=== PATIENT | female | born 1945 | race Caucasian/White ===

== ENCOUNTER → 2019-06-19 12:44 | Outpatient (CLI) | payer MEDICARE, SELFPAY ==
[2015-02-18 17:46] VITALS: BMI 36.4
[2019-06-19 15:24] LABS: Absolute Lymphocyte Count 2.51 X10^3/uL (0.83-4.51); Absolute Neutrophil Count 4.2 X10^3/uL (2.0-7.7); Basophil# 0.06 X10^3/uL; Basophil% 0.8 % (0-1); Eosinophil# 0.11 X10^3/uL; Eosinophils% 1.5 % (0-5); Lymphocyte # 2.51 X10^3/ul (4.0); Lymphocyte % 33.7 % (19-41); Mean Corp Hgb Conc 33.3 g/dL (32-36); Mean Corpuscular Hgb 31.7 pg (27.0-32.0); Mean Corpuscular Volume 95.2 fL (81-99); Monocyte# 0.56 X10^3/uL; Monocyte% 7.5 % (0-10); NRBC Flagged by Analyzer 0 % (0-5); Neutrophil # 4.19 X10^3/uL (2.7-7.7); Neutrophil % 56.4 % (47-70); Platelet Count 222 K/mm3 (150-450); RBC Distribution Width CV 13.6 % (11.6-14.6); RBC Distribution Width SD 47.8 fl (35.1-43.9); Red Blood Count 4.41 M/mm3 (4.2-5.4); White Blood Count 7.4 K/mm3 (4.4-11.0)
[2019-06-19 15:49] LABS: Hemoglobin A1c 6.2 % (4.2-6.3)
[2019-06-19 15:57] LABS: ALB/GLOB Ratio 0.9 RATIO (0.9-2.4); AST(SGOT) 52 U/L (15-37); Alanine Aminotransfer ALT/SGPT 55 U/L (13-56); Albumin, Serum 3.6 g/dL (3.2-5.0); Alkaline Phosphatase 73 U/L (45-117); Anion Gap 6 (5-15); BUN 19 mg/dL (7-18); BUN/Creat Ratio 29.2 RATIO (10-20); Calcium,Total 9.2 mg/dL (8.5-10.1); Chloride 105 mmol/L (98-107); Cholesterol 241 mg/dL (200); Creatinine, Serum 0.65 mg/dL (0.55-1.02); EST Glomerular Filtration Rate 94 mL/min (>60); Est Glom Filt Rate - Afr Amer 114 mL/min (>60); Ferritin 124 ng/mL (8-252); Globulin 3.8 g/dL (2.2-4.2); Glucose 101 mg/dL (74-106); High Density Lipoprotein 47 mg/dL; Magnesium 2.1 mg/dL (1.6-2.6); Potassium 3.7 mmol/L (3.5-5.1); Protein, Total 7.4 g/dL (6.4-8.2); Sodium Level 137 mmol/L (136-145); Thyroid Stim Hormone (TSH) 0.63 uIU/mL (0.358-3.74); Triglycerides 144 mg/dL; Very Low Density Lipoprotein 29 mg/dL (5-40)
[2019-06-19 16:03] LABS: Vitamin B12 1001 pg/mL (211-911)
[2019-06-21 20:07] LABS: Endomysial Antibody IgA Negative (Negative)
[2019-06-22 09:40] LABS: Immunoglobulin A 252 mg/dL (64-422); t-Transglutaminase IgA <2 U/mL (0-3)
== END ==
PROVIDERS: Family Provider Family Medicine; PCP Family Medicine; Referring Provider Family Medicine; Visit Provider Family Medicine
DX: I10 Essential (primary) hypertension (principal); M16.12 Unilateral primary osteoarthritis, left hip; R20.2 Paresthesia of skin; R19.7 Diarrhea, unspecified
CPT/HCPCS: 36415; 80053; 80061; 82306; 82607; 82728; 82746; 82784; 83036; 83516; 83735; 84443; 85025; 86255

== ENCOUNTER → 2019-07-06 12:08 | Outpatient (CLI) | payer MEDICARE, SELFPAY ==
[2015-02-18 17:46] VITALS: BMI 36.4
== END ==
PROVIDERS: PCP Family Medicine; Referring Provider Family Medicine; Visit Provider Family Medicine
DX: R10.13 Epigastric pain (principal)

== ENCOUNTER → 2019-07-23 12:09 | Outpatient (CLI) | payer MEDICARE, SELFPAY ==
[2015-02-18 17:46] VITALS: BMI 36.4
== END ==
PROVIDERS: PCP Family Medicine; Referring Provider Family Medicine; Visit Provider Family Medicine
DX: R19.7 Diarrhea, unspecified (principal)
CPT/HCPCS: 83630

== ENCOUNTER → 2019-08-08 16:34 | Outpatient (CLI) | payer MEDICARE, SELFPAY ==
[2015-02-18 17:46] VITALS: BMI 36.4
[2019-08-08 18:40] LABS: CRP 5.11 mg/L (0.0-3.0)
[2019-08-10 16:07] LABS: Endomysial Antibody IgA Negative (Negative)
[2019-08-10 23:48] LABS: Immunoglobulin A 272 mg/dL (64-422); t-Transglutaminase IgA <2 U/mL (0-3)
== END ==
PROVIDERS: PCP Family Medicine; Referring Provider Internal Medicine Gastroenterology; Visit Provider Internal Medicine Gastroenterology
DX: R19.7 Diarrhea, unspecified (principal)
CPT/HCPCS: 36415; 82784; 83516; 86140; 86255

== ENCOUNTER → 2019-09-20 11:59 | Outpatient (CLI) | payer MEDICARE, SELFPAY ==
--- NOTE | 2019-09-20 12:07 | CT_ITS ---
STUDY: CT ABDOMEN AND PELVIS WITHOUT CONTRAST REASON FOR EXAM: Female, 74 years old. DIARRHEA, LLQ MASS, CHOLECYSTECTOMY RADIATION DOSAGE (If Supplied By Facility): CTDIvol = ( 20.68 ) mGy, DLP = ( 1097.97 ) mGycm TECHNIQUE: Transaxial images were obtained from the dome of the diaphragm to the symphysis pubis without oral contrast, and without intravenous contrast. Sagittal and coronal images were reconstructed. Individualized dose optimization techniques were used for this CT. COMPARISON: None. FINDINGS: The visualized lung bases are unremarkable. The visualized portions of the heart are within normal limits. Normal liver. There are surgical clips in the gallbladder fossa consistent with a prior cholecystectomy. Normal spleen. Normal pancreas. Normal bilateral adrenal glands. Small bilateral kidney stones are noted the largest measures 2 mm. There is no evidence for hydronephrosis. There is a large hiatal hernia composed mostly of the fundus of the stomach. Normal small intestine. There are multiple colonic diverticula consistent with diverticulosis. The appendix is visualized and appears normal. There is diffuse atherosclerotic calcification of the abdominal aorta, without a demonstrated aneurysm. Normal inferior vena cava. Normal retroperitoneum. Normal urinary bladder. Normal abdominal wall. There are diffuse degenerative changes of the visualized lumbar spine. CT/Abdomen/Pelvis without Cont IMPRESSION: Sigmoid diverticulosis without evidence of diverticulitis. Small bilateral kidney stones are noted the largest measures 2 mm. There is no evidence for hydronephrosis. There is a large hiatal hernia composed mostly of the fundus of the stomach. Electronically Signed: Isabelle Orellana, at 14:50 EDT Tel , Service support ,
== END ==
PROVIDERS: PCP Family Medicine; Referring Provider Family Medicine; Visit Provider Family Medicine
DX: R19.7 Diarrhea, unspecified (principal)
CPT/HCPCS: 74176

== ENCOUNTER 2019-12-24 11:36 | Observation (INO) | payer MEDICARE, SELFPAY ==
[2019-12-24] VITALS (10 sets, daily range): BP systolic 124–161; BP diastolic 66–92; PULSE 60–92; RESP 15–18; TEMP 36.4–37.1; O2SAT 94–100; BMI 33.5; BMI 34.5
--- NOTE | 2019-12-24 12:03 | EKG12_ITS ---
Test Reason : SOB Blood Pressure : / mmHG Vent. Rate : 066 BPM Atrial Rate : 066 BPM P-R Int : 186 ms QRS Dur : 126 ms QT Int : 442 ms P-R-T Axes : 053 111 -03 degrees QTc Int : 463 ms Sinus rhythm with Premature supraventricular complexes Right bundle branch block Abnormal ECG Confirmed by LUCY POE, VLAD ([id number]), technical writer and editor AYAN MCCARTHY ([id number]) on 12/26/2019 9:08:10 AM Referred By: URIEL Confirmed By:VLAD AYALA MD
--- NOTE | 2019-12-24 12:27 | ED.VISSUMM ---
- ER Visit Summary Date of Service: 12/24/19 Chief Complaint: Weakness and lightheaded History of Present Illness: The patient is a [address] Avery De Jesus. She reports that yesterday morning when she got out of bed she was very lightheaded. This gait was much worse when she stood. She not pass out, but she felt as though she was going to. States that she felt very weak and tired throughout the day and just stayed in bed. Patient reports that again this morning when she got out of bed she was very lightheaded. Again she did not pass out. However she continually is to feel very fatigued. She reports that she has had similar symptoms previously, but never this severe. She denies any chest pain. She does report that she does have mild shortness of breath. Patient reports that she has upper abdominal pain Zeta 10 in severity. She is been nausea and vomited once. No blood in her emesis. She reports that she has a chronic diarrhea all the time. She reports that she had a black stool yesterday that was loose. Patient complains of generalized weakness. She denies any headache or paresthesias. She denies any vertigo or a aphasia. Physical Examination: Vitals: Stable. Afebrile. General: Well-nourished and well-developed. Head: Normocephalic atraumatic. Neck: Supple, no lymphadenopathy. No JVD. Nontender. Cardiovascular: Regular rate and rhythm. 2 out of 6 systolic murmur. Respiratory: No respiratory distress. Clear to auscultation bilaterally. Abdominal: Soft, nontender, nondistended, normal bowel sounds. No guarding, rebound, or peritoneal signs. Back: Nontender. Extremities: Nontender, no edema. Skin: Normal color, no rash. Neurologic: Alert and oriented ?3. Cranial nerves II through XII are intact. Normal strength and sensation. Psych: Normal affect. Test Results: EKG is sinus at 66 with PACs and right bundle efrem block. Is unchanged from February 2015. CBC shows a white count of 3.8 with platelets of 136 and segmented neutrophils of 73. Chem-7 shows a potassium of 3.3 and chloride of 109. Glucose is 155. LFTs show an ALT of 95, AST of 112. Lipase is 45. Troponin is negative. UA UA shows nitrite positive urine with 4+ bacteria. No whites or reds on micro. Clinical Impression(s) from Imaging Studies Chest X-Ray 12/24/19 12:31 IMPRESSION: Degenerative changes, as described above. No demonstrated acute cardiopulmonary process. Electronically Signed: Ricki Dumont MD at 12:49 EDT , Service support , Emergency Department Course and Treatment: Patient had an IV placed. She was given a liter normal saline. She is given Zofran IV. She is resting comfortably. Patient had negative orthostatic vital signs. Urine was sent for culture. She was given a dose of Rocephin IV. I do not think this patient's nitrite positive urine is the explanation for her profound weakness. She was discussed with Dr. Penaloza who does not feel that the hiatal hernia is the source of this either. Treatment Plan: Given the patient's age and symptoms I feel that she requires admission for further evaluation and treatment. Her weakness may be an anginal equivalent. Disposition: Admitted in stable condition. Impression: 1. Weakness, uncertain cause. 2. Nitrite positive urine. 3. Hiatal hernia. This note was generated with [employer] dictation software. It may contain incorrect words, spelling, and punctuation that were not noted in review of the chart prior to signing ED Disposition - Plan for ED Patient: Referrals: Avery De Jesus MD [Primary Care Provider] -
[2019-12-24 12:28] LABS: Absolute Lymphocyte Count 0.79 X10^3/uL (0.83-4.51); Absolute Neutrophil Count 2.8 X10^3/uL (2.0-7.7); Basophil# 0.01 X10^3/uL; Basophil% 0.3 % (0-1); Hematocrit 41.9 % (37-47); Hemoglobin 13.9 g/dL (12.0-15.0); Lymphocyte # 0.79 X10^3/ul (4.0); Lymphocyte % 20.8 % (19-41); Mean Corp Hgb Conc 33.2 g/dL (32-36); Mean Corpuscular Hgb 31.3 pg (27.0-32.0); Mean Corpuscular Volume 94.4 fL (81-99); Mean Platelet Vol. 8.3 fl (6.2-12.0); Monocyte% 5.3 % (0-10); NRBC Flagged by Analyzer 0 % (0-5); Neutrophil # 2.77 X10^3/uL (2.7-7.7); Neutrophil % 72.8 % (47-70); Platelet Count 136 K/mm3 (150-450); RBC Distribution Width CV 14.3 % (11.6-14.6); RBC Distribution Width SD 49.3 fl (35.1-43.9); Red Blood Count 4.44 M/mm3 (4.2-5.4); White Blood Count 3.8 K/mm3 (4.4-11.0)
--- NOTE | 2019-12-24 12:31 | RAD_ITS ---
STUDY: X-RAY CHEST REASON FOR EXAM: Female, 74 years old. DIZZINESS, FATIGUE TECHNIQUE: Single AP portable view of the chest. COMPARISON: None. FINDINGS: EKG leads overlie the chest There are interstitial changes of the lungs. There is no demonstrated pleural abnormality. Normal size heart. Normal mediastinum and huan. Normal visualized pulmonary arteries. Normal visualized aortic arch and descending thoracic aorta. There are diffuse degenerative changes of the visualized thoracic spine. There is degenerative osteoarthritis of the bilateral shoulders. There is a retrocardiac hiatal hernia RAD/Chest 1 View (Portable) IMPRESSION: Degenerative changes, as described above. No demonstrated acute cardiopulmonary process. Electronically Signed: Ricki Dumont MD at 12:49 EDT , Service support ,
[2019-12-24 12:49] LABS: ALB/GLOB Ratio 0.9 RATIO (0.9-2.4); AST(SGOT) 112 U/L (15-37); Alanine Aminotransfer ALT/SGPT 95 U/L (13-56); Albumin, Serum 3.5 g/dL (3.2-5.0); Alkaline Phosphatase 80 U/L (45-117); Anion Gap 5 (5-15); BUN 15 mg/dL (7-18); BUN/Creat Ratio 26.1 RATIO (10-20); Calcium,Total 8.5 mg/dL (8.5-10.1); Chloride 109 mmol/L (98-107); Creatinine, Serum 0.58 mg/dL (0.55-1.02); EST Glomerular Filtration Rate 108 mL/min (>60); Est Glom Filt Rate - Afr Amer 131 mL/min (>60); Estimated Creatinine Clearance 39.59 ml/min; Glucose 155 mg/dL (74-106); Lipase 45 U/L (73-393); Potassium 3.3 mmol/L (3.5-5.1); Protein, Total 7.5 g/dL (6.4-8.2); Sodium Level 140 mmol/L (136-145)
[2019-12-24 13:24] LABS: Mucous, Urine 0 SEEN /hpf (<or=2+)
[2019-12-24 13:32] LABS: Color, Urine Yellow (Yellow); Glucose, Dipstick Normal (Normal); Ketone-Dipstick 15 mg/dl (Negative); Leukocyte Esterase-Dipstick Negative /ul (Negative); Nitrite-Dipstick Positive (Negative); Occult Blood-Urine 150 /ul (Negative); Protein-Dipstick 30 mg/dl (Negative); Specific Gravity, Urine 1.015 (1.002-1.030); Urine Bilirubin Dipstick Negative (Negative); Urine Clarity Cloudy (Clear); Urine Urobilinogen Normal (Normal); Urine pH 6.5 (5.0 - 8.0)
[2019-12-24 13:40] LABS: Bacteria 4+ /hpf (None Seen); Red Blood Cells-Urine 0-5 SEEN /hpf (0-5); Squamous Epithelial Cells - UA 0-5 SEEN /hpf (5-10); White Blood Cells 0-5 SEEN /hpf (0-5)
[2019-12-24] MEDS: Ceftriaxone 1 GM/50 ML BAG IV (14:31)
--- NOTE | 2019-12-24 15:55 | PCM.HP.STD ---
<Catalina Lemus - Last Filed: 12/24/19 16:07> Problem List (1) Hypertension Status: Chronic (2) Depression Status: Chronic History of Present Illness Date of Admission: 12/24/19 Chief Complaint: Weakness, nausea with emesis. The patient is a 74 year old F who presents emergency room due to weakness and nausea with emesis. Patient reports she had a head cold last week which she felt resolved for the most part. However this week has significant weakness and nausea/vomiting. She denies fever, chills. Denies loss of taste and smell. Denies diarrhea. Patient states she chronically takes Imodium due to chronic diarrhea. She also reports increased belching. Patient states she has a large hiatal hernia which was supposed to be repaired by Dr. Penaloza however due to COVID this was delayed. She denies shortness of breath, chest pain. She denies urinary symptoms. Past Medical History Past Medical History (Chronic Problems): Chronic Problems Hypertension (Chronic) Depression (Chronic) Allergies Penicillins [PCN] Allergy (Verified 12/24/19 11:38) Hives Home Medications: Ambulatory Orders Medication Instructions Recorded Amlodipine [Norvasc] 5 mg PO DAILY 12/24/19 Ferrous Sulfate 325 mg PO BIDCM 12/24/19 Folic Acid 1 mg PO DAILY@0800 12/24/19 Lisinopril [Zestril] 10 mg PO DAILY 12/24/19 Sertraline HCl [Zoloft] 100 mg PO DAILY 12/24/19 Surgical History: - - Right total hip arthroplasty, cholecystectomy, tubal ligation, left shoulder arthroscopic. 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 Reports her mother lived into her 90s. Paternal History Items: Diabetes Review of Systems Constitutional: Reports: Weakness, Fatigue. Denies: Chills, Fever HEENT: Denies: Head Aches, Sinus Congestion, Sinus Drainage Cardiovascular: Denies: Chest Pain, Edema, Palpitations, Syncope Respiratory: Denies: Cough, Shortness of breath at rest, Sputum production Gastrointestinal: Reports: Nausea, Vomiting. Denies: Abdominal Pain, Diarrhea Genitourinary: Denies: Dysuria Musculoskeletal: Denies: Joint Pain, Joint Tenderness Skin: Denies: Rash, Wounds Neurological: Denies: Numbness, Tingling, Focal weakness Psychiatric: Reports: Depression Hematologic/ Lymphatic: Denies: Easy Bruising, Easy Bleeding VTE Information - Inpt Only VTE Present on Admission: No VTE Mechan Device Prophylaxis: None VTE Pharm Prophylaxis ordered?: Yes - Physical Exam Vitals/I&O's: Vital Signs Temp Pulse Resp BP Pulse Ox 98.1 F 68 15 145/76 H 97 12/24/19 15:29 12/24/19 15:29 12/24/19 15:29 12/24/19 15:29 12/24/19 15:29 Oxygen Delivery Method Room Air Weight: 189 lb Body Mass Index (BMI) 33.5 Finger Stick Blood Glucose 93 Intake and Output for Last 24 Hours 12/22/19 12/23/19 12/24/19 23:59 23:59 23:59 Intake Total 550 / 550 Balance 550 / 550 General: Alert, Oriented x3, Cooperative HEENT: Atraumatic, PERRLA, EOMI, Normocephalic Oral: Dry Mucosa Neck: Supple, No JVD, Negative Carotid Bruits Lungs: Clear to auscultation, Diminished Cardiovascular: Regular rate, No murmurs Abdomen: Bowel Sounds Present, Soft, Non Tender, Non-Distended, Hernia Extremities: No clubbing, No cyanosis, No edema, Capillary Refill Less than 3 Seconds Skin: No rashes, No breakdown Musculoskeletal: No Tenderness to Palpation of Joints or Extremities Neurological: Cranial nerves II-XII grossly intact, Neuro grossly intact Psych/Mental Status: Normal Affect, Appropriate Laboratory Results 12/24/19 12:10: WBC 3.8 L, RBC 4.44, Hgb 13.9, Hct 41.9, MCV 94.4, MCH 31.3, MCHC 33.2, RDW Std Deviation 49.3 H, RDW Coeff of Ruben 14.3, Plt Count 136 L, MPV 8.3, Immature Gran % (Auto) 0.800, Neut % (Auto) 72.8 H, Lymph % (Auto) 20.8, [place] % (Auto) 5.3, Eos % (Auto) 0.0, Baso % (Auto) 0.3, Absolute Neuts (auto) 2.8, Absolute Lymphs (auto) 0.79 L, Nucleated RBC % 0 12/24/19 12:10: Sodium 140, Potassium 3.3 L, Chloride 109 H, Carbon Dioxide 26.0, Anion Gap 5, BUN 15, Creatinine 0.58, Estim Creat Clear Calc 39.59, Est GFR (MDRD) Af Amer 131, Est GFR (MDRD) Non-Af 108, BUN/Creatinine Ratio 26.1 H, Glucose 155 H, Calcium 8.5, Total Bilirubin 0.40, AST 112 H, ALT 95 H, Alkaline Phosphatase 80, Troponin I < 0.015, Total Protein 7.5, Albumin 3.5, Globulin 4.0, Albumin/Globulin Ratio 0.9, Lipase 45 L 12/24/19 13:15: Urine Color Yellow, Urine Clarity Cloudy, Urine pH 6.5, Ur Specific [place] 1.015, Urine Protein 30 H, Urine Glucose (UA) Normal, Urine Ketones 15 H, Urine Occult Blood 150 H, Urine Nitrite Positive H, Urine Bilirubin Negative, Urine Urobilinogen Normal, Ur Leukocyte Esterase Negative, Urine RBC 0-5 SEEN, Urine WBC 0-5 SEEN, Ur Squamous Epith Cells 0-5 SEEN, Urine Bacteria 4+, Urine Mucus 0 SEEN Current Medications Acetaminophen (Tylenol) 650 mg PO Q6H PRN PRN PRN Reason: Pain Score 1-10/Temp > 100.7 F Amlodipine Besylate (Norvasc) 5 mg PO DAILY [facility] Enoxaparin Sodium (Lovenox) 40 mg SC DAILY [facility] Ferrous Sulfate (Ferrous Sulfate) 325 mg PO BIDCM [facility] Folic Acid (Folic Acid) 1 mg PO DAILY@0800 [facility] Sodium Chloride () 1,000 mls @ 100 mls/hr IV .Q10H [facility] Ceftriaxone Sodium (Rocephin) 1 gm in 50 mls @ 100 mls/hr IV Q24 [facility] Lisinopril (Zestril) 10 mg PO DAILY [facility] Melatonin (Melatonin) 3 mg PO QHS PRN PRN PRN Reason: INSOMNIA Ondansetron HCl (Zofran) 4 mg IV Q8H PRN PRN PRN Reason: NAUSEA/VOMITING Sertraline HCl (Zoloft) 100 mg PO DAILY [facility] Assessment/Plan 1. Weakness, nausea/vomiting-unclear etiology. Patient reports head cold last week. Will test for COVID. Liver profile elevated. Mild lymphopenia. Gentle IV fluids. Possibly related to UTI. PT/OT. 2. Acute UTI versus asymptomatic bacteriuria-initiate IV Rocephin pending urine culture. 3. Hypertension-stable, continue amlodipine, lisinopril. 4. Large hiatal hernia-to undergo surgery by Dr. Penaloza. 5. Depression-continue sertraline regimen. DVT prophylaxis-Lovenox subcu This patient was seen by ALMA Thacker under the supervision of Dr. Rangel. <Ryan Rangel F - Last Filed: 12/24/19 17:50> History of Present Illness The patient is a 74 year old F [] Past Medical History Allergies Penicillins [PCN] Allergy (Verified 12/24/19 11:38) Hives - Physical Exam Vitals/I&O's: Vital Signs Temp Pulse Resp BP Pulse Ox 98.5 F 71 17 149/78 H 94 12/24/19 16:35 12/24/19 16:38 12/24/19 16:35 12/24/19 16:35 12/24/19 16:35 Oxygen Delivery Method Room Air Weight: 188 lb 14.4 oz Body Mass Index (BMI) 34.5 Finger Stick Blood Glucose 93 Intake and Output for Last 24 Hours 12/22/19 12/23/19 12/24/19 23:59 23:59 23:59 Intake Total 950 / 950 Balance 950 / 950 Laboratory Results 12/24/19 12:10: WBC 3.8 L, RBC 4.44, Hgb 13.9, Hct 41.9, MCV 94.4, MCH 31.3, MCHC 33.2, RDW Std Deviation 49.3 H, RDW Coeff of Ruben 14.3, Plt Count 136 L, MPV 8.3, Immature Gran % (Auto) 0.800, Neut % (Auto) 72.8 H, Lymph % (Auto) 20.8, [place] % (Auto) 5.3, Eos % (Auto) 0.0, Baso % (Auto) 0.3, Absolute Neuts (auto) 2.8, Absolute Lymphs (auto) 0.79 L, Nucleated RBC % 0 12/24/19 12:10: Sodium 140, Potassium 3.3 L, Chloride 109 H, Carbon Dioxide 26.0, Anion Gap 5, BUN 15, Creatinine 0.58, Estim Creat Clear Calc 39.59, Est GFR (MDRD) Af Amer 131, Est GFR (MDRD) Non-Af 108, BUN/Creatinine Ratio 26.1 H, Glucose 155 H, Calcium 8.5, Total Bilirubin 0.40, AST 112 H, ALT 95 H, Alkaline Phosphatase 80, Troponin I < 0.015, Total Protein 7.5, Albumin 3.5, Globulin 4.0, Albumin/Globulin Ratio 0.9, Lipase 45 L 12/24/19 13:15: Urine Color Yellow, Urine Clarity Cloudy, Urine pH 6.5, Ur Specific [place] 1.015, Urine Protein 30 H, Urine Glucose (UA) Normal, Urine Ketones 15 H, Urine Occult Blood 150 H, Urine Nitrite Positive H, Urine Bilirubin Negative, Urine Urobilinogen Normal, Ur Leukocyte Esterase Negative, Urine RBC 0-5 SEEN, Urine WBC 0-5 SEEN, Ur Squamous Epith Cells 0-5 SEEN, Urine Bacteria 4+, Urine Mucus 0 SEEN 12/24/19 16:05: COVID-19 (CHRISTIANA) Pending 12/24/19 17:00: Troponin I < 0.015 Current Medications Acetaminophen (Tylenol) 650 mg PO Q6H PRN PRN PRN Reason: Pain Score 1-10/Temp > 100.7 F Amlodipine Besylate (Norvasc) 5 mg PO DAILY [facility] Enoxaparin Sodium (Lovenox) 40 mg SC DAILY [facility] Ferrous Sulfate (Ferrous Sulfate) 325 mg PO BIDCM [facility] Last Admin: 12/24/19 16:46 Dose: 325 mg Documented by: Folic Acid (Folic Acid) 1 mg PO DAILY@0800 [facility] Sodium Chloride () 1,000 mls @ 100 mls/hr IV .Q10H [facility] Last Admin: 12/24/19 16:41 Dose: 100 mls/hr Documented by: Ceftriaxone Sodium (Rocephin) 1 gm in 50 mls @ 100 mls/hr IV Q24 [facility] Sodium Chloride () 250 mls @ 15 mls/hr IV .[id number] PRN PRN Reason: Saline Flush Sodium Chloride () 250 mls @ 15 mls/hr IV .[id number] PRN PRN Reason: Additional IVPB Infusion Lisinopril (Zestril) 10 mg PO DAILY [facility] Melatonin (Melatonin) 3 mg PO QHS PRN PRN PRN Reason: INSOMNIA Ondansetron HCl (Zofran) 4 mg IV Q8H PRN PRN PRN Reason: NAUSEA/VOMITING Sertraline HCl (Zoloft) 100 mg PO DAILY [facility] Sodium Chloride () 10 - 40 ml IV UD PRN PRN Reason: SALINE FLUSH Addendum: Dr. Rangel I personally examined the patient and reviewed the chart. I agree with the above. 74-year-old female who presented to the emergency room secondary to weakness as well as nausea and vomiting. She had a head cold last week which she thought was resolved however she has had significant weakness this week present to the hospital initially with a concern that she could possibly have a hiatal hernia causing all this. In the ER she did have a UA with 4+ bacteria and positive nitrates. There is possibility that this could be secondary to a UTI. She is supposed to have her hiatal hernia repaired by Dr. Penaloza however this was delayed secondary COVID. Will obtain a COVID test given her recent viral-like illness, as well as her lymphopenia and her a elevated AST and ALT. We will also obtain serial troponins, in case this is an anginal equivalent. Her EKG on admission is unchanged from prior. OBSV E&M: [id number] Initial observation care L3
[2019-12-24] MEDS: 0.9% Normal Saline 1,000 ML 100 ML IV (16:41)
[2019-12-24] MEDS: Ferrous Sulfate 325 MG Tablet PO (16:46)
[2019-12-24] MEDS: Acetaminophen 325 MG Tablet 650 MG PO (20:17)
[2019-12-24] MEDS: MELATONIN 3 MG TABLET PO (22:54)
[2019-12-25] MEDS: 0.9% Normal Saline 1,000 ML 100 ML IV (01:47)
[2019-12-25 01:52] VITALS: BP 103/52; PULSE 63; RESP 16; TEMP 37.4; O2SAT 95
[2019-12-25 03:59] VITALS: PULSE 63
[2019-12-25 05:40] LABS: Absolute Lymphocyte Count 1.13 X10^3/uL (0.83-4.51); Absolute Neutrophil Count 2.1 X10^3/uL (2.0-7.7); Basophil# 0.01 X10^3/uL; Basophil% 0.3 % (0-1); Eosinophil# 0.01 X10^3/uL; Eosinophils% 0.3 % (0-5); Hematocrit 36.1 % (37-47); Hemoglobin 11.8 g/dL (12.0-15.0); Lymphocyte # 1.13 X10^3/ul (4.0); Lymphocyte % 31.4 % (19-41); Mean Corp Hgb Conc 32.7 g/dL (32-36); Mean Corpuscular Hgb 31.4 pg (27.0-32.0); Mean Platelet Vol. 8.6 fl (6.2-12.0); Monocyte# 0.31 X10^3/uL; Monocyte% 8.6 % (0-10); NRBC Flagged by Analyzer 0 % (0-5); Neutrophil # 2.13 X10^3/uL (2.7-7.7); Neutrophil % 59.1 % (47-70); Platelet Count 121 K/mm3 (150-450); RBC Distribution Width CV 14.7 % (11.6-14.6); RBC Distribution Width SD 51.1 fl (35.1-43.9); Red Blood Count 3.76 M/mm3 (4.2-5.4); White Blood Count 3.6 K/mm3 (4.4-11.0)
[2019-12-25 05:53] LABS: ALB/GLOB Ratio 0.8 RATIO (0.9-2.4); AST(SGOT) 87 U/L (15-37); Alanine Aminotransfer ALT/SGPT 79 U/L (13-56); Albumin, Serum 2.8 g/dL (3.2-5.0); Alkaline Phosphatase 67 U/L (45-117); Anion Gap 5 (5-15); BUN 14 mg/dL (7-18); BUN/Creat Ratio 28.3 RATIO (10-20); Calcium,Total 7.7 mg/dL (8.5-10.1); Chloride 111 mmol/L (98-107); EST Glomerular Filtration Rate 129 mL/min (>60); Est Glom Filt Rate - Afr Amer 156 mL/min (>60); Estimated Creatinine Clearance 37.85 ml/min; Globulin 3.3 g/dL (2.2-4.2); Glucose 107 mg/dL (74-106); Potassium 3.4 mmol/L (3.5-5.1); Protein, Total 6.1 g/dL (6.4-8.2); Sodium Level 141 mmol/L (136-145)
[2019-12-25 09:30] VITALS: BP 133/98; PULSE 72; RESP 17; TEMP 37.4; O2SAT 94
[2019-12-25] MEDS: Folic Acid 1 MG Tablet PO (09:31)
[2019-12-25] MEDS: Ferrous Sulfate 325 MG Tablet PO (09:31)
[2019-12-25] MEDS: Enoxaparin 40 MG/0.4 ML Syringe SC (09:31)
[2019-12-25] MEDS: Lisinopril 10 MG Tablet PO (09:32)
[2019-12-25] MEDS: Sertraline 100 MG Tablet PO (09:32)
[2019-12-25] MEDS: amLODIPine 5 MG Tablet PO (09:32)
[2019-12-25] MEDS: Loperamide 2 MG Capsule PO (09:32)
[2019-12-25] MEDS: Acetaminophen 325 MG Tablet 650 MG PO (09:32)
--- NOTE | 2019-12-25 09:59 | CASEMGMT ---
RN CM Assessment Note Presentation: nausea, weakness, emesis, head cold last week Diagnosis: COVID-19 positive Introduced role of CM to patient via phone to room. Patient is able to participate in assessment. Pt states she was in May and is living alone. Her family is building a in law suite in their home, however this is not completed and pt will return home. Her daughter will be coming to stay with her on discharge. Patient states her family was at her house on Tuesday and therefore, would have had exposure. RN CM recommended they call their PCP and notify that patient is postive and get recommendations. -Discussed isolation @ home including being in own room and bathroom if possible. Recommended only daughter be in home to limit exposure to other family members. -Pt has masks and is aware she and daughter will need to wear on discharge. -Family is available to bring groceries and medications PCP: Avery De Jesus Specialists: none Insurance: [employer] Medicare Preferred Pharmacy: [place], [place] Prescription Benefit: yes LNOK: Daughter Cynthia Larsen Living Arrangements: Lives in one story home independently. Denies care needs and does not use DME Tranportation: family can drive DME: walker, does not use Patient DC Goals: Home DC Plan: Home. Patient is not requiring oxygen currently. CM available for discharge planning coordination. Contact CM for any concerns/needs that may arise. Kd COLON RN ACM
--- NOTE | 2019-12-25 10:15 | CASEMGMT ---
Intro role of CM to patient and [facility] form explained re: Observation status for treatment of COVID-19 via phone. Explained hospitalization will be paid per? insurance policy for Outpatient billing?and condition will continue to be evaluated for Inpt necessity. Also let pt know that [facility] sends paper in the billing packet with their phone number if questions arise. Discussed Pharmacy section of [facility] form and self administered medication guideline.? Pt verbalizes understanding and does not have further questions. Form signed and placed in chart, nurse to give copy to pt. ANA COLLINS BSN CM
--- NOTE | 2019-12-25 10:31 | DCINST_ITS ---
- Discharge Diagnoses Current Active Problems: Current Active and Chronic Problems Hypertension (Chronic) Depression (Chronic) You will use the following diet at home:: No restrictions Your food should be the consistency of: Regular Discharge Activity: Return to Normal Activity Call your doctor if you observe: Fever of 101 or Higher, Shortness of breath Additional Instructions: Isolate from family and friends from the next week. Wear masks while around family at home for the next 7 days. They should wear a mask around you as well. Allergies/Adverse Reactions: Allergies Penicillins [PCN] Allergy (Verified 12/24/19 11:38) Hives Medications to take at Discharge Amlodipine [Norvasc] 5 mg PO DAILY 12/24/19 Ferrous Sulfate 325 mg PO BIDCM 12/24/19 Folic Acid 1 mg PO DAILY@0800 12/24/19 Lisinopril [Zestril] 10 mg PO DAILY 12/24/19 Sertraline HCl [Zoloft] 100 mg PO DAILY 12/24/19 Loperamide [Imodium] 2 mg PO Q6H PRN PRN capsule 12/25/19 Primary Care Physician: Avery De Jesus MD [Primary Care Provider] - Within 2 Weeks Test Results: Test results from this visit will be discussed in further detail at your follow- up appointment, if applicable. Proposed Discharge Date: 12/25/19
--- NOTE | 2019-12-25 10:34 | PCM.DC.SUM ---
Discharge Date and Diagnosis - Problem List Patient Problems: Active and Suspected Problems COVID-19 (Acute) Date of Admission: 12/24/19 Date of Discharge: 12/25/19 - Primary Discharge Diagnosis Acute Problems: Active Problems COVID-19 (Acute) - Secondary Discharge Diagnosis Chronic Problems: Chronic Problems Hypertension (Chronic) Depression (Chronic) Hospital Course and Treatment Imaging Results: Clinical Impression(s) from Imaging Studies Chest X-Ray 12/24/19 12:31 IMPRESSION: Degenerative changes, as described above. No demonstrated acute cardiopulmonary process. Electronically Signed: Ricki Dumont MD at 12:49 EDT , Service support , Operations: None Procedures: None Summary of Care Provided: The patient is a 74 year old F presents with weakness, nausea and vomiting. Patient had felt sick for a week before. Was checked for COVID-19 and was positive. There was some concern for a urinary tract infection, however the urinalysis was unremarkable except for 4+ bacteria. Therefore, urinary tract infection was ruled out. Today, the patient is feeling much better. Is not short of breath. No further nausea and vomiting. [] Patient Problems: Active and Suspected Problems COVID-19 (Acute) - Physical Exam Vitals/I&O's: Vital Signs Temp Pulse Resp BP Pulse Ox 37.4 C H 72 17 133/98 H 94 12/25/19 09:30 12/25/19 09:30 12/25/19 09:30 12/25/19 09:30 12/25/19 09:30 Oxygen Delivery Method Room Air Weight: 85.684 kg Body Mass Index (BMI) 34.5 Finger Stick Blood Glucose 93 Intake and Output for Last 24 Hours 12/23/19 12/24/19 12/25/19 23:59 23:59 23:59 Intake Total 1723.33 / 1723.33 678.34 / 678.34 Balance 1723.33 / 1723.33 678.34 / 678.34 General: Alert, No apparent distress HEENT: Atraumatic, Normocephalic Oral: Moist Mucosa, No Gingival or Mucosal Lesions/ Ulcerations Neck: No Nodes, Thyroid Normal Size and Texture Lungs: Clear to auscultation, Normal air movement, No rhonchi, No wheeze Cardiovascular: Regular rate, Regular Rhythm, Normal S1, Normal S2 Abdomen: Bowel Sounds Present, Soft, Non Tender, Non-Distended, No Hepato-splenomegaly Extremities: No edema, No Calf Tenderness Laboratory Results 12/24/19 12:10: WBC 3.8 L, RBC 4.44, Hgb 13.9, Hct 41.9, MCV 94.4, MCH 31.3, MCHC 33.2, RDW Std Deviation 49.3 H, RDW Coeff of Ruben 14.3, Plt Count 136 L, MPV 8.3, Immature Gran % (Auto) 0.800, Neut % (Auto) 72.8 H, Lymph % (Auto) 20.8, Humphreys % (Auto) 5.3, Eos % (Auto) 0.0, Baso % (Auto) 0.3, Absolute Neuts (auto) 2.8, Absolute Lymphs (auto) 0.79 L, Nucleated RBC % 0 12/24/19 12:10: Sodium 140, Potassium 3.3 L, Chloride 109 H, Carbon Dioxide 26.0, Anion Gap 5, BUN 15, Creatinine 0.58, Estim Creat Clear Calc 39.59, Est GFR (MDRD) Af Amer 131, Est GFR (MDRD) Non-Af 108, BUN/Creatinine Ratio 26.1 H, Glucose 155 H, Calcium 8.5, Total Bilirubin 0.40, AST 112 H, ALT 95 H, Alkaline Phosphatase 80, Troponin I < 0.015, Total Protein 7.5, Albumin 3.5, Globulin 4.0, Albumin/Globulin Ratio 0.9, Lipase 45 L 12/24/19 13:15: Urine Color Yellow, Urine Clarity Cloudy, Urine pH 6.5, Ur Specific [place] 1.015, Urine Protein 30 H, Urine Glucose (UA) Normal, Urine Ketones 15 H, Urine Occult Blood 150 H, Urine Nitrite Positive H, Urine Bilirubin Negative, Urine Urobilinogen Normal, Ur Leukocyte Esterase Negative, Urine RBC 0-5 SEEN, Urine WBC 0-5 SEEN, Ur Squamous Epith Cells 0-5 SEEN, Urine Bacteria 4+, Urine Mucus 0 SEEN 12/24/19 16:05: COVID-19 (CHRISTIANA) Detected 12/24/19 17:00: Troponin I < 0.015 12/24/19 22:50: Troponin I < 0.015 12/25/19 05:15: WBC 3.6 L, RBC 3.76 L, Hgb 11.8 L, Hct 36.1 L, MCV 96.0, MCH 31.4, MCHC 32.7, RDW Std Deviation 51.1 H, RDW Coeff of Ruben 14.7 H, Plt Count 121 L, MPV 8.6, Immature Gran % (Auto) 0.300, Neut % (Auto) 59.1, Lymph % (Auto) 31.4, Humphreys % (Auto) 8.6, Eos % (Auto) 0.3, Baso % (Auto) 0.3, Absolute Neuts (auto) 2.1, Absolute Lymphs (auto) 1.13, Nucleated RBC % 0 12/25/19 05:15: Sodium 141, Potassium 3.4 L, Chloride 111 H, Carbon Dioxide 25.0, Anion Gap 5, BUN 14, Creatinine 0.50 L, Estim Creat Clear Calc 37.85, Est GFR (MDRD) Af Amer 156, Est GFR (MDRD) Non-Af 129, BUN/Creatinine Ratio 28.3 H, Glucose 107 H, Calcium 7.7 L, Total Bilirubin 0.40, AST 87 H, ALT 79 H, Alkaline Phosphatase 67, Total Protein 6.1 L, Albumin 2.8 L, Globulin 3.3, Albumin/Globulin Ratio 0.8 L Current Medications Acetaminophen (Tylenol) 650 mg PO Q6H PRN PRN PRN Reason: Pain Score 1-10/Temp > 100.7 F Last Admin: 12/25/19 09:32 Dose: 650 mg Documented by: Amlodipine Besylate (Norvasc) 5 mg PO DAILY COUNT INCLUDES THE [facility] Last Admin: 12/25/19 09:32 Dose: 5 mg Documented by: Enoxaparin Sodium (Lovenox) 40 mg SC DAILY COUNT INCLUDES THE [facility] Last Admin: 12/25/19 09:31 Dose: 40 mg Documented by: [facility] S[facility]ate) [facility] Last Admin: 12/25/19 09:31 Dose: 325 mg Documented by: Folic Acid (Folic Acid) 1 mg PO DAILY@0800 COUNT INCLUDES THE [facility] Last Admin: 12/25/19 09:31 Dose: 1 mg Documented by: Sodium Chloride () 1,000 mls @ 100 mls/hr IV .Q10H COUNT INCLUDES THE [facility] Last Infusion: 12/25/19 06:00 Dose: 100 mls/hr Documented by: Sodium Chloride () 250 mls @ 15 mls/hr IV .[id number] PRN PRN Reason: Saline Flush Sodium Chloride () 250 mls @ 15 mls/hr IV .[id number] PRN PRN Reason: Additional IVPB Infusion Lisinopril (Zestril) 10 mg PO DAILY COUNT INCLUDES THE [facility] Last Admin: 12/25/19 09:32 Dose: 10 mg Documented by: Loperamide HCl (Imodium) 2 mg PO Q6H PRN PRN PRN Reason: Diarrhea Last Admin: 12/25/19 09:32 Dose: 2 mg Documented by: Melatonin (Melatonin) 3 mg PO QHS PRN PRN PRN Reason: INSOMNIA Last Admin: 12/24/19 22:54 Dose: 3 mg Documented by: Ondansetron HCl (Zofran) 4 mg IV Q8H PRN PRN PRN Reason: NAUSEA/VOMITING Sertraline HCl (Zoloft) 100 mg PO DAILY COUNT INCLUDES THE [facility] Last Admin: 12/25/19 09:32 Dose: 100 mg Documented by: Sodium Chloride () 10 - 40 ml IV UD PRN PRN Reason: SALINE FLUSH Discharge Diet: No Restrictions Discharge Activity: Return to Normal Activity Call your doctor if you observe: Fever of 101 or Higher, Shortness of breath Home Medications: Medications to take at Discharge Amlodipine [Norvasc] 5 mg PO DAILY 12/24/19 Ferrous Sulfate 325 mg PO BIDCM 12/24/19 Folic Acid 1 mg PO DAILY@0800 12/24/19 Lisinopril [Zestril] 10 mg PO DAILY 12/24/19 Sertraline HCl [Zoloft] 100 mg PO DAILY 12/24/19 Loperamide [Imodium] 2 mg PO Q6H PRN PRN capsule 12/25/19 Primary Care Physician: Avery De Jesus MD [Primary Care Provider] - Within 2 Weeks Disposition: Home Minutes spent on discharge:: 32 Patient Condition:: Fair Medical Necessity - Tobacco Use Smoking Status: Never smoker Meaningful Use Info Meaningful Use Diagnoses (Choose all that apply): None applicable OBSV E&M: 42906 Observation care discharge
== END 2019-12-25 11:43 | disposition home or self-care (01) ==
LOC: ED 12:26 → PCU 15:11 → ICU 12-25 07:05
PROVIDERS: Nurse Practitioner Family; Admitting Provider Family Medicine; Emergency Provider Emergency Medicine; PCP Family Medicine
DX: U07.1 COVID-19 (principal); K44.9 Diaphragmatic hernia without obstruction or gangrene; F32.9 Major depressive disorder, single episode, unspecified; I10 Essential (primary) hypertension; Z79.899 Other long term (current) drug therapy; K52.9 Noninfective gastroenteritis and colitis, unspecified
CPT/HCPCS: 36415; 71045; 80053; 81001; 83690; 84484; 85025; 87077; 87086; 87088; 87186; 87635; 93005; 96361; 96365; 96372; 99218; 99285; G2023; J7030; J7040; J7050; A4216; G0378; U0003

== ENCOUNTER → 2020-06-09 16:41 | Outpatient (CLI) | payer MEDICARE, SELFPAY ==
[2020-02-14 13:40] VITALS: BMI 34.5
--- NOTE | 2020-06-09 16:46 | CT_ITS ---
STUDY: CT SCAN LOWER EXTREMITY RIGHT REASON FOR EXAM: Female, 75 years old. RT KNEE CISCO PROTOCOL RADIATION DOSAGE (If Supplied By Facility): CTDIvol = ( 18.52 ) mGy, DLP = ( 1248.52 ) mGycm. Individualized dose optimization techniques were used for this CT.? TECHNIQUE: Multiple axial tomographic images of the hip joint, knee joint and ankle joint were obtained. Coronal and sagittal reconstruction was obtained as well. COMPARISON: None. FINDINGS: There is evidence of a right total hip replacement. There is good alignment. No acute abnormality is seen. Degenerative spur is seen along the lateral femoral condyle. Moderate degree of bone or joint space narrowing involving the patellofemoral joint with degenerative spur formation along the inferior patella. No significant joint effusion is seen. There is evidence of a small cystic changes in the posterior right femoral condyle. Vascular calcification. Imaging of the ankle joint was obtained. No significant abnormality is seen. CT/Extremity Lower without Contra IMPRESSION: Moderate degree of joint space narrowing involving the patellofemoral joint with degenerative spur formation along the inferior patella and the lateral aspect of the distal lateral femoral condyle. Multiple small cystic changes are seen in the right femoral condyle. Electronically Signed: Tomi Lynn, at 9:08 EST , Service support ,
== END ==
PROVIDERS: PCP Family Medicine; Referring Provider Specialist; Visit Provider Specialist
DX: M21.061 Valgus deformity, not elsewhere classified, right knee (principal)
CPT/HCPCS: 73700

== ENCOUNTER 2020-06-25 12:22 | Observation (INO) | payer MEDICARE, SELFPAY ==
[2020-02-14 13:40] VITALS: BMI 34.5
--- NOTE | 2020-06-13 15:36 | PCM.HP.BLA ---
History and Physical History and Physical Patient Name: Verna Gómez : 1945 From: [facility] NP DATE OF SURGERY: 06/25/2020 SCHEDULED PROCEDURE: Right total knee arthroplasty HISTORY OF PRESENT ILLNESS: Preoperative history and physical exam was performed on June 11, 2020. This is a 75-year-old female whose been having ongoing right knee pain after a fall in early January 2020. The patient stepped down, lost her balance and fell onto her right side. The pain in the right knee is located anterior, medial and lateral. She describes her pain as constant and sharp. The pain is made worse with stairs, sitting and walking. The pain is alleviated with rest. The patient reports inability to perform activities of daily living such as housework and shopping. The patient has fallen secondary to the right knee pain. Previous conservative measures attempted consist of rest and elevation with mild relief. She has attempted ice, heat and a cortisone injection with no relief. The patient participated in formal physical therapy which made the right knee pain worse. The patient ambulates with the use of a walker. The patient has a medical history pertinent for hypertension, depression, anxiety, hiatal hernia and is pre-diabetic. The patient is planning to have her hiatal hernia repaired in the surgery would like her to be able to ambulate and walk better prior to undergoing surgery. She denies chest pain, fevers, chills, shortness of breath, difficulty breathing or recent infections. Surgical clearance has been obtained from the [facility]. We will be obtaining surgical clearance from her primary care provider Avery De Jeuss. After failing conservative measures and discussing treatment options with Dr. Britton Jiménez the patient does wish to proceed with a right total knee arthroplasty. REVIEW OF SYSTEMS: ROS: Const: Denies anorexia, anxiety, change in appetite, fever and weight change,hard of hearing, and vision problems. CV: Denies chest pain, heart murmur, irregular heartbeat and peripheral vascular disease. Resp: Denies asthma, cough, pneumonia, sleep apnea, SOB, tuberculosis and wheezing. GI: Denies constipation, diarrhea, heartburn, nausea, bloody stools and vomiting, and difficulty swallowing. : Denies female genital problems. Urinary: reports incontinence. Musculo: Reports leg swelling, but denies trouble walking and weakness and limp. Skin: Denies Raynaud's, history of shingles and tattoo. Neuro: Reports numbness/tingling but denies ambulatory dysfunction, dizziness and tremor. Psych: Denies anxiety, depression, insomnia, mental illness and stress. Leo/Lymph: Denies anemia, bleeding/bruising tendency and past transfusion. Reviewed, no changes. PAST MEDICAL HISTORY: Advance Care Plan: No Advance Directives Effective Date: 03/12/2020 PMH: Medical Problems: High Blood Pressure, [place] Diabetic, Depression, Anxiety Accidents: Fracture - LT SHOULDER Surgical Hx: Gallbladder - 1974 Edward Tubal Ligation LT Shoulder Arthroscopy - (2005) LA RT THR - (02/18/2015) J[facility]ablito @ [facility] Laminectomy L3-L4 Partial L5 - (04/13/2016) W/ FORAMINOTOMIES L3, L4, L5 [email or web address] Anesthesia Complications: None Assistive Devices: Glasses, Dentures Reviewed and updated. 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 Personal Habits: Cigarette Use: Never.Alcohol: Denies use.Drug Use: Denies Use.Enjoy Exercising: Exercises 1-3 x/month. Reviewed, no changes. VITALS: Ht: 61.5 Wt: 189lb Wt k.730 BMI: 35.1 BP: 119/70 Pulse: 80 Resp: 16 T: 96.3 T: 35.7C Pain Level: 7 ALLERGIES: PCN MEDICATIONS: Lisinopril 2.5 mg 1po qday, Sertraline HCL 100 mg 1po qday, Amlodipine Besylate 5 mg take 1 tablet by mouth every day, Tylenol Extra Strength 500 mg 2 by mouth every 8 hours PRE-OP EXAM: General appearance:NORMAL Other: Eyes: Conjunctivae and lids: NORMAL Pupils: ERR Ears, Nose, Mouth, and Throat: NORMAL Other: Inspection of lips, teeth and gums: NORMAL Other: Respiratory: Assessment of respiratory effort: NORMAL Other: Auscultation of lungs: clear to auscultation no wheezes, rhonchi or rales. Cardiovascular: Auscultation of heart: regular rate and rhythm, no murmurs, gallops or rubs. Gastrointestinal: Exam of abdomen: soft, nontender, nondistended bowel sounds present. Neurological: see below Psychiatric: Orientation to time, place and person: NORMAL Other: Mood and affect: NORMAL Other: PHYSICAL EXAMINATION: IMAGING STUDIES: 4 views of right knee obtained on March 12, 2020 reveals moderate narrowing of the lateral compartment with subchondral sclerosis and osteophyte formation. There is narrowing and osteophyte formation in the patellofemoral compartment. Right knee with valgus deformity. MRI of right knee obtained on April 18, 2020 reveals a subchondral insufficiency fracture of the lateral femoral condyle and lateral tibial plateau without depression. There is bony edema. Lateral meniscus tear with extrusion. Degenerative arthrosis in the patellofemoral and lateral compartments. IMPRESSION: 1. Osteoarthritis, right knee 2. Nondisplaced fracture of the lateral condyle of the right tibia 3. Nondisplaced fracture of the lateral condyle of the right femur 4. Lateral meniscus tear, right knee 5. Valgus deformity, right knee 6. Hypertension 7. Anxiety/depression 8. Hiatal hernia 9. Prediabetic PLAN: Dr. Britton Jiménez did discuss and review with the patient all treatment options including surgical versus nonsurgical. The patient does wish to proceed with the above-stated procedure. Potential risk, benefits and complications of the procedure were discussed in detail including but not limited to , infection, nerve and blood vessel damage, persistent pain, numbness, tingling, paresthesia, blood clot, pulmonary embolism and requirement for possible further surgery. The patient expressed full understanding and has no further questions for the doctor. The patient does agree to proceed with the above-stated procedure and has signed the surgery consent form. The patient was instructed to bring a walker with her to the hospital today for surgery. Discussed with the patient the risks associated with the COVID-19 virus including the risk of exposure while at the hospital. The patient was reassured local hospitals have low infection rates and taken all necessary precautions to limit patient exposure to COVID-19. Limiting the patient's time in the hospital may decrease their exposure to COVID-19. The patient was notified that we will need to comply with any screening or testing the hospital wishes to perform and that surgery may be delayed for any positive test results. This dictation was created using voice recognition software. Phonetic and/or grammatical errors may exist. ___ I have re-examined the patient. There are no clinical changes since date of exam. ___ See progress notes for changes. ___ Dictated on admission Date: Time: Signature:
--- NOTE | 2020-06-18 11:00 | EKG12_ITS ---
Test Reason : PREOP Blood Pressure : / mmHG Vent. Rate : 055 BPM Atrial Rate : 055 BPM P-R Int : 196 ms QRS Dur : 128 ms QT Int : 444 ms P-R-T Axes : 071 124 030 degrees QTc Int : 424 ms Sinus bradycardia with Premature atrial complexes Right bundle branch block Abnormal ECG Confirmed by LUCY POE, VLAD ([id number]), editorial writer PRATEEK AWAD ([id number]) on 06/19/2020 11:23:17 AM Referred By: Britton Jiménez Confirmed By:VLAD AYALA MD
[2020-06-18 12:45] LABS: Absolute Lymphocyte Count 1.73 X10^3/uL (0.83-4.51); Absolute Neutrophil Count 5.5 X10^3/uL (2.0-7.7); Basophil# 0.06 X10^3/uL; Basophil% 0.8 % (0-1); Eosinophils% 1.3 % (0-5); Hematocrit 42.6 % (37-47); Hemoglobin 14.1 g/dL (12.0-15.0); Lymphocyte # 1.73 X10^3/ul (4.0); Lymphocyte % 21.8 % (19-41); Mean Corp Hgb Conc 33.1 g/dL (32-36); Mean Corpuscular Hgb 31.3 pg (27.0-32.0); Mean Corpuscular Volume 94.5 fL (81-99); Mean Platelet Vol. 8.6 fl (6.2-12.0); Monocyte# 0.54 X10^3/uL; Monocyte% 6.8 % (0-10); NRBC Flagged by Analyzer 0 % (0-5); Neutrophil # 5.49 X10^3/uL (2.7-7.7); Neutrophil % 68.9 % (47-70); Platelet Count 263 K/mm3 (150-450); RBC Distribution Width CV 14.3 % (11.6-14.6); RBC Distribution Width SD 49.5 fl (35.1-43.9); Red Blood Count 4.51 M/mm3 (4.2-5.4)
[2020-06-18 13:07] LABS: Anion Gap 6 (5-15); BUN 23 mg/dL (7-18); BUN/Creat Ratio 36.6 RATIO (10-20); Calcium,Total 9.4 mg/dL (8.5-10.1); Chloride 106 mmol/L (98-107); Creatinine, Serum 0.63 mg/dL (0.55-1.02); EST Glomerular Filtration Rate 98 mL/min (>60); Est Glom Filt Rate - Afr Amer 118 mL/min (>60); Glucose 130 mg/dL (74-106); Magnesium 2.1 mg/dL (1.6-2.6); Potassium 3.5 mmol/L (3.5-5.1); Sodium Level 138 mmol/L (136-145)
[2020-06-18 13:15] LABS: Hemoglobin A1c 5.9 % (3.8-5.6)
[2020-06-25] VITALS (22 sets, daily range): BP systolic 89–157; BP diastolic 45–81; PULSE 63–101; RESP 16–20; TEMP 36.6–37.3; O2SAT 94–99; BMI 33.2; BMI 33.3
[2020-06-25] MEDS: Lactated Ringers 1,000 ML 100 ML IV ×2 (10:44→10:59)
[2020-06-25] MEDS: Scopolamine 1mg/72hr Patch 1 PATCH TD (10:46)
[2020-06-25] MEDS: Gabapentin 600 MG Tablet PO (10:46)
[2020-06-25] MEDS: Acetaminophen 500 MG Tablet 1000 MG PO ×3 (10:50→22:33)
[2020-06-25 10:51] LABS: Bedside Glucose 125 mg/dL (70-110)
[2020-06-25] MEDS: Cefazolin 2 GM in 0.9% Normal Saline 100 ML IV (12:01)
[2020-06-25] MEDS: dexAMETHasone 10 MG/ML Vial IV (12:35)
--- NOTE | 2020-06-25 13:17 | OP.PCM_ITS ---
Report of Operation Date of Procedure: 06/25/20 Pre-Operative Diagnosis: Right knee primary osteoarthritis Post-Operative Diagnosis: Right knee primary osteoarthritis Surgery/Procedure Performed:: Right robotic assisted minimally invasive total knee replacement Description of Surgical Findings:: Stable knee with good patella tracking, correction of valgus alignment. operational risk consultant: Roosevelt Durán Type of Anesthesia:: Spinal Anesthesiologist: Hu Almonte Special Medications: 2 g Ancef, 1 g TXA at incision, 1 g TXA closure, 10 mg Decadron, joint cocktail (5 mg Duramorph, 30 mL of 0.5% Ropivicaine, 1000 units of epinephrine, 30 mg of Toradol) Specimen's removed: Bony cuts Estimated Blood Loss (mL): 100 mL Fluids Replaced: 1000 mL crystalloid Description of Procedure: Implants used: 1. [place] size 4 triathlon cruciate retaining distal femoral press-fit component 2. [place] size 4 press-fit tritanium tibial baseplate 3. [place] X3 10 mm CS polyethylene 4. [place] X3 29 mm asymmetric patella Brief history operative indications: 75-year-old F with history of right knee osteoarthritis with radiographic findings with loss of joint space, osteophyte formation and subchondral sclerosis. Failed conservative measures as mentioned in the H&P. Discussion of total knee arthroplasty as well as risk and benefits were discussed the patient including but not limited to blood loss, DVTs, PEs, neurovascular damage, general risk of anesthesia including loss of life, and stiffness or instability were discussed with patient. Patient demonstrated understanding and was able to sign informed consent. Procedure: On the date of procedure patient's right lower extremity was marked in the preoperative area. The patient was then taken back to the operating room where the patient was placed on the table in the supine position. All bony prominences were identified a well-padded. Anesthesia assumed control of the C-spine and airway and remained controlled throughout the remainder of the procedure. A tourniquet was placed on the right upper thigh and the leg was prepped in a sterile fashion. The surgeon then scrubbed at this time .Upon reentering the room right lower extremity was draped in a standard orthopedic fashion. A time out was then called and everyone agreed upon the side, the site, the procedure to be performed, patient's identity and antibiotics given. Esmarch bandage was used to exsanguinate the extremity and the tourniquet was placed up to 250 mmHg with the knee in flexion. A midline skin incision was made and sharp dissection was taken down through skin subcutaneous tissue and fat. The standard medial parapatellar incision was made and the patella was subluxed laterally. An Appropriate deep MCL release was done and the fat pad was resected. Our attention was then directed to the patella. The patella was everted and a flat resection was made. The knee was then flexed up in 2 femoral pins were placed inside the incision and 2 tibial pins were placed outside the incision in the medial tibia bicortica lly. Once this was completed the 2 checkpoints in the femur and tibia were placed. Knee was then flexed up and the bony landmarks were registered. Once this was completed knee was taken through range of motion and manually stressed allowing us to a plan for an appropriate tibial cut. The robotic arm was brought into the field sterilely and checkpoint and saw were registered. Based on the patient's deformity the tibial cut was made in neutral. At this time the tensioner was then placed in the joint and ligament tension was checked at 90 degrees and full extension. Based on the patient's ligamentous tension appropriate adjustments were made to the operative plan and ligament releases were done. Once we were happy with our operative plan with balanced flexion and extension gaps our attention was directed to the femur. The robot was brought into the field sterilely and registered. Posterior condylar cuts, anterior chamfer cuts and anterior cuts were appropriately made for a size 4 femur. When these were completed the saws were switched out in the distal femoral and posterior chamfer cuts were made. Protecting the soft tissue throughout this time. A size 4 tibial base plate was selected. the knee was flexed to 90 degrees and the soft tissues and posterior osteophytes were removed from the joint. 40 cc of the periarticular injection was injected into the posterior medial corner of the joint. The appropriate trials were then placed on the femur and tibia. A trial polyethylene was trialed to ensure proper balancing and stability of the knee. The appropriate tibial internal rotation was then marked with a bovie. Our attention was then directed to the patella. The lug holes were drilled and the patella trial was placed. Patellar tracking was checked and deemed dayne ropriate. Once we were happy lug holes were drilled for the femur and trial components were removed. the tibia was subluxed and pinned into place and the keel was punched and drilled appropriately. Final components were verified and opened, and cement was mixed in a vacuum. Expert[employer] Simplex cement was used. The wound was copiously irrigated with normal saline. When the cement was ready the components were impacted into place starting with the tibia, femur and finally cementing the patella. The trial poly component was placed and the knee was placed in full extension. All excess cement was removed in the process. Once the cement had cured the tracking, alignment and balance were verified and a size 10 mm CS polyethylene component was placed. Once the final components were placed a 3-minute dilute Betadine lavage was performed followed by an Irrisept lavage was performed and the wound was copiously irrigated with normal saline solution and the periarticular injection was given. The wound was closed in a layer saenz fashion using #1 vicryl interrupted sutures for the arthrotomy, 2-0 interrupted Vicryl suture for the subcuticular layer and kacie for final skin closure. A sterile compressive dressing was then placed. The patient was then awakened from anesthesia, transferred to the [facility] and transferred to the PACU for recovery. Post op plan DVT ppx: ASA 81mg BID, thigh high compression stockings Follow up: in office in 2 weeks for wound check PT: to start POD #0 at hospital, outpatient PT should be arranged. My physician casting assistant was a vital part of this case. He was important in appropriate retraction during the case, and protection of soft tissues during bony cuts. His intimate knowledge of the case and my steps aided in safe and expedient completion of the procedure as well as appropriate position of the leg during the case. He was also vital in assisting with closure under my direct supervision. Due to the complexity of this case robotic arm was used to assist in the surgery to improve accuracy and clinical outcomes. - Complications No intraoperative complications - Admit VTE Documentation VTE Present on Admission: No VTE Mechan Device Prophylaxis: SCD's, Thigh High JAMES Hose VTE Pharm Prophylaxis ordered?: Yes
--- NOTE | 2020-06-25 14:25 | RAD_ITS ---
STUDY: X-RAY - RIGHT KNEE REASON FOR EXAM: Female, 75 years old. POST OP PORTABLE RIGHT KNEE. TECHNIQUE: 2 view(s) of the knee. COMPARISON: None. FINDINGS: Normal visualized distal femur. Normal visualized proximal tibia and fibula. Normal proximal tibiofibular articulation. The patient is status post right knee replacement. There is good alignment. Postoperative soft tissue changes. RAD/Knee 1 or 2 Views IMPRESSION: Status post total knee replacement. There is good alignment. Postoperative soft tissue changes. Electronically Signed: Tomi Lynn MD at 14:48 EST , Service support ,
[2020-06-25 14:46] LABS: Bedside Glucose 185 mg/dL (70-110)
[2020-06-25] MEDS: Lactated Ringers 1,000 ML 999 ML IV (14:46)
--- NOTE | 2020-06-25 15:40 | EKG12_ITS ---
Test Reason : Blood Pressure : / mmHG Vent. Rate : 100 BPM Atrial Rate : 100 BPM P-R Int : 228 ms QRS Dur : 124 ms QT Int : 416 ms P-R-T Axes : 080 115 -01 degrees QTc Int : 536 ms Sinus rhythm with 1st degree A-V block with occasional Premature ventricular complexes Right bundle branch block Septal infarct , age undetermined T wave abnormality, consider inferolateral ischemia Abnormal ECG When compared with ECG of 18-JUN-2020 11:31, Significant changes have occurred Confirmed by LARS POE, MAHOGANY ([id number]), senior technical editor AYAN MCCARTHY ([id number]) on 07/07/2020 1:02:34 PM Referred By: Britton Jiménez Confirmed By:JORGE SOUSA MD
--- NOTE | 2020-06-25 16:23 | PCM.PN.BLA ---
Progress Note I was called to the PACU to examine the patient postoperatively. Patient is complaining of groin pain in the labia area on the left the nonoperative side. She notes that she had some similar pain when getting her spinal. She also notes that the pain will go down the posterior medial thigh. This area was examined by myself as well as the nursing staff as they have had to change her bedding. There is no area of ecchymosis or evidence of soft tissue being affected by the tourniquet. At this point I have explained the patient that the likely explanation is the placement of the spinal. Anesthesia has assessed her and agrees as well. More concerning patient has a elevated heart rate. EKG was obtained and did show changes from her preoperative EKG. Based on this I have contacted the medicine doctor who consulted and discussed the case. I have asked him to see her urgently in the PACU and help in determining appropriate placement as she would likely need cardiac monitoring throughout the evening. We are also checking troponins. After she is assessed will discuss necessity of any further consultation such as cardiology. At this point she remained stable in the PACU under nursing supervision and anesthesia supervision. [facility] Office: [facility] Vital Signs/Narrative: Vital Signs Temp Pulse Resp BP Pulse Ox 06/25/20 16:15 100 18 94/65 97 06/25/20 16:00 96 18 99/77 96 06/25/20 15:45 100 18 117/68 97 06/25/20 15:30 96 18 112/62 99 06/25/20 15:15 97 18 93/61 99 06/25/20 15:00 95 16 91/49 L 98 06/25/20 14:45 97 16 89/45 L 98 06/25/20 14:30 96 16 107/50 L 98 06/25/20 14:15 97 16 101/54 L 97 06/25/20 14:00 97.9 F 101 H 20 H 109/59 L 97
[2020-06-25] MEDS: Lactated Ringers 1,000 ML 125 ML IV ×2 (16:26→19:06)
[2020-06-25] MEDS: Aspirin 81 MG TAB.CHEW 324 MG PO (16:36)
[2020-06-25 16:40] LABS: Absolute Lymphocyte Count 0.59 X10^3/uL (0.83-4.51); Absolute Neutrophil Count 6.2 X10^3/uL (2.0-7.7); Basophil# 0.02 X10^3/uL; Basophil% 0.3 % (0-1); Eosinophil# 0.01 X10^3/uL; Eosinophils% 0.1 % (0-5); Hematocrit 37.3 % (37-47); Lymphocyte # 0.59 X10^3/ul (4.0); Lymphocyte % 8.5 % (19-41); Mean Corp Hgb Conc 32.2 g/dL (32-36); Mean Corpuscular Hgb 31.3 pg (27.0-32.0); Mean Corpuscular Volume 97.4 fL (81-99); Mean Platelet Vol. 8.5 fl (6.2-12.0); Monocyte# 0.07 X10^3/uL; NRBC Flagged by Analyzer 0 % (0-5); Neutrophil # 6.17 X10^3/uL (2.7-7.7); Neutrophil % 89.4 % (47-70); POSITIVE DIFFERENTIAL YES; Platelet Count 212 K/mm3 (150-450); RBC Distribution Width CV 14.3 % (11.6-14.6); RBC Distribution Width SD 51.1 fl (35.1-43.9); Red Blood Count 3.83 M/mm3 (4.2-5.4); White Blood Count 6.9 K/mm3 (4.4-11.0)
[2020-06-25 16:47] LABS: Differential Indicated SCAN CRITERIA MET
[2020-06-25 16:52] LABS: Anion Gap 7 (5-15); BUN 12 mg/dL (7-18); BUN/Creat Ratio 19.7 RATIO (10-20); Calcium,Total 8.3 mg/dL (8.5-10.1); Chloride 108 mmol/L (98-107); Creatinine, Serum 0.61 mg/dL (0.55-1.02); EST Glomerular Filtration Rate 101 mL/min (>60); Est Glom Filt Rate - Afr Amer 123 mL/min (>60); Estimated Creatinine Clearance 38.97 ml/min; Glucose 188 mg/dL (74-106); Magnesium 2.3 mg/dL (1.6-2.6); Potassium 3.4 mmol/L (3.5-5.1); Sodium Level 140 mmol/L (136-145)
[2020-06-25 17:07] LABS: Differential Comment SCANNED
--- NOTE | 2020-06-25 17:18 | CON.PCM_ITS ---
Reason for Consult Date of Consultation: 06/25/20 Reason for Consultation: abnormal EKG History of Present Illness: The patient is a 75 year old F who today underwent a right robotic assisted minimally invasive total knee replacement. In the PACU, patient was complaining of left groin pain going down her medial leg. Patient was noted to have faster heart rates to the upper 90s. EKG was performed that showed some T wave inversions in inferior leads. The hospitalist service was contacted for evaluation. Currently, the patient is alert and awake and denies any chest pain or shortness of breath. She does complain of pain in her left groin extending down her medial leg but cannot further qualify the extent. [] Past Medical History Past Medical History (Chronic Problems): Chronic Problems (Last Reviewed 02/14/20 @ 14:[address] Mehul Penaloza MD) Hypertension (Chronic) Depression (Chronic) Medical History: Medical History (Last Reviewed 06/25/20 @ 17:[address] Avery Vasquez DO) Acid reflux (Acute) K21.9 Diarrhea (Acute) R19.7 Nausea (Acute) R11.0 Back problem (Acute) M53.9 Borderline diabetes (Acute) R73.03 COVID-19 (Acute) U07.1 Hypertension (Chronic) I10 Depression (Chronic) F32.9 Allergies Penicillins [PCN] Allergy (Verified 06/11/20 10:07) Hives Home Medications: Ambulatory Orders Medication Instructions Recorded Amlodipine [Norvasc] 5 mg PO DAILY 12/24/19 Ferrous Sulfate 325 mg PO BIDCM 12/24/19 Lisinopril [Zestril] 10 mg PO DAILY 12/24/19 Sertraline HCl [Zoloft] 100 mg PO DAILY 12/24/19 Loperamide [Imodium] 2 mg PO Q6H PRN PRN cap 12/25/19 calcium carbonate 600 mg calcium 600 mg PO BID tab 02/14/20 (1,500 mg) tablet multivitamin 1 tab PO DAILY 02/14/20 Surgical History: Surgical History (Last Updated 06/25/20 @ 17:[address] Avery Vasquez DO) Hx of tubal ligation (Acute) Z98.51 Hx of shoulder surgery (Acute) Z98.890 Left shoulder History of back surgery (Acute) Z98.890 Hx of cholecystectomy (Acute) Z90.49 Status post right knee replacement Z96.651 Surgical History: - - Right total hip arthroplasty, cholecystectomy, tubal ligation, left shoulder arthroscopic. 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 Avery Vasquez DO) Father Lung cancer Diabetes Sister Lung cancer History Items: - Paternal Family History: Family History (Last Reviewed 06/25/20 @ 17:[address] Avery Vasquez DO) Father Lung cancer Diabetes Sister Lung cancer History Items: Diabetes Review of Systems Constitutional: Denies: Anorexia, Fever, Night Sweats Eyes: Denies: Blurred vision, Double vision HEENT: Denies: Head Aches, Sinus Congestion, Sinus Drainage Cardiovascular: Denies: Chest Pain, Palpitations Respiratory: Denies: Cough, Shortness of breath at rest, Sputum production Gastrointestinal: Denies: Abdominal Pain, Nausea, Vomiting Genitourinary: Denies: Dysuria Musculoskeletal: Denies: Joint Pain, Joint Tenderness Skin: Denies: Rash, Wounds Neurological: Denies: Numbness, Tingling, Focal weakness Psychiatric: Denies: Anxiety, Depression Hematologic/ Lymphatic: Denies: Easy Bruising, Easy Bleeding, Hx of blood clot Comment: All review of systems were negative except as mentioned above in the history of present illness and the other review of systems. - Physical Exam Vitals/I&O's: Vital Signs Temp Pulse Resp BP Pulse Ox 36.6 C 92 16 108/79 96 06/25/20 14:00 06/25/20 17:00 06/25/20 17:00 06/25/20 17:00 06/25/20 17:00 Oxygen Flow Rate (L/min) 2 Oxygen Delivery Method Nasal Cannula Weight: 86.4 kg Body Mass Index (BMI) 33.2 Finger Stick Blood Glucose 93 Intake and Output for Last 24 Hours 06/23/20 06/24/20 06/25/20 23:59 23:59 23:59 Intake Total 3435 / 3435 Balance 3435 / 3435 General: Alert, Cooperative, No apparent distress HEENT: Atraumatic, Normocephalic Oral: Moist Mucosa, No Gingival or Mucosal Lesions/ Ulcerations Neck: No Nodes, Thyroid Normal Size and Texture Lungs: Clear to auscultation, Normal air movement, No rhonchi, No wheeze, No rales Cardiovascular: Regular rate, Regular Rhythm, Normal S1, Normal S2, No murmurs Abdomen: Bowel Sounds Present, Soft, Non Tender, Non-Distended, No Hepato- splenomegaly Extremities: No edema, No Calf Tenderness Skin: No rashes, No breakdown Musculoskeletal: No Tenderness to Palpation of Joints or Extremities, No Muscle Wasting Psych/Mental Status: Normal Affect, Appropriate Microbiology Past 72 Hours 06/24/20 10:10 Interface Orders SARS-CoV-2 Antigen (Rapid) - Final Laboratory Results 06/25/20 10:29: POC Glucose 125 H 06/25/20 14:43: POC Glucose 185 H 06/25/20 16:05: Sodium 140, Potassium 3.4 L, Chloride 108 H, Carbon Dioxide 25.0, Anion Gap 7, BUN 12, Creatinine 0.61, Estim Creat Clear Calc 38.97, Est GFR (MDRD) Af Amer 123, Est GFR (MDRD) Non-Af 101, BUN/Creatinine Ratio 19.7, Glucose 188 H, Calcium 8.3 L, Magnesium 2.3, Troponin I < 0.015 06/25/20 16:05: WBC 6.9, RBC 3.83 L, Hgb 12.0, Hct 37.3, MCV 97.4, MCH 31.3, MCHC 32.2, RDW Std Deviation 51.1 H, RDW Coeff of Ruben 14.3, Plt Count 212, MPV 8.5, Immature Gran % (Auto) 0.700, Neut % (Auto) 89.4 H, Lymph % (Auto) 8.5 L, Dorado % (Auto) 1.0, Eos % (Auto) 0.1, Baso % (Auto) 0.3, Absolute Neuts (auto) 6.2, Absolute Lymphs (auto) 0.59 L, Nucleated RBC % 0, Differential Comment SCANNED EKG reviewed and showed normal sinus rhythm, right bundle branch block and T wave inversions in the inferior leads. These T wave inversions were new from EKG from June 18. Patient had a rapid Covid from the that was negative. Current Medications Acetaminophen (Acetaminophen 500 Mg Tablet) 1,000 mg PO Q8 [facility]ERNA[facility]DA Amlodipine Besylate (Amlodipine 5 Mg Tablet) 5 mg PO DAILY COUNT INCLUDES THE [facility] Aspirin (A[facility] 81 [facility]w) [facility] Calcium Carbonate (Calcium Carbonate 500 Mg Tablet) [facility] Enteral Nutritional Formula (Ensure Surgery 237 Ml Liquid) 237 ml PO TIDCM COUNT INCLUDES THE [facility] Famotidine (Famotidine 20 Mg Tablet) 20 mg PO DAILY COUNT INCLUDES THE [facility] Ferrous Sulfate (Ferrous Sulfate 325 Mg Tablet) [facility] Lactated Ringer's () 1,000 mls @ 125 mls/hr IV .Q8H COUNT INCLUDES THE [facility] Cefazolin Sodium () 1 gm in 50 mls @ 150 mls/hr IV Q8H COUNT INCLUDES THE [facility] Stop: 06/26/20 04:19 Lactated Ringer's () 1,000 mls @ 100 mls/hr IV .Q10H COUNT INCLUDES THE [facility] Last Infusion: 06/25/20 13:30 Dose: Infused Documented by: Lactated Ringer's () 1,000 mls @ 100 mls/hr IV .Q10H COUNT INCLUDES THE [facility] Last Infusion: 06/25/20 14:45 Dose: Infused Documented by: Insulin Human Lispro (Insulin Lispro 100 Unit/Ml Insuln.Pen) 1 - 6 unit SC Q4H PRN PRN; Protocol PRN Reason: BG>/= 180, SEE PROTOCOL Stop: 06/25/20 18:00 Ketorolac Tromethamine (Ketorolac 15 Mg/Ml Vial) 15 mg IV Q6H PRN PRN PRN Reason: Pain Score 1-5 Stop: 06/27/20 07:17 Lisinopril (Lisinopril 10 Mg Tablet) 10 mg PO DAILY COUNT INCLUDES THE [facility] Loperamide HCl (Loperamide 2 Mg Capsule) 2 mg PO Q6H PRN PRN PRN Reason: Diarrhea Meloxicam (Meloxicam 7.5 Mg Tablet) 7.5 mg PO BID COUNT INCLUDES THE [facility] Morphine Sulfate (Morphine 2 Mg/Ml Syringe) 2 - 4 mg IV Q2H PRN PRN PRN Reason: Pain Score 6-10 Multivitamins (Multivitamins,Therapeutic Tablet) [facility] Ondansetron HCl (Ondansetron 4 Mg/2 Ml Vial) 4 mg IV Q8H PRN PRN PRN Reason: NAUSEA Oxycodone HCl (Oxycodone 5 Mg Tablet) 5 - 10 mg PO Q4H PRN PRN PRN Reason: Pain Score 4-10 Promethazine HCl (Promethazine 25 Mg/Ml Syringe) 12.5 mg IM Q6H PRN PRN; Protocol PRN Reason: NAUSEA/VOMITING Senna/Docusate Sodium (Senna/Docusate Sodium 1 Tablet) 2 tablet PO BID [facility] Sertraline HCl (Sertraline 100 Mg Tablet) 100 mg PO DAILY [facility] Sodium Chloride (0.9% Nacl Peripheral Flush Adult/Peds) 5 - 15 ml IV UD PRN PRN Reason: SALINE FLUSH Assessment/Plan All Active Problems (Last Reviewed 02/14/20 @ 14:[address] Mehul Penaloza MD) Hx of tubal ligation (Acute) Hx of shoulder surgery (Acute) History of back surgery (Acute) Hx of cholecystectomy (Acute) Acid reflux (Acute) Diarrhea (Acute) Nausea (Acute) Back problem (Acute) Borderline diabetes (Acute) COVID-19 (Acute) 1. Abnormal EKG: No clinical evidence of ischemia despite the computer report. May be rate dependent. Patient does have a right bundle branch block but that is not new. Initial troponin is negative. Plan is to continue to monitor troponins. If troponins do become elevated such significantly, I discussed with Dr. Jiménez, and he would be okay with anticoagulation. If anticoagulation would be necessary then heparin drip would be the first choice. Dr. Jiménez requested he be notified when and if heparin is initiated. Patient did receive empiric aspirin in the emergency room. Will continue to cycle troponins. Repeat EKG in the morning. If all is unremarkable on the then could consider discontinuing cardiac monitoring. 2. Left groin pain extending down her medial leg. Discussed with anesthesiology who feels that this could be related with the spinal injection that she did receive. Plan would be just to let that wear off. If symptoms do become much worse and if patient does have issues in regards to bowel or bladder incontinence, consider imaging of the spine. Unlikely that we will progressed that point but should resolve spontaneously. 3. Hypokalemia: Potassium is 3.4. Repeat in the morning as well as magnesium level. Patient currently receiving lactated Ringer's will hold off on any replacements at this time. 4. Status post right knee replacement: Management per orthopedics. 5. Hypertension: Continue with amlodipine and lisinopril 6. VTE prophylaxis: Aspirin as per orthopedics instructions. Thank you for the consult. The hospital service will follow along during the course of this hospitalization. Do not hesitate to contact with any questions. Inpatient E&M: [id number] Init Hosp L2
[2020-06-25] MEDS: Ketorolac 15 MG/ML Vial IV (17:20)
[2020-06-25] MEDS: Morphine 2 MG/ML Syringe IV ×3 (18:37→23:46)
[2020-06-25] MEDS: Ondansetron 4 MG/2 ML Vial IV (18:37)
[2020-06-25] MEDS: Cefazolin 1 GM/50 ML BAG IV (21:45)
[2020-06-25] MEDS: 0.9% NaCl Peripheral Flush Adult/Peds IV (21:47)
[2020-06-26] VITALS (9 sets, daily range): BP systolic 112–119; BP diastolic 59–77; PULSE 57–87; RESP 17–18; TEMP 36.2–37; O2SAT 94–98; BMI 33.3
--- NOTE | 2020-06-26 01:22 | PCS.PANDOC ---
PANDEMIC DOCUMENTATION INITIATED: Date: 06/25/20 Time: 18:26
--- NOTE | 2020-06-26 01:34 | NURSING ---
Narrative report from PACU following R total knee replacement is as follows: Pt. arrives to PACU and reports from TRACK REPAIR PERSON that at end of case pt. had run of SVT tx. with esmolol, HR on arrivals in 90's was in 70's preop. BP low. Pt. had spinal anesthesia and when awaking in PACU c/o sever 9/10 writhing pain in L groin buttocks and radiating down leg. Morphine not effective for pain. Routine bolus of IVF per Dr. Jiménez infusing 1 liter LR. some improvement of bp with bolus. Dr. Almonte declined EKG on arrival to PACU but as pt. remained tach and monitor shoes irreg rate. 12 lead EKG obtained, rev. by Dr. Almonte, and Dr. Jiménez to bedside poss ischemia-more labs orders ASA 325 mg at 1636. scop patch removed as possible cause of tachcardia. Trop Neg, no CP or SoB only discomfort or is in L hip and groin. Inc of Lg amt of urine, entire bed changed,- JAMES's and GABRIEL to rt leg changed. No discoloration or edema to Lt though area or groin-buttocks. Neurovac checks to BLE WNL. Toradol at 1720. Feeling now is that wtith pt. spinal stenosis and spinal anesthesia = cause of pain in lt groin. Time will tell per anesthesia. For knee replacement usual orders Thigh TEDS, SCD, Gabriel to lt knee that should be removed in am see orders, polar care. Series Trop times. Lungs CTA but has been on O2 6Lm per mask first 2 hour in pacu as per eras protocol, have weaned to NC 2 liters and SPO2 has been in low 90s.
[2020-06-26] MEDS: Morphine 2 MG/ML Syringe IV ×5 (02:22→20:52)
[2020-06-26] MEDS: Lactated Ringers 1,000 ML 125 ML IV ×2 (03:34→12:31)
[2020-06-26] MEDS: oxyCODONE 5 MG Tablet PO ×2 (03:35→15:33)
[2020-06-26] MEDS: Cefazolin 1 GM/50 ML BAG IV (04:46)
[2020-06-26 05:53] LABS: Hematocrit 34.1 % (37-47); Hemoglobin 11.1 g/dL (12.0-15.0); Mean Corp Hgb Conc 32.6 g/dL (32-36); Mean Corpuscular Hgb 31.2 pg (27.0-32.0); Mean Corpuscular Volume 95.8 fL (81-99); Mean Platelet Vol. 8.4 fl (6.2-12.0); Platelet Count 202 K/mm3 (150-450); RBC Distribution Width CV 13.9 % (11.6-14.6); RBC Distribution Width SD 49.2 fl (35.1-43.9); Red Blood Count 3.56 M/mm3 (4.2-5.4); White Blood Count 11.7 K/mm3 (4.4-11.0)
--- NOTE | 2020-06-26 05:55 | EKGRS_ITS ---
Test Reason : AM Blood Pressure : / mmHG Vent. Rate : 065 BPM Atrial Rate : 065 BPM P-R Int : 200 ms QRS Dur : 124 ms QT Int : 422 ms P-R-T Axes : 056 099 015 degrees QTc Int : 438 ms Normal sinus rhythm with sinus arrhythmia Right bundle branch block Abnormal ECG When compared with ECG of 25-JUN-2020 15:44, MANUAL COMPARISON REQUIRED, DATA IS UNCONFIRMED Confirmed by LUCY POE, VLAD ([id number]), digital editor PRATEEK AWAD ([id number]) on 07/02/2020 11:20:23 AM Referred By: Britton Jiménez Confirmed By:VLAD AYALA MD
[2020-06-26 06:29] LABS: Anion Gap 5 (5-15); BUN 10 mg/dL (7-18); Calcium,Total 8.4 mg/dL (8.5-10.1); Chloride 105 mmol/L (98-107); Creatinine, Serum 0.53 mg/dL (0.55-1.02); EST Glomerular Filtration Rate 120 mL/min (>60); Est Glom Filt Rate - Afr Amer 145 mL/min (>60); Estimated Creatinine Clearance 38.97 ml/min; Glucose 115 mg/dL (74-106); Magnesium 2.2 mg/dL (1.6-2.6); Sodium Level 137 mmol/L (136-145)
[2020-06-26] MEDS: Acetaminophen 500 MG Tablet 1000 MG PO ×3 (06:41→22:36)
[2020-06-26] MEDS: Calcium Carbonate 500 MG Tablet PO ×2 (09:26→18:50)
[2020-06-26] MEDS: Famotidine 20 MG Tablet PO (09:26)
[2020-06-26] MEDS: Senna/Docusate Sodium 1 Tablet 2 TABLET PO (09:26)
[2020-06-26] MEDS: Lisinopril 10 MG Tablet PO (09:27)
[2020-06-26] MEDS: Multivitamins,Therapeutic Tablet 1 TABLET PO (09:27)
[2020-06-26] MEDS: Aspirin 81 MG TAB.CHEW PO (09:27)
[2020-06-26] MEDS: Sertraline 100 MG Tablet PO (09:27)
[2020-06-26] MEDS: amLODIPine 5 MG Tablet PO (09:27)
--- NOTE | 2020-06-26 10:10 | PN.ORTHO_ITS ---
Subjective: The patient was sitting in bed upon examination. Patient denies any chest pain, shortness of breath, dizziness, lightheadedness, nausea or vomiting, or calf pain. Patient reports she is having some right knee pain from the surgery but her chief complaint is low back and left buttock pain. She is getting some numbness down her leg. Patient has been voiding and currently has a pure wick. She also reports she has passed some gas. Patient does have history of low back pain with several year duration. She underwent a laminectomy of L3-L4 and partial of L5 [place] [address] Corwin Guzmán with foraminotomies at L3-L4 and L5. She states she had some low back pain prior to surgery. However she states she had significant pain after the spinal from this most recent surgery. Since then she has had significant pain into the left buttock region. She has difficulty laying down due to the pain in the left buttock and back. Her primary complaint right now is the low back and buttock. Objective: Vital signs stable and afebrile. Patient is able to plantarflex and dorsiflex actively. Sensation is intact to light touch to saphenous, sural, superficial and deep peroneal, and tibial distribution. Resisted range of motion was performed in the bed: Plantarflexion/dorsiflexion 5-/5, great toe extension 4+/5 on the left. Patient does have tenderness to palpation in the left buttock region. Pulses are 2+ in the ankle and foot Dressing is with drainage over the middle one third contacting 2 borders with remaining dressings clean dry and intact. Negative Homans bilaterally, negative signs and symptoms of DVT. - Physical Exam Vitals/I&O's: Vital Signs Temp Pulse Resp BP Pulse Ox 97.6 F L 61 18 112/59 L 95 06/26/20 08:54 06/26/20 08:54 06/26/20 08:54 06/26/20 08:54 06/26/20 08:54 Oxygen Flow Rate (L/min) 4 Oxygen Delivery Method Room Air Weight: 86.4 kg Body Mass Index (BMI) 33.3 Finger Stick Blood Glucose 185 Intake and Output for Last 24 Hours 06/24/20 06/25/20 06/26/20 23:59 23:59 23:59 Intake Total 4633.75 / 4633.75 1108.75 / 1108.75 Balance 4633.75 / 4633.75 1108.75 / 1108.75 General: Alert, Oriented x3, Cooperative, No apparent distress Microbiology Past 72 Hours 06/24/20 10:10 Interface Orders SARS-CoV-2 Antigen (Rapid) - Final Laboratory Results 06/25/20 10:29: POC Glucose 125 H 06/25/20 14:43: POC Glucose 185 H 06/25/20 16:05: Sodium 140, Potassium 3.4 L, Chloride 108 H, Carbon Dioxide 25.0, Anion Gap 7, BUN 12, Creatinine 0.61, Estim Creat Clear Calc 38.97, Est GFR (MDRD) Af Amer 123, Est GFR (MDRD) Non-Af 101, BUN/Creatinine Ratio 19.7, Glucose 188 H, Calcium 8.3 L, Magnesium 2.3, Troponin I < 0.015 06/25/20 16:05: WBC 6.9, RBC 3.83 L, Hgb 12.0, Hct 37.3, MCV 97.4, MCH 31.3, MCHC 32.2, RDW Std Deviation 51.1 H, RDW Coeff of Ruben 14.3, Plt Count 212, MPV 8.5, Immature Gran % (Auto) 0.700, Neut % (Auto) 89.4 H, Lymph % (Auto) 8.5 L, Phillips % (Auto) 1.0, Eos % (Auto) 0.1, Baso % (Auto) 0.3, Absolute Neuts (auto) 6.2, Absolute Lymphs (auto) 0.59 L, Nucleated RBC % 0, Differential Comment SCANNED 06/25/20 18:45: Troponin I < 0.015 06/25/20 22:22: Troponin I < 0.015 06/26/20 05:34: WBC 11.7 H, RBC 3.56 L, Hgb 11.1 L, Hct 34.1 L, MCV 95.8, MCH 31.2, MCHC 32.6, RDW Std Deviation 49.2 H, RDW Coeff of Ruben 13.9, Plt Count 202, MPV 8.4 06/26/20 05:34: Sodium 137, Potassium 4.0, Chloride 105, Carbon Dioxide 27.0, Anion Gap 5, BUN 10, Creatinine 0.53 L, Estim Creat Clear Calc 38.97, Est GFR (MDRD) Af Amer 145, Est GFR (MDRD) Non-Af 120, BUN/Creatinine Ratio 19.0, Glucose 115 H, Calcium 8.4 L, Magnesium 2.2 Current Medications Acetaminophen (Acetaminophen 500 Mg Tablet) 1,000 mg PO Q8 [facility] Last Admin: 06/26/20 06:41 Dose: 1,000 mg Documented by: Amlodipine Besylate (Amlodipine 5 Mg Tablet) 5 mg PO DAILY [facility] Last Admin: 06/26/20 09:27 Dose: 5 mg Documented by: Aspirin ([facility] 81 Mg [facility].Chew) [facility] Last Admin: 06/26/20 09:27 Dose: 81 mg Documented by: Calcium Carbonate (Calcium Carbonate 500 Mg Tablet) [facility] Last Admin: 06/26/20 09:26 Dose: 500 mg Documented by: Enteral Nutritional Formula (Ensure Surgery 237 Ml Liquid) 237 ml PO TIDCM [facility] Last Admin: 06/25/20 18:42 Dose: Not Given Documented by: Famotidine (Famotidine 20 Mg Tablet) 20 mg PO DAILY [facility] Last Admin: 06/26/20 09:26 Dose: 20 mg Documented by: Ferrous Sulfate (Ferrous Sulfate 325 Mg Tablet) [facility] Last Admin: 06/25/20 18:42 Dose: Not Given Documented by: Lactated Ringer's () 1,000 mls @ 125 mls/hr IV .Q8H [facility] Last Infusion: 06/26/20 05:06 Dose: 125 mls/hr Documented by: Ketorolac Tromethamine (Ketorolac 15 Mg/Ml Vial) 15 mg IV Q6H PRN PRN PRN Reason: Pain Score 1-5 Stop: 06/27/20 07:17 Last Admin: 06/25/20 17:20 Dose: 15 mg Documented by: Lisinopril (Lisinopril 10 Mg Tablet) 10 mg PO DAILY [facility] Last Admin: 06/26/20 09:27 Dose: 10 mg Documented by: Loperamide HCl (Loperamide 2 Mg Capsule) 2 mg PO Q6H PRN PRN PRN Reason: Diarrhea Meloxicam (Meloxicam 7.5 Mg Tablet) 7.5 mg PO BID [facility] Morphine Sulfate (Morphine 2 Mg/Ml Syringe) 2 - 4 mg IV Q2H PRN PRN PRN Reason: Pain Score 6-10 Last Admin: 06/26/20 06:44 Dose: 4 mg Documented by: Multivitamins (Multivitamins,Therapeutic Tablet) 1 tablet PO DAILYCM [facility] Last Admin: 06/26/20 09:27 Dose: 1 tablet Documented by: Ondansetron HCl (Ondansetron 4 Mg/2 Ml Vial) 4 mg IV Q8H PRN PRN PRN Reason: NAUSEA Last Admin: 06/25/20 18:37 Dose: 4 mg Documented by: Oxycodone HCl (Oxycodone 5 Mg Tablet) 5 - 10 mg PO Q4H PRN PRN PRN Reason: Pain Score 4-10 Last Admin: 06/26/20 03:35 Dose: 10 mg Documented by: Promethazine HCl (Promethazine 25 Mg/Ml Syringe) 12.5 mg IM Q6H PRN PRN; Protocol PRN Reason: NAUSEA/VOMITING Senna/Docusate Sodium (Senna/Docusate Sodium 1 Tablet) 2 tablet PO BID [facility] Last Admin: 06/26/20 09:26 Dose: 2 tablet Documented by: Sertraline HCl (Sertraline 100 Mg Tablet) 100 mg PO DAILY [facility] Last Admin: 06/26/20 09:27 Dose: 100 mg Documented by: Sodium Chloride (0.9% Nacl Peripheral Flush Adult/Peds) 5 - 15 ml IV UD PRN PRN Reason: SALINE FLUSH Last Admin: 06/25/20 21:47 Dose: 15 ml Documented by: Sodium Chloride (0.9% Saline Lock 10 Ml Syringe) 10 - 40 ml IV UD PRN PRN Reason: SALINE FLUSH Medical Necessity - Tobacco Use Smoking Status: Never smoker Assessment/Plan All Active Problems (Last Reviewed 06/25/20 @ 17:[address] Avery Vasquez, DO) Hx of tubal ligation (Acute) Hx of shoulder surgery (Acute) History of back surgery (Acute) Hx of cholecystectomy (Acute) Acid reflux (Acute) Diarrhea (Acute) Nausea (Acute) Back problem (Acute) Borderline diabetes (Acute) COVID-19 (Acute) 1. S/P right total knee arthroplasty POD #1 2. Continue Pain Medications: Tylenol, meloxicam, oxycodone 3. DVT Prophylaxis: Take 81 mg aspirin twice daily for 4 weeks postoperatively for DVT prophylaxis 4. PT/OT: Weightbearing as tolerated 5. H & H: 11.1/34.1, asymptomatic. Postoperative anemia secondary to acute blood loss from surgery without any intra operative complications. 6. Reactive leukocytosis: Currently 11.7, afebrile. Patient did receive Decadron intraoperatively 7. Continue postoperative medical management per medicine: Case was discussed with Dr. Vasquez. With regards to patient's heart the EKG was normal today and her troponins were within normal limits. He states patient is fine from a medical standpoint with regards to her heart. However we are still dealing with patient's increased low back pain with numbness and pain in the leg since the spinal. She does have history of chronic low back pain with previous surgery in 2016. It is been exacerbated since the spinal with the surgery. Medicine did discuss this with the anesthesiology team who feels this could be related with the spinal injection. 8. Encouraged Incentive Spirometry 9. Disposition: Due to patient's increased pain in the back and left hip/buttock, patient is not ready for discharge home at this time. Case was discussed with anesthesiology. There was discussion that if a blood vessel was hit there could be hematoma. They tried going above the previous surgical area. Patient at this time should be seen the medications have worn off. There is concern for possible hematoma and at this time I would like to get a stat MRI of the lumbar spine. Case was also discussed with Dr. Britton Jiménez. Patient's chief complaint at this time is the back and left buttock region. She is having difficulty laying down. We will review the MRI once obtained and discuss with our back surgeon Dr. Reid in our office. At this time she will require additional stay.
[2020-06-26] MEDS: Ensure Surgery 237 ML LIQUID PO ×3 (11:06→18:50)
[2020-06-26] MEDS: Ferrous Sulfate 325 MG Tablet PO ×2 (11:06→18:51)
--- NOTE | 2020-06-26 11:33 | MRI_ITS ---
Left buttock and leg numbness. Severe pain following spinal for prior surgery MR Spine Lumbar W/O Contrast Technique:Sagittal T1-T2 and STIR and axial T1 and T2-weighted images # of images including paperwork:186 Comparison:none Findings: Study mildly limited by motion. Levoscoliosis. Postsurgical changes are noted from L2-3 to L4-5 5432 The conus is not imaged on axial images. It appears to end at the level of T12-L1 T12-L1:Only imaged in sagittal images. There is a diffuse annular bulge asymmetric to the left. There is moderate left neural foraminal narrowing and mild right neuroforaminal narrowing. L1-2:Osteophyte disc complex effacing the ventral thecal sac. Trefoil appearance the canal. There is facet arthrosis. Left-sided facet effusion. Moderate bilateral neural foraminal narrowing greater on the left. There is effacement of the left L1 nerve root within the neural foramen.. L2-3:Decreased disc height and hydration with osteophyte disc complex effacing the ventral thecal sac. This is asymmetric to the right. Mild bilateral neural foraminal narrowing. L3-4:Evaluation is limited without intravenous contrast. There is decreased disc height and hydration with Modic type II changes at the endplates. Focal area of decreased signal that is seen to the left side of the thecal sac that may be related to granulation tissue or the ligamentum flavum residual. Cannot exclude small amount of disc material. It may be of benefit to repeat the study with intravenous contrast for further evaluation. There is moderate to marked left-sided neural foraminal narrowing with effacement of the left L3 nerve root. Mild to moderate right neural foraminal narrowing L4-5:Decreased disc height and hydration. Osteophyte disc complex. Trefoil appearance the canal with ligamentum flavum hypertrophy. The canal measures 9 mm AP diameter. There is moderate left and mild to moderate right neural foraminal narrowing. Effacement of the left greater than right L4 nerve roots within the neural foramen L5-S1:Osteophyte disc complex with decreased disc height and hydration. No canal stenosis. There is mild to moderate left and mild right neural foraminal narrowing. No significant nerve root impingement. MRI/Spine Lumbar (Routine) IMPRESSION: Postsurgical changes as discussed with multilevel degenerative change. Evaluation is limited without intravenous contrast. 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 At L1-2 there now is an osteophyte disc complex with moderate bilateral neural foraminal narrowing greater on the left and mild effacement of left L1 nerve root L3-4 there is decreased signal to the left side of the thecal sac of uncertain etiology. Moderate to marked left-sided neural foraminal narrowing and effacement of the left L3 nerve root. Again repeating study with intravenous contrast may be of benefit L4-5 trefoil appearance to the canal the canal measuring 9 mm. Effacement of left greater than right L4 nerve roots within the neural foramen at 2229 Reported and signed by: Moni Boles DO Electronically Signed: Moni Boles DO at 22:28 EST Tel , Service support ,
[2020-06-26] MEDS: Ketorolac 15 MG/ML Vial IV (12:30)
--- NOTE | 2020-06-26 13:30 | PN_ITS ---
Subjective: Still with left groin pain but now in her buttocks on the left not down her left leg. No shortness of breath no chest pain. Vitals/I&O's: Vital Signs Temp Pulse Resp BP Pulse Ox 36.4 C L 61 18 112/59 L 95 06/26/20 08:54 06/26/20 08:54 06/26/20 08:54 06/26/20 08:54 06/26/20 08:54 Oxygen Flow Rate (L/min) 4 Oxygen Delivery Method Room Air Weight: 86.4 kg Body Mass Index (BMI) 33.3 Finger Stick Blood Glucose 185 Intake and Output for Last 24 Hours 06/24/20 06/25/20 06/26/20 23:59 23:59 23:59 Intake Total 4633.75 / 4633.75 2318.75 / 2318.75 Balance 4633.75 / 4633.75 2318.75 / 2318.75 General: Alert, No apparent distress HEENT: Atraumatic, Normocephalic Oral: Moist Mucosa, No Gingival or Mucosal Lesions/ Ulcerations Neck: No Nodes, Thyroid Normal Size and Texture Lungs: Clear to auscultation, Normal air movement, No rhonchi, No wheeze Cardiovascular: Regular rate, Regular Rhythm, Normal S1, Normal S2, No murmurs Abdomen: Bowel Sounds Present, Soft, Non Tender, Non-Distended Extremities: No edema, No Calf Tenderness Skin: No rashes, No breakdown Musculoskeletal: No Tenderness to Palpation of Joints or Extremities, No Muscle Wasting Psych/Mental Status: Normal Affect, Appropriate Microbiology Past 72 Hours 06/24/20 10:10 Interface Orders SARS-CoV-2 Antigen (Rapid) - Final Laboratory Results 06/25/20 14:43: POC Glucose 185 H 06/25/20 16:05: Sodium 140, Potassium 3.4 L, Chloride 108 H, Carbon Dioxide 25.0, Anion Gap 7, BUN 12, Creatinine 0.61, Estim Creat Clear Calc 38.97, Est GFR (MDRD) Af Amer 123, Est GFR (MDRD) Non-Af 101, BUN/Creatinine Ratio 19.7, Glucose 188 H, Calcium 8.3 L, Magnesium 2.3, Troponin I < 0.015 06/25/20 16:05: WBC 6.9, RBC 3.83 L, Hgb 12.0, Hct 37.3, MCV 97.4, MCH 31.3, MCHC 32.2, RDW Std Deviation 51.1 H, RDW Coeff of Ruben 14.3, Plt Count 212, MPV 8.5, Immature Gran % (Auto) 0.700, Neut % (Auto) 89.4 H, Lymph % (Auto) 8.5 L, [place] % (Auto) 1.0, Eos % (Auto) 0.1, Baso % (Auto) 0.3, Absolute Neuts (auto) 6.2, Absolute Lymphs (auto) 0.59 L, Nucleated RBC % 0, Differential Comment SCANNED 06/25/20 18:45: Troponin I < 0.015 06/25/20 22:22: Troponin I < 0.015 06/26/20 05:34: WBC 11.7 H, RBC 3.56 L, Hgb 11.1 L, Hct 34.1 L, MCV 95.8, MCH 31.2, MCHC 32.6, RDW Std Deviation 49.2 H, RDW Coeff of Ruben 13.9, Plt Count 202, MPV 8.4 06/26/20 05:34: Sodium 137, Potassium 4.0, Chloride 105, Carbon Dioxide 27.0, Anion Gap 5, BUN 10, Creatinine 0.53 L, Estim Creat Clear Calc 38.97, Est GFR (MDRD) Af Amer 145, Est GFR (MDRD) Non-Af 120, BUN/Creatinine Ratio 19.0, Glucose 115 H, Calcium 8.4 L, Magnesium 2.2 Current Medications Acetaminophen (Acetaminophen 500 Mg Tablet) 1,000 mg PO Q8 [facility] Last Admin: 06/26/20 06:41 Dose: 1,000 mg Documented by: Amlodipine Besylate (Amlodipine 5 Mg Tablet) 5 mg PO DAILY [facility] Last Admin: 06/26/20 09:27 Dose: 5 mg Documented by: Aspirin ([facility] 81 Mg [facility].Chew) [facility] Last Admin: 06/26/20 09:27 Dose: 81 mg Documented by: Calcium Carbonate (Calcium Carbonate 500 Mg Tablet) [facility] Last Admin: 06/26/20 09:26 Dose: 500 mg Documented by: Enteral Nutritional Formula (Ensure Surgery 237 Ml Liquid) 237 ml PO TIDCM [facility] Last Admin: 06/26/20 12:39 Dose: 237 ml Documented by: Famotidine (Famotidine 20 Mg Tablet) 20 mg PO DAILY [facility] Last Admin: 06/26/20 09:26 Dose: 20 mg Documented by: Ferrous Sulfate (Ferrous Sulfate 325 Mg Tablet) [facility] Last Admin: 06/26/20 11:06 Dose: 325 mg Documented by: Lactated Ringer's () 1,000 mls @ 125 mls/hr IV .Q8H [facility] Last Admin: 06/26/20 12:31 Dose: 125 mls/hr Documented by: Ketorolac Tromethamine (Ketorolac 15 Mg/Ml Vial) 15 mg IV Q6H PRN PRN PRN Reason: Pain Score 1-5 Stop: 06/27/20 07:17 Last Admin: 06/26/20 12:30 Dose: 15 mg Documented by: Lisinopril (Lisinopril 10 Mg Tablet) 10 mg PO DAILY [facility] Last Admin: 06/26/20 09:27 Dose: 10 mg Documented by: Loperamide HCl (Loperamide 2 Mg Capsule) 2 mg PO Q6H PRN PRN PRN Reason: Diarrhea Meloxicam (Meloxicam 7.5 Mg Tablet) 7.5 mg PO BID [facility] Morphine Sulfate (Morphine 2 Mg/Ml Syringe) 2 - 4 mg IV Q2H PRN PRN PRN Reason: Pain Score 6-10 Last Admin: 06/26/20 11:59 Dose: 2 mg Documented by: Morphine Sulfate (Morphine Sr 15 Mg Tablet) 15 mg PO BID [facility] Multivitamins (Multivitamins,Therapeutic Tablet) [facility] Last Admin: 06/26/20 09:27 Dose: 1 tablet Documented by: Ondansetron HCl (Ondansetron 4 Mg/2 Ml Vial) 4 mg IV Q8H PRN PRN PRN Reason: NAUSEA Last Admin: 06/25/20 18:37 Dose: 4 mg Documented by: Oxycodone HCl (Oxycodone 5 Mg Tablet) 5 - 10 mg PO Q4H PRN PRN PRN Reason: Pain Score 4-10 Last Admin: 06/26/20 03:35 Dose: 10 mg Documented by: Promethazine HCl (Promethazine 25 Mg/Ml Syringe) 12.5 mg IM Q6H PRN PRN; Protocol PRN Reason: NAUSEA/VOMITING Senna/Docusate Sodium (Senna/Docusate Sodium 1 Tablet) 2 tablet PO BID [facility] Last Admin: 06/26/20 09:26 Dose: 2 tablet Documented by: Sertraline HCl (Sertraline 100 Mg Tablet) 100 mg PO DAILY [facility] Last Admin: 06/26/20 09:27 Dose: 100 mg Documented by: Sodium Chloride (0.9% Nacl Peripheral Flush Adult/Peds) 5 - 15 ml IV UD PRN PRN Reason: SALINE FLUSH Last Admin: 06/25/20 21:47 Dose: 15 ml Documented by: Sodium Chloride (0.9% Saline Lock 10 Ml Syringe) 10 - 40 ml IV UD PRN PRN Reason: SALINE FLUSH Medical Necessity - Tobacco Use Smoking Status: Never smoker Assessment/Plan All Active Problems (Last Reviewed 06/25/20 @ 17:[address] Avery Vasquez, DO) Hx of tubal ligation (Acute) Hx of shoulder surgery (Acute) History of back surgery (Acute) Hx of cholecystectomy (Acute) Acid reflux (Acute) Diarrhea (Acute) Nausea (Acute) Back problem (Acute) Borderline diabetes (Acute) COVID-19 (Acute) 1. Abnormal EKG: * Resolved. Reviewed repeat EKG on 06/26 and T inversion in inferior leads resolved. Troponins negative. * No clinical evidence of ischemia despite the computer report. May be rate dependent. Patient does have a right bundle branch block but that is not new. Initial troponin is negative. Plan is to continue to monitor troponins. * OK to DC telemetry * No additional cardiac work up at this time. 2. Left groin pain * Discussed with anesthesiology 06/25 who feels that this could be related with the spinal injection that she did receive. Plan would be just to let that wear off. * Agree with MRI to eval for hematoma. 3. Hypokalemia: * resolved 4. Status post right knee replacement: Management per orthopedics. 5. Hypertension: Continue with amlodipine and lisinopril 6. VTE prophylaxis: Aspirin as per orthopedics instructions. Thank you for the consult. The hospital service will follow along during the course of this hospitalization. Do not hesitate to contact with any questions. Inpatient E&M: 89486 Subs Hosp L2
[2020-06-26] MEDS: morphine SR 15 MG Tablet PO ×2 (13:34→22:43)
--- NOTE | 2020-06-26 14:18 | CASEMGMT ---
This RN CM to room and pt c/o left hip/back pain/spasms at this time. Lizz COLLINS aware and states pt has had toradol, morphine, and ms contin without much relief. Pt's daughter is at bedside and states that pt has already been set up with OP therapy and has a WW for discharge. Pt/daughter state no further concerns regarding discharge at this time but do state concerns regarding this pain and the cause of it. MRI is for same concerns. Kana COLLINS CM
--- NOTE | 2020-06-26 15:56 | CASEMGMT ---
This RN YAZMIN to room with COON form at this time, explanation done-pt/daughter voice understanding, and pt signs COON form at this time. Original to chart and copy to pt at this time. Pt has copy of MCR IP vs OBS booklet at bedside at this time. Pt/daughter voice no further questions/concerns/needs at this time. SStaten KARINA ARCE
[2020-06-26] MEDS: LORazepam 1 MG Tablet PO (18:50)
[2020-06-26] MEDS: 0.9% NaCl Peripheral Flush Adult/Peds IV (20:52)
[2020-06-27] VITALS (8 sets, daily range): BP systolic 113–129; BP diastolic 49–76; PULSE 72–104; RESP 16–18; TEMP 36.1–37.4; O2SAT 92–97
[2020-06-27] MEDS: oxyCODONE 5 MG Tablet PO ×2 (03:49→21:58)
[2020-06-27] MEDS: Acetaminophen 500 MG Tablet 1000 MG PO ×3 (05:12→21:02)
[2020-06-27 05:42] LABS: Hematocrit 34.4 % (37-47); Mean Corpuscular Hgb 30.6 pg (27.0-32.0); Mean Corpuscular Volume 95.8 fL (81-99); Platelet Count 186 K/mm3 (150-450); Red Blood Count 3.59 M/mm3 (4.2-5.4); White Blood Count 9.6 K/mm3 (4.4-11.0)
--- NOTE | 2020-06-27 05:52 | NURSING ---
pt was sitting in the chair. pt pulled off tele and tossed it across the room. pt started pulling on anything she could reach. pt unsure of where she was and kept saying she needed to call her daughter so she could go home. reoriented pt to place. Reminded pt that she had surgery on tue and the dr would need to see her this morning. pt verbalized understanding. assisted pt back to bed with the assist of 3. noticed new drainage on the dressing. reapplied alli wrap and applied weight.
--- NOTE | 2020-06-27 06:49 | PN.ORTHO_ITS ---
Subjective: The patient was sitting in bed upon examination. Patient denies any chest pain, shortness of breath, dizziness, lightheadedness, nausea or vomiting, or calf pain. Patient is currently on MS Contin and oxycodone. Also Tylenol. She continues to have pain primarily with the back into the left buttock and left leg. She complains of global pain. She is also complaining of right knee pain postoperatively. Nursing states patient was a 3 person assist getting her to the bedside chair. There was increased drainage with the right knee. Nursing also states that patient has been removing the proximal pin site dressing. She still seems in pain laying in bed with regards to her back. MRI was obtained yesterday which ruled out hematoma. MRI was discussed between Dr. Britton Jiménez and Dr. Reid our back specialist. Objective: Vital signs stable and afebrile. Patient is able to plantarflex and dorsiflex actively. Sensation is intact to light touch to saphenous, sural, superficial and deep peroneal, and tibial distribution. Resisted range of motion was performed in the bed: Plantarflexion/dorsiflexion 5-/5, great toe extension 4+/5 on the left. Patient does have tenderness to palpation in the left buttock region. Pulses are 2+ in the ankle and foot Draining has increased over the middle one third extending laterally off of the dressing. It is now saturated the JAMES hose and compressive Gabriel wrap. The incision was without erythema and no active drainage. Remaining dressings are clean dry and intact. Negative Homans bilaterally, negative signs and symptoms of DVT. - Physical Exam Vitals/I&O's: Vital Signs Temp Pulse Resp BP Pulse Ox 98.6 F 76 18 129/49 H 92 06/27/20 03:09 06/27/20 03:56 06/27/20 03:09 06/27/20 03:09 06/27/20 03:09 Oxygen Flow Rate (L/min) 4 Oxygen Delivery Method Room Air Weight: 86.4 kg Body Mass Index (BMI) 33.3 Finger Stick Blood Glucose 185 Intake and Output for Last 24 Hours 06/25/20 06/26/20 06/27/20 23:59 23:59 23:59 Intake Total 4633.75 / 4633.75 3723.33 / 3723.33 250 / 250 Output Total 450 / 450 Balance 4633.75 / 4633.75 3723.33 / 3723.33 -200 / -200 General: Alert, Oriented x3, Cooperative Microbiology Past 72 Hours 06/24/20 10:10 Interface Orders SARS-CoV-2 Antigen (Rapid) - Final Laboratory Results 06/27/20 05:25: WBC 9.6, RBC 3.59 L, Hgb 11.0 L, Hct 34.4 L, MCV 95.8, MCH 30.6, MCHC 32.0, RDW Std Deviation 50.0 H, RDW Coeff of Ruben 14.0, Plt Count 186, MPV 8.0 Current Medications Acetaminophen (Acetaminophen 500 Mg Tablet) 1,000 mg PO Q8 [facility] Last Admin: 06/27/20 05:12 Dose: 1,000 mg Documented by: Amlodipine Besylate (Amlodipine 5 Mg Tablet) 5 mg PO DAILY [facility] Last Admin: 06/26/20 09:27 Dose: 5 mg Documented by: Aspirin ([facility]w) [facility] Last Admin: 06/26/20 18:51 Dose: Not Given Documented by: Calcium Carbonate (Calcium Carbonate 500 Mg Tablet) [facility] Last Admin: 06/26/20 18:50 Dose: 500 mg Documented by: Enteral Nutritional Formula (Ensure Surgery 237 Ml Liquid) 237 ml PO TIDCM [facility] Last Admin: 06/26/20 18:50 Dose: 237 ml Documented by: Famotidine (Famotidine 20 Mg Tablet) 20 mg PO DAILY [facility] Last Admin: 06/26/20 09:26 Dose: 20 mg Documented by: Ferrous Sulfate (Ferrous Sulfate 325 Mg Tablet) [facility] Last Admin: 06/26/20 18:51 Dose: 325 mg Documented by: Ketorolac Tromethamine (Ketorolac 15 Mg/Ml Vial) 15 mg IV Q6H PRN PRN PRN Reason: Pain Score 1-5 Stop: 06/27/20 07:17 Last Admin: 06/26/20 12:30 Dose: 15 mg Documented by: Lisinopril (Lisinopril 10 Mg Tablet) 10 mg PO DAILY [facility] Last Admin: 06/26/20 09:27 Dose: 10 mg Documented by: Loperamide HCl (Loperamide 2 Mg Capsule) 2 mg PO Q6H PRN PRN PRN Reason: Diarrhea Meloxicam (Meloxicam 7.5 Mg Tablet) 7.5 mg PO BID [facility] Morphine Sulfate (Morphine 2 Mg/Ml Syringe) 2 - 4 mg IV Q2H PRN PRN PRN Reason: Pain Score 6-10 Last Admin: 06/26/20 20:52 Dose: 2 mg Documented by: Morphine Sulfate (Morphine Sr 15 Mg Tablet) 15 mg PO BID [facility] Last Admin: 06/26/20 22:43 Dose: 15 mg Documented by: Multivitamins (Multivitamins,Therapeutic Tablet) [facility] Last Admin: 06/26/20 09:27 Dose: 1 tablet Documented by: Ondansetron HCl (Ondansetron 4 Mg/2 Ml Vial) 4 mg IV Q8H PRN PRN PRN Reason: NAUSEA Last Admin: 06/25/20 18:37 Dose: 4 mg Documented by: Oxycodone HCl (Oxycodone 5 Mg Tablet) 5 - 10 mg PO Q4H PRN PRN PRN Reason: Pain Score 4-10 Last Admin: 06/27/20 03:49 Dose: 10 mg Documented by: Promethazine HCl (Promethazine 25 Mg/Ml Syringe) 12.5 mg IM Q6H PRN PRN; Protocol PRN Reason: NAUSEA/VOMITING Senna/Docusate Sodium (Senna/Docusate Sodium 1 Tablet) 2 tablet PO BID [facility] Last Admin: 06/26/20 23:25 Dose: Not Given Documented by: Sertraline HCl (Sertraline 100 Mg Tablet) 100 mg PO DAILY [facility] Last Admin: 06/26/20 09:27 Dose: 100 mg Documented by: Sodium Chloride (0.9% Nacl Peripheral Flush Adult/Peds) 5 - 15 ml IV UD PRN PRN Reason: SALINE FLUSH Last Admin: 06/26/20 20:52 Dose: 10 ml Documented by: Sodium Chloride (0.9% Saline Lock 10 Ml Syringe) 10 - 40 ml IV UD PRN PRN Reason: SALINE FLUSH Medical Necessity - Tobacco Use Smoking Status: Never smoker Assessment/Plan All Active Problems (Last Reviewed 06/25/20 @ 17:[address] Avery Vasquez, DO) Hx of tubal ligation (Acute) Hx of shoulder surgery (Acute) History of back surgery (Acute) Hx of cholecystectomy (Acute) Acid reflux (Acute) Diarrhea (Acute) Nausea (Acute) Back problem (Acute) Borderline diabetes (Acute) COVID-19 (Acute) 1. S/P right total knee arthroplasty POD #2 2. Continue Pain Medications: Tylenol, meloxicam, oxycodone, MS Contin 3. DVT Prophylaxis: Take 81 mg aspirin twice daily for 4 weeks postoperatively for DVT prophylaxis 4. PT/OT: Weightbearing as tolerated 5. H & H: 11.0/34.4, asymptomatic. Postoperative anemia secondary to acute blood loss from surgery without any intra operative complications. 6. Reactive leukocytosis: Resolved and currently 9.6, afebrile. Patient did receive Decadron intraoperatively 7. Continue postoperative medical management per medicine: Case was discussed with Dr. Vasquez. With regards to patient's heart the EKG was normal yesterday and her troponins were within normal limits. He states patient is fine from a medical standpoint with regards to her heart. Patient currently denies any chest pain or shortness of breath. 8. Acute on chronic low back pain with radiculopathy with previous surgery: we are still dealing with patient's increased low back pain with numbness and pain in the leg since the spinal. Patient does have previous history of surgery [place] [address] Corwin Guzmán. MRI was ordered which does reveal degenerative diaz es of the lumbar spine with foraminal narrowing and stenosis. MRI was discussed between Dr. Britton Jiménez and Dr. Reid our back specialist. Dr. Reid will be coming in today to discuss with the patient an injection into the back to see if this can help calm down her symptoms. He is going to try to do this later today. 9. Encouraged Incentive Spirometry 10. Postoperative right knee drainage: Compressive dressing was applied with the Mepilex dressing being removed. We will continue with naomy and I discussed with the patient she has not to be picking at the pin sites dressing. Plan would be to put a Mepilex dressing over the incision prior to discharge when ready. 11. Disposition: Due to patient's increased pain in the back and left hip/buttock, I am concerned that patient is not currently ready for discharge as she is still a 3 person assist with significant back pain with physical therapy and nursing. We will also like to see how patient does with the injection with Dr. Reid. There is possibility of discharge home today if she is medically stable and improves with physical therapy. Most likely patient will require an additional night to continue with therapy at this time. There was drainage from the right knee which the dressing was removed today. There was no active drainage upon examination of the incision. A compressive ABD dressing was placed and will use sandbag. Avoid significant flexion of the knee today. I have reviewed the [place] Automated Rx Reporting System ([place]ARRS) report for this patient for refill pattern and other prescriber involvement as part of the appropriate surveillance for the provision of acute and chronic controlled medications. The report was requested and reviewed on the date of this entry and was considered in the prescribing process.
--- NOTE | 2020-06-27 07:41 | CON.PCM_ITS ---
Problem List (1) Back problem Status: Acute - Consult Date of Consult: 06/27/20 - Reason for Consult The patient is a 75-year-old female who underwent right total knee arthroplasty yesterday with . Since then she has been complaining of low back pain radiating to the left lower extremity. She describes constant aching pain in the left lumbar region radiating to the left gluteal region and left posterior thigh. She does have a history of back surgery in 2016 by for lumbar decompression. She states she has had episode of symptoms similar in nature to this episode in the past, but this is more severe and constant. She denies any acute numbness, tingling, weakness, or changes in bowel or bladder function. Alert and oriented x3, in obvious discomfort secondary to low back pain radiating to the left lower extremity as described above Abdomen soft and nontender Extremities: Sensation and motor intact grossly without focal deficit. Reflexes +2 and equal bilaterally. Pulses normal. Dressing applied to the right lower e xtremity, status post total knee replacement clean dry and intact. No upper motor neuron signs. There is a well-healed 4 inch scar in the midline of the lumbar region. No tenderness erythema drainage or fluctuance Lumbar MRI dated 06/26/2020 reviewed showing surgical changes from prior lumbar laminectomy. Significant degenerative changes are noted at all lumbar levels with loss of disc height and signal with associated stenosis. Assessment: 1. Lumbar stenosis 2. Acute on chronic low back pain radiating to the left lower extremity Plan: I had a lengthy discussion with the patient. I reviewed her results of her lumbar MRI with her. She does have significant areas of subarticular stenosis at multiple regions of the lumbar spine. After discussing the risks, benefits, and alternatives, I recommend a caudal epidural steroid injection. She agrees to proceed. We will plan for this injection today. She will follow up with me in clinic after she is discharged. She understands and agrees with the treatment plan.
--- NOTE | 2020-06-27 08:59 | CASEMGMT ---
According to the [facility] website, the following are in-network tertiary facilities: [facility], [facility], [facility], [facility], and . Kaan COLLINS CM
[2020-06-27] MEDS: Aspirin 81 MG TAB.CHEW PO ×2 (09:09→18:41)
[2020-06-27] MEDS: Lisinopril 10 MG Tablet PO (09:09)
[2020-06-27] MEDS: Senna/Docusate Sodium 1 Tablet 2 TABLET PO ×2 (09:09→21:02)
[2020-06-27] MEDS: Sertraline 100 MG Tablet PO (09:09)
[2020-06-27] MEDS: Ferrous Sulfate 325 MG Tablet PO ×2 (09:09→18:41)
[2020-06-27] MEDS: Calcium Carbonate 500 MG Tablet PO ×2 (09:09→18:41)
[2020-06-27] MEDS: amLODIPine 5 MG Tablet PO (09:09)
[2020-06-27] MEDS: Multivitamins,Therapeutic Tablet 1 TABLET PO (09:09)
[2020-06-27] MEDS: Famotidine 20 MG Tablet PO (09:10)
[2020-06-27] MEDS: Ensure Surgery 237 ML LIQUID PO ×3 (09:10→18:41)
[2020-06-27] MEDS: Meloxicam 7.5 MG Tablet PO ×2 (09:10→21:02)
--- NOTE | 2020-06-27 09:17 | PN_ITS ---
Patient Problems: Active and Suspected Problems (Last Reviewed 06/25/20 @ 17:[address] Avery Vasquez, DO) Back problem (Acute) Subjective: Still with left groin pain, again radiating down leg medial leg to foot. Vitals/I&O's: Vital Signs Temp Pulse Resp BP Pulse Ox 37.0 C 76 18 129/49 H 93 06/27/20 03:09 06/27/20 03:56 06/27/20 03:09 06/27/20 03:09 06/27/20 07:10 Oxygen Flow Rate (L/min) 4 Oxygen Delivery Method Room Air Weight: 86.4 kg Body Mass Index (BMI) 33.3 Finger Stick Blood Glucose 185 Intake and Output for Last 24 Hours 06/25/20 06/26/20 06/27/20 23:59 23:59 23:59 Intake Total 4633.75 / 4633.75 3723.33 / 3723.33 250 / 250 Output Total 450 / 450 Balance 4633.75 / 4633.75 3723.33 / 3723.33 -200 / -200 General: Alert, No apparent distress HEENT: Atraumatic, Normocephalic Oral: Moist Mucosa, No Gingival or Mucosal Lesions/ Ulcerations Neck: No Nodes, Thyroid Normal Size and Texture Lungs: Clear to auscultation, Normal air movement, No rhonchi, No wheeze Cardiovascular: Regular rate, Regular Rhythm, Normal S1, Normal S2, No murmurs Abdomen: Bowel Sounds Present, Soft, Non Tender, Non-Distended, No Hepato- splenomegaly Extremities: No edema, No Calf Tenderness Psych/Mental Status: Normal Affect, Appropriate Microbiology Past 72 Hours 06/24/20 10:10 Interface Orders SARS-CoV-2 Antigen (Rapid) - Final Laboratory Results 06/27/20 05:25: WBC 9.6, RBC 3.59 L, Hgb 11.0 L, Hct 34.4 L, MCV 95.8, MCH 30.6, MCHC 32.0, RDW Std Deviation 50.0 H, RDW Coeff of Ruben 14.0, Plt Count 186, MPV 8.0 Current Medications Acetaminophen (Acetaminophen 500 Mg Tablet) 1,000 mg PO Q8 [facility] Last Admin: 06/27/20 05:12 Dose: 1,000 mg Documented by: Amlodipine Besylate (Amlodipine 5 Mg Tablet) 5 mg PO DAILY [facility] Last Admin: 06/27/20 09:09 Dose: 5 mg Documented by: Aspirin (Aspirin 81 Mg Tab.Chew) 81 mg PO BIDCO[facility]AN[facility] Last Admin: 06/27/20 09:09 Dose: 81 mg Documented by: Calcium Carbonate (Calcium Carbonate 500 Mg Tablet) 500 mg PO BIDCO[facility] Last Admin: 06/27/20 09:09 Dose: 500 mg Documented by: Enteral Nutritional Formula (Ensure Surgery 237 Ml Liquid) [facility] [place] [facility] [place] Last Admin: 06/27/20 09:10 Dose: 237 ml Documented by: Famotidine (Famotidine 20 Mg Tablet) 20 mg PO DAILY [facility] Last Admin: 06/27/20 09:10 Dose: 20 mg Documented by: Ferrous Sulfate (Ferrous Sulfate 325 Mg Tablet) 325 mg PO BIDCO[facility] Last Admin: 06/27/20 09:09 Dose: 325 mg Documented by: Lisinopril (Lisinopril 10 Mg Tablet) 10 mg PO DAILY [facility] Last Admin: 06/27/20 09:09 Dose: 10 mg Documented by: Loperamide HCl (Loperamide 2 Mg Capsule) 2 mg PO Q6H PRN PRN PRN Reason: Diarrhea Meloxicam (Meloxicam 7.5 Mg Tablet) 7.5 mg PO BID [facility] Last Admin: 06/27/20 09:10 Dose: 7.5 mg Documented by: Morphine Sulfate (Morphine 2 Mg/Ml Syringe) 2 - 4 mg IV Q2H PRN PRN PRN Reason: Pain Score 6-10 Last Admin: 06/26/20 20:52 Dose: 2 mg Documented by: Morphine Sulfate (Morphine Sr 15 Mg Tablet) 15 mg PO BID [facility] Last Admin: 06/26/20 22:43 Dose: 15 mg Documented by: Multivitamins (Multivitamins,Therapeutic Tablet) 1 tablet PO DAILYCO[facility]AN[facility] Last Admin: 06/27/20 09:09 Dose: 1 tablet Documented by: Ondansetron HCl (Ondansetron 4 Mg/2 Ml Vial) 4 mg IV Q8H PRN PRN PRN Reason: NAUSEA Last Admin: 06/25/20 18:37 Dose: 4 mg Documented by: Oxycodone HCl (Oxycodone 5 Mg Tablet) 5 - 10 mg PO Q4H PRN PRN PRN Reason: Pain Score 4-10 Last Admin: 06/27/20 03:49 Dose: 10 mg Documented by: Promethazine HCl (Promethazine 25 Mg/Ml Syringe) 12.5 mg IM Q6H PRN PRN; Protocol PRN Reason: NAUSEA/VOMITING Senna/Docusate Sodium (Senna/Docusate Sodium 1 Tablet) 2 tablet PO BID [facility] Last Admin: 06/27/20 09:09 Dose: 2 tablet Documented by: Sertraline HCl (Sertraline 100 Mg Tablet) 100 mg PO DAILY [facility] Last Admin: 06/27/20 09:09 Dose: 100 mg Documented by: Sodium Chloride (0.9% Nacl Peripheral Flush Adult/Peds) 5 - 15 ml IV UD PRN PRN Reason: SALINE FLUSH Last Admin: 06/26/20 20:52 Dose: 10 ml Documented by: Sodium Chloride (0.9% Saline Lock 10 Ml Syringe) 10 - 40 ml IV UD PRN PRN Reason: SALINE FLUSH STROKE Vital Signs/Narrative: Vital Signs Pulse Ox 06/27/20 07:10 93 Medical Necessity - Tobacco Use Smoking Status: Never smoker Assessment/Plan All Active Problems (Last Reviewed 06/25/20 @ 17:[address] Avery Vasquez, DO) Hx of tubal ligation (Acute) Hx of shoulder surgery (Acute) History of back surgery (Acute) Hx of cholecystectomy (Acute) Acid reflux (Acute) Diarrhea (Acute) Nausea (Acute) Back problem (Acute) Borderline diabetes (Acute) COVID-19 (Acute) 1. Abnormal EKG: * Resolved. Reviewed repeat EKG on 06/26 and T inversion in inferior leads resolved. Troponins negative. * No clinical evidence of ischemia despite the computer report. Likely rate dependent. Patient does have a right bundle branch block but that is not new. * OK to DC telemetry * No additional cardiac work up at this time. 2. Left groin pain * Discussed with anesthesiology 06/25 who feels that this could be related with the spinal injection that she did receive. Plan would be just to let that wear off. * MRI showed extensive neural foraminal narrowing, L1, L3 and L4 nerve root effacement. Seen by Dr. Reid, who is planning on epidural to assist with pain. 3. Hypokalemia: * resolved 4. Status post right knee replacement: Management per orthopedics. 5. Hypertension: Continue with amlodipine and lisinopril 6. VTE prophylaxis: Aspirin as per orthopedics instructions. 7. Medically stable for discharge after epidural completed. Home with home care v SNF, depending on patient's course. Will sign off from a medical perspective. Please do not hesitate to contact me with any questions or concerns. Inpatient E&M: 48095 Subs Hosp L2
[2020-06-27] MEDS: morphine SR 15 MG Tablet PO ×2 (09:28→21:04)
--- NOTE | 2020-06-27 11:45 | RAD_ITS ---
PROCEDURE: Caudal block. DATE OF EXAMINATION: 06/27/2020 INDICATION: Female, 75 years old. Chronic back pain. FLUOROSCOPY TIME (if supplied): (29 seconds) minutes/seconds. One single image was submitted. Intraoperative imaging provided for caudal block. RAD/Spine 1 View Any Level IMPRESSION: Intraoperative imaging provided for caudal block. Electronically Signed: Tomi Lynn MD at 13:23 EST , Service support ,
[2020-06-27] MEDS: Bupivacaine 0.25% 30 ML Vial (12:25)
[2020-06-27] MEDS: Lidocaine 1% (20 ml mdv) 20 ML Vial (12:25)
[2020-06-27] MEDS: 0.9% Normal Saline (Pres. free 10 ML Vial (12:25)
[2020-06-27] MEDS: Triamcinolone Acetonide 40 MG/ML Vial (12:25)
--- NOTE | 2020-06-27 21:14 | PCM.OPRPT ---
Problem List (1) Back problem Status: Acute Report of Operation Date of Procedure: 06/27/20 Pre-Operative Diagnosis: Lumbar stenosis without neurogenic claudication Post-Operative Diagnosis: Lumbar stenosis without neurogenic claudication Surgery/Procedure Performed:: Caudal epidural steroid injection Description of Surgical Findings:: The patient was seen in the preop holding area. Risks and benefits of the procedure were explained to the patient and informed consent was obtained. The patient was transported to the procedure room and positioned prone on the fluoroscopy table. The back was prepped and draped in a sterile fashion. Sterile technique was used throughout. Corresponding skin and subcutaneous tissue entry sites were anesthetized with a 27-gauge 1-1/2 inch needle using 1% lidocaine ?5 mL. Under fluoroscopic guidance a 22-gauge 5 inch spinal needle was advanced to enter the caudal space. Position was confirmed in AP, oblique and lateral views. Subsequently 5 cc of contrast was injected. Positive epidural spread was noted. No intramuscular or intrathecal uptake was noted. After negative aspiration, bupivacaine 0.25% ?3 mL, 1 mL of Kenalog 40 mg/m, and 3 cc of preservative-free normal saline was injected. The needle was removed. No complications were noted. The patient was transport to recovery and monitored until being returned to the floor. Type of Anesthesia:: Local Estimated Blood Loss (mL): none - Complications none
[2020-06-28] MEDS: Morphine 2 MG/ML Syringe IV ×3 (00:02→12:31)
[2020-06-28] MEDS: 0.9% NaCl Peripheral Flush Adult/Peds IV (00:03)
[2020-06-28] MEDS: 0.9% Saline Lock 10 ML Syringe IV (02:13)
[2020-06-28 03:15] VITALS: BP 128/71; PULSE 66; RESP 18; TEMP 36.9; O2SAT 93
[2020-06-28 06:01] LABS: Hematocrit 33.2 % (37-47); Mean Corp Hgb Conc 33.1 g/dL (32-36); Mean Corpuscular Hgb 31.3 pg (27.0-32.0); Mean Corpuscular Volume 94.6 fL (81-99); Mean Platelet Vol. 8.6 fl (6.2-12.0); Platelet Count 198 K/mm3 (150-450); RBC Distribution Width CV 13.6 % (11.6-14.6); RBC Distribution Width SD 46.8 fl (35.1-43.9); Red Blood Count 3.51 M/mm3 (4.2-5.4); White Blood Count 10.9 K/mm3 (4.4-11.0)
[2020-06-28] MEDS: Acetaminophen 500 MG Tablet 1000 MG PO ×3 (06:05→21:17)
--- NOTE | 2020-06-28 07:16 | PN.ORTHO_ITS ---
Patient Problems: Active and Suspected Problems (Last Reviewed 06/25/20 @ 17:[address] Avery Vasquez, DO) Back problem (Acute) Subjective: 75-year-old female 3 days status post right total knee replacement with significant left-sided radiculopathy was examined this morning. She does report that overall she is becoming more comfortable since the injection. She has not been up with therapy today. She has required multiple assists throughout her visit. Spoke with nursing staff last night during she was still considerably uncomfortable. She reports 3 or 4 out of 10 left leg pain today which is significantly improved from prior. Also was able to speak with the family yesterday after thorough discussion of the situation though their desire is still to have her come home if were not able to resolve her radicular pain to an acceptable level that would allow for adequate self-care at home rehab or skilled facility is being considered. Patient still voices a desire to go home. She reports significant improvement today. Does not report any chest pain shortness of breath. Did have a increased temperature and heart rate one time throughout the night. But it stabilized. Objective: Postop x-rays show stable well aligned Right total knee replacement. - Physical Exam Vitals/I&O's: Vital Signs Temp Pulse Resp BP Pulse Ox 98.5 F 66 18 128/71 H 93 06/28/20 03:15 06/28/20 03:15 06/28/20 03:15 06/28/20 03:15 06/28/20 03:15 Oxygen Flow Rate (L/min) 4 Oxygen Delivery Method Room Air Weight: 190 lb 7.67 oz Body Mass Index (BMI) 33.3 Finger Stick Blood Glucose 185 Intake and Output for Last 24 Hours 06/26/20 06/27/20 06/28/20 23:59 23:59 23:59 Intake Total 3723.33 / 3723.33 1150 / 1270 240 / 240 Output Total 950 / 1650 1000 / 1000 Balance 3723.33 / 3723.33 200 / -380 -760 / -760 General: Alert, Oriented x3, Cooperative HEENT: Atraumatic Extremities: - - Right lower extremity: Dressing is clean dry and intact Sensations intact to light touch saphenous, sural, superficial peroneal, deep peroneal, and tibial distributions Motors intact EHL, DF, PF calves are soft and supple Strength: 5 out of 5 dorsiflexion EHL and plantar flexion bilaterally. Laboratory Results 06/28/20 05:17: WBC 10.9, RBC 3.51 L, Hgb 11.0 L, Hct 33.2 L, MCV 94.6, MCH 31.3, MCHC 33.1, RDW Std Deviation 46.8 H, RDW Coeff of Ruben 13.6, Plt Count 198, MPV 8.6 Current Medications Acetaminophen (Acetaminophen 500 Mg Tablet) 1,000 mg PO Q8 [facility] Last Admin: 06/28/20 06:05 Dose: 1,000 mg Documented by: Amlodipine Besylate (Amlodipine 5 Mg Tablet) 5 mg PO DAILY [facility] Last Admin: 06/27/20 09:09 Dose: 5 mg Documented by: Aspirin ([facility]w) [facility] Last Admin: 06/27/20 18:41 Dose: 81 mg Documented by: Calcium Carbonate (Calcium Carbonate 500 Mg Tablet) [facility] Last Admin: 06/27/20 18:41 Dose: 500 mg Documented by: Enteral Nutritional Formula (Ensure Surgery 237 Ml Liquid) 237 ml PO TIDCM [facility] Last Admin: 06/27/20 18:41 Dose: 237 ml Documented by: Famotidine (Famotidine 20 Mg Tablet) 20 mg PO DAILY [facility] Last Admin: 06/27/20 09:10 Dose: 20 mg Documented by: Ferrous Sulfate (Ferrous Sulfate 325 Mg Tablet) [facility] Last Admin: 06/27/20 18:41 Dose: 325 mg Documented by: Lisinopril (Lisinopril 10 Mg Tablet) 10 mg PO DAILY [facility] Last Admin: 06/27/20 09:09 Dose: 10 mg Documented by: Loperamide HCl (Loperamide 2 Mg Capsule) 2 mg PO Q6H PRN PRN PRN Reason: Diarrhea Meloxicam (Meloxicam 7.5 Mg Tablet) 7.5 mg PO BID [facility] Last Admin: 06/27/20 21:02 Dose: 7.5 mg Documented by: Morphine Sulfate (Morphine 2 Mg/Ml Syringe) 2 - 4 mg IV Q2H PRN PRN PRN Reason: Pain Score 6-10 Last Admin: 06/28/20 02:14 Dose: 2 mg Documented by: Morphine Sulfate (Morphine Sr 15 Mg Tablet) 15 mg PO BID [facility] Last Admin: 06/27/20 21:04 Dose: 15 mg Documented by: Multivitamins (Multivitamins,Therapeutic Tablet) [facility] Last Admin: 06/27/20 09:09 Dose: 1 tablet Documented by: Ondansetron HCl (Ondansetron 4 Mg/2 Ml Vial) 4 mg IV Q8H PRN PRN PRN Reason: NAUSEA Last Admin: 06/25/20 18:37 Dose: 4 mg Documented by: Oxycodone HCl (Oxycodone 5 Mg Tablet) 5 - 10 mg PO Q4H PRN PRN PRN Reason: Pain Score 4-10 Last Admin: 06/27/20 21:58 Dose: 10 mg Documented by: Promethazine HCl (Promethazine 25 Mg/Ml Syringe) 12.5 mg IM Q6H PRN PRN; Protocol PRN Reason: NAUSEA/VOMITING Senna/Docusate Sodium (Senna/Docusate Sodium 1 Tablet) 2 tablet PO BID [facility] Last Admin: 06/27/20 21:02 Dose: 2 tablet Documented by: Sertraline HCl (Sertraline 100 Mg Tablet) 100 mg PO DAILY [facility] Last Admin: 06/27/20 09:09 Dose: 100 mg Documented by: Sodium Chloride (0.9% Nacl Peripheral Flush Adult/Peds) 5 - 15 ml IV UD PRN PRN Reason: SALINE FLUSH Last Admin: 06/28/20 00:03 Dose: 10 ml Documented by: Sodium Chloride (0.9% Saline Lock 10 Ml Syringe) 10 - 40 ml IV UD PRN PRN Reason: SALINE FLUSH Last Admin: 06/28/20 02:13 Dose: 30 ml Documented by: Medical Necessity - Tobacco Use Smoking Status: Never smoker Assessment/Plan All Active Problems (Last Reviewed 06/25/20 @ 17:[address] Avery Vasquez, DO) Hx of tubal ligation (Acute) Hx of shoulder surgery (Acute) History of back surgery (Acute) Hx of cholecystectomy (Acute) Acid reflux (Acute) Diarrhea (Acute) Nausea (Acute) Back problem (Acute) Borderline diabetes (Acute) COVID-19 (Acute) 1. S/P right total knee arthroplasty POD #3 2. Continue Pain Medications: Tylenol, meloxicam, oxycodone, MS Contin, patient appears to be responding to the epidural steroid injection with decreased leg pain today. 3. DVT Prophylaxis: Take 81 mg aspirin twice daily for 4 weeks postoperatively for DVT prophylaxis 4. PT/OT: Weightbearing as tolerated. PT should focus on the right knee as well as the back and left radiculopathy. 5. H & H: Hemoglobin remained 11.0 today stable. Postoperative anemia secondary to acute blood loss from surgery without any intra operative complications. 6. Reactive leukocytosis: Resolved, mild increase today to 10.9 likely secondary to steroid dose yesterday 7. Continue postoperative medical management per medicine: Medicine notes resolved at this time there is not appear to be additional cardiac concerns. 8. Acute on chronic low back pain with radiculopathy with previous surgery: Patient's radiculopathy symptoms appear to be improved today after the epidural steroid injection. She rates her pain at a 3 or 4 out of 10. She has not had activity today. We will need to special warfare operator how she responds with increased activity with therapy. However if she remains at this level of pain and is comfortable may consider discharge later today 9. Encouraged Incentive Spirometry 10. Postoperative right knee drainage: Continue compressive bulky dry dressings and switch to Mepilex upon discharge. 11. Disposition: Discharge was discussed with the patient today. Appropriateness of discharge will be based on her comfort throughout the day and ability to participate in physical therapy. I did speak with the family yesterday encourage them to speak with social work on appropriate discharge destinations and begin to consider this if she does not respond appropriately to the epidural steroid injection. We will switch her to a Mepilex occlusive dressing prior to discharge. We will monitor the wound throughout the day. She will need to have follow-up with Dr. Reid upon discharge for long-term management of her radiculopathy and back pain. The knee overall appears to be doing well but there is a level of diversion as her left leg pain is been quite severe up until today. I will attempt to prepare the patient for discharge. If she meets criteria I will need to be contacted for discharge order later today. I have reviewed the [place] Automated Rx Reporting System (OARRS) report for this patient for refill pattern and other prescriber involvement as part of the appropriate surveillance for the provision of acute and chronic controlled medications. The report was requested and reviewed on the date of this entry and was considered in the prescribing process.
--- NOTE | 2020-06-28 07:40 | DCINST_ITS ---
Discharge Diet: No Restrictions Discharge Activity: May Not Drive May shower in (days): 2 Ice area for (Minutes): 20 - every hour while awake. Weight Bearing Status: Weight bearing as tolerated Elevate: Operative Extremity Additional Activity Instructions:: Wear elastic stockings for 2 weeks after your surgery. Call your doctor if your incision/area has: Continuous Slow Oozing, Sudden Increased Bleeding, Increased Pain/ Swelling, Increased Redness, Foul Smelling Discharge Call your doctor if you observe: Fever of 101 or Higher, Coldness, Increased Pain, Numbness or Tingling, Change in Color, Calf discomfort, Uncontrolled pain Remove Dressing in (days):: 07-01-2020 Additional Dressing/Incision Instructions:: If incision is clean dry and intact may leave the wound open to air and continue showering. If there is continued drainage continue daily dry dressing changes and keep incision clean dry and intact until there is no drainage. Allergies/Adverse Reactions: Allergies Penicillins [PCN] Allergy (Verified 06/11/20 10:07) Hives Medications to take at Discharge Amlodipine [Norvasc] 5 mg PO DAILY 12/24/19 Ferrous Sulfate 325 mg PO BIDCM 12/24/19 Lisinopril [Zestril] 10 mg PO DAILY 12/24/19 Sertraline HCl [Zoloft] 100 mg PO DAILY 12/24/19 Loperamide [Imodium] 2 mg PO Q6H PRN PRN cap 12/25/19 calcium carbonate 600 mg calcium (1,500 mg) tablet 600 mg PO BID tab 02/14/20 multivitamin 1 tab PO DAILY 02/14/20 Acetaminophen [Tylenol] 1,000 mg PO Q8 tab 06/28/20 Aspirin [Aspirin, Baby] 81 mg PO BIDCM tab.chew 06/28/20 Ensure Surgery 237 ml PO TIDCM liquid 06/28/20 Famotidine [Pepcid] 20 mg PO DAILY #30 tab 06/28/20 Meloxicam [Mobic] 7.5 mg PO BID #60 tab 06/28/20 Oxycodone [Oxyir] 5 - 10 mg PO Q4H PRN PRN 7 Days #84 tab 06/28/20 Senna/Docusate Sodium [Senokot-S] 2 tab PO BID #20 tab 06/28/20 morphine SR tablet [Ms Contin] 15 mg PO BID 4 Days #8 tab 06/28/20 Cefadroxil [Duracef] 500 mg PO BID #10 cap 06/30/20 The following prescriptions were given: Cefadroxil [Duracef] 500 mg PO BID #10 cap Transmission Status: Pending to [facility]/pharmacy #[id number] Meloxicam [Mobic] 7.5 mg PO BID #60 tab Prescription Printed morphine SR tablet [Ms Contin] 15 mg PO BID 4 Days #8 tab Prescription Printed Oxycodone [Oxyir] 5 - 10 mg PO Q4H PRN PRN 7 Days #84 tab PRN Reason: Pain Score 4-10 Prescription Printed Famotidine [Pepcid] 20 mg PO DAILY #30 tab Prescription Printed Senna/Docusate Sodium [Senokot-S] 2 tab PO BID #20 tab Prescription Printed Orders to be completed after discharge: 12 Lead EKG [[facility]] Time Frame: 06/18/20, Location: None Selected Primary Care Physician: Avery De Jesus MD [Primary Care Provider] - Please follow up with your Primary Care Physician in: [place] FOR UTI Test Results: Test results from this visit will be discussed in further detail at your follow- up appointment, if applicable. Please Follow Up With: Roosevelt Durán PA-C When: 07-10-2020 4pm Please Follow Up With: Jos Reid DO When: call for follow up in 2 weeks
[2020-06-28 07:55] VITALS: O2SAT 95
[2020-06-28 09:29] VITALS: BP 119/48; PULSE 68; RESP 14; TEMP 36.8; O2SAT 92
[2020-06-28] MEDS: Calcium Carbonate 500 MG Tablet PO ×2 (09:32→16:46)
[2020-06-28] MEDS: Famotidine 20 MG Tablet PO (09:32)
[2020-06-28] MEDS: Meloxicam 7.5 MG Tablet PO ×2 (09:32→21:17)
[2020-06-28] MEDS: Senna/Docusate Sodium 1 Tablet 2 TABLET PO ×2 (09:32→21:17)
[2020-06-28] MEDS: Lisinopril 10 MG Tablet PO (09:32)
[2020-06-28] MEDS: amLODIPine 5 MG Tablet PO (09:32)
[2020-06-28] MEDS: Aspirin 81 MG TAB.CHEW PO ×2 (09:32→16:46)
[2020-06-28] MEDS: Ferrous Sulfate 325 MG Tablet PO ×3 (09:32→16:46)
[2020-06-28] MEDS: Ensure Surgery 237 ML LIQUID PO ×2 (09:33→16:47)
[2020-06-28] MEDS: Sertraline 100 MG Tablet PO (09:33)
[2020-06-28] MEDS: Multivitamins,Therapeutic Tablet 1 TABLET PO (09:33)
[2020-06-28] MEDS: morphine SR 15 MG Tablet PO ×2 (09:36→21:18)
[2020-06-28] MEDS: oxyCODONE 5 MG Tablet PO ×2 (12:04→16:47)
--- NOTE | 2020-06-28 15:28 | CM.UR ---
Met face to face with patient and her daughter. Patient has been having trouble with pain control and confusion. Dr. Jiménez felt patient would benefit from SNF placement however the patient and family are declining. They feel she would do better in familiar environment with family. Gave patient and daughter list of [facility] agencies in her [place] [facility]. Explained someone will come back later to see who they wanted. Daughter asked that I let her look over list and she'll tell me right now. She asked who I would recommend. Explained that I am not allowed to offer an opinion on that. Explained there is no hurry/she could take her time to review list as they won't contact them until Tuesday, even if discharged tomorrow but I would wait for her to look. They looked over the list and decided on [facility] and are aware they are owned by the [facility]. [facility] faxed to [facility] at this time and green sheet placed on chart. Robyn Mendosa RN, CCM.
[2020-06-28 15:56] VITALS: BP 123/69; PULSE 66; RESP 14; TEMP 37.2; O2SAT 92
[2020-06-28 21:10] VITALS: BP 130/63; PULSE 78; RESP 18; TEMP 36.8; O2SAT 93
[2020-06-29 03:06] VITALS: BP 118/70; PULSE 70; RESP 16; TEMP 36.7; O2SAT 95
[2020-06-29] MEDS: oxyCODONE 5 MG Tablet PO (03:24)
[2020-06-29] MEDS: Acetaminophen 500 MG Tablet 1000 MG PO ×3 (06:09→20:37)
[2020-06-29 07:55] VITALS: O2SAT 94
[2020-06-29 09:50] VITALS: BP 103/65; PULSE 79; RESP 16; TEMP 36.8; O2SAT 93
[2020-06-29] MEDS: Multivitamins,Therapeutic Tablet 1 TABLET PO (10:15)
[2020-06-29] MEDS: Calcium Carbonate 500 MG Tablet PO ×2 (10:15→17:42)
[2020-06-29] MEDS: Aspirin 81 MG TAB.CHEW PO ×2 (10:15→17:41)
[2020-06-29] MEDS: Senna/Docusate Sodium 1 Tablet 2 TABLET PO ×2 (10:16→20:37)
[2020-06-29] MEDS: Meloxicam 7.5 MG Tablet PO ×2 (10:16→20:37)
[2020-06-29] MEDS: amLODIPine 5 MG Tablet PO (10:16)
[2020-06-29] MEDS: Lisinopril 10 MG Tablet PO (10:16)
[2020-06-29] MEDS: Famotidine 20 MG Tablet PO (10:16)
[2020-06-29] MEDS: Sertraline 100 MG Tablet PO (10:17)
[2020-06-29] MEDS: morphine SR 15 MG Tablet PO ×2 (10:19→20:36)
[2020-06-29] MEDS: Ensure Surgery 237 ML LIQUID PO (12:44)
--- NOTE | 2020-06-29 14:09 | PN.ORTHO_ITS ---
Patient Problems: Active and Suspected Problems (Last Reviewed 06/25/20 @ 17:[address] Avery Vasquez, DO) Back problem (Acute) Subjective: Patient has done well yesterday. After discussions with social work plans were for eventual discharge with home health care. However, she reports today that the pain continues to radiate into her vagina. She notes that it is primarily on the left side of this region. She is concerned that it become painful to urinate and sometimes initiation of urination is difficult. She has been able to urinate. No loss of bowel control. She now rates her pain at a 7 out of 10 which is significantly worse than yesterday. She also reports that the pain is significantly worse than yesterday. She seems to be doing well with the right knee recovery. - Physical Exam Vitals/I&O's: Vital Signs Temp Pulse Resp BP Pulse Ox 98.3 F 79 16 103/65 93 06/29/20 09:50 06/29/20 09:50 06/29/20 09:50 06/29/20 09:50 06/29/20 09:50 Oxygen Flow Rate (L/min) 4 Oxygen Delivery Method Room Air Weight: 190 lb 7.67 oz Body Mass Index (BMI) 33.3 Finger Stick Blood Glucose 185 Intake and Output for Last 24 Hours 06/27/20 06/28/20 06/29/20 23:59 23:59 23:59 Intake Total 1150 / 1270 365 / 365 555 / 555 Output Total 950 / 1650 1700 / 1700 300 / 300 Balance 200 / -380 -1335 / -1335 255 / 255 General: Alert, Oriented x3, Cooperative Extremities: - - Left lower extremity: Incision clean dry and intact. Motor is intact dorsiflexion, EHL and plantar flexion. Sensation is intact to light touch saphenous, xuan,l superficial peroneal, deep peroneal and tibial distributions. Calves are soft and supple. Neuro: 5 out of 5 dorsiflexion EHL and planta Comment: Labial aero was again examined. No superficial areas of ecchymosis. Current Medications Acetaminophen (Acetaminophen 500 Mg Tablet) 1,000 mg PO Q8 [facility] Last Admin: 06/29/20 06:09 Dose: 1,000 mg Documented by: Amlodipine Besylate (Amlodipine 5 Mg Tablet) 5 mg PO DAILY [facility] Last Admin: 06/29/20 10:16 Dose: 5 mg Documented by: Aspirin ([facility] 81 [facility]w) [facility] Last Admin: 06/29/20 10:15 Dose: 81 mg Documented by: Calcium Carbonate (Calcium Carbonate 500 Mg Tablet) [facility] Last Admin: 06/29/20 10:15 Dose: 500 mg Documented by: Enteral Nutritional Formula (Ensure Surgery 237 Ml Liquid) [facility] Last Admin: 06/29/20 12:44 Dose: 237 ml Documented by: Famotidine (Famotidine 20 Mg Tablet) 20 mg PO DAILY [facility] Last Admin: 06/29/20 10:16 Dose: 20 mg Documented by: Ferrous Sulfate (Ferrous Sulfate 325 Mg Tablet) [facility] Last Admin: 06/28/20 16:46 Dose: 325 mg Documented by: Lisinopril (Lisinopril 10 Mg Tablet) 10 mg PO DAILY [facility] Last Admin: 06/29/20 10:16 Dose: 10 mg Documented by: Loperamide HCl (Loperamide 2 Mg Capsule) 2 mg PO Q6H PRN PRN PRN Reason: Diarrhea Meloxicam (Meloxicam 7.5 Mg Tablet) 7.5 mg PO BID [facility] Last Admin: 06/29/20 10:16 Dose: 7.5 mg Documented by: Morphine Sulfate (Morphine 2 Mg/Ml Syringe) 2 - 4 mg IV Q2H PRN PRN PRN Reason: Pain Score 6-10 Last Admin: 06/28/20 12:31 Dose: 4 mg Documented by: Morphine Sulfate (Morphine Sr 15 Mg Tablet) 15 mg PO BID [facility] Last Admin: 06/29/20 10:19 Dose: 15 mg Documented by: Multivitamins (Multivitamins,Therapeutic Tablet) [facility] Last Admin: 06/29/20 10:15 Dose: 1 tablet Documented by: Ondansetron HCl (Ondansetron 4 Mg/2 Ml Vial) 4 mg IV Q8H PRN PRN PRN Reason: NAUSEA Last Admin: 06/25/20 18:37 Dose: 4 mg Documented by: Oxycodone HCl (Oxycodone 5 Mg Tablet) 5 - 10 mg PO Q4H PRN PRN PRN Reason: Pain Score 4-10 Last Admin: 06/29/20 03:24 Dose: 5 mg Documented by: Promethazine HCl (Promethazine 25 Mg/Ml Syringe) 12.5 mg IM Q6H PRN PRN; Protocol PRN Reason: NAUSEA/VOMITING Senna/Docusate Sodium (Senna/Docusate Sodium 1 Tablet) 2 tablet PO BID [facility] Last Admin: 06/29/20 10:16 Dose: 2 tablet Documented by: Sertraline HCl (Sertraline 100 Mg Tablet) 100 mg PO DAILY [facility] Last Admin: 06/29/20 10:17 Dose: 100 mg Documented by: Sodium Chloride (0.9% Nacl Peripheral Flush Adult/Peds) 5 - 15 ml IV UD PRN PRN Reason: SALINE FLUSH Last Admin: 06/28/20 00:03 Dose: 10 ml Documented by: Sodium Chloride (0.9% Saline Lock 10 Ml Syringe) 10 - 40 ml IV UD PRN PRN Reason: SALINE FLUSH Last Admin: 06/28/20 02:13 Dose: 30 ml Documented by: Medical Necessity - Tobacco Use Smoking Status: Never smoker Assessment/Plan All Active Problems (Last Reviewed 06/25/20 @ 17:[address] Avery Vasquez, DO) Hx of tubal ligation (Acute) Hx of shoulder surgery (Acute) History of back surgery (Acute) Hx of cholecystectomy (Acute) Acid reflux (Acute) Diarrhea (Acute) Nausea (Acute) Back problem (Acute) Borderline diabetes (Acute) COVID-19 (Acute) 1. S/P right total knee arthroplasty POD #4 2. Continue Pain Medications: Tylenol, meloxicam, oxycodone, MS Contin, patient's initial positive response to the epidural steroid injection seems to be reversing today. I did speak with the back specialist who recommended we start some Neurontin. We will start her on Neurontin 200 mg 3 times a day. In addition because her pain is in the genital area were going to check a UA to rule out urinary tract infection. I did explain to the patient is not uncommon for a lady of her vintage to have some borderline results. The thing least consistent with a UTI is the fact the patient has left-sided pain. I also discussed with the spine surgeon her complaints of difficulty with initiation. We will continue to monitor this. She was instructed to make sure she notifies anyone if she has any genital numbness or loss of sensation. 3. DVT Prophylaxis: Take 81 mg aspirin twice daily for 4 weeks postoperatively for DVT prophylaxis 4. PT/OT: Weightbearing as tolerated. PT should focus on the right knee as well as the back and left radiculopathy. 5. H & H: Hemoglobin stable, asymptomatic. Postoperative anemia secondary to acute blood loss from surgery without any intra operative complications. 6. Reactive leukocytosis: Resolved 7. Continue postoperative medical management per medicine: Medicine notes resolved at this time there is not appear to be additional cardiac concerns. We will proceed with urinary analysis. Discussed with hospitalist team and defer to their analysis for appropriate antibiotic treatment. 8. Acute on chronic low back pain with radiculopathy with previous surgery: Patient's radiculopathy symptoms appear to be improved today after the epidural steroid injection. She rates her pain at a 7 out of 10. Patient's initial positive response to the epidural steroid injection seems to be reversing today. I did speak with the back specialist who recommended we start some Neurontin. We will start her on Neurontin 200 mg 3 times a day. In addition because her p ain is in the genital area were going to check a UA to rule out urinary tract infection. I did explain to the patient is not uncommon for a lady of her vintage to have some borderline results. The thing least consistent with a UTI is the fact the patient has left-sided pain. I also discussed with the spine surgeon her complaints of difficulty with initiation. We will continue to monitor this. She was instructed to make sure she notifies anyone if she has any genital numbness or loss of sensation. 9. Encouraged Incentive Spirometry 10. Postoperative right knee drainage: No significant drainage on the dressing today 11. Disposition: Discharge was discussed with the patient and daughter who is at the bedside today. At this point with the patient already experiencing increased pain and loss of relief from the epidural steroid injection and concerns about going home and being able to take care of her self we again discussed appropriateness of home health care versus intermediate versus rehabilitation center. In addition we discussed appropriateness of continued admission to the hospital based on her condition. I explained the patient that with her recent knee surgery she will require continued rehabilitation which will unfortunately delay our ability to proceed with any surgical treatment for her back that may be necessary. We are continuing to run out of nonsurgical options and at this point if she remains in this amount of pain tomorrow we will likely have to consult pain management physician to help manage her pain. We have added Neurontin today to see if we can improve her situation. We will also rule out a UTI. 1 thing that would change acuity of the plan would be a neurologic emergency. Considering the patient has had previous central decompression the likelihood of this is decreased. I have reviewed the [place] Automated Rx Reporting System (OARRS) report for this patient for refill pattern and other prescriber involvement as part of the appropriate surveillance for the provision of acute and chronic controlled medications. The report was requested and reviewed on the date of this entry and was considered in the prescribing process.
--- NOTE | 2020-06-29 14:38 | PN_ITS ---
Patient Problems: Active and Suspected Problems (Last Reviewed 06/25/20 @ 17:[address] Avery Vasquez, DO) Back problem (Acute) Subjective: Worsening left groin pain. Also having difficulty initiating urination. Denies any incontinence. Vitals/I&O's: Vital Signs Temp Pulse Resp BP Pulse Ox 36.8 C 79 16 103/65 93 06/29/20 09:50 06/29/20 09:50 06/29/20 09:50 06/29/20 09:50 06/29/20 09:50 Oxygen Flow Rate (L/min) 4 Oxygen Delivery Method Room Air Weight: 86.4 kg Body Mass Index (BMI) 33.3 Finger Stick Blood Glucose 185 Intake and Output for Last 24 Hours 06/27/20 06/28/20 06/29/20 23:59 23:59 23:59 Intake Total 1150 / 1270 365 / 365 555 / 555 Output Total 950 / 1650 1700 / 1700 300 / 300 Balance 200 / -380 -1335 / -1335 255 / 255 General: Alert, No apparent distress HEENT: Atraumatic, Normocephalic Oral: Moist Mucosa, No Gingival or Mucosal Lesions/ Ulcerations Neck: No Nodes, Thyroid Normal Size and Texture Lungs: Clear to auscultation, Normal air movement, No rhonchi, No wheeze, No rales Cardiovascular: Regular rate, Regular Rhythm, Normal S1, Normal S2, No murmurs Abdomen: Bowel Sounds Present, Soft, Non Tender, Non-Distended, No Hepato- splenomegaly, Passing Flatus Neurological: Motor Exam 5/5 strength throughout, - - Diminished sensation on the left. Current Medications Acetaminophen (Acetaminophen 500 Mg Tablet) 1,000 mg PO Q8 [facility] Last Admin: 06/29/20 06:09 Dose: 1,000 mg Documented by: Amlodipine Besylate (Amlodipine 5 Mg Tablet) 5 mg PO DAILY [facility] Last Admin: 06/29/20 10:16 Dose: 5 mg Documented by: Aspirin ([facility] 81 Mg [facility].Chew) [facility] Last Admin: 06/29/20 10:15 Dose: 81 mg Documented by: Calcium Carbonate (Calcium Carbonate 500 Mg Tablet) [facility] Last Admin: 06/29/20 10:15 Dose: 500 mg Documented by: Enteral Nutritional Formula (Ensure Surgery 237 Ml Liquid) [facility] Last Admin: 06/29/20 12:44 Dose: 237 ml Documented by: Famotidine (Famotidine 20 Mg Tablet) 20 mg PO DAILY [facility] Last Admin: 06/29/20 10:16 Dose: 20 mg Documented by: Ferrous Sulfate (Ferrous Sulfate 325 Mg Tablet) [facility] Last Admin: 06/28/20 16:46 Dose: 325 mg Documented by: Gabapentin (Gabapentin 100 Mg Capsule) [facility] Lisinopril (Lisinopril 10 Mg Tablet) 10 mg PO DAILY [facility] Last Admin: 06/29/20 10:16 Dose: 10 mg Documented by: Loperamide HCl (Loperamide 2 Mg Capsule) 2 mg PO Q6H PRN PRN PRN Reason: Diarrhea Meloxicam (Meloxicam 7.5 Mg Tablet) 7.5 mg PO BID [facility] Last Admin: 06/29/20 10:16 Dose: 7.5 mg Documented by: Morphine Sulfate (Morphine 2 Mg/Ml Syringe) 2 - 4 mg IV Q2H PRN PRN PRN Reason: Pain Score 6-10 Last Admin: 06/28/20 12:31 Dose: 4 mg Documented by: Morphine Sulfate (Morphine Sr 15 Mg Tablet) 15 mg PO BID [facility] Last Admin: 06/29/20 10:19 Dose: 15 mg Documented by: Multivitamins (Multivitamins,Therapeutic Tablet) [facility] Last Admin: 06/29/20 10:15 Dose: 1 tablet Documented by: Ondansetron HCl (Ondansetron 4 Mg/2 Ml Vial) 4 mg IV Q8H PRN PRN PRN Reason: NAUSEA Last Admin: 06/25/20 18:37 Dose: 4 mg Documented by: Oxycodone HCl (Oxycodone 5 Mg Tablet) 5 - 10 mg PO Q4H PRN PRN PRN Reason: Pain Score 4-10 Last Admin: 06/29/20 03:24 Dose: 5 mg Documented by: Promethazine HCl (Promethazine 25 Mg/Ml Syringe) 12.5 mg IM Q6H PRN PRN; Protocol PRN Reason: NAUSEA/VOMITING Senna/Docusate Sodium (Senna/Docusate Sodium 1 Tablet) 2 tablet PO BID [facility] Last Admin: 06/29/20 10:16 Dose: 2 tablet Documented by: Sertraline HCl (Sertraline 100 Mg Tablet) 100 mg PO DAILY [facility] Last Admin: 06/29/20 10:17 Dose: 100 mg Documented by: Sodium Chloride (0.9% Nacl Peripheral Flush Adult/Peds) 5 - 15 ml IV UD PRN PRN Reason: SALINE FLUSH Last Admin: 06/28/20 00:03 Dose: 10 ml Documented by: Sodium Chloride (0.9% Saline Lock 10 Ml Syringe) 10 - 40 ml IV UD PRN PRN Reason: SALINE FLUSH Last Admin: 06/28/20 02:13 Dose: 30 ml Documented by: Medical Necessity - Tobacco Use Smoking Status: Never smoker Assessment/Plan All Active Problems (Last Reviewed 06/25/20 @ 17:[address] Avery Vasquez, DO) Hx of tubal ligation (Acute) Hx of shoulder surgery (Acute) History of back surgery (Acute) Hx of cholecystectomy (Acute) Acid reflux (Acute) Diarrhea (Acute) Nausea (Acute) Back problem (Acute) Borderline diabetes (Acute) COVID-19 (Acute) 1. Abnormal EKG: * Resolved. Reviewed repeat EKG on 06/26 and T inversion in inferior leads resolved. Troponins negative. * No clinical evidence of ischemia despite the computer report. Likely rate dependent. Patient does have a right bundle branch block but that is not new. * OK to DC telemetry * No additional cardiac work up at this time. 2. Left groin pain * Discussed with anesthesiology 06/25 who feels that this could be related with the spinal injection that she did receive. Plan would be just to let that wear off. * MRI showed extensive neural foraminal narrowing, L1, L3 and L4 nerve root effacement. * Underwent epidural injection on the . Patient really not feeling any better. Defer further management to spine surgery. 3. Hypokalemia: * resolved 4. Status post right knee replacement: Management per orthopedics. 5. Hypertension: Continue with amlodipine and lisinopril 6. VTE prophylaxis: Aspirin as per orthopedics instructions. 7. Medically stable for discharge. Discussed with Dr. Jiménez. Patient unlikely to go home and will likely require fpc facility. Anticipated discharge is early next week. 8. Dysuria: Agree with checking urinalysis. If urinalysis is abnormal for infection, would recommend initiating antibiotics. Would recommend Macrobid 100mg twice daily for 5 days. If urinalysis is negative for signs of infection then would hold off on antibiotics. Patient has no evidence of cauda equina on her MRI so do not feel that that would be the issue. The possibilities could be constipation and patient may require more aggressive bowel regimen. Inpatient E&M: 38682 Subs Hosp L2
[2020-06-29 15:10] VITALS: BP 104/57; PULSE 70; RESP 17; TEMP 36.7; O2SAT 93
[2020-06-29 15:47] LABS: Mucous, Urine 0 SEEN /hpf (<or=2+)
[2020-06-29 15:49] LABS: Color, Urine Yellow (Yellow); Glucose, Dipstick Normal (Normal); Ketone-Dipstick 5 mg/dl (Negative); Leukocyte Esterase-Dipstick 500 /ul (Negative); Nitrite-Dipstick Negative (Negative); Occult Blood-Urine 50 /ul (Negative); Protein-Dipstick 15 mg/dl (Negative); Urine Bilirubin Dipstick Negative (Negative); Urine Clarity Cloudy (Clear); Urine Urobilinogen 4 mg/dl (Normal)
[2020-06-29 15:55] LABS: Red Blood Cells-Urine 0 SEEN /hpf (0-5); White Blood Cells 25-50 SEEN /hpf (0-5)
[2020-06-29 15:56] LABS: Renal Epithelial Cells 0-5 SEEN /hpf (0-5); Squamous Epithelial Cells - UA 0-5 SEEN /hpf (5-10)
[2020-06-29 15:57] LABS: Bacteria 4+ /hpf (None Seen)
[2020-06-29] MEDS: Ferrous Sulfate 325 MG Tablet PO (17:41)
[2020-06-29] MEDS: Gabapentin 100 MG Capsule 200 MG PO (17:42)
[2020-06-30 04:00] VITALS: BP 144/71; PULSE 64; RESP 17; TEMP 36.9; O2SAT 95
[2020-06-30] MEDS: Acetaminophen 500 MG Tablet 1000 MG PO ×2 (05:39→14:52)
[2020-06-30 07:12] VITALS: O2SAT 91
[2020-06-30 09:18] VITALS: BP 111/62; PULSE 67; RESP 18; TEMP 36.4; O2SAT 95
[2020-06-30] MEDS: Multivitamins,Therapeutic Tablet 1 TABLET PO (09:24)
[2020-06-30] MEDS: Ferrous Sulfate 325 MG Tablet PO (09:24)
[2020-06-30] MEDS: morphine SR 15 MG Tablet PO (09:24)
[2020-06-30] MEDS: Calcium Carbonate 500 MG Tablet PO (09:24)
[2020-06-30] MEDS: Gabapentin 100 MG Capsule 200 MG PO ×2 (09:24→12:40)
[2020-06-30] MEDS: Sertraline 100 MG Tablet PO (09:25)
[2020-06-30] MEDS: Senna/Docusate Sodium 1 Tablet 2 TABLET PO (09:25)
[2020-06-30] MEDS: Aspirin 81 MG TAB.CHEW PO (09:25)
[2020-06-30] MEDS: Lisinopril 10 MG Tablet PO (09:25)
[2020-06-30] MEDS: amLODIPine 5 MG Tablet PO (09:25)
[2020-06-30] MEDS: Famotidine 20 MG Tablet PO (09:25)
[2020-06-30] MEDS: Meloxicam 7.5 MG Tablet PO (09:25)
[2020-06-30] MEDS: Ensure Surgery 237 ML LIQUID PO ×2 (09:29→12:41)
--- NOTE | 2020-06-30 10:12 | CASEMGMT ---
Referral for [facility] was sent on 06/28/20 for pt to [facility]. Call to Sierra at [facility] and she states they can take pt at this time and she is aware that pt will be discharging today. Kana COLLINS CM
--- NOTE | 2020-06-30 11:50 | PCM.DC ---
- Discharge Diagnoses Current Active Problems: Current Active and Chronic Problems (Last Reviewed 06/25/20 @ 17:[address] Avery Vasquez, DO) Back problem (Acute) You will use the following diet at home:: Cardiac Discharge Activity: May Not Drive May shower in (days): 2 Ice area for (Minutes): 20 - every hour while awake. Weight Bearing Status: Weight bearing as tolerated Keep extremity elevated above heart level: Operative Extremity Additional Activity Instructions:: Wear elastic stockings for 2 weeks after your surgery. Call your doctor if your incision/area has: Continuous Slow Oozing, Sudden Increased Bleeding, Increased Pain/ Swelling, Increased Redness, Foul Smelling Discharge Call your doctor if you observe: Fever of 101 or Higher, Coldness, Increased Pain, Numbness or Tingling, Change in Color, Inability to urinate, Inability to have a bowel movement, Using more than one pad per hour, Shortness of breath, Dizziness, Fainting spells, Swelling in the ankles, Chest pain, Increased palpitations (irregular heartbeat), Calf discomfort, Uncontrolled pain Remove Dressing in (days):: 07-01-2020 Additional Dressing/Incision Instructions:: If incision is clean dry and intact may leave the wound open to air and continue showering. If there is continued drainage continue daily dry dressing changes and keep incision clean dry and intact until there is no drainage. Allergies/Adverse Reactions: Allergies Penicillins [PCN] Allergy (Verified 06/11/20 10:07) Hives Medications to take at Discharge Amlodipine [Norvasc] 5 mg PO DAILY 12/24/19 Ferrous Sulfate 325 mg PO BIDCM 12/24/19 Lisinopril [Zestril] 10 mg PO DAILY 12/24/19 Sertraline HCl [Zoloft] 100 mg PO DAILY 12/24/19 Loperamide [Imodium] 2 mg PO Q6H PRN PRN cap 12/25/19 calcium carbonate 600 mg calcium (1,500 mg) tablet 600 mg PO BID tab 02/14/20 multivitamin 1 tab PO DAILY 02/14/20 Acetaminophen [Tylenol] 1,000 mg PO Q8 tab 06/28/20 Aspirin [Aspirin, Baby] 81 mg PO BIDCM tab.chew 06/28/20 Ensure Surgery 237 ml PO TIDCM liquid 06/28/20 Famotidine [Pepcid] 20 mg PO DAILY #30 tab 06/28/20 Meloxicam [Mobic] 7.5 mg PO BID #60 tab 06/28/20 Oxycodone [Oxyir] 5 - 10 mg PO Q4H PRN PRN 7 Days #84 tab 06/28/20 Senna/Docusate Sodium [Senokot-S] 2 tab PO BID #20 tab 06/28/20 morphine SR tablet [Ms Contin] 15 mg PO BID 4 Days #8 tab 06/28/20 Cefadroxil [Duracef] 500 mg PO BID #10 cap 06/30/20 The following prescriptions were given: Cefadroxil [Duracef] 500 mg PO BID #10 cap Transmission Status: Pending to [facility]/pharmacy #[id number] Meloxicam [Mobic] 7.5 mg PO BID #60 tab Prescription Printed morphine SR tablet [Ms Contin] 15 mg PO BID 4 Days #8 tab Prescription Printed Oxycodone [Oxyir] 5 - 10 mg PO Q4H PRN PRN 7 Days #84 tab PRN Reason: Pain Score 4-10 Prescription Printed Famotidine [Pepcid] 20 mg PO DAILY #30 tab Prescription Printed Senna/Docusate Sodium [Senokot-S] 2 tab PO BID #20 tab Prescription Printed Orders to be completed after discharge: 12 Lead EKG [[facility]] Time Frame: 06/18/20, Location: None Selected Primary Care Physician: Avery De Jesus MD [Primary Care Provider] - Please follow up with your Primary Care Physician in: in 2 weeks Test Results: Test results from this visit will be discussed in further detail at your follow-up appointment, if applicable. Please Follow Up With: Roosevelt Durán PA-C When: 07-10-2020 4pm Please Follow Up With: Jos Reid DO When: call for follow up in 2 weeks
--- NOTE | 2020-06-30 11:55 | PCM.DC.SUM ---
Discharge Date and Diagnosis - Problem List Patient Problems: Active and Suspected Problems (Last Reviewed 06/25/20 @ 17:[address] Avery Vasquez DO) Back problem (Acute) Date of Admission: 12/24/19 Date of Discharge: 06/30/20 - Primary Discharge Diagnosis Acute Problems: Active Problems (Last Reviewed 06/25/20 @ 17:[address] Avery Vasquez DO) Back problem (Acute) - Secondary Discharge Diagnosis Chronic Problems: Chronic Problems (Last Reviewed 06/25/20 @ 17:[address] Avery Vasquez DO) Hypertension (Chronic) Depression (Chronic) Hospital Course and Treatment Operations: None Summary of Care Provided: The patient is a 75 year old F who was admitted for right robotic minimally invasive TKR. Patient complain of left groin pain with radiation to medial leg, heart rate in upper 90s and EKG showed T wave inversion inferiorly therefore transferred to PCU. 1. Abnormal EKG: Repeat EKG on 06/26 showed resolution of T wave inversion in inferior leads. Serial 3 troponins negative. Patient does not have chest pain or pressure or tightness. Acute coronary syndrome ruled out. 2. Left groin pain most likely related to the spinal injection that she had. Currently left groin pain is resolved. Lumbar MRI shows extensive neural foraminal narrowing L1, L3 and L4 nerve effacement with chronic lumbar spinal stenosis L4-L5. This was discussed with anesthesiologist by my hospitalist colleague on 06/25. Patient had caudal epidural steroid injection on 06/27. MRI did not had evidence of cauda equina. 3. Hypokalemia: Repeat K4.0. Hypokalemia resolved 4. Status post right knee replacement: Management per orthopedics. This was managed by Dr. Jiménez. On aspirin 81 mg p.o. twice daily for DVT prophylaxis. 5. Hypertension: Continue with amlodipine and lisinopril 6. VTE prophylaxis: Aspirin as per orthopedics instructions. 7. E. coli UTI: Patient has dysuria and mild suprapubic discomfort. Urine culture shows more than 100,000 E. coli. Sensitivity not available yet but patient empirically discharged on cefadroxil 500 mg twice daily for 7 more days. Medically stable for discharge. Discussed with Dr. Jiménez. Patient unlikely to go home and will likely require [facility]. Anticipated discharge is early next week. Discharge medication reconciliation done. Discharge follow-up instructions completed. Discharge process discussed with the patient and all questions were answered to patient's satisfaction. Total time spent, exact 35 minutes on discharge meds reconciliation, examination, coordination of care with nurses and ancillary staff, review of imaging and blood test and discussion with the patient on follow-up instructions Clinical Impression(s) from Imaging Studies Knee X-Ray 06/25/20 14:25 IMPRESSION: Status post total knee replacement. There is good alignment. Postoperative soft tissue changes. Electronically Signed: Tomi Lynn MD at 14:48 EST , Service support , Lumbar Spine MRI 06/26/20 11:33 IMPRESSION: Postsurgical changes as discussed with multilevel degenerative change. Evaluation is limited without intravenous contrast. 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 At L1-2 there now is an osteophyte disc complex with moderate bilateral neural foraminal narrowing greater on the left and mild effacement of left L1 nerve root L3-4 there is decreased signal to the left side of the thecal sac of uncertain etiology. Moderate to marked left-sided neural foraminal narrowing and effacement of the left L3 nerve root. Again repeating study with intravenous contrast may be of benefit L4-5 trefoil appearance to the canal the canal measuring 9 mm. Effacement of left greater than right L4 nerve roots within the neural foramen Spine X-Ray 06/27/20 11:45 IMPRESSION: Intraoperative imaging provided for caudal block. Electronically Signed: Tomi Lynn MD at 13:23 EST , Service support , Patient Problems: Active and Suspected Problems (Last Reviewed 06/25/20 @ 17:[address] Avery Vasquez DO) Back problem (Acute) Objective: Seen and examined. Patient complain of left groin pain is better. Patient has chronic severe lumbar spinal stenosis although she is unclear about the level of spinal stenosis. She also had mild dysuria which is getting better on IV ceftriaxone. Physical exam General: Alert, Oriented x3, Cooperative HEENT: Atraumatic, PERRLA, EOMI, Normocephalic Oral: No Gingival or Mucosal Lesions/ Ulcerations Neck: Supple, No JVD, Negative Carotid Bruits Lungs: Air entry equal in bilateral lung bases. No crepitation/rhonchi Cardiovascular: Regular rate, Regular Rhythm, Normal S1, Normal S2, No murmurs Abdomen: Bowel Sounds Present, Soft, Non Tender, Non-Distended : No renal angle tenderness. No suprapubic tenderness. Extremities: No edema, Capillary Refill Less than 3 Seconds Skin: No rashes, No breakdown Musculoskeletal: Left knee status post TKR. No hematoma but mild expected postop swelling. Chronic mild tenderness in the lumbar spine. Neurological: Cranial nerves II-XII grossly intact, Deep Tendon Reflexes 2+/4 and Symmetrical, Neuro grossly intact Psych/Mental Status: Normal Affect, Appropriate. - Physical Exam Vitals/I&O's: Vital Signs Temp Pulse Resp BP Pulse Ox 97.5 F L 67 18 111/62 95 06/30/20 09:18 06/30/20 09:18 06/30/20 09:18 06/30/20 09:18 06/30/20 09:18 Oxygen Flow Rate (L/min) 4 Oxygen Delivery Method Room Air Weight: 190 lb 7.67 oz Body Mass Index (BMI) 33.3 Finger Stick Blood Glucose 185 Intake and Output for Last 24 Hours 06/28/20 06/29/20 06/30/20 23:59 23:59 23:59 Intake Total 365 / 365 965 / 965 Output Total 1700 / 1700 700 / 700 Balance -1335 / -1335 265 / 265 Laboratory Results 06/29/20 15:25: Urine Color Yellow, Urine Clarity Cloudy, Urine pH 6.0, Ur Specific [place] 1.020, Urine Protein 15 H, Urine Glucose (UA) Normal, Urine Ketones 5 H, Urine Occult Blood 50 H, Urine Nitrite Negative, Urine Bilirubin Negative, Urine Urobilinogen 4 H, Ur Leukocyte Esterase 500 H, Urine RBC 0 SEEN, Urine WBC 25-50 SEEN, Ur Squamous Epith Cells 0-5 SEEN, Ur Renal Epithelial Cell 0-5 SEEN, Urine Bacteria 4+, Urine Mucus 0 SEEN Current Medications Acetaminophen (Acetaminophen 500 Mg Tablet) 1,000 mg PO Q8 [facility] Last Admin: 06/30/20 05:39 Dose: 1,000 mg Documented by: Amlodipine Besylate (Amlodipine 5 Mg Tablet) 5 mg PO DAILY [facility] Last Admin: 06/30/20 09:25 Dose: 5 mg Documented by: Aspirin (Aspirin 81 Mg Tab.Chew) [facility] Last Admin: 06/30/20 09:25 Dose: 81 mg Documented by: Calcium Carbonate (Calcium Carbonate 500 Mg Tablet) [facility] Last Admin: 06/30/20 09:24 Dose: 500 mg Documented by: Enteral Nutritional Formula (Ensure Surgery 237 Ml Liquid) 237 [facility] Last Admin: 06/30/20 09:29 Dose: 237 ml Documented by: Famotidine (Famotidine 20 Mg Tablet) 20 mg PO DAILY [facility] Last Admin: 06/30/20 09:25 Dose: 20 mg Documented by: Ferrous Sulfate (Ferrous Sulfate 325 Mg Tablet) [facility] Last Admin: 06/30/20 09:24 Dose: 325 mg Documented by: Gabapentin (Gabapentin 100 Mg Capsule) 200 mg PO [facility] Last Admin: 06/30/20 09:24 Dose: 200 mg Documented by: Ceftriaxone Sodium 2 gm/ (Sodium Chloride) 50 mls @ 100 mls/hr IV Q24@2200 [facility] Last Infusion: 06/29/20 21:06 Dose: Infused Documented by: Lisinopril (Lisinopril 10 Mg Tablet) 10 mg PO DAILY [facility] Last Admin: 06/30/20 09:25 Dose: 10 mg Documented by: Loperamide HCl (Loperamide 2 Mg Capsule) 2 mg PO Q6H PRN PRN PRN Reason: Diarrhea Meloxicam (Meloxicam 7.5 Mg Tablet) 7.5 mg PO BID [facility] Last Admin: 06/30/20 09:25 Dose: 7.5 mg Documented by: Morphine Sulfate (Morphine 2 Mg/Ml Syringe) 2 - 4 mg IV Q2H PRN PRN PRN Reason: Pain Score 6-10 Last Admin: 06/28/20 12:31 Dose: 4 mg Documented by: Morphine Sulfate (Morphine Sr 15 Mg Tablet) 15 mg PO BID [facility] Last Admin: 06/30/20 09:24 Dose: 15 mg Documented by: Multivitamins (Multivitamins,Therapeutic Tablet) [facility] Last Admin: 06/30/20 09:24 Dose: 1 tablet Documented by: Ondansetron HCl (Ondansetron 4 Mg/2 Ml Vial) 4 mg IV Q8H PRN PRN PRN Reason: NAUSEA Last Admin: 06/25/20 18:37 Dose: 4 mg Documented by: Oxycodone HCl (Oxycodone 5 Mg Tablet) 5 - 10 mg PO Q4H PRN PRN PRN Reason: Pain Score 4-10 Last Admin: 06/29/20 03:24 Dose: 5 mg Documented by: Promethazine HCl (Promethazine 25 Mg/Ml Syringe) 12.5 mg IM Q6H PRN PRN; Protocol PRN Reason: NAUSEA/VOMITING Senna/Docusate Sodium (Senna/Docusate Sodium 1 Tablet) 2 tablet PO BID [facility] Last Admin: 06/30/20 09:25 Dose: 2 tablet Documented by: Sertraline HCl (Sertraline 100 Mg Tablet) 100 mg PO DAILY [facility] Last Admin: 06/30/20 09:25 Dose: 100 mg Documented by: Sodium Chloride (0.9% Nacl Peripheral Flush Adult/Peds) 5 - 15 ml IV UD PRN PRN Reason: SALINE FLUSH Last Admin: 06/28/20 00:03 Dose: 10 ml Documented by: Sodium Chloride (0.9% Saline Lock 10 Ml Syringe) 10 - 40 ml IV UD PRN PRN Reason: SALINE FLUSH Last Admin: 06/28/20 02:13 Dose: 30 ml Documented by: Discharge Diet: No Restrictions Discharge Activity: May Not Drive May shower in (days): 2 Ice area for (Minutes): 20 - every hour while awake. Weight Bearing Status: Weight bearing as tolerated Keep extremity elevated above heart level: Operative Extremity Additional Activity Instructions:: Wear elastic stockings for 2 weeks after your surgery. Call your doctor if your incision/area has: Continuous Slow Oozing, Sudden Increased Bleeding, Increased Pain/ Swelling, Increased Redness, Foul Smelling Discharge Call your doctor if you observe: Fever of 101 or Higher, Coldness, Increased Pain, Numbness or Tingling, Change in Color, Calf discomfort, Uncontrolled pain Remove Dressing in (days):: 07-01-2020 Additional Dressing/Incision Instructions:: If incision is clean dry and intact may leave the wound open to air and continue showering. If there is continued drainage continue daily dry dressing changes and keep incision clean dry and intact until there is no drainage. Home Medications: Medications to take at Discharge Amlodipine [Norvasc] 5 mg PO DAILY 12/24/19 Ferrous Sulfate 325 mg PO BIDCM 12/24/19 Lisinopril [Zestril] 10 mg PO DAILY 12/24/19 Sertraline HCl [Zoloft] 100 mg PO DAILY 12/24/19 Loperamide [Imodium] 2 mg PO Q6H PRN PRN cap 12/25/19 calcium carbonate 600 mg calcium (1,500 mg) tablet 600 mg PO BID tab 02/14/20 multivitamin 1 tab PO DAILY 02/14/20 Acetaminophen [Tylenol] 1,000 mg PO Q8 tab 06/28/20 Aspirin [Aspirin, Baby] 81 mg PO BIDCM tab.chew 06/28/20 Ensure Surgery 237 ml PO TIDCM liquid 06/28/20 Famotidine [Pepcid] 20 mg PO DAILY #30 tab 06/28/20 Meloxicam [Mobic] 7.5 mg PO BID #60 tab 06/28/20 Oxycodone [Oxyir] 5 - 10 mg PO Q4H PRN PRN 7 Days #84 tab 06/28/20 Senna/Docusate Sodium [Senokot-S] 2 tab PO BID #20 tab 06/28/20 morphine SR tablet [Ms Contin] 15 mg PO BID 4 Days #8 tab 06/28/20 Cefadroxil [Duracef] 500 mg PO BID #10 cap 06/30/20 Following Prescriptions Were Given to Patient: Cefadroxil [Duracef] 500 mg PO BID #10 cap Transmission Status: Received by [facility]/pharmacy #[id number] Meloxicam [Mobic] 7.5 mg PO BID #60 tab Prescription Printed morphine SR tablet [Ms Contin] 15 mg PO BID 4 Days #8 tab Prescription Printed Oxycodone [Oxyir] 5 - 10 mg PO Q4H PRN PRN 7 Days #84 tab PRN Reason: Pain Score 4-10 Prescription Printed Famotidine [Pepcid] 20 mg PO DAILY #30 tab Prescription Printed Senna/Docusate Sodium [Senokot-S] 2 tab PO BID #20 tab Prescription Printed Other Amb Orders: 12 Lead EKG [[facility]] Time Frame: 06/18/20, Location: None Selected Primary Care Physician: Avery De Jesus MD [Primary Care Provider] - Please Follow Up With: Roosevelt Durán PAHaleyC When: 07-10-2020 4pm Please Follow Up With: Jos Reid DO When: call for follow up in 2 weeks Medical Necessity - Tobacco Use Smoking Status: Never smoker Meaningful Use Info Meaningful Use Diagnoses (Choose all that apply): None applicable Inpatient E&M: 31601 Disch Hosp
--- NOTE | 2020-06-30 12:10 | PCM.PN.ORT ---
Patient Problems: Active and Suspected Problems (Last Reviewed 06/25/20 @ 17:[address] Avery Vasquez, DO) Back problem (Acute) Subjective: Patient reports improvement in her pain today. She has less pain down her left leg. She reports minimal right knee pain. She also reports less groin and vaginal pain today. She was started on ceftriaxone IV last evening and switched to Duricef today. After discussing again with social work appropriate discharge destinations patient and family have agreed to go home with home health care. This is been set up appropriately. Objective: Urinary analysis was reviewed - Physical Exam Vitals/I&O's: Vital Signs Temp Pulse Resp BP Pulse Ox 97.5 F L 67 18 111/62 95 06/30/20 09:18 06/30/20 09:18 06/30/20 09:18 06/30/20 09:18 06/30/20 09:18 Oxygen Flow Rate (L/min) 4 Oxygen Delivery Method Room Air Weight: 190 lb 7.67 oz Body Mass Index (BMI) 33.3 Finger Stick Blood Glucose 185 Intake and Output for Last 24 Hours 06/28/20 06/29/20 06/30/20 23:59 23:59 23:59 Intake Total 365 / 365 965 / 965 Output Total 1700 / 1700 700 / 700 Balance -1335 / -1335 265 / 265 General: Alert, Oriented x3, Cooperative Extremities: - - Right lower extremity: Dressing is clean dry and intact Sensations intact to light touch saphenous, sural, superficial peroneal, deep peroneal, and tibial distributions Motors intact EHL, DF, PF calves are soft and supple 5 out of 5 dorsiflexion EHL and plantar flexion bilaterally. Microbiology Past 72 Hours 06/29/20 15:25 Urine, Clean Catch Urine Culture - Preliminary Presumptive E. coli Laboratory Results 06/29/20 15:25: Urine Color Yellow, Urine Clarity Cloudy, Urine pH 6.0, Ur Specific [place] 1.020, Urine Protein 15 H, Urine Glucose (UA) Normal, Urine Ketones 5 H, Urine Occult Blood 50 H, Urine Nitrite Negative, Urine Bilirubin Negative, Urine Urobilinogen 4 H, Ur Leukocyte Esterase 500 H, Urine RBC 0 SEEN, Urine WBC 25-50 SEEN, Ur Squamous Epith Cells 0-5 SEEN, Ur Renal Epithelial Cell 0-5 SEEN, Urine Bacteria 4+, Urine Mucus 0 SEEN Current Medications Acetaminophen (Acetaminophen 500 Mg Tablet) 1,000 mg PO Q8 [facility] Last Admin: 06/30/20 05:39 Dose: 1,000 mg Documented by: Amlodipine Besylate (Amlodipine 5 Mg Tablet) 5 mg PO DAILY [facility] Last Admin: 06/30/20 09:25 Dose: 5 mg Documented by: Aspirin ([facility] 81 Mg [facility].Chew) [facility] Last Admin: 06/30/20 09:25 Dose: 81 mg Documented by: Calcium Carbonate (Calcium Carbonate 500 Mg Tablet) [facility] Last Admin: 06/30/20 09:24 Dose: 500 mg Documented by: Enteral Nutritional Formula (Ensure Surgery 237 Ml Liquid) [facility] [place] Last Admin: 06/30/20 09:29 Dose: 237 ml Documented by: Famotidine (Famotidine 20 Mg Tablet) 20 mg PO DAILY [facility] Last Admin: 06/30/20 09:25 Dose: 20 mg Documented by: Ferrous Sulfate (Ferrous Sulfate 325 Mg Tablet) [facility] Last Admin: 06/30/20 09:24 Dose: 325 mg Documented by: Gabapentin (Gabapentin 100 Mg Capsule) 200 [facility] [place] Last Admin: 06/30/20 09:24 Dose: 200 mg Documented by: Ceftriaxone Sodium 2 gm/ (Sodium Chloride) 50 mls @ 100 mls/hr IV Q24@2200 [facility] Lisinopril (Lisinopril 10 Mg Tablet) 10 mg PO DAILY [facility] Last Admin: 06/30/20 09:25 Dose: 10 mg Documented by: Loperamide HCl (Loperamide 2 Mg Capsule) 2 mg PO Q6H PRN PRN PRN Reason: Diarrhea Meloxicam (Meloxicam 7.5 Mg Tablet) 7.5 mg PO BID [facility] Last Admin: 06/30/20 09:25 Dose: 7.5 mg Documented by: Morphine Sulfate (Morphine 2 Mg/Ml Syringe) 2 - 4 mg IV Q2H PRN PRN PRN Reason: Pain Score 6-10 Last Admin: 06/28/20 12:31 Dose: 4 mg Documented by: Morphine Sulfate (Morphine Sr 15 Mg Tablet) 15 mg PO BID [facility] Last Admin: 06/30/20 09:24 Dose: 15 mg Documented by: Multivitamins (Multivitamins,Therapeutic Tablet) [facility] Last Admin: 06/30/20 09:24 Dose: 1 tablet Documented by: Ondansetron HCl (Ondansetron 4 Mg/2 Ml Vial) 4 mg IV Q8H PRN PRN PRN Reason: NAUSEA Last Admin: 06/25/20 18:37 Dose: 4 mg Documented by: Oxycodone HCl (Oxycodone 5 Mg Tablet) 5 - 10 mg PO Q4H PRN PRN PRN Reason: Pain Score 4-10 Last Admin: 06/29/20 03:24 Dose: 5 mg Documented by: Promethazine HCl (Promethazine 25 Mg/Ml Syringe) 12.5 mg IM Q6H PRN PRN; Protocol PRN Reason: NAUSEA/VOMITING Senna/Docusate Sodium (Senna/Docusate Sodium 1 Tablet) 2 tablet PO BID [facility] Last Admin: 06/30/20 09:25 Dose: 2 tablet Documented by: Sertraline HCl (Sertraline 100 Mg Tablet) 100 mg PO DAILY [facility] Last Admin: 06/30/20 09:25 Dose: 100 mg Documented by: Sodium Chloride (0.9% Nacl Peripheral Flush Adult/Peds) 5 - 15 ml IV UD PRN PRN Reason: SALINE FLUSH Last Admin: 06/28/20 00:03 Dose: 10 ml Documented by: Sodium Chloride (0.9% Saline Lock 10 Ml Syringe) 10 - 40 ml IV UD PRN PRN Reason: SALINE FLUSH Last Admin: 06/28/20 02:13 Dose: 30 ml Documented by: Medical Necessity - Tobacco Use Smoking Status: Never smoker Assessment/Plan All Active Problems (Last Reviewed 06/25/20 @ 17:[address] Avery Vasquez, DO) Hx of tubal ligation (Acute) Hx of shoulder surgery (Acute) History of back surgery (Acute) Hx of cholecystectomy (Acute) Acid reflux (Acute) Diarrhea (Acute) Nausea (Acute) Back problem (Acute) Borderline diabetes (Acute) COVID-19 (Acute) 1. S/P right total knee arthroplasty POD #5 2. Continue Pain Medications: Tylenol, meloxicam, oxycodone, MS Contin, patient was placed on Neurontin yesterday and seems responding well. She will be discharged on 200 mg Neurontin 3 times daily. 3. DVT Prophylaxis: Take 81 mg aspirin twice daily for 4 weeks postoperatively for DVT prophylaxis 4. PT/OT: Weightbearing as tolerated. PT should focus on the right knee as well as the back and left radiculopathy. 5. H & H: Hemoglobin stable, asymptomatic. Postoperative anemia secondary to acute blood loss from surgery without any intra operative complications. 6. Reactive leukocytosis: Resolved 7. Continue postoperative medical management per medicine: Patient medical input. We will continue patient on Duricef upon discharge for UTI. 8. Acute on chronic low back pain with radiculopathy with previous surgery: Pain is improved today. Continues to have radiculopathy. She does continue to report some difficulty with initiation of urination however no significant signs of urinary retention. No loss of sensation. 9. Encouraged Incentive Spirometry 10. Postoperative right knee drainage: No significant drainage on the dressing today. We will switch to Mepilex dressing prior to discharge and have them remove it 3 days after discharge from the hospital. 11. Disposition: Plan at this time is for discharge to home health care today. Patient will move her dressing in 3 days postoperatively. She has a follow-up appointment for 10 days with the physician urgent care physician assistant for her knee. She should follow-up in 1 week for her back with Dr. Reid. She will be given 1 week of Duricef. She should follow-up with her primary care doctor for the urinary tract infection. I have reviewed the [place] Automated Rx Reporting System (OARRS) report for this patient for refill pattern and other prescriber involvement as part of the appropriate surveillance for the provision of acute and chronic controlled medications. The report was requested and reviewed on the date of this entry and was considered in the prescribing process.
--- NOTE | 2020-06-30 14:20 | CASEMGMT ---
Pt/daughter updated on [facility] acceptance and aware they will be giving pt a call to schedule start of care, pt voices understanding and states no further concerns/needs at this time. Jd COLLINS at bedside with discharge paperwork at this time. Kana COLLINS CM
[2020-06-30] MEDS: oxyCODONE 5 MG Tablet PO (14:53)
[2020-06-30] MEDS: Cefadroxil 500 MG CAPSULE 1000 MG PO (14:53)
--- NOTE | 2020-06-30 14:56 | PHA.DC.MC ---
Pharmacy Service has performed discharge medication reconciliation and counseling for this patient. The patient was counseled on the following discharge medications and changes in medications for homegoing were reviewed. 1. TYLENOL 2. MOBIC 3. PEPCID 4. CEFADROXIL 5. MORPHINE SR 6. OXYCODONE 7. SENNA/DOCUSATE 8. GABAPENTIN (CALLED INTO PHARMACY BY ) The Reason for Use, instructions for use, and potential side effects were reviewed for all new medications. The patient's questions regarding all of their medications were answered. The patient/ daughter were able to verbally demonstrate an understanding of their discharge medications. Home Medications Amlodipine [Norvasc] 5 mg PO DAILY 12/24/19 Ferrous Sulfate 325 mg PO BIDCM 12/24/19 Lisinopril [Zestril] 10 mg PO DAILY 12/24/19 Sertraline HCl [Zoloft] 100 mg PO DAILY 12/24/19 Loperamide [Imodium] 2 mg PO Q6H PRN PRN cap 12/25/19 calcium carbonate 600 mg calcium (1,500 mg) tablet 600 mg PO BID tab 02/14/20 multivitamin 1 tab PO DAILY 02/14/20 Acetaminophen [Tylenol] 1,000 mg PO Q8 tab 06/28/20 Aspirin [Aspirin, Baby] 81 mg PO BIDCM tab.chew 06/28/20 Ensure Surgery 237 ml PO TIDCM liquid 06/28/20 Famotidine [Pepcid] 20 mg PO DAILY #30 tab 06/28/20 Meloxicam [Mobic] 7.5 mg PO BID #60 tab 06/28/20 Oxycodone [Oxyir] 5 - 10 mg PO Q4H PRN PRN 7 Days #84 tab 06/28/20 Senna/Docusate Sodium [Senokot-S] 2 tab PO BID #20 tab 06/28/20 morphine SR tablet [Ms Contin] 15 mg PO BID 4 Days #8 tab 06/28/20 Cefadroxil [Duracef] 500 mg PO BID #10 cap 06/30/20 The patient's discharge medication list was reviewed for discrepancies and discrepancies were resolved.
== END 2020-06-30 11:55 | disposition home health service (06) ==
LOC: PCU 18:01
PROVIDERS: Anesthesiology; Orthopaedic Surgery; Admitting Provider Specialist; PCP Family Medicine; Referring Provider Specialist; Visit Provider Internal Medicine
PROC: 0SRC0JZ Replacement of Right Knee Joint with Synthetic Substitute, Open Approach (ICD-10-PCS; CPT 27447; principal; 2020-06-25 11:30)
PROC: 3E0S3BZ Introduction of Anesthetic Agent into Epidural Space, Percutaneous Approach (ICD-10-PCS; CPT 62322; principal; 2020-06-27 11:40)
DX: M17.11 Unilateral primary osteoarthritis, right knee (principal); Z91.81 History of falling; I10 Essential (primary) hypertension; F41.9 Anxiety disorder, unspecified; Z79.899 Other long term (current) drug therapy; F32.9 Major depressive disorder, single episode, unspecified; R73.03 Prediabetes; K44.9 Diaphragmatic hernia without obstruction or gangrene; M21.061 Valgus deformity, not elsewhere classified, right knee; K21.9 Gastro-esophageal reflux disease without esophagitis; Z86.16 Personal history of COVID-19; E87.6 Hypokalemia; G89.29 Other chronic pain; M47.816 Spondylosis without myelopathy or radiculopathy, lumbar region; I45.10 Unspecified right bundle-branch block; R10.32 Left lower quadrant pain; M48.061 Spinal stenosis, lumbar region without neurogenic claudication; R94.31 Abnormal electrocardiogram [ECG] [EKG]; N39.0 Urinary tract infection, site not specified; B96.20 Unspecified Escherichia coli [E. coli] as the cause of diseases classified elsewhere
CPT/HCPCS: 01400; 27447; 62323; 64447; S2900; 36415; 64483; 72020; 72148; 73560; 80048; 81001; 82962; 83036; 83735; 84484; 85025; 85027; 87081; 87086; 87088; 87186; 87426; 93005; 96361; 96365; 96366; 96375; 96376; 97110; 97116; 97162; 97166; 97530; 97535; 99218; 99251; C1776; C9803; J7120; A4216; G0378; G0379; G0463; J0696; J2405; J3490

== ENCOUNTER 2020-08-02 14:08 | Inpatient (IN) | payer MEDICARE, SELFPAY ==
[2020-06-25 18:26] VITALS: BMI 33.3
[2020-08-02] VITALS (8 sets, daily range): BP systolic 116–173; BP diastolic 51–121; PULSE 74–99; RESP 16–89; TEMP 37.1–38.3; O2SAT 91–98; BMI 33.9; BMI 33.1
--- NOTE | 2020-08-02 14:28 | EKG12_ITS ---
Test Reason : VOMITING Blood Pressure : / mmHG Vent. Rate : 091 BPM Atrial Rate : 091 BPM P-R Int : 166 ms QRS Dur : 126 ms QT Int : 400 ms P-R-T Axes : 068 117 004 degrees QTc Int : 492 ms Sinus rhythm with Premature atrial complexes Right bundle branch block Abnormal ECG Confirmed by MARIAA POE, JANELLE ([id number]), movie editor AYAN MCCARTHY ([id number]) on 08/04/2020 10:08:21 AM Referred By: MIGNON Confirmed By:JANELLE LEROY MD
[2020-08-02 14:51] LABS: Absolute Lymphocyte Count 0.66 X10^3/uL (0.83-4.51); Absolute Neutrophil Count 11.7 X10^3/uL (2.0-7.7); Basophil# 0.03 X10^3/uL; Basophil% 0.2 % (0-1); Hematocrit 37.7 % (37-47); Hemoglobin 12.7 g/dL (12.0-15.0); Lymphocyte # 0.66 X10^3/ul (4.0); Lymphocyte % 4.8 % (19-41); Mean Corp Hgb Conc 33.7 g/dL (32-36); Mean Corpuscular Hgb 31.7 pg (27.0-32.0); Mean Platelet Vol. 8.3 fl (6.2-12.0); Monocyte# 1.32 X10^3/uL; Monocyte% 9.6 % (0-10); NRBC Flagged by Analyzer 0 % (0-5); Neutrophil # 11.68 X10^3/uL (2.7-7.7); Neutrophil % 84.7 % (47-70); Platelet Count 207 K/mm3 (150-450); RBC Distribution Width SD 48.9 fl (35.1-43.9); Red Blood Count 4.01 M/mm3 (4.2-5.4); White Blood Count 13.8 K/mm3 (4.4-11.0)
--- NOTE | 2020-08-02 14:55 | RAD_ITS ---
STUDY: X-RAY CHEST REASON FOR EXAM: Female, 75 years old. Fever. TECHNIQUE: Single frontal view of the chest. COMPARISON: 07/28/2020 FINDINGS: Low volume inspiration with bibasilar atelectasis and vascular crowding, unchanged. There is no demonstrated pleural abnormality. Stable cardiomegaly. Normal mediastinum and huan. Normal visualized pulmonary arteries. Aortic tortuosity with calcification unchanged. Normal visualized thoracic spine. Normal visualized ribs, clavicles, and shoulders. Large hiatal hernia unaltered. RAD/Chest 1 View (Portable) IMPRESSION: Cardiomegaly with low volume inspiration and no acute finding. Electronically Signed: Asim Stiles MD at 15:26 EST , Service support ,
[2020-08-02 15:04] LABS: International Normalized Ratio 1.2; Prothrombin Time (Protime)PT. 14.8 SECONDS (11.7-14.9)
[2020-08-02 15:09] LABS: ALB/GLOB Ratio 0.6 RATIO (0.9-2.4); AST(SGOT) 33 U/L (15-37); Alanine Aminotransfer ALT/SGPT 43 U/L (13-56); Albumin, Serum 2.6 g/dL (3.2-5.0); Alkaline Phosphatase 100 U/L (45-117); Anion Gap 10 (5-15); BUN 21 mg/dL (7-18); BUN/Creat Ratio 35.4 RATIO (10-20); Calcium,Total 8.7 mg/dL (8.5-10.1); Chloride 101 mmol/L (98-107); Creatinine, Serum 0.59 mg/dL (0.55-1.02); EST Glomerular Filtration Rate 104 mL/min (>60); Est Glom Filt Rate - Afr Amer 126 mL/min (>60); Estimated Creatinine Clearance 38.97 ml/min; Globulin 4.4 g/dL (2.2-4.2); Glucose 175 mg/dL (74-106); Potassium 2.8 mmol/L (3.5-5.1); Sodium Level 137 mmol/L (136-145)
[2020-08-02 15:16] LABS: Lactic Acid 1.7 mmol/L (0.4-1.9)
[2020-08-02] MEDS: Ondansetron 4 MG/2 ML Vial IV (15:30)
[2020-08-02] MEDS: Acetaminophen 500 MG Tablet 1000 MG PO (15:31)
[2020-08-02 15:48] LABS: Partial Thromboplast Time 33.9 Seconds (24.1-36.2)
[2020-08-02 16:05] LABS: Mucous, Urine 0 SEEN /hpf (<or=2+); Squamous Epithelial Cells - UA 0 SEEN /hpf (5-10)
[2020-08-02 16:25] LABS: Color, Urine Yellow (Yellow); Glucose, Dipstick Normal (Normal); Ketone-Dipstick 15 mg/dl (Negative); Leukocyte Esterase-Dipstick 100 /ul (Negative); Nitrite-Dipstick Negative (Negative); Occult Blood-Urine 250 /ul (Negative); Protein-Dipstick 100 mg/dl (Negative); Specific Gravity, Urine 1.015 (1.002-1.030); Urine Bilirubin Dipstick Negative (Negative); Urine Clarity Sl. Cloudy (Clear); Urine Urobilinogen 1 mg/dl (Normal)
[2020-08-02 16:31] LABS: Red Blood Cells-Urine 10-25 SEEN /hpf (0-5)
[2020-08-02 16:32] LABS: Bacteria 4+ /hpf (None Seen); White Blood Cells 50-100 SEEN /hpf (0-5)
--- NOTE | 2020-08-02 16:35 | ED.VISSUMM ---
- ER Visit Summary Date of Service: 08/02/20 Chief Complaint: Fever History of Present Illness: The patient is a [address] Avery De Jesus. She reports she has a fever that began 5 days ago. It has been 101 degrees. She has had chills. She is been nausea and vomited 3 times today and multiple times prior to that. Denies any blood or emesis. She reports has had a little bit of diarrhea. She denies any sore throat, chest pain, cough, or difficulty breathing. She denies dysuria or frequency. Patient also complains of generalized weakness and a headache that comes and goes. She denies headache now. Physical Examination: Vitals: One 1.0, 173/121, 99, 20, 92% room air which is not hypoxic. General: Well-nourished and well-developed. Head: Normocephalic atraumatic. Neck: Supple, no lymphadenopathy. No JVD. Nontender. Cardiovascular: Tachycardic regular rhythm. No murmurs. Respiratory: No respiratory distress. Clear to auscultation bilaterally. Abdominal: Soft, mild suprapubic tenderness to palpation, nondistended, normal bowel sounds. No guarding, rebound, or peritoneal signs. Back: Nontender. Extremities: Nontender, no edema. Skin: Normal color, no rash. Neurologic: Alert and oriented ?3. Cranial nerves II through XII are intact. Normal strength and sensation. Psych: Normal affect. Test Results: EKG is sinus at 91 for right bundle branch block. Lactic acid is 1.7. Covid is negative. CBC shows a white count of 13.8 with 85 segmented neutrophils and 5 lymphocytes. Chem-7 shows potassium of 3.8, glucose 175, BUN 21. LFTs show an albumin of 2.6, globin of 4.4. INR is 1.2. PTT is 33.9. UA shows an obvious infection with 50-100 white blood cells, 10-25 red blood cells, and 4+ bacteria. Clinical Impression(s) from Imaging Studies Chest X-Ray 08/02/20 14:55 IMPRESSION: Cardiomegaly with low volume inspiration and no acute finding. Electronically Signed: Asim Stiles MD at 15:26 EST , Service support , Emergency Department Course and Treatment: Patient had an IV placed. She was given Tylenol for her fever and Zofran IV. She was given K-Dur p.o. and Rocephin IV. Treatment Plan: Patient was discussed with Dr. Collado. She will be admitted the hospital for further relation and treatment. Disposition: Admitted in improved condition. Impression: 1. Sepsis. 2. Pyelonephritis. 3. Hypokalemia. This note was generated with [email or web address] software. It may contain incorrect words, spelling, and punctuation that were not noted in review of the chart prior to signing ED Disposition - Plan for ED Patient: Referrals: Avery De Jesus MD [Primary Care Provider] -
--- NOTE | 2020-08-02 17:12 | HP.PCM_ITS ---
Problem List (1) Acute cystitis Status: Acute (2) Leukocytosis Status: Acute (3) Hypokalemia Status: Acute (4) Hx of tubal ligation Status: Inactive (5) Hx of shoulder surgery Status: Inactive Comment: Left shoulder (6) History of back surgery Status: Inactive (7) Hx of cholecystectomy Status: Inactive (8) Acid reflux Status: Chronic (9) Diarrhea Status: Chronic (10) Nausea Status: Acute (11) Back problem Status: Chronic (12) Borderline diabetes Status: Chronic (13) COVID-19 Status: Resolved (14) Hypertension Status: Chronic (15) Depression Status: Chronic (16) Urinary incontinence Status: Chronic History of Present Illness Date of Admission: 08/02/20 Mrs. Gómez is a 75 year old WF with a past medical history of hypertension, GERD, depression, osteoarthritis, urinary incontinence/retention, and perineal neuropathy who presents to [facility] emergency department on 08/02/2020 for chief complaint of fever. She states that she started feeling ill on Tuesday and then was febrile to 101 degrees on Tuesday. She had chills, nausea, vomiting, myalgias, fatigue, headache and anorexia during that time frame. She states that she is hardly eaten anything all week and her oral intake of liquids has been poor as well. She denies dysuria but report reports frequency as well as incontinence and has been wearing a depends because of leakage. She states that since her total knee arthroplasty in June she has had perineal numbness as well as difficulty with urinating and defecating. She is to have surgery to address this next week and is anxious to have this done. She is concerned that the urinary tract infection she is currently suffering could interfere with her ability to have her surgery. She was febrile to 101 degrees in the emergency department, her heart rates within normal limits, her blood pressure was mildly elevated upon arrival but has improved, her respiratory rate and oxygen saturations are within normal limits on room air. Her CBC shows a mild leukocytosis at 13.8. Coagulation studies are normal. Her BMP shows hypokalemia with a potassium of 2.8, and elevated BUN at 21 but a normal serum creatinine at 0.59. Her lactic acid is normal and her LFTs were within normal limits. A troponin was negative and an EKG was done and shows a right bundle branch block but no ST-T wave changes consistent with acute ischemia. Chest x-ray was negative for any acute findings. Her UA showed a specific gravity of 1.015, was positive for protein and ketones as well as occult blood, leuk esterase and she had 50-100 white blood cell with 4+ bacteria noted. Urgency department she was hydrated with IV fluids treated for nausea with Zofran given oral K-Dur and treated with Rocephin. She will be admitted to medical surgical unit for further IV hydration and IV antibiotics. Past Medical History Past Medical History (Chronic Problems): Chronic Problems (Last Reviewed 06/25/20 @ 17:[address] Avery Vasquez, DO) Urinary incontinence (Chronic) Acid reflux (Chronic) Diarrhea (Chronic) Back problem (Chronic) Borderline diabetes (Chronic) Hypertension (Chronic) Depression (Chronic) Medical History: Medical History (Last Reviewed 08/02/20 @ 17:[address] Saloni Collado, DO) Acid reflux (Chronic) K21.9 Diarrhea (Chronic) R19.7 Nausea (Acute) R11.0 Back problem (Chronic) M53.9 Borderline diabetes (Chronic) R73.03 Hypertension (Chronic) I10 Depression (Chronic) F32.9 COVID-19 (Resolved) U07.1 Allergies Penicillins [PCN] Allergy (Verified 07/28/20 07:59) Hives Home Medications: Ambulatory Orders Medication Instructions Recorded Amlodipine [Norvasc] 5 mg PO DAILY 12/24/19 Ferrous Sulfate 325 mg PO BIDCM 12/24/19 Lisinopril [Zestril] 10 mg PO DAILY 12/24/19 Sertraline HCl [Zoloft] 100 mg PO DAILY 12/24/19 Loperamide [Imodium] 2 mg PO Q6H PRN PRN cap 12/25/19 calcium carbonate 600 mg calcium 600 mg PO BID tab 02/14/20 (1,500 mg) tablet multivitamin 1 tab PO DAILY 02/14/20 Acetaminophen [Tylenol] 1,000 mg PO Q8 tab 06/28/20 Aspirin [Aspirin, Baby] 81 mg PO BIDCM tab.chew 06/28/20 Ensure Surgery 237 ml PO TIDCM liquid 06/28/20 Meloxicam [Mobic] 7.5 mg PO BID #60 tab 06/28/20 Famotidine [Pepcid] 20 mg PO DAILY PRN 07/28/20 Gabapentin [Neurontin] 200 mg PO TIDCM 07/28/20 Surgical History: Surgical History (Last Reviewed 08/02/20 @ 17:[address] Saloni Collado DO) History of back surgery (Inactive) Z98.890 Hx of cholecystectomy (Inactive) Z90.49 Hx of shoulder surgery (Inactive) Z98.890 Left shoulder Hx of tubal ligation (Inactive) Z98.51 Status post right knee replacement Z96.651 Surgical History: - - Right total hip arthroplasty, cholecystectomy, tubal ligation, left shoulder arthroscopic. 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 Saloni Collado DO) Father Lung cancer Diabetes Sister Lung cancer History Items: - Paternal Family History: Family History (Last Reviewed 08/02/20 @ 17:[address] Saloni Collado DO) Father Lung cancer Diabetes Sister Lung cancer History Items: Diabetes Review of Systems Constitutional: Reports: Anorexia, Chills, Fever, Malaise, Weakness, Fatigue. Denies: Night Sweats, Weight Change Eyes: Denies: Blurred vision, Cataracts, Conjunctivae Inflammation, Double vision, Drainage, Eyelid Inflammation, Pain, Redness, Vision Change HEENT: Reports: Head Aches. Denies: Difficulty Hearing, Difficulty Swallowing, Eye Pain, Nasal bleeding, Nasal Congestion, Post Nasal Drip, Sinus Congestion, Sinus Drainage, Sore Throat, Visual Changes Cardiovascular: Denies: Chest Pain, Claudication, Chest Pressure, Chest Tightness, Edema, Heaviness, Light Headedness, Orthopnea, Palpitations, Paroxysmal Noc. Dyspnea, Syncope Respiratory: Denies: Cough, Hemoptysis, Shortness of Breath, Shortness of breath at rest, Shortness of breath upon exertion, Sputum production, Wheezing Gastrointestinal: Reports: Nausea. Denies: Abdominal Pain, Constipation, Diarrhea, Dyspepsia, Hematemesis, Hematochezia, Melena, Vomiting Genitourinary: Reports: Frequency, Hesitancy, Incontinence, Nocturia, Retention, Urgency. Denies: Dysuria, Hematuria Musculoskeletal: Reports: Back Pain, Joint stiffness. Denies: Hand Pain, Joint Pain, Joint swelling, Joint Tenderness, Muscle pain, Neck Pain Skin: Denies: Dryness, Jaundice, Lesions, Pruritis, Rash, Skin Changes, Wounds Neurological: Reports: Headaches. Denies: Balance problems, Blurred vision, Double vision, Change in Speech, Slurred speech, Confusion, Difficulty swallowing, Focal weakness, Incoordination, Numbness, Tingling, Tremor, Seizures Psychiatric: Denies: Anxiety, Depression Endocrine: Denies: Change in Body Habitus, Heat/ Cold Intolerance, Polydipsia, Polyuria Hematologic/ Lymphatic: Denies: Adenopathy, Anemia, Easy Bruising, Easy Bleeding, Petechiae, Purpura VTE Information - Inpt Only VTE Present on Admission: No VTE Mechan Device Prophylaxis: SCD's VTE Pharm Prophylaxis ordered?: Yes Patient Problems: Active and Suspected Problems (Last Reviewed 06/25/20 @ 17:[address] Avery Vasquez, DO) Acute cystitis (Acute) Leukocytosis (Acute) Hypokalemia (Acute) Nausea (Acute) - Physical Exam Vitals/I&O's: Vital Signs Temp Pulse Resp BP Pulse Ox 99 F 84 17 124/84 H 98 08/02/20 16:47 08/02/20 16:47 08/02/20 16:47 08/02/20 16:47 08/02/20 16:47 Oxygen Delivery Method Room Air Weight: 86.8 kg Body Mass Index (BMI) 33.9 Finger Stick Blood Glucose 185 Intake and Output for Last 24 Hours 07/31/20 08/01/20 08/02/20 23:59 23:59 23:59 Intake Total 500 / 500 Balance 500 / 500 General: Alert, Oriented x3, Cooperative, No apparent distress, Well developed, Well nourished, - - Ill-appearing but nontoxic older white female lying in bed, daughter at bedside HEENT: Atraumatic, PERRLA, EOMI, Normocephalic, EAC Clear, - - Mallampati 2, rash Oral: No Gingival or Mucosal Lesions/ Ulcerations, Dry Mucosa Neck: Supple, No JVD, Negative Carotid Bruits, Negative Hepatojugular Reflux, No Nodes, No Nuchal Rigidity, Trachea Midline Lungs: Clear to auscultation, Normal air movement, No rhonchi, No wheeze, No rales Cardiovascular: Regular rate, Regular Rhythm, Normal S1, Normal S2, No Ectopic Activity, Murmur - 2 out of 6 systolic murmur, No rub noted, No Gallop Abdomen: Bowel Sounds Present, Soft, Non Tender, Non-Distended, Obese, No hernias noted Extremities: No clubbing, No cyanosis, No edema, Capillary Refill Less than 3 Seconds, Peripheral Pulses Normal Skin: No rashes, No breakdown, - - Well-healed surgical incision right knee Musculoskeletal: No Tenderness to Palpation of Joints or Extremities, No Muscle Wasting, Arthritic Changes Lymphatic: No Cervical, Supraclavicular, or Inguinal Adenopathy Neurological: Cranial nerves II-XII grossly intact, Deep Tendon Reflexes 2+/4 and Symmetrical, Neuro grossly intact, Motor Exam 5/5 strength throughout, Muscle tone normal, Coordination normal Psych/Mental Status: Normal Affect, Appropriate Microbiology Past 72 Hours 08/02/20 14:40 Mucosa - Nose SARS-CoV-2 Antigen (Rapid) - Final Laboratory Results 08/02/20 14:40: WBC 13.8 H, RBC 4.01 L, Hgb 12.7, Hct 37.7, MCV 94.0, MCH 31.7, MCHC 33.7, RDW Std Deviation 48.9 H, RDW Coeff of Ruben 14.0, Plt Count 207, MPV 8.3, Immature Gran % (Auto) 0.700, Neut % (Auto) 84.7 H, Lymph % (Auto) 4.8 L, [place] % (Auto) 9.6, Eos % (Auto) 0.0, Baso % (Auto) 0.2, Absolute Neuts (auto) 11.7 H, Absolute Lymphs (auto) 0.66 L, Nucleated RBC % 0 08/02/20 14:40: PT 14.8, INR 1.2, APTT 33.9 08/02/20 14:40: Sodium 137, Potassium 2.8 L, Chloride 101, Carbon Dioxide 26.0, Anion Gap 10, BUN 21 H, Creatinine 0.59, Estim Creat Clear Calc 38.97, Est GFR (MDRD) Af Amer 126, Est GFR (MDRD) Non-Af 104, BUN/Creatinine Ratio 35.4 H, Glucose 175 H, Calcium 8.7, Total Bilirubin 0.80, AST 33, ALT 43, Alkaline Phosphatase 100, Troponin I 0.021, Total Protein 7.0, Albumin 2.6 L, Globulin 4.4 H, Albumin/Globulin Ratio 0.6 L 08/02/20 14:40: Lactic Acid 1.7 08/02/20 15:55: Urine Color Yellow, Urine Clarity Sl. Cloudy, Urine pH 6.0, Ur Specific [place] 1.015, Urine Protein 100 H, Urine Glucose (UA) Normal, Urine Ketones 15 H, Urine Occult Blood 250 H, Urine Nitrite Negative, Urine Bilirubin Negative, Urine Urobilinogen 1 H, Ur Leukocyte Esterase 100 H, Urine RBC 10-25 SEEN, Urine WBC 50-100 SEEN, Ur Squamous Epith Cells 0 SEEN, Urine Bacteria 4+, Urine Mucus 0 SEEN Assessment/Plan All Active Problems (Last Reviewed 06/25/20 @ 17:[address] Avery Vasquez, DO) Acute cystitis (Acute) Leukocytosis (Acute) Hypokalemia (Acute) Nausea (Acute) COVID-19 (Resolved) Acute cystitis -Patient has had issues with urinary retention and incontinence since her right total knee arthroplasty in June -She has been wearing depends -I suspect these issues have resulted in and predisposed her section -Urine culture is pending -Continue ceftriaxone 1 g daily -Check A1c as blood sugar on admission was 175 -IV hydration with normal saline at 75 cc/h -Did admit that she has had issues with urinary tract infections in the past Leukocytosis See above Mild dehydration -Continue IV fluids -Discontinue when patient appears volume resuscitated and euvolemic and is tolerating a p.o. diet -Hold meloxicam Hypokalemia -Patient was given 60 mEq of potassium in the emergency department -Repeat BMP in a.m. -Obtain mag level in a.m. Hyperglycemia -Patient has no known diagnosis of diabetes -Check hemoglobin A1c Urinary retention and suspected overflow incontinence -Patient may need Winkler--> we will monitor L4 spinal stenosis with saddle anesthesia -Patient states that this has been a problem since she had her epidural for her TKA in June -Patient is to have surgery next week with Dr. Reid -As needed pain medication as needed HTN -Continue Norvasc -Continue lisinopril -Patient has not taken antihypertensive as of yet today GERD -Continue famotidine Depression -Continue Zoloft DVT prophylaxis -Heparin every 8 CODE STATUS -Full code Inpatient E&M: 39093 Init Hosp L3
[2020-08-02] MEDS: Potassium Chloride Oral Tablet 20 MEQ 60 MEQ PO (17:15)
[2020-08-02] MEDS: Ceftriaxone 1 GM/50 ML BAG IV (17:15)
[2020-08-02] MEDS: 0.9% Normal Saline 1,000 ML 75 ML IV (18:07)
[2020-08-02 18:56] LABS: Hemoglobin A1c 5.7 % (3.8-5.6)
[2020-08-02] MEDS: Acetaminophen 325 MG Tablet 650 MG PO (19:57)
[2020-08-02] MEDS: MELATONIN 3 MG TABLET PO (21:13)
[2020-08-02] MEDS: Heparin Injection (Vial) 5,000 UNIT/ML VIAL 5000 UNIT SC (21:13)
[2020-08-02] MEDS: Famotidine 20 MG Tablet PO (23:25)
[2020-08-03] MEDS: Mag Hydrox/Al Hydrox/Simeth 30 ML UDC PO ×2 (01:28→14:50)
[2020-08-03] MEDS: Haloperidol Lactate 5 MG/ML Vial 1 MG IV ×2 (01:30→14:50)
[2020-08-03 01:53] VITALS: BP 157/79; PULSE 77; RESP 18; TEMP 37.5; O2SAT 94
[2020-08-03] MEDS: Acetaminophen 325 MG Tablet 650 MG PO ×2 (01:55→15:29)
[2020-08-03 05:54] LABS: Absolute Lymphocyte Count 0.94 X10^3/uL (0.83-4.51); Absolute Neutrophil Count 9.6 X10^3/uL (2.0-7.7); Basophil# 0.02 X10^3/uL; Basophil% 0.2 % (0-1); Eosinophil# 0.02 X10^3/uL; Eosinophils% 0.2 % (0-5); Hemoglobin 10.8 g/dL (12.0-15.0); Lymphocyte # 0.94 X10^3/ul (4.0); Mean Corp Hgb Conc 32.7 g/dL (32-36); Mean Corpuscular Hgb 31.1 pg (27.0-32.0); Mean Corpuscular Volume 95.1 fL (81-99); Mean Platelet Vol. 8.6 fl (6.2-12.0); Monocyte# 1.07 X10^3/uL; Monocyte% 9.1 % (0-10); NRBC Flagged by Analyzer 0 % (0-5); Neutrophil # 9.64 X10^3/uL (2.7-7.7); Platelet Count 197 K/mm3 (150-450); RBC Distribution Width CV 14.2 % (11.6-14.6); RBC Distribution Width SD 49.8 fl (35.1-43.9); Red Blood Count 3.47 M/mm3 (4.2-5.4); White Blood Count 11.8 K/mm3 (4.4-11.0)
[2020-08-03] MEDS: Heparin Injection (Vial) 5,000 UNIT/ML VIAL 5000 UNIT SC ×3 (06:00→20:32)
[2020-08-03] MEDS: 0.9% Normal Saline 1,000 ML 75 ML IV ×2 (06:00→20:32)
[2020-08-03 06:39] LABS: Anion Gap 7 (5-15); BUN 20 mg/dL (7-18); BUN/Creat Ratio 39.6 RATIO (10-20); Calcium,Total 8.2 mg/dL (8.5-10.1); Chloride 105 mmol/L (98-107); EST Glomerular Filtration Rate 126 mL/min (>60); Est Glom Filt Rate - Afr Amer 152 mL/min (>60); Estimated Creatinine Clearance 38.97 ml/min; Glucose 148 mg/dL (74-106); Magnesium 1.9 mg/dL (1.6-2.6); Phosphorus 2.7 mg/dL (2.5-4.9); Potassium 3.2 mmol/L (3.5-5.1); Sodium Level 139 mmol/L (136-145)
[2020-08-03 08:05] VITALS: BP 103/58; PULSE 71; RESP 16; TEMP 36.8; O2SAT 93
[2020-08-03 08:10] VITALS: PULSE 76
[2020-08-03] MEDS: Aspirin 81 MG TAB.CHEW PO ×2 (08:12→17:07)
[2020-08-03] MEDS: Potassium Chloride Oral Tablet 20 MEQ 60 MEQ PO (08:12)
[2020-08-03] MEDS: Gabapentin 100 MG Capsule 200 MG PO ×3 (08:12→17:07)
[2020-08-03] MEDS: Sertraline 100 MG Tablet PO (10:06)
[2020-08-03] MEDS: amLODIPine 5 MG Tablet PO (10:06)
[2020-08-03] MEDS: Ceftriaxone 1 GM/50 ML BAG IV (10:06)
--- NOTE | 2020-08-03 10:55 | PN_ITS ---
<AllanCatalina LEAD PERSON - Last Filed: 08/03/20 11:06> Patient Problems: Active and Suspected Problems (Last Reviewed 08/02/20 @ 17:[address] Saloni scott, DO) Acute cystitis (Acute) Leukocytosis (Acute) Hypokalemia (Acute) Nausea (Acute) Subjective: Patient seen and examined. Complains of generalized weakness. Reports nausea, vomiting overnight which is since improved. Fever improved. - Physical Exam Vitals/I&O's: Vital Signs Temp Pulse Resp BP Pulse Ox 98.3 F 76 16 103/58 L 93 08/03/20 08:05 08/03/20 08:10 08/03/20 08:05 08/03/20 08:05 08/03/20 08:05 Oxygen Delivery Method Room Air Weight: 187 lb Body Mass Index (BMI) 33.1 Finger Stick Blood Glucose 185 Intake and Output for Last 24 Hours 08/01/20 08/02/20 08/03/20 23:59 23:59 23:59 Intake Total 550 / 550 1251.25 / 1251.25 Output Total 400 / 400 200 / 200 Balance 150 / 150 1051.25 / 1051.25 General: Alert, Oriented x3, Cooperative HEENT: Atraumatic, PERRLA, EOMI, Normocephalic Neck: Supple, No JVD, Negative Carotid Bruits Lungs: Clear to auscultation, Normal air movement Cardiovascular: Regular rate, Regular Rhythm, Murmur Abdomen: Bowel Sounds Present, Soft, Non Tender, Non-Distended Extremities: No clubbing, No cyanosis, No edema, Capillary Refill Less than 3 Seconds Skin: No rashes, No breakdown, - - Right knee postop incision intact Musculoskeletal: No Tenderness to Palpation of Joints or Extremities Neurological: Cranial nerves II-XII grossly intact, Neuro grossly intact Psych/Mental Status: Normal Affect, Appropriate Microbiology Past 72 Hours 08/02/20 16:28 Blood Culture (Wb) - Right Hand Blood Culture - Preliminary 08/02/20 14:40 Blood Culture (Wb) - Anticubital Left Blood Culture - Preliminary 08/02/20 14:40 Mucosa - Nose SARS-CoV-2 Antigen (Rapid) - Final Laboratory Results 08/02/20 14:40: WBC 13.8 H, RBC 4.01 L, Hgb 12.7, Hct 37.7, MCV 94.0, MCH 31.7, MCHC 33.7, RDW Std Deviation 48.9 H, RDW Coeff of Ruben 14.0, Plt Count 207, MPV 8.3, Immature Gran % (Auto) 0.700, Neut % (Auto) 84.7 H, Lymph % (Auto) 4.8 L, [place] % (Auto) 9.6, Eos % (Auto) 0.0, Baso % (Auto) 0.2, Absolute Neuts (auto) 11.7 H, Absolute Lymphs (auto) 0.66 L, Nucleated RBC % 0 08/02/20 14:40: PT 14.8, INR 1.2, APTT 33.9 08/02/20 14:40: Sodium 137, Potassium 2.8 L, Chloride 101, Carbon Dioxide 26.0, Anion Gap 10, BUN 21 H, Creatinine 0.59, Estim Creat Clear Calc 38.97, Est GFR (MDRD) Af Amer 126, Est GFR (MDRD) Non-Af 104, BUN/Creatinine Ratio 35.4 H, Glucose 175 H, Calcium 8.7, Total Bilirubin 0.80, AST 33, ALT 43, Alkaline Phosphatase 100, Troponin I 0.021, Total Protein 7.0, Albumin 2.6 L, Globulin 4.4 H, Albumin/Globulin Ratio 0.6 L 08/02/20 14:40: Lactic Acid 1.7 08/02/20 14:40: Hemoglobin A1c 5.7 H 08/02/20 15:55: Urine Color Yellow, Urine Clarity Sl. Cloudy, Urine pH 6.0, Ur Specific [place] 1.015, Urine Protein 100 H, Urine Glucose (UA) Normal, Urine Ketones 15 H, Urine Occult Blood 250 H, Urine Nitrite Negative, Urine Bilirubin Negative, Urine Urobilinogen 1 H, Ur Leukocyte Esterase 100 H, Urine RBC 10-25 SEEN, Urine WBC 50-100 SEEN, Ur Squamous Epith Cells 0 SEEN, Urine Bacteria 4+, Urine Mucus 0 SEEN 08/03/20 04:48: WBC 11.8 H, RBC 3.47 L, Hgb 10.8 L, Hct 33.0 L, MCV 95.1, MCH 31.1, MCHC 32.7, RDW Std Deviation 49.8 H, RDW Coeff of Ruben 14.2, Plt Count 197, MPV 8.6, Immature Gran % (Auto) 0.500, Neut % (Auto) 82.0 H, Lymph % (Auto) 8.0 L, [place] % (Auto) 9.1, Eos % (Auto) 0.2, Baso % (Auto) 0.2, Absolute Neuts (auto) 9.6 H, Absolute Lymphs (auto) 0.94, Nucleated RBC % 0 08/03/20 04:48: Sodium 139, Potassium 3.2 L, Chloride 105, Carbon Dioxide 27.0, Anion Gap 7, BUN 20 H, Creatinine 0.50 L, Estim Creat Clear Calc 38.97, Est GFR (MDRD) Af Amer 152, Est GFR (MDRD) Non-Af 126, BUN/Creatinine Ratio 39.6 H, Glucose 148 H, Calcium 8.2 L, Phosphorus 2.7, Magnesium 1.9 Current Medications Acetaminophen (Acetaminophen 325 Mg Tablet) 650 mg PO Q6H PRN PRN PRN Reason: Pain Score 1-10/Temp > 100.7 F Last Admin: 08/03/20 01:55 Dose: 650 mg Documented by: Al Hydroxide/Mg Hydroxide (Mag Hydrox/Al Hydrox/Simeth 30 Ml Udc) 30 ml PO Q6H PRN PRN PRN Reason: Gastric Burning Last Admin: 08/03/20 01:28 Dose: 30 ml Documented by: Amlodipine Besylate (Amlodipine 5 Mg Tablet) 5 mg PO DAILY [facility] Last Admin: 08/03/20 10:06 Dose: 5 mg Documented by: Aspirin ([facility] 81 Mg [facility].Chew) [facility] Last Admin: 08/03/20 08:12 Dose: 81 mg Documented by: Famotidine (Famotidine 20 Mg Tablet) 20 mg PO DAILY PRN PRN PRN Reason: GERD Last Admin: 08/02/20 23:25 Dose: 20 mg Documented by: Gabapentin (Gabapentin 100 Mg Capsule) 200 mg PO TIDCM [facility] Last Admin: 08/03/20 08:12 Dose: 200 mg Documented by: Haloperidol Lactate (Haloperidol Lactate 5 Mg/Ml Vial) 1 mg IV Q4H PRN PRN PRN Reason: NAUSEA Last Admin: 08/03/20 01:30 Dose: 1 mg Documented by: Heparin Sodium (Porcine) (Heparin Injection (Vial) 5,000 Unit/Ml Vial) 5,000 unit SC Q8 [facility] Last Admin: 08/03/20 06:00 Dose: 5,000 unit Documented by: Sodium Chloride () 1,000 mls @ 75 mls/hr IV .[id number] [facility] Last Infusion: 08/03/20 10:36 Dose: 75 mls/hr Documented by: Ceftriaxone Sodium (Rocephin) 1 gm in 50 mls @ 100 mls/hr IV Q24 [facility] Stop: 08/10/20 10:01 Last Infusion: 08/03/20 10:36 Dose: Infused Documented by: Sodium Chloride () 500 mls @ 15 mls/hr IV PRN PRN PRN Reason: Blood Transfusion Sodium Chloride () 250 mls @ 15 mls/hr IV .[id number] PRN PRN Reason: Saline Flush Sodium Chloride () 250 mls @ 15 mls/hr IV .[id number] PRN PRN Reason: Additional IVPB Infusion Melatonin (Melatonin 3 Mg Tablet) 3 mg PO QHS PRN PRN PRN Reason: INSOMNIA Last Admin: 08/02/20 21:13 Dose: 3 mg Documented by: Morphine Sulfate (Morphine 2 Mg/Ml Syringe) 2 mg IV Q3H PRN PRN PRN Reason: Pain Score 6-10 Senna/Docusate Sodium (Senna/Docusate Sodium 1 Tablet) 2 tablet PO BID PRN PRN PRN Reason: Constipation Sertraline HCl (Sertraline 100 Mg Tablet) 100 mg PO DAILY [facility] Last Admin: 08/03/20 10:06 Dose: 100 mg Documented by: Sodium Chloride (0.9% Saline Lock 10 Ml Syringe) 10 - 40 ml IV UD PRN PRN Reason: SALINE FLUSH Medical Necessity - Tobacco Use Smoking Status: Never smoker Tobacco Use: Non-smoker Assessment/Plan All Active Problems (Last Reviewed 08/02/20 @ 17:[address] Saloni Collado DO) Acute cystitis (Acute) Leukocytosis (Acute) Hypokalemia (Acute) Nausea (Acute) COVID-19 (Resolved) 1. Acute cystitis with associated gram-negative ormeo bacteremia-IV Rocephin pending urine and blood cultures. Preliminary blood culture is growing GNR. 2. Urinary retention, suspected overflow incontinence-appears to be voiding without difficulty at this time. As needed a bladder scan. 3. Hypokalemia-replaced per protocol. Trend BMP. 4. L4 spinal stenosis with saddle anesthesia-patient was to undergo surgery with Dr. Reid on Tuesday. 5. Hypertension-stable, continue amlodipine, lisinopril. 6. GERD-on famotidine. 7. Depression-on Zoloft. 8. Prediabetes-hemoglobin A1c 5.7%. Recommend carb controlled diet. DVT prophylaxis-Heparin subcu This patient was seen by ALMA Thacker under the supervision of Dr. Shoemaker. <Sapphire Shoemaker - Last Filed: 08/03/20 14:13> - Physical Exam Vitals/I&O's: Vital Signs Temp Pulse Resp BP Pulse Ox 98.3 F 76 16 103/58 L 93 08/03/20 08:05 08/03/20 08:10 08/03/20 08:05 08/03/20 08:05 08/03/20 08:05 Oxygen Delivery Method Room Air Weight: 187 lb Body Mass Index (BMI) 33.1 Finger Stick Blood Glucose 185 Intake and Output for Last 24 Hours 08/01/20 08/02/20 08/03/20 23:59 23:59 23:59 Intake Total 550 / 550 2001.25 / 2001.25 Output Total 400 / 400 700 / 700 Balance 150 / 150 1301.25 / 1301.25 Microbiology Past 72 Hours 08/02/20 15:55 Urine, Clean Catch Urine Culture - Preliminary GNR lactose filler sifter helper 08/02/20 16:28 Blood Culture (Wb) - Right Hand Blood Culture - Preliminary 08/02/20 14:40 Blood Culture (Wb) - Anticubital Left Blood Culture - Preliminary 08/02/20 14:40 Mucosa - Nose SARS-CoV-2 Antigen (Rapid) - Final Laboratory Results 08/02/20 14:40: WBC 13.8 H, RBC 4.01 L, Hgb 12.7, Hct 37.7, MCV 94.0, MCH 31.7, MCHC 33.7, RDW Std Deviation 48.9 H, RDW Coeff of Ruben 14.0, Plt Count 207, MPV 8.3, Immature Gran % (Auto) 0.700, Neut % (Auto) 84.7 H, Lymph % (Auto) 4.8 L, [place] % (Auto) 9.6, Eos % (Auto) 0.0, Baso % (Auto) 0.2, Absolute Neuts (auto) 11.7 H, Absolute Lymphs (auto) 0.66 L, Nucleated RBC % 0 08/02/20 14:40: PT 14.8, INR 1.2, APTT 33.9 08/02/20 14:40: Sodium 137, Potassium 2.8 L, Chloride 101, Carbon Dioxide 26.0, Anion Gap 10, BUN 21 H, Creatinine 0.59, Estim Creat Clear Calc 38.97, Est GFR (MDRD) Af Amer 126, Est GFR (MDRD) Non-Af 104, BUN/Creatinine Ratio 35.4 H, Glucose 175 H, Calcium 8.7, Total Bilirubin 0.80, AST 33, ALT 43, Alkaline Phosphatase 100, Troponin I 0.021, Total Protein 7.0, Albumin 2.6 L, Globulin 4.4 H, Albumin/Globulin Ratio 0.6 L 08/02/20 14:40: Lactic Acid 1.7 08/02/20 14:40: Hemoglobin A1c 5.7 H 08/02/20 15:55: Urine Color Yellow, Urine Clarity Sl. Cloudy, Urine pH 6.0, Ur Specific [place] 1.015, Urine Protein 100 H, Urine Glucose (UA) Normal, Urine Ketones 15 H, Urine Occult Blood 250 H, Urine Nitrite Negative, Urine Bilirubin Negative, Urine Urobilinogen 1 H, Ur Leukocyte Esterase 100 H, Urine RBC 10-25 SEEN, Urine WBC 50-100 SEEN, Ur Squamous Epith Cells 0 SEEN, Urine Bacteria 4+, Urine Mucus 0 SEEN 08/03/20 04:48: WBC 11.8 H, RBC 3.47 L, Hgb 10.8 L, Hct 33.0 L, MCV 95.1, MCH 31.1, MCHC 32.7, RDW Std Deviation 49.8 H, RDW Coeff of Ruben 14.2, Plt Count 197, MPV 8.6, Immature Gran % (Auto) 0.500, Neut % (Auto) 82.0 H, Lymph % (Auto) 8.0 L, [place] % (Auto) 9.1, Eos % (Auto) 0.2, Baso % (Auto) 0.2, Absolute Neuts (auto) 9.6 H, Absolute Lymphs (auto) 0.94, Nucleated RBC % 0 08/03/20 04:48: Sodium 139, Potassium 3.2 L, Chloride 105, Carbon Dioxide 27.0, Anion Gap 7, BUN 20 H, Creatinine 0.50 L, Estim Creat Clear Calc 38.97, Est GFR (MDRD) Af Amer 152, Est GFR (MDRD) Non-Af 126, BUN/Creatinine Ratio 39.6 H, Glucose 148 H, Calcium 8.2 L, Phosphorus 2.7, Magnesium 1.9 Current Medications Acetaminophen (Acetaminophen 325 Mg Tablet) 650 mg PO Q6H PRN PRN PRN Reason: Pain Score 1-10/Temp > 100.7 F Last Admin: 08/03/20 01:55 Dose: 650 mg Documented by: Al Hydroxide/Mg Hydroxide (Mag Hydrox/Al Hydrox/Simeth 30 Ml Udc) 30 ml PO Q6H PRN PRN PRN Reason: Gastric Burning Last Admin: 08/03/20 01:28 Dose: 30 ml Documented by: Amlodipine Besylate (Amlodipine 5 Mg Tablet) 5 mg PO DAILY [facility] Last Admin: 08/03/20 10:06 Dose: 5 mg Documented by: Aspirin (Aspirin 81 Mg Tab.Chew) 81 mg PO BIDCM [facility] Last Admin: 08/03/20 08:12 Dose: 81 mg Documented by: Famotidine (Famotidine 20 Mg Tablet) 20 mg PO DAILY PRN PRN PRN Reason: GERD Last Admin: 08/02/20 23:25 Dose: 20 mg Documented by: Gabapentin (Gabapentin 100 Mg Capsule) 200 mg PO TIDCM [facility] Last Admin: 08/03/20 12:14 Dose: 200 mg Documented by: Haloperidol Lactate (Haloperidol Lactate 5 Mg/Ml Vial) 1 mg IV Q4H PRN PRN PRN Reason: NAUSEA Last Admin: 08/03/20 01:30 Dose: 1 mg Documented by: Heparin Sodium (Porcine) (Heparin Injection (Vial) 5,000 Unit/Ml Vial) 5,000 unit SC Q8 [facility] Last Admin: 08/03/20 13:20 Dose: 5,000 unit Documented by: Sodium Chloride () 1,000 mls @ 75 mls/hr IV .[id number] [facility] Last Infusion: 08/03/20 10:36 Dose: 75 mls/hr Documented by: Ceftriaxone Sodium (Rocephin) 1 gm in 50 mls @ 100 mls/hr IV Q24 [facility] Stop: 08/10/20 10:01 Last Infusion: 08/03/20 10:36 Dose: Infused Documented by: Sodium Chloride () 500 mls @ 15 mls/hr IV PRN PRN PRN Reason: Blood Transfusion Sodium Chloride () 250 mls @ 15 mls/hr IV .[id number] PRN PRN Reason: Saline Flush Sodium Chloride () 250 mls @ 15 mls/hr IV .[id number] PRN PRN Reason: Additional IVPB Infusion Melatonin (Melatonin 3 Mg Tablet) 3 mg PO QHS PRN PRN PRN Reason: INSOMNIA Last Admin: 08/02/20 21:13 Dose: 3 mg Documented by: Morphine Sulfate (Morphine 2 Mg/Ml Syringe) 2 mg IV Q3H PRN PRN PRN Reason: Pain Score 6-10 Senna/Docusate Sodium (Senna/Docusate Sodium 1 Tablet) 2 tablet PO BID PRN PRN PRN Reason: Constipation Sertraline HCl (Sertraline 100 Mg Tablet) 100 mg PO DAILY [facility] Last Admin: 08/03/20 10:06 Dose: 100 mg Documented by: Sodium Chloride (0.9% Saline Lock 10 Ml Syringe) 10 - 40 ml IV UD PRN PRN Reason: SALINE FLUSH Assessment/Plan Patient seen by Catalina Lemus NP-[id number] under my supervision Patient seen and examined. She was admitted with a complaint of fever and frequency and urgency of urination. She was found to have UTI and is being managed for acute cystitis. She has no complaints this morning and states she feels much better. Review of systems otherwise negative. Patient states she is due to have laminectomy soon on account of his history of spinal stenosis with saddle anesthesia. Labs and vitals reviewed. She has remained hemodynamically stable. Potassium is 3.2. O/E: Vital Signs Temp Pulse Resp BP Pulse Ox 98.3 F 76 16 103/58 L 93 08/03/20 08:05 08/03/20 08:10 08/03/20 08:05 08/03/20 08:05 08/03/20 08:05 General: Alert, Oriented x3, Cooperative HEENT: Atraumatic, PERRLA, EOMI, Normocephalic Neck: Supple, No JVD, Negative Carotid Bruits Lungs: Clear to auscultation, Normal air movement Cardiovascular: Regular rate, Regular Rhythm, Murmur Abdomen: Bowel Sounds Present, Soft, Non Tender, Non-Distended Extremities: No clubbing, No cyanosis, No edema, Capillary Refill Less than 3 Seconds Skin: No rashes, No breakdown, - - Right knee postop incision intact Musculoskeletal: No Tenderness to Palpation of Joints or Extremities Neurological: Cranial nerves II-XII grossly intact, Neuro grossly intact Psych/Mental Status: Normal Affect, Appropriate Plan is to continue IV ceftriaxone. Urine culture growing gram-negative rods lactose filler sifter helper which will likely be due to E. coli. Preliminary blood culture is also growing gram-negative rods. It appears only 1 sample was taken. Continue IV ceftriaxone and await speciation. Once he is also 5.7 therefore patient has impaired glucose tolerance. Counseled on DASH diet and healthy living as well as lifestyle modifications. He is scheduled for surgery on Tuesday for the spinal stenosis but I counseled patient that is important that we get the infection under control with IV antibiotics before she has the surgery. Potassium replaced. Rest as per ALMA Thacker's note which I have reviewed and endorsed. Inpatient E&M: 83401 Subs Hosp L2
[2020-08-03 14:45] VITALS: BP 114/66; PULSE 84; RESP 16; TEMP 37.8; O2SAT 92
[2020-08-03] MEDS: 0.9% Saline Lock 10 ML Syringe IV (14:50)
[2020-08-03 20:23] VITALS: BP 116/54; PULSE 66; RESP 16; TEMP 36.8; O2SAT 93
[2020-08-04 03:27] VITALS: BP 115/59; PULSE 71; RESP 16; TEMP 37.2; O2SAT 92
[2020-08-04] MEDS: Heparin Injection (Vial) 5,000 UNIT/ML VIAL 5000 UNIT SC ×3 (05:50→21:39)
[2020-08-04 06:21] LABS: Hematocrit 32.8 % (37-47); Hemoglobin 10.6 g/dL (12.0-15.0); Mean Corp Hgb Conc 32.3 g/dL (32-36); Mean Corpuscular Hgb 30.8 pg (27.0-32.0); Mean Corpuscular Volume 95.3 fL (81-99); Mean Platelet Vol. 8.2 fl (6.2-12.0); Platelet Count 227 K/mm3 (150-450); RBC Distribution Width CV 14.2 % (11.6-14.6); RBC Distribution Width SD 49.5 fl (35.1-43.9); Red Blood Count 3.44 M/mm3 (4.2-5.4); White Blood Count 10.6 K/mm3 (4.4-11.0)
[2020-08-04 06:49] LABS: Anion Gap 4 (5-15); BUN 14 mg/dL (7-18); BUN/Creat Ratio 31.2 RATIO (10-20); Calcium,Total 8.3 mg/dL (8.5-10.1); Chloride 107 mmol/L (98-107); Creatinine, Serum 0.45 mg/dL (0.55-1.02); EST Glomerular Filtration Rate 144 mL/min (>60); Est Glom Filt Rate - Afr Amer 174 mL/min (>60); Estimated Creatinine Clearance 38.97 ml/min; Glucose 102 mg/dL (74-106); Sodium Level 138 mmol/L (136-145)
[2020-08-04] MEDS: Gabapentin 100 MG Capsule 200 MG PO ×3 (07:52→17:30)
[2020-08-04] MEDS: Aspirin 81 MG TAB.CHEW PO ×2 (07:52→17:30)
[2020-08-04 09:10] VITALS: BP 110/75; PULSE 78; RESP 16; TEMP 36.4; O2SAT 96
[2020-08-04] MEDS: Ceftriaxone 1 GM/50 ML BAG IV (09:16)
[2020-08-04] MEDS: Sertraline 100 MG Tablet PO (09:18)
[2020-08-04] MEDS: amLODIPine 5 MG Tablet PO (09:18)
[2020-08-04] MEDS: 0.9% Normal Saline 1,000 ML 75 ML IV (09:18)
--- NOTE | 2020-08-04 10:28 | PN_ITS ---
<AllanCatalina EDGER MACHINE OPERATOR - Last Filed: 08/04/20 10:34> Patient Problems: Active and Suspected Problems (Last Reviewed 08/02/20 @ 17:[address] Saloni scott, DO) Acute cystitis (Acute) Leukocytosis (Acute) Hypokalemia (Acute) Nausea (Acute) Subjective: Patient seen and examined. Denies further nausea, vomiting. Denies fever, chills. Continues to report generalized weakness. - Physical Exam Vitals/I&O's: Vital Signs Temp Pulse Resp BP Pulse Ox 97.6 F L 78 16 110/75 96 08/04/20 09:10 08/04/20 09:10 08/04/20 09:10 08/04/20 09:10 08/04/20 09:10 Oxygen Delivery Method Room Air Weight: 187 lb Body Mass Index (BMI) 33.1 Finger Stick Blood Glucose 185 Intake and Output for Last 24 Hours 08/02/20 08/03/20 08/04/20 23:59 23:59 23:59 Intake Total 550 / 550 3861.25 / 3861.25 1657.5 / 1657.5 Output Total 400 / 400 1400 / 1400 2200 / 2200 Balance 150 / 150 2461.25 / 2461.25 -542.5 / -542.5 General: Alert, Oriented x3, Cooperative HEENT: Atraumatic, PERRLA, EOMI, Normocephalic Neck: Supple, No JVD, Negative Carotid Bruits Lungs: Clear to auscultation, Normal air movement Cardiovascular: Regular rate, Regular Rhythm, Murmur Abdomen: Bowel Sounds Present, Soft, Non Tender, Non-Distended, Hernia Extremities: No clubbing, No cyanosis, No edema, Capillary Refill Less than 3 Seconds Skin: No rashes, No breakdown, - - Right knee postop incision intact Musculoskeletal: No Tenderness to Palpation of Joints or Extremities Neurological: Cranial nerves II-XII grossly intact, Neuro grossly intact Psych/Mental Status: Normal Affect, Appropriate Microbiology Past 72 Hours 08/02/20 15:55 Urine, Clean Catch Urine Culture - Final Escherichia coli 08/02/20 14:40 Blood Culture (Wb) - Anticubital Left Blood Culture - Preliminary 08/02/20 16:28 Blood Culture (Wb) - Right Hand Blood Culture - Preliminary GNR lactose human resources clerk 08/02/20 14:40 Mucosa - Nose SARS-CoV-2 Antigen (Rapid) - Final Laboratory Results 08/04/20 06:00: WBC 10.6, RBC 3.44 L, Hgb 10.6 L, Hct 32.8 L, MCV 95.3, MCH 30.8, MCHC 32.3, RDW Std Deviation 49.5 H, RDW Coeff of Ruben 14.2, Plt Count 227, MPV 8.2 08/04/20 06:00: Sodium 138, Potassium 4.0, Chloride 107, Carbon Dioxide 27.0, Anion Gap 4 L, BUN 14, Creatinine 0.45 L, Estim Creat Clear Calc 38.97, Est GFR (MDRD) Af Amer 174, Est GFR (MDRD) Non-Af 144, BUN/Creatinine Ratio 31.2 H, Glucose 102, Calcium 8.3 L Current Medications Acetaminophen (Acetaminophen 325 Mg Tablet) 650 mg PO Q6H PRN PRN PRN Reason: Pain Score 1-10/Temp > 100.7 F Last Admin: 08/03/20 15:29 Dose: 650 mg Documented by: Al Hydroxide/Mg Hydroxide (Mag Hydrox/Al Hydrox/Simeth 30 Ml Udc) 30 ml PO Q6H PRN PRN PRN Reason: Gastric Burning Last Admin: 08/03/20 14:50 Dose: 30 ml Documented by: Amlodipine Besylate (Amlodipine 5 Mg Tablet) 5 mg PO DAILY COUNTS INCLUDE 234 BEDS AT THE [facility] Last Admin: 08/04/20 09:18 Dose: 5 mg Documented by: Aspirin (Aspirin 81 Mg Tab.Chew) [facility] Last Admin: 08/04/20 07:52 Dose: 81 mg Documented by: Famotidine (Famotidine 20 Mg Tablet) 20 mg PO DAILY PRN PRN PRN Reason: GERD Last Admin: 08/02/20 23:25 Dose: 20 mg Documented by: Gabapentin (Gabapentin 100 Mg Capsule) 200 mg PO TIDCM COUNTS INCLUDE 234 BEDS AT [facility] Last Admin: 08/04/20 07:52 Dose: 200 mg Documented by: Haloperidol Lactate (Haloperidol Lactate 5 Mg/Ml Vial) 1 mg IV Q4H PRN PRN PRN Reason: NAUSEA Last Admin: 08/03/20 14:50 Dose: 1 mg Documented by: Heparin Sodium (Porcine) (Heparin Injection (Vial) 5,000 Unit/Ml Vial) 5,000 unit SC Q8 COUNTS INCLUDE 234 BEDS AT THE [facility] Last Admin: 08/04/20 05:50 Dose: 5,000 unit Documented by: Sodium Chloride () 1,000 mls @ 75 mls/hr IV .[id number] COUNTS INCLUDE 234 BEDS AT THE [facility] Last Admin: 08/04/20 09:18 Dose: 75 mls/hr Documented by: Ceftriaxone Sodium (Rocephin) 1 gm in 50 mls @ 100 mls/hr IV Q24 COUNTS INCLUDE 234 BEDS AT THE [facility] Stop: 08/10/20 10:01 Last Admin: 08/04/20 09:16 Dose: 100 mls/hr Documented by: Sodium Chloride () 500 mls @ 15 mls/hr IV PRN PRN PRN Reason: Blood Transfusion Sodium Chloride () 250 mls @ 15 mls/hr IV .[id number] PRN PRN Reason: Saline Flush Sodium Chloride () 250 mls @ 15 mls/hr IV .[id number] PRN PRN Reason: Additional IVPB Infusion Melatonin (Melatonin 3 Mg Tablet) 3 mg PO QHS PRN PRN PRN Reason: INSOMNIA Last Admin: 08/02/20 21:13 Dose: 3 mg Documented by: Morphine Sulfate (Morphine 2 Mg/Ml Syringe) 2 mg IV Q3H PRN PRN PRN Reason: Pain Score 6-10 Senna/Docusate Sodium (Senna/Docusate Sodium 1 Tablet) 2 tablet PO BID PRN PRN PRN Reason: Constipation Sertraline HCl (Sertraline 100 Mg Tablet) 100 mg PO DAILY COUNTS INCLUDE 234 BEDS AT THE [facility] Last Admin: 08/04/20 09:18 Dose: 100 mg Documented by: Sodium Chloride (0.9% Saline Lock 10 Ml Syringe) 10 - 40 ml IV UD PRN PRN Reason: SALINE FLUSH Last Admin: 08/03/20 14:50 Dose: 10 ml Documented by: Medical Necessity - Tobacco Use Smoking Status: Never smoker Tobacco Use: Non-smoker Assessment/Plan All Active Problems (Last Reviewed 08/02/20 @ 17:[address] Saloni Collado DO) Acute cystitis (Acute) Leukocytosis (Acute) Hypokalemia (Acute) Nausea (Acute) COVID-19 (Resolved) 1. Acute E. coli cystitis with associated gram-negative romeo bacteremia-IV Rocephin pending final cultures and sensitivities. Preliminary blood culture is growing GNR. Anticipate discharge tomorrow if continued improvement. 2. Urinary retention, suspected overflow incontinence-appears to be voiding without difficulty at this time. As needed a bladder scan. 3. Hypokalemia-replaced per protocol. Trend BMP. 4. L4 spinal stenosis with saddle anesthesia-patient was to undergo surgery with Dr. Reid 08/05/2020. Dr. Reid notified of patient's admission and need to delay surgery. 5. Hypertension-stable, continue amlodipine, lisinopril. 6. GERD-on famotidine. 7. Depression-on Zoloft. 8. Prediabetes-hemoglobin A1c 5.7%. Recommend carb controlled diet. DVT prophylaxis-Heparin subcu This patient was seen by ALMA Thacker under the supervision of Dr. Rangel. <Ryan Rangel F - Last Filed: 08/04/20 13:47> - Physical Exam Vitals/I&O's: Vital Signs Temp Pulse Resp BP Pulse Ox 97.6 F L 78 16 110/75 96 08/04/20 09:10 08/04/20 09:10 08/04/20 09:10 08/04/20 09:10 08/04/20 09:10 Oxygen Delivery Method Room Air Weight: 187 lb Body Mass Index (BMI) 33.1 Finger Stick Blood Glucose 185 Intake and Output for Last 24 Hours 08/02/20 08/03/20 08/04/20 23:59 23:59 23:59 Intake Total 550 / 550 3861.25 / 3861.25 1823.75 / 1823.75 Output Total 400 / 400 1400 / 1400 2200 / 2200 Balance 150 / 150 2461.25 / 2461.25 -376.25 / -376.25 Microbiology Past 72 Hours 08/02/20 15:55 Urine, Clean Catch Urine Culture - Final Escherichia coli 08/02/20 14:40 Blood Culture (Wb) - Anticubital Left Blood Culture - Preliminary 08/02/20 16:28 Blood Culture (Wb) - Right Hand Blood Culture - Preliminary GNR lactose human resources clerk 08/02/20 14:40 Mucosa - Nose SARS-CoV-2 Antigen (Rapid) - Final Laboratory Results 08/04/20 06:00: WBC 10.6, RBC 3.44 L, Hgb 10.6 L, Hct 32.8 L, MCV 95.3, MCH 30.8, MCHC 32.3, RDW Std Deviation 49.5 H, RDW Coeff of Ruben 14.2, Plt Count 227, MPV 8.2 08/04/20 06:00: Sodium 138, Potassium 4.0, Chloride 107, Carbon Dioxide 27.0, Anion Gap 4 L, BUN 14, Creatinine 0.45 L, Estim Creat Clear Calc 38.97, Est GFR (MDRD) Af Amer 174, Est GFR (MDRD) Non-Af 144, BUN/Creatinine Ratio 31.2 H, Glucose 102, Calcium 8.3 L Current Medications Acetaminophen (Acetaminophen 325 Mg Tablet) 650 mg PO Q6H PRN PRN PRN Reason: Pain Score 1-10/Temp > 100.7 F Last Admin: 08/03/20 15:29 Dose: 650 mg Documented by: Al Hydroxide/Mg Hydroxide (Mag Hydrox/Al Hydrox/Simeth 30 Ml Udc) 30 ml PO Q6H PRN PRN PRN Reason: Gastric Burning Last Admin: 08/03/20 14:50 Dose: 30 ml Documented by: Amlodipine Besylate (Amlodipine 5 Mg Tablet) 5 mg PO DAILY COUNTS INCLUDE 234 BEDS AT THE [facility] Last Admin: 08/04/20 09:18 Dose: 5 mg Documented by: Aspirin (Aspirin 81 Mg Tab.Chew) 81 mg PO BIDCM COUNTS INCLUDE 234 BEDS AT [facility] Last Admin: 08/04/20 07:52 Dose: 81 mg Documented by: Famotidine (Famotidine 20 Mg Tablet) 20 mg PO DAILY PRN PRN PRN Reason: GERD Last Admin: 08/02/20 23:25 Dose: 20 mg Documented by: Gabapentin (Gabapentin 100 Mg Capsule) 200 mg PO TIDCM COUNTS INCLUDE 234 BEDS AT [facility] Last Admin: 08/04/20 12:37 Dose: 200 mg Documented by: Haloperidol Lactate (Haloperidol Lactate 5 Mg/Ml Vial) 1 mg IV Q4H PRN PRN PRN Reason: NAUSEA Last Admin: 08/03/20 14:50 Dose: 1 mg Documented by: Heparin Sodium (Porcine) (Heparin Injection (Vial) 5,000 Unit/Ml Vial) 5,000 unit SC Q8 COUNTS INCLUDE 234 BEDS AT [facility] Last Admin: 08/04/20 05:50 Dose: 5,000 unit Documented by: Ceftriaxone Sodium (Rocephin) 1 gm in 50 mls @ 100 mls/hr IV Q24 COUNTS INCLUDE 234 BEDS AT THE [facility] Stop: 08/10/20 10:01 Last Infusion: 08/04/20 09:50 Dose: Infused Documented by: Sodium Chloride () 500 mls @ 15 mls/hr IV PRN PRN PRN Reason: Blood Transfusion Sodium Chloride () 250 mls @ 15 mls/hr IV .[id number] PRN PRN Reason: Additional IVPB Infusion Melatonin (Melatonin 3 Mg Tablet) 3 mg PO QHS PRN PRN PRN Reason: INSOMNIA Last Admin: 08/02/20 21:13 Dose: 3 mg Documented by: Morphine Sulfate (Morphine 2 Mg/Ml Syringe) 2 mg IV Q3H PRN PRN PRN Reason: Pain Score 6-10 Senna/Docusate Sodium (Senna/Docusate Sodium 1 Tablet) 2 tablet PO BID PRN PRN PRN Reason: Constipation Sertraline HCl (Sertraline 100 Mg Tablet) 100 mg PO DAILY FERNANDA Last Admin: 08/04/20 09:18 Dose: 100 mg Documented by: Sodium Chloride (0.9% Saline Lock 10 Ml Syringe) 10 - 40 ml IV UD PRN PRN Reason: SALINE FLUSH Last Admin: 08/03/20 14:50 Dose: 10 ml Documented by: Addendum: Dr. Rangel I personally examined the patient and reviewed the chart. I agree with the above. 75-year-old female presented to the hospital with fever. She has had some chills, nausea, vomiting, myalgias, fatigue, for about a week prior to admission. She was found to have a UTI and blood cultures are coming back positive with a gram-negative romeo. The urine culture is with a pansensitive E. coli, blood cultures are still pending identification. She is improving on Rocephin which we will continue. She can likely transition to oral Keflex on discharge. She does feel like this is secondary to her urinary retention. She states that she was having as spinal anesthesia for orthopedic procedure in June and she says that she thinks they had a nerve which is when all this started. I recommend that she follow-up with urology as an outpatient. She is also scheduled to undergo surgery for her spinal stenosis which has been delayed as she was to have surgery tomorrow. She is feeling a little bit better today compared to when she came in and last week. Inpatient E&M: [id number] Subs Hosp L2
--- NOTE | 2020-08-04 11:10 | CASEMGMT ---
RN CM Face to Face with patient for initial transition planning/care coordination assessment. RN CM introduced self and role at [facility]. Patient sitting in chair, alert and oriented. Patient willing to participate in assessment and is able to answer all questions appropriately. Care providers, pharmacy, and demographics verified. Patient wishes to discharge home, denies need for home health at this time. Patient states she has no further needs or concerns at this time. CM to follow for discharge planning needs that may arise. PCP: Avery De Jesus Specialists: [place], spinal surgeon; shane Jiménez Preferred Pharmacy: [facility] Insurance: [facility] Prescription Benefit: yes Living Will/HPOA: none LNOK: daughters Living Arrangements: Patient lives with daughter in a single story home with no steps to enter. Patient states she is independent at home. Transportation: self/daughters DME/HHC: Patient states she has shower chair, raised toilet, grab bars, walker, wheelchair. Patient states she has previously had [facility] Disposition Plan: Patient to discharge home with family support and follow-up plans in place. Victoria COLON, RN, CM
[2020-08-04 19:22] VITALS: BP 104/73; PULSE 80; RESP 16; TEMP 37.2; O2SAT 96
[2020-08-04 20:18] VITALS: BP 134/74; PULSE 77; RESP 18; TEMP 37.6; O2SAT 93
[2020-08-04] MEDS: MELATONIN 3 MG TABLET PO (21:43)
[2020-08-04 22:00] VITALS: TEMP 37.4
[2020-08-05 02:27] VITALS: BP 144/67; PULSE 74; RESP 16; TEMP 37.1; O2SAT 92
[2020-08-05 05:30] LABS: Hematocrit 35.4 % (37-47); Hemoglobin 11.2 g/dL (12.0-15.0); Mean Corp Hgb Conc 31.6 g/dL (32-36); Mean Corpuscular Hgb 30.4 pg (27.0-32.0); Mean Corpuscular Volume 96.2 fL (81-99); Mean Platelet Vol. 8.1 fl (6.2-12.0); Platelet Count 274 K/mm3 (150-450); RBC Distribution Width CV 14.2 % (11.6-14.6); RBC Distribution Width SD 50.1 fl (35.1-43.9); Red Blood Count 3.68 M/mm3 (4.2-5.4); White Blood Count 9.4 K/mm3 (4.4-11.0)
[2020-08-05 05:44] LABS: Anion Gap 6 (5-15); BUN 14 mg/dL (7-18); BUN/Creat Ratio 31.8 RATIO (10-20); Calcium,Total 8.8 mg/dL (8.5-10.1); Chloride 106 mmol/L (98-107); Creatinine, Serum 0.44 mg/dL (0.55-1.02); EST Glomerular Filtration Rate 147 mL/min (>60); Est Glom Filt Rate - Afr Amer 178 mL/min (>60); Estimated Creatinine Clearance 38.97 ml/min; Glucose 112 mg/dL (74-106); Potassium 3.7 mmol/L (3.5-5.1); Sodium Level 140 mmol/L (136-145)
[2020-08-05] MEDS: Heparin Injection (Vial) 5,000 UNIT/ML VIAL 5000 UNIT SC (05:59)
[2020-08-05 08:30] VITALS: BP 127/75; PULSE 74; RESP 16; TEMP 36.7; O2SAT 97
[2020-08-05] MEDS: Gabapentin 100 MG Capsule 200 MG PO (09:43)
[2020-08-05] MEDS: amLODIPine 5 MG Tablet PO (09:43)
[2020-08-05] MEDS: Sertraline 100 MG Tablet PO (09:43)
[2020-08-05] MEDS: Aspirin 81 MG TAB.CHEW PO (09:44)
[2020-08-05] MEDS: Ceftriaxone 1 GM/50 ML BAG IV (09:44)
--- NOTE | 2020-08-05 11:22 | PCM.DC ---
- Discharge Diagnoses Current Active Problems: Current Active and Chronic Problems (Last Reviewed 08/02/20 @ 17:[address] Saloni Collado DO) Acute cystitis (Acute) Urinary incontinence (Chronic) Acid reflux (Chronic) Diarrhea (Chronic) Nausea (Acute) Back problem (Chronic) Borderline diabetes (Chronic) Hypertension (Chronic) Depression (Chronic) You will use the following diet at home:: Calorie/Carbohydrate Controlled (specify 1200, 1400, etc) Discharge Activity: Return to Normal Activity Call your doctor if you observe: Fever of 101 or Higher, Shortness of breath, Dizziness, Fainting spells, Chest pain Allergies/Adverse Reactions: Allergies Penicillins [PCN] Allergy (Verified 07/28/20 07:59) Hives Medications to take at Discharge Amlodipine [Norvasc] 5 mg PO DAILY 12/24/19 Lisinopril [Zestril] 10 mg PO DAILY 12/24/19 Sertraline HCl [Zoloft] 100 mg PO DAILY 12/24/19 Loperamide [Imodium] 2 mg PO Q6H PRN PRN cap 12/25/19 calcium carbonate 600 mg calcium (1,500 mg) tablet 600 mg PO BID tab 02/14/20 multivitamin 1 tab PO DAILY 02/14/20 Acetaminophen [Tylenol] 1,000 mg PO Q8 tab 06/28/20 Ensure Surgery 237 ml PO TIDCM liquid 06/28/20 Meloxicam [Mobic] 7.5 mg PO BID #60 tab 06/28/20 Famotidine [Pepcid] 20 mg PO DAILY PRN 07/28/20 Gabapentin [Neurontin] 200 mg PO TIDCM 07/28/20 Ciprofloxacin [Cipro] 500 mg PO BID #20 tab 08/05/20 The following prescriptions were given: Ciprofloxacin [Cipro] 500 mg PO BID #20 tab Transmission Status: Pending to [facility] Primary Care Physician: Avery De Jesus MD [Primary Care Provider] - Please follow up with your Primary Care Physician in: 1 Week Test Results: Test results from this visit will be discussed in further detail at your follow-up appointment, if applicable. Please Follow Up With: Jos Reid DO When: Office to call you to reschedule surgery Please Follow Up With: Arminda Phipps MD - Urology When: Call for appointment Proposed Discharge Date: 08/05/20
--- NOTE | 2020-08-05 11:24 | PCM.DC.SUM ---
<Catalina Lemus LODGING FACILITIES MANAGER - Last Filed: 08/05/20 11:29> Discharge Date and Diagnosis - Problem List Patient Problems: Active and Suspected Problems (Last Reviewed 08/02/20 @ 17:[address] Saloni Collado DO) Acute cystitis (Acute) Leukocytosis (Acute) Hypokalemia (Acute) Nausea (Acute) Date of Admission: 08/02/20 Date of Discharge: 08/05/20 - Primary Discharge Diagnosis Acute Problems: Active Problems (Last Reviewed 08/02/20 @ 17:[address] Saloni Collado DO) 1. Acute E. coli cystitis with associated e.coli bacteremia 2. Urinary retention, suspected overflow incontinence 3. Hypokalemia 4. L4 spinal stenosis with saddle anesthesia 5. Hypertension 6. GERD 7. Depression 8. Prediabetes - Secondary Discharge Diagnosis Chronic Problems: Chronic Problems (Last Reviewed 08/02/20 @ 17:[address] Saloni Collado DO) Urinary incontinence (Chronic) Acid reflux (Chronic) Diarrhea (Chronic) Back problem (Chronic) Borderline diabetes (Chronic) Hypertension (Chronic) Depression (Chronic) Hospital Course and Treatment Imaging Results: Diagnostic Data Chest X-Ray 08/02/20 14:55 IMPRESSION: Cardiomegaly with low volume inspiration and no acute finding. Electronically Signed: Asim Stiles MD at 15:26 EST , Service support , Operations: None Procedures: None Summary of Care Provided: The patient is a 75 year old F admitted 08/02/2020 due to fever. 1. Acute E. coli cystitis with associated E. coli bacteremia-IV Rocephin during admission. Cultures pansensitive. Discharged on Cipro to complete course. Follow-up with PCP in 1 week. 2. Urinary retention, suspected overflow incontinence-appears to be voiding without difficulty at this time. Referred to urology, Dr. Phipps for further evaluation as outpatient. 3. Hypokalemia-replaced per protocol. Resolved. 4. L4 spinal stenosis with saddle anesthesia-patient was to undergo surgery with Dr. Reid 08/05/2020. Dr. Reid notified of patient's admission and need to delay surgery. Office to call patient to reschedule surgery. 5. Hypertension-stable, continue amlodipine, lisinopril. 6. GERD-on famotidine. 7. Depression-on Zoloft. 8. Prediabetes-hemoglobin A1c 5.7%. Recommend carb controlled diet. General: Alert, Oriented x3, Cooperative HEENT: Atraumatic, PERRLA, EOMI, Normocephalic Neck: Supple, No JVD, Negative Carotid Bruits Lungs: Clear to auscultation, Normal air movement Cardiovascular: Regular rate, Regular Rhythm, Murmur Abdomen: Bowel Sounds Present, Soft, Non Tender, Non-Distended, Hernia Extremities: No clubbing, No cyanosis, No edema, Capillary Refill Less than 3 Seconds Skin: No rashes, No breakdown, Right knee postop incision intact Musculoskeletal: No Tenderness to Palpation of Joints or Extremities Neurological: Cranial nerves II-XII grossly intact, Neuro grossly intact Psych/Mental Status: Normal Affect, Appropriate Patient seen and examined prior to discharge. Physical assessment as noted above. Patient is stable for discharge with follow up recommendations as noted above. This patient was seen by ALMA Thacker under the supervision of Dr. Rangel. Patient Problems: Active and Suspected Problems (Last Reviewed 08/02/20 @ 17:[address] Saloni Collado DO) Acute cystitis (Acute) Leukocytosis (Acute) Hypokalemia (Acute) Nausea (Acute) - Physical Exam Vitals/I&O's: Vital Signs Temp Pulse Resp BP Pulse Ox 98.1 F 74 16 127/75 H 97 08/05/20 08:30 08/05/20 08:30 08/05/20 08:30 08/05/20 08:30 08/05/20 08:30 Oxygen Delivery Method Room Air Weight: 187 lb Body Mass Index (BMI) 33.1 Finger Stick Blood Glucose 185 Intake and Output for Last 24 Hours 08/03/20 08/04/20 08/05/20 23:59 23:59 23:59 Intake Total 3861.25 / 3861.25 4523.75 / 4523.75 600 / 600 Output Total 1400 / 1400 2200 / 2200 Balance 2461.25 / 2461.25 2323.75 / 2323.75 600 / 600 Microbiology Past 72 Hours 08/02/20 14:40 Blood Culture (Wb) - Anticubital Left Blood Culture - Final 08/02/20 16:28 Blood Culture (Wb) - Right Hand Blood Culture - Final Escherichia coli 08/02/20 15:55 Urine, Clean Catch Urine Culture - Final Escherichia coli 08/02/20 14:40 Mucosa - Nose SARS-CoV-2 Antigen (Rapid) - Final Laboratory Results 08/05/20 05:08: WBC 9.4, RBC 3.68 L, Hgb 11.2 L, Hct 35.4 L, MCV 96.2, MCH 30.4, MCHC 31.6 L, RDW Std Deviation 50.1 H, RDW Coeff of Ruben 14.2, Plt Count 274, MPV 8.1 08/05/20 05:08: Sodium 140, Potassium 3.7, Chloride 106, Carbon Dioxide 28.0, Anion Gap 6, BUN 14, Creatinine 0.44 L, Estim Creat Clear Calc 38.97, Est GFR (MDRD) Af Amer 178, Est GFR (MDRD) Non-Af 147, BUN/Creatinine Ratio 31.8 H, Glucose 112 H, Calcium 8.8 Current Medications Acetaminophen (Acetaminophen 325 Mg Tablet) 650 mg PO Q6H PRN PRN PRN Reason: Pain Score 1-10/Temp > 100.7 F Last Admin: 08/03/20 15:29 Dose: 650 mg Documented by: Al Hydroxide/Mg Hydroxide (Mag Hydrox/Al Hydrox/Simeth 30 Ml Udc) 30 ml PO Q6H PRN PRN PRN Reason: Gastric Burning Last Admin: 08/03/20 14:50 Dose: 30 ml Documented by: Amlodipine Besylate (Amlodipine 5 Mg Tablet) 5 mg PO DAILY [facility] Last Admin: 08/05/20 09:43 Dose: 5 mg Documented by: Aspirin (Aspirin 81 Mg Tab.Chew) 81 mg PO BIDCM [facility] Last Admin: 08/05/20 09:44 Dose: 81 mg Documented by: Famotidine (Famotidine 20 Mg Tablet) 20 mg PO DAILY PRN PRN PRN Reason: GERD Last Admin: 08/02/20 23:25 Dose: 20 mg Documented by: Gabapentin (Gabapentin 100 Mg Capsule) 200 mg PO TIDCM [facility] Last Admin: 08/05/20 09:43 Dose: 200 mg Documented by: Haloperidol Lactate (Haloperidol Lactate 5 Mg/Ml Vial) 1 mg IV Q4H PRN PRN PRN Reason: NAUSEA Last Admin: 08/03/20 14:50 Dose: 1 mg Documented by: Heparin Sodium (Porcine) (Heparin Injection (Vial) 5,000 Unit/Ml Vial) 5,000 unit SC Q8 [facility] Last Admin: 08/05/20 05:59 Dose: 5,000 unit Documented by: Ceftriaxone Sodium (Rocephin) 1 gm in 50 mls @ 100 mls/hr IV Q24 [facility] Stop: 08/10/20 10:01 Last Admin: 08/05/20 09:44 Dose: 100 mls/hr Documented by: Sodium Chloride () 500 mls @ 15 mls/hr IV PRN PRN PRN Reason: Blood Transfusion Sodium Chloride () 250 mls @ 15 mls/hr IV .[id number] PRN PRN Reason: Additional IVPB Infusion Melatonin (Melatonin 3 Mg Tablet) 3 mg PO QHS PRN PRN PRN Reason: INSOMNIA Last Admin: 08/04/20 21:43 Dose: 3 mg Documented by: Morphine Sulfate (Morphine 2 Mg/Ml Syringe) 2 mg IV Q3H PRN PRN PRN Reason: Pain Score 6-10 Senna/Docusate Sodium (Senna/Docusate Sodium 1 Tablet) 2 tablet PO BID PRN PRN PRN Reason: Constipation Sertraline HCl (Sertraline 100 Mg Tablet) 100 mg PO DAILY [facility] Last Admin: 08/05/20 09:43 Dose: 100 mg Documented by: Sodium Chloride (0.9% Saline Lock 10 Ml Syringe) 10 - 40 ml IV UD PRN PRN Reason: SALINE FLUSH Last Admin: 08/03/20 14:50 Dose: 10 ml Documented by: Discharge Diet: Carb Control Diet Discharge Activity: Return to Normal Activity Call your doctor if you observe: Fever of 101 or Higher, Shortness of breath, Dizziness, Fainting spells, Chest pain Home Medications: Medications to take at Discharge Amlodipine [Norvasc] 5 mg PO DAILY 12/24/19 Lisinopril [Zestril] 10 mg PO DAILY 12/24/19 Sertraline HCl [Zoloft] 100 mg PO DAILY 12/24/19 Loperamide [Imodium] 2 mg PO Q6H PRN PRN cap 12/25/19 calcium carbonate 600 mg calcium (1,500 mg) tablet 600 mg PO BID tab 02/14/20 multivitamin 1 tab PO DAILY 02/14/20 Acetaminophen [Tylenol] 1,000 mg PO Q8 tab 06/28/20 Ensure Surgery 237 ml PO TIDCM liquid 06/28/20 Meloxicam [Mobic] 7.5 mg PO BID #60 tab 06/28/20 Famotidine [Pepcid] 20 mg PO DAILY PRN 07/28/20 Gabapentin [Neurontin] 200 mg PO TIDCM 07/28/20 Ciprofloxacin [Cipro] 500 mg PO BID #20 tab 08/05/20 Following Prescriptions Were Given to Patient: Ciprofloxacin [Cipro] 500 mg PO BID #20 tab Transmission Status: Received by [facility] Primary Care Physician: Avery De Jesus MD [Primary Care Provider] - Please follow up with your Primary Care Physician in: 1 Week Please Follow Up With: Jos Reid DO When: Office to call you to reschedule surgery Please Follow Up With: Arminda Phipps MD - Urology When: Call for appointment Disposition: Home Minutes spent on discharge:: 35 Patient Condition:: Stable Medical Necessity - Tobacco Use Smoking Status: Never smoker Tobacco Use: Non-smoker Meaningful Use Info Meaningful Use Diagnoses (Choose all that apply): None applicable <Ryan Rangel F - Last Filed: 08/05/20 12:49> Discharge Date and Diagnosis - Primary Discharge Diagnosis Acute Problems: Active Problems (Last Reviewed 08/02/20 @ 17:[address] Saloni Collado DO) Acute cystitis (Acute) Leukocytosis (Acute) Hypokalemia (Acute) Nausea (Acute) - Secondary Discharge Diagnosis Chronic Problems: Chronic Problems (Last Reviewed 08/02/20 @ 17:[address] Saloni Collado DO) Urinary incontinence (Chronic) Acid reflux (Chronic) Diarrhea (Chronic) Back problem (Chronic) Borderline diabetes (Chronic) Hypertension (Chronic) Depression (Chronic) Hospital Course and Treatment Summary of Care Provided: The patient is a 75 year old F [] - Physical Exam Vitals/I&O's: Vital Signs Temp Pulse Resp BP Pulse Ox 98.1 F 74 16 127/75 H 97 08/05/20 08:30 08/05/20 08:30 08/05/20 08:30 08/05/20 08:30 08/05/20 08:30 Oxygen Delivery Method Room Air Weight: 187 lb Body Mass Index (BMI) 33.1 Finger Stick Blood Glucose 185 Intake and Output for Last 24 Hours 08/03/20 08/04/20 08/05/20 23:59 23:59 23:59 Intake Total 3861.25 / 3861.25 4523.75 / 4523.75 1050 / 1050 Output Total 1400 / 1400 2200 / 2200 Balance 2461.25 / 2461.25 2323.75 / 2323.75 1050 / 1050 Microbiology Past 72 Hours 08/02/20 14:40 Blood Culture (Wb) - Anticubital Left Blood Culture - Final 08/02/20 16:28 Blood Culture (Wb) - Right Hand Blood Culture - Final Escherichia coli 08/02/20 15:55 Urine, Clean Catch Urine Culture - Final Escherichia coli 08/02/20 14:40 Mucosa - Nose SARS-CoV-2 Antigen (Rapid) - Final Laboratory Results 08/05/20 05:08: WBC 9.4, RBC 3.68 L, Hgb 11.2 L, Hct 35.4 L, MCV 96.2, MCH 30.4, MCHC 31.6 L, RDW Std Deviation 50.1 H, RDW Coeff of Ruben 14.2, Plt Count 274, MPV 8.1 08/05/20 05:08: Sodium 140, Potassium 3.7, Chloride 106, Carbon Dioxide 28.0, Anion Gap 6, BUN 14, Creatinine 0.44 L, Estim Creat Clear Calc 38.97, Est GFR (MDRD) Af Amer 178, Est GFR (MDRD) Non-Af 147, BUN/Creatinine Ratio 31.8 H, Glucose 112 H, Calcium 8.8 Current Medications Acetaminophen (Acetaminophen 325 Mg Tablet) 650 mg PO Q6H PRN PRN PRN Reason: Pain Score 1-10/Temp > 100.7 F Last Admin: 08/03/20 15:29 Dose: 650 mg Documented by: Al Hydroxide/Mg Hydroxide (Mag Hydrox/Al Hydrox/Simeth 30 Ml Udc) 30 ml PO Q6H PRN PRN PRN Reason: Gastric Burning Last Admin: 08/03/20 14:50 Dose: 30 ml Documented by: Amlodipine Besylate (Amlodipine 5 Mg Tablet) 5 mg PO DAILY [facility] Last Admin: 08/05/20 09:43 Dose: 5 mg Documented by: Aspirin (Aspirin 81 Mg Tab.Chew) 81 mg PO BIDCM [facility] Last Admin: 08/05/20 09:44 Dose: 81 mg Documented by: Famotidine (Famotidine 20 Mg Tablet) 20 mg PO DAILY PRN PRN PRN Reason: GERD Last Admin: 08/02/20 23:25 Dose: 20 mg Documented by: Gabapentin (Gabapentin 100 Mg Capsule) 200 mg PO TIDCM [facility] Last Admin: 08/05/20 09:43 Dose: 200 mg Documented by: Haloperidol Lactate (Haloperidol Lactate 5 Mg/Ml Vial) 1 mg IV Q4H PRN PRN PRN Reason: NAUSEA Last Admin: 08/03/20 14:50 Dose: 1 mg Documented by: Heparin Sodium (Porcine) (Heparin Injection (Vial) 5,000 Unit/Ml Vial) 5,000 unit SC Q8 [facility] Last Admin: 08/05/20 05:59 Dose: 5,000 unit Documented by: Ceftriaxone Sodium (Rocephin) 1 gm in 50 mls @ 100 mls/hr IV Q24 [facility] Stop: 08/10/20 10:01 Last Admin: 08/05/20 09:44 Dose: 100 mls/hr Documented by: Sodium Chloride () 500 mls @ 15 mls/hr IV PRN PRN PRN Reason: Blood Transfusion Sodium Chloride () 250 mls @ 15 mls/hr IV .[id number] PRN PRN Reason: Additional IVPB Infusion Melatonin (Melatonin 3 Mg Tablet) 3 mg PO QHS PRN PRN PRN Reason: INSOMNIA Last Admin: 08/04/20 21:43 Dose: 3 mg Documented by: Morphine Sulfate (Morphine 2 Mg/Ml Syringe) 2 mg IV Q3H PRN PRN PRN Reason: Pain Score 6-10 Senna/Docusate Sodium (Senna/Docusate Sodium 1 Tablet) 2 tablet PO BID PRN PRN PRN Reason: Constipation Sertraline HCl (Sertraline 100 Mg Tablet) 100 mg PO DAILY [facility] Last Admin: 08/05/20 09:43 Dose: 100 mg Documented by: Sodium Chloride (0.9% Saline Lock 10 Ml Syringe) 10 - 40 ml IV UD PRN PRN Reason: SALINE FLUSH Last Admin: 08/03/20 14:50 Dose: 10 ml Documented by: Addendum: Dr. Rangel I personally examined the patient and reviewed the chart. I agree with the above. 75-year-old female presented to the hospital with fever. She has had some chills, nausea, vomiting, myalgias, fatigue, for about a week prior to admission. She was found to have a UTI and blood cultures are coming back positive with a gram-negative romeo. The urine culture is with a pansensitive E. coli, blood cultures are still pending identification. She is improving on Rocephin which we will continue. She can likely transition to oral Keflex on discharge. She does feel like this is secondary to her urinary retention. She states that she was having as spinal anesthesia for orthopedic procedure in June and she says that she thinks they had a nerve which is when all this started. I recommend that she follow-up with urology as an outpatient. She is also scheduled to undergo surgery for her spinal stenosis which has been delayed as she was to have surgery tomorrow. She is feeling a little bit better today compared to when she came in and last week. 08/05/2020: Feels much better today, her sensitivities resulted in she has a pansensitive E. coli in her blood and in her urine. She is received 3 days of IV Rocephin and will complete 10 more days of p.o. Cipro as an outpatient. I would recommend that she follow-up with her PCP as well. She also need to follow-up with urology secondary to urinary retention issues. She will need to follow-up with her spine surgeon as well to reschedule the surgery she was supposed to have today. Inpatient E&M: [id number] Disch Hosp
--- NOTE | 2020-08-05 11:47 | PHA.DC.MC ---
Pharmacy Service has performed discharge medication reconciliation and counseling for this patient. 1. CIPROFLOXACIN 500MG PO BID X 10 DAYS The patient's discharge medication list was reviewed for discrepancies and discrepancies were resolved. Home Medications Amlodipine [Norvasc] 5 mg PO DAILY 12/24/19 Lisinopril [Zestril] 10 mg PO DAILY 12/24/19 Sertraline HCl [Zoloft] 100 mg PO DAILY 12/24/19 Loperamide [Imodium] 2 mg PO Q6H PRN PRN cap 12/25/19 calcium carbonate 600 mg calcium (1,500 mg) tablet 600 mg PO BID tab 02/14/20 multivitamin 1 tab PO DAILY 02/14/20 Acetaminophen [Tylenol] 1,000 mg PO Q8 tab 06/28/20 Ensure Surgery 237 ml PO TIDCM liquid 06/28/20 Meloxicam [Mobic] 7.5 mg PO BID #60 tab 06/28/20 Famotidine [Pepcid] 20 mg PO DAILY PRN 07/28/20 Gabapentin [Neurontin] 200 mg PO TIDCM 07/28/20 Ciprofloxacin [Cipro] 500 mg PO BID #20 tab 08/05/20 The patient was counseled on the following discharge medications and changes in medications for homegoing were reviewed. The Reason for Use, instructions for use, and potential side effects were reviewed for all new medications. The patient's questions regarding all of their medications were answered. The patient was able to verbally demonstrate an understanding of their discharge medications.
[2020-08-05 12:52] VITALS: BP 127/75; PULSE 60; RESP 16; TEMP 36.7; O2SAT 97
== END 2020-08-05 13:42 | disposition home or self-care (01) | DRG 690 ==
LOC: ED 15:13 → MS3 16:59
PROVIDERS: Nurse Practitioner Family; Admitting Provider Internal Medicine; Emergency Provider Emergency Medicine; PCP Family Medicine; Visit Provider Family Medicine
DX: N30.00 Acute cystitis without hematuria (principal); E87.6 Hypokalemia; R73.03 Prediabetes; I10 Essential (primary) hypertension; B96.20 Unspecified Escherichia coli [E. coli] as the cause of diseases classified elsewhere; K21.9 Gastro-esophageal reflux disease without esophagitis; F32.9 Major depressive disorder, single episode, unspecified; M19.90 Unspecified osteoarthritis, unspecified site; E86.0 Dehydration; R73.9 Hyperglycemia, unspecified; M48.061 Spinal stenosis, lumbar region without neurogenic claudication; Z86.16 Personal history of COVID-19
CPT/HCPCS: 36415; 71045; 80048; 80053; 81001; 83036; 83605; 83735; 84100; 84484; 85025; 85027; 85610; 85730; 87040; 87077; 87086; 87088; 87186; 87426; 93005; 97110; 97162; 97166; 97530; 99285; J7030; P9612; A4216; J2405

== ENCOUNTER 2020-08-19 10:14 | Observation (INO) | payer MEDICARE, SELFPAY ==
[2020-06-25 18:26] VITALS: BMI 33.3
--- NOTE | 2020-07-28 13:05 | RAD_ITS ---
STUDY: X-RAY CHEST REASON FOR EXAM: Female, 75 years old. PREOP FOR LAMINECTOMY OF L4 TOMORROW. TECHNIQUE: PA and lateral views of the chest. COMPARISON: Comparison is made with prior study dated 12/24/2019. FINDINGS: The lungs are clear and expanded. There is no demonstrated pleural abnormality. Normal size heart. Normal mediastinum and huan. Normal visualized pulmonary arteries. There is atherosclerotic tortuosity of the aortic arch and descending thoracic aorta. There are diffuse degenerative changes of the visualized thoracic spine. There is degenerative osteoarthritis of the bilateral shoulders. Moderate sized hiatal hernia. RAD/Chest PA and Lateral IMPRESSION: The lungs are clear. Moderate sized hiatal hernia. Electronically Signed: Tomi Lynn MD at 12:01 EST , Service support ,
[2020-08-02 17:34] VITALS: BMI 33.1
[2020-08-19] VITALS (13 sets, daily range): BP systolic 106–130; BP diastolic 51–86; PULSE 55–91; RESP 14–18; TEMP 36.3–36.9; O2SAT 92–97; BMI 33.1
[2020-08-19] MEDS: Lactated Ringers 1,000 ML 100 ML IV ×2 (06:51→09:30)
--- NOTE | 2020-08-19 07:27 | DCINST_ITS ---
Discharge Diet: No Restrictions Discharge Activity: - - No bending twisting or lifting greater than 5 pounds May shower in (days): 1 - Cover incision with waterproof dressing while showering Weight Bearing Status: Weight bearing as tolerated Lifting Restrictions: No lifting greater than 5 pounds Call your doctor if your incision/area has: Continuous Slow Oozing, Sudden Increased Bleeding, Increased Pain/ Swelling, Increased Redness, Foul Smelling Discharge, Swelling at the incision site Call your doctor if you observe: Fever of 101 or Higher, Coldness, Increased Pain, Numbness or Tingling, Change in Color, Inability to urinate, Inability to have a bowel movement, Using more than one pad per hour, Shortness of breath, Dizziness, Fainting spells, Swelling in the ankles, Chest pain, Prolonged hiccoughing, Increased palpitations (irregular heartbeat), Calf discomfort, Uncontrolled pain Change Dressing in (Days):: 1 - Daily dressing changes with iodine to incision. Use gauze and tape Cleanse incision/area with: Do not get Incision Wet, Keep Dressing Clean & Dry Additional Dressing/Incision Instructions:: Daily dry dressing changes with gauze and tape. [place] incision with iodine with the dressing change. Allergies/Adverse Reactions: Allergies Penicillins [PCN] Allergy (Verified 08/19/20 06:27) Hives Medications to take at Discharge Amlodipine [Norvasc] 5 mg PO DAILY 12/24/19 Lisinopril [Zestril] 10 mg PO DAILY 12/24/19 Sertraline HCl [Zoloft] 100 mg PO DAILY 12/24/19 Loperamide [Imodium] 2 mg PO Q6H PRN PRN cap 12/25/19 calcium carbonate 600 mg calcium (1,500 mg) tablet 600 mg PO BID tab 02/14/20 multivitamin 1 tab PO DAILY 02/14/20 Famotidine [Pepcid] 20 mg PO DAILY PRN 07/28/20 Gabapentin [Neurontin] 200 mg PO TIDCM PRN 07/28/20 Oxycodone HCl/Acetaminophen [Percocet 5/325] 1 - 2 tablet PO Q6H PRN PRN 7 Days #60 tablet 08/19/20 The following prescriptions were given: Oxycodone HCl/Acetaminophen [Percocet 5/325] 1 - 2 tablet PO Q6H PRN PRN 7 Days #60 tablet PRN Reason: Pain Transmission Status: Sent to [facility] Primary Care Physician: Avery De Jesus MD [Primary Care Provider] - Test Results: Test results from this visit will be discussed in further detail at your follow- up appointment, if applicable. Please Follow Up With: Jos eRid DO - 3 weeks Proposed Discharge Date: 08/19/20
--- NOTE | 2020-08-19 07:30 | RAD_ITS ---
STUDY: X-RAY - LUMBAR SPINE REASON FOR EXAM: Female, 75 years old. LAMINECTOMY L4 TECHNIQUE: 2 limited intraoperative C-arm view(s) of the lumbar spine were obtained. COMPARISON: None FINDINGS: 2 limited intraoperative C-arm films were performed. The first shows a marker posterior to the L4-5 disc space, the other shows a marker across the L4-5 intervertebral disc spaces well and across the spinous processes. Peripherally calcified abdominal aorta noted. RAD/Lumbar Spine 2 or 3 Views IMPRESSION: Limited intraoperative films show markers across and posterior to the L4-5 disc space. Electronically Signed: Ricki Dumont MD at 11:57 EDT , Service support ,
[2020-08-19] MEDS: Thrombin 5,000 IU Kit (PSA) 5,000 IU Vial 5000 IU TOPICAL ×2 (08:46→08:47)
[2020-08-19] MEDS: Bupivacaine 0.25% 30 ML Vial (09:35)
--- NOTE | 2020-08-19 09:44 | PCM.OPRPT ---
Problem List (1) Lumbar stenosis without neurogenic claudication Status: Acute (2) Lumbar stenosis without neurogenic claudication Status: Acute Report of Operation Date of Procedure: 08/19/20 Pre-Operative Diagnosis: 1. Lumbar spondylosis with stenosis without neurogenic claudication, L4-5. 2. Degenerative disc disease L4-5. 3. Cauda equina syndrome Surgery/Procedure Performed:: 1. Lumbar spondylosis with stenosis without neurogenic claudication, L4-5. 2. Degenerative disc disease L4-5. 3. Cauda equina syndrome Description of Surgical Findings:: STATEMENT OF MEDICAL NECESSITY: The patient is a 75-year-old female with intractable back and leg pain, along with genital/rectal paresthesias and episodes of urinary and fecal incontinence. Image studies confirm above diagnosis. She has failed conservative treatment to include: medicine, therapy, and injections. The patient opted for operative intervention, understanding the risks to include, but not limited to infection, bleeding, damage to nerves, arteries, and veins, possibility of spinal fluid leak, continued pain, need for further surgery, deep vein thrombosis, pulmonary embolism, heart attack, risk of stroke, or . DESCRIPTION OF PROCEDURE: Before being wheeled into the operative suite, the patient's identity and surgery site were confirmed by the patient, staff, anesthesia, and the surgeon. The patient was given preoperative antibiotics, clindamycin. The patient was transferred to the [facility] operating table in the prone position. All bony prominences were padded accordingly. The lumbar spine was prepped and draped in standard surgical fashion. Reyna huggers were not turned on until drapes were placed and sealed with Ioban. A Midline incision was made and taken down to the lumbodorsal fascia. This was divided and subperiosteal dissection taken down to the level of the L4-5 facet joints. Deep retractors were placed. The laminectomy was begun with the Misonix bone scalpel, then a series of rongeurs and Kerrisons removing the spinous process and lamina at L4. Then, foraminotomies were performed decompressing the bilateral nerve roots. The incision was then thoroughly irrigated. Tissel was placed over the dura as a hemostatic agent. Fascia was closed with #1 Vicryl, subcutaneous with 2-0 Vicryl, and skin with 2-0 nylon. Sterile dressing was applied with 4 x 4, ABD, and tape. Sponge, instrument, and needle counts were correct at the end of the case. The patient was extubated, taken to PACU without incident. Type of Anesthesia:: General Drains: None Estimated Blood Loss (mL): 10 Fluids Replaced: 1400 - Complications None - Admit VTE Documentation VTE Present on Admission: No VTE Mechan Device Prophylaxis: SCD's, Knee High JAMES Villalba
--- NOTE | 2020-08-19 10:18 | PCM.PN.ORT ---
Patient Problems: Active and Suspected Problems (Last Reviewed 08/02/20 @ 17:[address] Saloni Collado DO) Lumbar stenosis without neurogenic claudication (Acute) Lumbar stenosis without neurogenic claudication (Acute) Subjective: The patient was seen and examined postoperatively in the PACU. She is resting comfortably. Her pain is well controlled. She has no complaints. - Physical Exam Vitals/I&O's: Vital Signs Temp Pulse Resp BP Pulse Ox 98.0 F 73 18 111/86 H 97 08/19/20 06:30 08/19/20 06:30 08/19/20 06:30 08/19/20 06:30 08/19/20 06:30 Oxygen Delivery Method Room Air Weight: 187 lb Body Mass Index (BMI) 33.1 Finger Stick Blood Glucose 185 Intake and Output for Last 24 Hours 08/17/20 08/18/20 08/19/20 23:59 23:59 23:59 Intake Total 54 / 54 Output Total 450 / 450 Balance -396 / -396 General: Alert, Oriented x3 HEENT: PERRLA, EOMI Neck: Supple, No JVD Lungs: Normal air movement Cardiovascular: Regular rate Abdomen: Soft, Non Tender Extremities: No cyanosis, No edema, Capillary Refill Less than 3 Seconds, No Calf Tenderness Skin: - - Dressing clean dry and intact Neurological: Cranial nerves II-XII grossly intact, Deep Tendon Reflexes 2+/4 and Symmetrical, Neuro grossly intact, Motor Exam 5/5 strength throughout, Sensory exam intact to light touch and pain Psych/Mental Status: Normal Affect, Appropriate Microbiology Past 72 Hours 08/18/20 10:10 Interface Orders SARS-CoV-2 Antigen (Rapid) - Final Current Medications Lactated Ringer's () 1,000 mls @ 100 mls/hr IV .Q10H FERNANDA Last Admin: 08/19/20 06:51 Dose: 100 mls/hr Documented by: Medical Necessity - Tobacco Use Smoking Status: Never smoker Tobacco Use: Non-smoker Assessment/Plan All Active Problems (Last Reviewed 08/02/20 @ 17:[address] Saloni Collado DO) Acute cystitis (Acute) Leukocytosis (Acute) Hypokalemia (Acute) Lumbar stenosis without neurogenic claudication (Acute) Lumbar stenosis without neurogenic claudication (Acute) Nausea (Acute) COVID-19 (Resolved) Assessment. Status post L4 laminectomy Plan. #1 admit to floor 2. See orders
[2020-08-19] MEDS: oxyCODONE 5 MG Tablet PO ×2 (12:15→20:52)
[2020-08-19] MEDS: Acetaminophen 500 MG Tablet 1000 MG PO ×2 (12:15→20:52)
--- NOTE | 2020-08-19 12:45 | PCM.CONS.GEN ---
Problem List (1) Lumbar stenosis without neurogenic claudication Status: Deleted (2) Acid reflux Status: Chronic (3) Borderline diabetes Status: Chronic (4) Hypertension Status: Chronic (5) Depression Status: Chronic Reason for Consult Date of Consultation: 08/19/20 Reason for Consultation: Postoperative medical management. History of Present Illness: The patient is a 75 year old F with past medical history as mentioned above who underwent elective L4-L5 laminectomy for lumbar spondylosis with stenosis of the L4-L5 and I was asked to see this patient for consultation for postoperative medical management. Currently, patient is in her bed, comfortable, eating her lunch. She mentioned that her back pain is manageable, she just received pain medication. No other complaints. She had a history of hypertension which has been well controlled with Norvasc and lisinopril. She will history of GERD and she has been on Pepcid and it has been under control. She had history of depression started after her 1 year ago and she has been on Zoloft. At this time, she is afebrile, blood pressure and heart rate are stable, pulse ox is 97% on 3 L. She denied any shortness of breath. Preoperative routine blood work that was done on August 05, 2020 showed hemoglobin of 11.2 g/dL, otherwise normal. Preoperative EKG showed normal sinus rhythm, PACs, no acute ischemic changes. Currently, she is on IV clindamycin for perioperative prophylaxis, OxyIR as needed for pain. Past Medical History Past Medical History (Chronic Problems): Chronic Problems (Last Updated 08/19/20 @ 12:[address] Ellie Hernández MD) Urinary incontinence (Chronic) Acid reflux (Chronic) Diarrhea (Chronic) Back problem (Chronic) Borderline diabetes (Chronic) Hypertension (Chronic) Depression (Chronic) Medical History: Medical History (Last Updated 08/19/20 @ 12:[address] Ellie Hernández MD) Acid reflux (Chronic) K21.9 Diarrhea (Chronic) R19.7 Back problem (Chronic) M53.9 Borderline diabetes (Chronic) R73.03 Hypertension (Chronic) I10 Depression (Chronic) F32.9 COVID-19 (Inactive) U07.1 Allergies Penicillins [PCN] Allergy (Verified 08/19/20 06:27) Hives Home Medications: Ambulatory Orders Medication Instructions Recorded Amlodipine [Norvasc] 5 mg PO DAILY 12/24/19 Lisinopril [Zestril] 10 mg PO DAILY 12/24/19 Sertraline HCl [Zoloft] 100 mg PO DAILY 12/24/19 Loperamide [Imodium] 2 mg PO Q6H PRN PRN cap 12/25/19 calcium carbonate 600 mg calcium 600 mg PO BID tab 02/14/20 (1,500 mg) tablet multivitamin 1 tab PO DAILY 02/14/20 Famotidine [Pepcid] 20 mg PO DAILY PRN 07/28/20 Gabapentin [Neurontin] 200 mg PO TIDCM PRN 07/28/20 Oxycodone HCl/Acetaminophen 1 - 2 tab PO Q6H PRN PRN 7 Days 08/19/20 [Percocet 5/325] #60 tab Surgical History: Surgical History (Last Reviewed 08/02/20 @ 17:[address] Saloni Collado DO) Status post right knee replacement Z96.651 History of back surgery (Inactive) Z98.890 Hx of cholecystectomy (Inactive) Z90.49 Hx of shoulder surgery (Inactive) Z98.890 Left shoulder Hx of tubal ligation (Inactive) Z98.51 Surgical History: - - Right total hip arthroplasty, cholecystectomy, tubal ligation, left shoulder arthroscopic. Psychiatric History: Depression [employer] History: No pertinent [employer] history Lives: Alone Smoking Status: Never smoker Tobacco Use: Non-smoker Alcohol: None Drugs: None - *Family History Maternal Family History: Family History (Last Reviewed 08/02/20 @ 17:[address] Saloni Collado DO) Father Lung cancer Diabetes Sister Lung cancer History Items: - Paternal Family History: Family History (Last Reviewed 08/02/20 @ 17:[address] Saloni Collado DO) Father Lung cancer Diabetes Sister Lung cancer History Items: Diabetes Review of Systems Constitutional: Denies: Anorexia, Chills, Fever, Weakness Eyes: Denies: Blurred vision, Conjunctivae Inflammation, Double vision, Drainage, Redness HEENT: Denies: Difficulty Hearing, Dysphasia, Ear Pain, Eye Pain, Nasal Congestion Cardiovascular: Denies: Chest Pain, Chest Pressure, Edema, Light Headedness, Palpitations, Syncope Respiratory: Denies: Cough, Pleuritic Pain, Shortness of Breath, Sputum production, Wheezing Gastrointestinal: Denies: Abdominal Pain, Constipation, Diarrhea, Nausea, Vomiting Genitourinary: Denies: Dysuria, Frequency, Hematuria Musculoskeletal: Reports: Back Pain. Denies: Arm Pain, Foot Pain Skin: Denies: Dryness, Rash Neurological: Denies: Balance problems, Double vision, Focal weakness, Headaches, Incoordination Psychiatric: Reports: Depression. Denies: Anxiety Endocrine: Denies: Change in Body Habitus, Polydipsia, Polyuria Patient Problems: Active and Suspected Problems (Last Updated 08/19/20 @ 12:[address] Ellie Hernández MD) Lumbar stenosis without neurogenic claudication (Acute) - Physical Exam Vitals/I&O's: Vital Signs Temp Pulse Resp BP Pulse Ox 97.6 F L 55 L 18 117/57 L 97 08/19/20 11:37 08/19/20 11:37 08/19/20 11:37 08/19/20 11:37 08/19/20 11:37 Oxygen Flow Rate (L/min) 3 Oxygen Delivery Method Nasal Cannula Weight: 187 lb Body Mass Index (BMI) 33.1 Finger Stick Blood Glucose 185 Intake and Output for Last 24 Hours 08/17/20 08/18/20 08/19/20 23:59 23:59 23:59 Intake Total 1054 / 1054 Output Total 550 / 550 Balance 504 / 504 General: Alert, Oriented x3, Cooperative, No apparent distress HEENT: Atraumatic, PERRLA, EOMI, Normocephalic Oral: Moist Mucosa, No Gingival or Mucosal Lesions/ Ulcerations Neck: Supple, No JVD, Negative Carotid Bruits, Trachea Midline, Thyroid Normal Size and Texture Lungs: Clear to auscultation, No rhonchi, No wheeze, No rales, Diminished Cardiovascular: Regular rate, Regular Rhythm, Normal S1, Normal S2, PMI Normal Abdomen: Bowel Sounds Present, Soft, Non Tender, Non-Distended, No Hepato-splenomegaly, Obese Extremities: No clubbing, No cyanosis, No edema Skin: No rashes, No breakdown Lymphatic: No Cervical, Supraclavicular, or Inguinal Adenopathy Neurological: Cranial nerves II-XII grossly intact, Motor Exam 5/5 strength throughout Psych/Mental Status: Normal Affect, Appropriate, Alert and oriented to time, place, person, mood and affect Microbiology Past 72 Hours 08/18/20 10:10 Interface Orders SARS-CoV-2 Antigen (Rapid) - Final Current Medications Acetaminophen (Acetaminophen 500 Mg Tablet) 1,000 mg PO Q8 [facility] Last Admin: 08/19/20 12:15 Dose: 1,000 mg Documented by: Amlodipine Besylate (Amlodipine 5 Mg Tablet) 5 mg PO DAILY [facility] Famotidine (Famotidine 20 Mg Tablet) 20 mg PO DAILY PRN PRN PRN Reason: GERD Gabapentin (Gabapentin 100 Mg Capsule) 200 mg PO TIDCM PRN PRN Reason: nerve pain Lactated Ringer's () 1,000 mls @ 100 mls/hr IV .Q10H [facility] Stop: 08/19/20 16:49 Last Admin: 08/19/20 09:30 Dose: 100 mls/hr Documented by: Sodium Chloride () 250 mls @ 15 mls/hr IV .[id number] PRN PRN Reason: Saline Flush Sodium Chloride () 250 mls @ 15 mls/hr IV .[id number] PRN PRN Reason: Additional IVPB Infusion Clindamycin Phosphate 900 mg/ (Dextrose) 106 mls @ 150 mls/hr IV Q8H [facility] Stop: 08/20/20 00:13 Lisinopril (Lisinopril 10 Mg Tablet) 10 mg PO DAILY [facility] Oxycodone HCl (Oxycodone 5 Mg Tablet) 2.5 - 5 mg PO Q4H PRN PRN PRN Reason: Pain Score 6-10 Last Admin: 08/19/20 12:15 Dose: 5 mg Documented by: Sertraline HCl (Sertraline 100 Mg Tablet) 100 mg PO DAILY [facility] Sodium Chloride (0.9% Saline Lock 10 Ml Syringe) 10 - 40 ml IV UD PRN PRN Reason: SALINE FLUSH Assessment/Plan All Active Problems (Last Updated 08/19/20 @ 12:[address] Ellie Hernández MD) Status post L4-L5 laminectomy (Acute) Lumbar stenosis without neurogenic claudication (Acute) This is a 75 years old female patient underwent elective L4-L5 laminectomy for lumbar spondylosis and stenosis of L4-5 and I am seeing this patient in consultation for postoperative medical management. #1 status post L4-L5 laminectomy: This was done for lumbar spondylosis with stenosis of L4-L5, postoperative day 0. Currently, she is on IV clindamycin for perioperative prophylaxis. She is on OxyIR as needed for pain. Preoperative routine blood work and EKG reviewed as above. Spine surgery on the case. Plan to continue same treatment, will do CBC and BMP tomorrow morning. #2 hypertension: Blood pressure stable, continue Norvasc and lisinopril. #3 GERD: Stable, continue Pepcid twice daily. #4 depression: Continue Zoloft. #5 borderline diabetes: We will do Accu-Cheks. Currently, she is not on any treatment. #6 DVT prophylaxis: SCDs. This note was generated with [employer] dictation software. It may contain incorrect words, spelling, and punctuation that were not noted in checking the note before signing. Inpatient E&M: 04833 Init Hosp L2
[2020-08-19] MEDS: Gabapentin 100 MG Capsule 200 MG PO (18:37)
[2020-08-19] MEDS: 0.9% Saline Lock 10 ML Syringe IV ×2 (18:37→23:23)
[2020-08-19] MEDS: Famotidine 20 MG Tablet PO (20:52)
[2020-08-19 21:16] LABS: Bedside Glucose 145 mg/dL (70-110)
[2020-08-20 03:00] VITALS: PULSE 72
[2020-08-20 03:19] VITALS: BP 115/64; PULSE 71; RESP 15; TEMP 36.8; O2SAT 95
[2020-08-20 03:20] VITALS: BMI 33.1
[2020-08-20] MEDS: oxyCODONE 5 MG Tablet PO ×2 (04:33→12:25)
[2020-08-20] MEDS: Acetaminophen 500 MG Tablet 1000 MG PO (06:56)
[2020-08-20 06:58] LABS: Absolute Lymphocyte Count 1.25 X10^3/uL (0.83-4.51); Basophil# 0.03 X10^3/uL; Basophil% 0.4 % (0-1); Eosinophils% 1.4 % (0-5); Hemoglobin 11.3 g/dL (12.0-15.0); Lymphocyte # 1.25 X10^3/ul (4.0); Lymphocyte % 17.5 % (19-41); Mean Corp Hgb Conc 32.3 g/dL (32-36); Mean Corpuscular Volume 96.2 fL (81-99); Mean Platelet Vol. 8.5 fl (6.2-12.0); Monocyte# 0.73 X10^3/uL; Monocyte% 10.2 % (0-10); NRBC Flagged by Analyzer 0 % (0-5); Neutrophil # 5.03 X10^3/uL (2.7-7.7); Neutrophil % 70.4 % (47-70); Platelet Count 237 K/mm3 (150-450); RBC Distribution Width CV 14.8 % (11.6-14.6); RBC Distribution Width SD 52.8 fl (35.1-43.9); Red Blood Count 3.64 M/mm3 (4.2-5.4); White Blood Count 7.2 K/mm3 (4.4-11.0)
[2020-08-20 07:02] VITALS: PULSE 75
[2020-08-20 07:06] LABS: Bedside Glucose 134 mg/dL (70-110)
[2020-08-20 07:25] LABS: Anion Gap 5 (5-15); BUN 14 mg/dL (7-18); BUN/Creat Ratio 30.2 RATIO (10-20); Calcium,Total 8.7 mg/dL (8.5-10.1); Chloride 104 mmol/L (98-107); Creatinine, Serum 0.46 mg/dL (0.55-1.02); EST Glomerular Filtration Rate 138 mL/min (>60); Est Glom Filt Rate - Afr Amer 168 mL/min (>60); Estimated Creatinine Clearance 38.97 ml/min; Glucose 136 mg/dL (74-106); Potassium 3.8 mmol/L (3.5-5.1); Sodium Level 136 mmol/L (136-145)
--- NOTE | 2020-08-20 07:33 | DS.PCM_ITS ---
Discharge Date and Diagnosis - Problem List Patient Problems: Active and Suspected Problems (Last Updated 08/19/20 @ 12:[address] Ellie Hernández MD) Lumbar stenosis without neurogenic claudication (Acute) Date of Admission: 08/19/20 Date of Discharge: 08/20/20 - Primary Discharge Diagnosis Acute Problems: Active Problems (Last Updated 08/19/20 @ 12:[address] Ellie Hernández MD) Lumbar stenosis without neurogenic claudication (Acute) - Secondary Discharge Diagnosis Chronic Problems: Chronic Problems (Last Updated 08/19/20 @ 12:[address] Ellie Hernández MD) Urinary incontinence (Chronic) Acid reflux (Chronic) Diarrhea (Chronic) Back problem (Chronic) Borderline diabetes (Chronic) Hypertension (Chronic) Depression (Chronic) Hospital Course and Treatment Hospitalist for medical management Operations: None, - - Lumbar 4 laminectomy decompression Summary of Care Provided: The patient is a 75 year old F [] who underwent L4 decompression on 08/19/2020. She was subsequently admitted. She was given 2 doses of postoperative antibiotics, clindamycin. Her pain was well controlled during her stay. The hospitalist was consulted for medical management. No medical issues were reported. She mobilized well with physical therapy. Her Winkler catheter was removed on 08/20/2020. She was subsequently discharged home to follow-up with Dr. Reid in clinic in 3 weeks. She will continue her gabapentin until follow- up Patient Problems: Active and Suspected Problems (Last Updated 08/19/20 @ 12:[address] Ellie Hernández MD) Lumbar stenosis without neurogenic claudication (Acute) Subjective: The patient was seen and examined postop day 1 status post lumbar 4 laminectomy decompression. She is in bed resting comfortably. Her pain is well controlled. She has been mobilizing well with physical therapy. Her Winkler catheter is still in place. She denies any acute numbness tingling weakness or changes in bowel or bladder function. She describes a little change in the tingling in her genital/rectal area. - Physical Exam Vitals/I&O's: Vital Signs Temp Pulse Resp BP Pulse Ox 98.2 F 71 15 115/64 95 08/20/20 03:19 08/20/20 03:19 08/20/20 03:19 08/20/20 03:19 08/20/20 03:19 Oxygen Flow Rate (L/min) 2 Oxygen Delivery Method Nasal Cannula Weight: 187 lb Body Mass Index (BMI) 33.1 Finger Stick Blood Glucose 185 Intake and Output for Last 24 Hours 08/18/20 08/19/20 08/20/20 23:59 23:59 23:59 Intake Total 2367.92 / 2367.92 106 / 106 Output Total 1600 / 1600 Balance 767.92 / 767.92 106 / 106 General: Alert, Oriented x3 HEENT: PERRLA, EOMI Neck: Supple, No JVD Lungs: Normal air movement Cardiovascular: Regular rate Abdomen: Soft, Non Tender Extremities: No edema, Capillary Refill Less than 3 Seconds, No Calf Tenderness Skin: - - Dressing clean dry and intact Neurological: Cranial nerves II-XII grossly intact, Deep Tendon Reflexes 2+/4 and Symmetrical, Neuro grossly intact, Motor Exam 5/5 strength throughout, Sensory exam intact to light touch and pain Psych/Mental Status: Normal Affect, Appropriate Microbiology Past 72 Hours 08/18/20 10:10 Interface Orders SARS-CoV-2 Antigen (Rapid) - Final Laboratory Results 08/19/20 20:59: POC Glucose 145 H 08/20/20 06:00: WBC 7.2, RBC 3.64 L, Hgb 11.3 L, Hct 35.0 L, MCV 96.2, MCH 31.0, MCHC 32.3, RDW Std Deviation 52.8 H, RDW Coeff of Ruben 14.8 H, Plt Count 237, MPV 8.5, Immature Gran % (Auto) 0.100, Neut % (Auto) 70.4 H, Lymph % (Auto) 17.5 L, [place] % (Auto) 10.2 H, Eos % (Auto) 1.4, Baso % (Auto) 0.4, Absolute Neuts (auto) 5.0, Absolute Lymphs (auto) 1.25, Nucleated RBC % 0 08/20/20 06:00: Sodium 136, Potassium 3.8, Chloride 104, Carbon Dioxide 27.0, Anion Gap 5, BUN 14, Creatinine 0.46 L, Estim Creat Clear Calc 38.97, Est GFR (MDRD) Af Amer 168, Est GFR (MDRD) Non-Af 138, BUN/Creatinine Ratio 30.2 H, Glucose 136 H, Calcium 8.7 08/20/20 06:58: POC Glucose 134 H Current Medications Acetaminophen (Acetaminophen 500 Mg Tablet) 1,000 mg PO Q8 [facility] Last Admin: 08/20/20 06:56 Dose: 1,000 mg Documented by: Amlodipine Besylate (Amlodipine 5 Mg Tablet) 5 mg PO DAILY [facility] Famotidine (Famotidine 20 Mg Tablet) 20 mg PO BID [facility] Last Admin: 08/19/20 20:52 Dose: 20 mg Documented by: Gabapentin (Gabapentin 100 Mg Capsule) 200 mg PO TIDCM PRN PRN Reason: nerve pain Last Admin: 08/19/20 18:37 Dose: 200 mg Documented by: Sodium Chloride () 250 mls @ 15 mls/hr IV .[id number] PRN PRN Reason: Saline Flush Sodium Chloride () 250 mls @ 15 mls/hr IV .[id number] PRN PRN Reason: Additional IVPB Infusion Lisinopril (Lisinopril 10 Mg Tablet) 10 mg PO DAILY [facility] Oxycodone HCl (Oxycodone 5 Mg Tablet) 2.5 - 5 mg PO Q4H PRN PRN PRN Reason: Pain Score 6-10 Last Admin: 08/20/20 04:33 Dose: 5 mg Documented by: Sertraline HCl (Sertraline 100 Mg Tablet) 100 mg PO DAILY [facility] Sodium Chloride (0.9% Saline Lock 10 Ml Syringe) 10 - 40 ml IV UD PRN PRN Reason: SALINE FLUSH Last Admin: 08/19/20 23:23 Dose: 10 ml Documented by: Discharge Diet: No Restrictions Discharge Activity: - - No bending twisting or lifting greater than 5 pounds May shower in (days): 1 - Cover incision with waterproof dressing while showering Weight Bearing Status: Weight bearing as tolerated Call your doctor if your incision/area has: Continuous Slow Oozing, Sudden Increased Bleeding, Increased Pain/ Swelling, Increased Redness, Foul Smelling Discharge, Swelling at the incision site Call your doctor if you observe: Fever of 101 or Higher, Coldness, Increased Pain, Numbness or Tingling, Change in Color, Inability to urinate, Inability to have a bowel movement, Using more than one pad per hour, Shortness of breath, Dizziness, Fainting spells, Swelling in the ankles, Chest pain, Prolonged hiccoughing, Increased palpitations (irregular heartbeat), Calf discomfort, Uncontrolled pain Change Dressing in (Days):: 1 - Daily dressing changes with iodine to incision. Use gauze and tape Cleanse incision/area with: Do not get Incision Wet, Keep Dressing Clean & Dry Additional Dressing/Incision Instructions:: Daily dry dressing changes with gau ze and tape. [place] incision with iodine with the dressing change. Home Medications: Medications to take at Discharge Amlodipine [Norvasc] 5 mg PO DAILY 12/24/19 Lisinopril [Zestril] 10 mg PO DAILY 12/24/19 Sertraline HCl [Zoloft] 100 mg PO DAILY 12/24/19 Loperamide [Imodium] 2 mg PO Q6H PRN PRN cap 12/25/19 calcium carbonate 600 mg calcium (1,500 mg) tablet 600 mg PO BID tab 02/14/20 multivitamin 1 tab PO DAILY 02/14/20 Famotidine [Pepcid] 20 mg PO DAILY PRN 07/28/20 Gabapentin [Neurontin] 200 mg PO TIDCM PRN 07/28/20 Oxycodone HCl/Acetaminophen [Percocet 5/325] 1 - 2 tab PO Q6H PRN PRN 7 Days #60 tab 08/19/20 Following Prescriptions Were Given to Patient: Oxycodone HCl/Acetaminophen [Percocet 5/325] 1 - 2 tab PO Q6H PRN PRN 7 Days #60 tab PRN Reason: Pain Transmission Status: Received by [facility] Primary Care Physician: Avery De Jesus MD [Primary Care Provider] - Please Follow Up With: Jos Reid DO - 3 weeks Medical Necessity - Tobacco Use Smoking Status: Never smoker Tobacco Use: Non-smoker Meaningful Use Info Meaningful Use Diagnoses (Choose all that apply): None applicable
[2020-08-20 07:37] VITALS: BP 116/60; PULSE 72; RESP 18; TEMP 36.7; O2SAT 94; O2SAT 96
--- NOTE | 2020-08-20 08:56 | PN_ITS ---
Patient Problems: Active and Suspected Problems (Last Updated 08/19/20 @ 12:[address] Ellie Hernández MD) Lumbar stenosis without neurogenic claudication (Acute) Subjective: Chief complaint: Follow-up after consultation for postoperative medical management. Patient seen and examined. No acute events overnight. Today, she is feeling better, back pain is getting better compared to last night. No other complaints. Her vital signs are stable. - Physical Exam Vitals/I&O's: Vital Signs Temp Pulse Resp BP Pulse Ox 98.0 F 72 18 116/60 96 08/20/20 07:37 08/20/20 07:37 08/20/20 07:37 08/20/20 07:37 08/20/20 07:37 Oxygen Flow Rate (L/min) 2 Oxygen Delivery Method Room Air Weight: 187 lb Body Mass Index (BMI) 33.1 Finger Stick Blood Glucose 185 Intake and Output for Last 24 Hours 08/18/20 08/19/20 08/20/20 23:59 23:59 23:59 Intake Total 2367.92 / 2367.92 506 / 506 Output Total 1600 / 1600 450 / 450 Balance 767.92 / 767.92 56 / 56 General: Alert, Oriented x3, Cooperative, No apparent distress HEENT: Atraumatic, PERRLA, EOMI, Normocephalic Oral: Moist Mucosa, No Gingival or Mucosal Lesions/ Ulcerations Neck: Supple, No JVD, Negative Carotid Bruits, Trachea Midline, Thyroid Normal Size and Texture Lungs: Clear to auscultation, Normal air movement, No rhonchi, No wheeze, No rales Cardiovascular: Regular rate, Regular Rhythm, Normal S1, Normal S2, PMI Normal Abdomen: Bowel Sounds Present, Soft, Non Tender, Non-Distended, No Hepato- splenomegaly, Obese Extremities: No clubbing, No cyanosis, No edema Skin: No rashes, No breakdown Lymphatic: No Cervical, Supraclavicular, or Inguinal Adenopathy Neurological: Cranial nerves II-XII grossly intact, Neuro grossly intact Psych/Mental Status: Normal Affect, Appropriate, Alert and oriented to time, place, person, mood and affect Microbiology Past 72 Hours 08/18/20 10:10 Interface Orders SARS-CoV-2 Antigen (Rapid) - Final Laboratory Results 08/19/20 20:59: POC Glucose 145 H 08/20/20 06:00: WBC 7.2, RBC 3.64 L, Hgb 11.3 L, Hct 35.0 L, MCV 96.2, MCH 31.0, MCHC 32.3, RDW Std Deviation 52.8 H, RDW Coeff of Ruben 14.8 H, Plt Count 237, MPV 8.5, Immature Gran % (Auto) 0.100, Neut % (Auto) 70.4 H, Lymph % (Auto) 17.5 L, [place] % (Auto) 10.2 H, Eos % (Auto) 1.4, Baso % (Auto) 0.4, Absolute Neuts (auto) 5.0, Absolute Lymphs (auto) 1.25, Nucleated RBC % 0 08/20/20 06:00: Sodium 136, Potassium 3.8, Chloride 104, Carbon Dioxide 27.0, Anion Gap 5, BUN 14, Creatinine 0.46 L, Estim Creat Clear Calc 38.97, Est GFR (MDRD) Af Amer 168, Est GFR (MDRD) Non-Af 138, BUN/Creatinine Ratio 30.2 H, Gl ucose 136 H, Calcium 8.7 08/20/20 06:58: POC Glucose 134 H Current Medications Acetaminophen (Acetaminophen 500 Mg Tablet) 1,000 mg PO Q8 [facility] Last Admin: 08/20/20 06:56 Dose: 1,000 mg Documented by: Amlodipine Besylate (Amlodipine 5 Mg Tablet) 5 mg PO DAILY [facility] Famotidine (Famotidine 20 Mg Tablet) 20 mg PO BID [facility] Last Admin: 08/19/20 20:52 Dose: 20 mg Documented by: Gabapentin (Gabapentin 100 Mg Capsule) 200 mg PO TIDCM PRN PRN Reason: nerve pain Last Admin: 08/19/20 18:37 Dose: 200 mg Documented by: Sodium Chloride () 250 mls @ 15 mls/hr IV .[id number] PRN PRN Reason: Saline Flush Sodium Chloride () 250 mls @ 15 mls/hr IV .[id number] PRN PRN Reason: Additional IVPB Infusion Lisinopril (Lisinopril 10 Mg Tablet) 10 mg PO DAILY [facility] Oxycodone HCl (Oxycodone 5 Mg Tablet) 2.5 - 5 mg PO Q4H PRN PRN PRN Reason: Pain Score 6-10 Last Admin: 08/20/20 04:33 Dose: 5 mg Documented by: Sertraline HCl (Sertraline 100 Mg Tablet) 100 mg PO DAILY [facility] Sodium Chloride (0.9% Saline Lock 10 Ml Syringe) 10 - 40 ml IV UD PRN PRN Reason: SALINE FLUSH Last Admin: 08/19/20 23:23 Dose: 10 ml Documented by: Medical Necessity - Tobacco Use Smoking Status: Never smoker Tobacco Use: Non-smoker Assessment/Plan All Active Problems (Last Updated 08/19/20 @ 12:[address] Ellie Hernández MD) Status post L4-L5 laminectomy (Acute) Lumbar stenosis without neurogenic claudication (Acute) This is a 75 years old female patient underwent elective L4-L5 laminectomy for lumbar spondylosis and stenosis of L4-5 and I am seeing this patient in consultation for postoperative medical management. #1 status post L4-L5 laminectomy: This was done for lumbar spondylosis with stenosis of L4-L5, postoperative day 1. Her pain is well controlled, she is on OxyIR as needed for pain. Her vital signs are stable, afebrile. Repeat CBC and BMP from today reviewed, was unremarkable. Spine surgery on the case. From medical standpoint, patient can be discharged home, no new medications and no c hange to her home medications. #2 hypertension: Blood pressure stable, continue Norvasc and lisinopril. #3 GERD: Stable, continue Pepcid twice daily. #4 depression: Continue Zoloft. #5 borderline diabetes: Blood sugar has been stable. No need for treatment, recommend follow-up with PCP. #6 DVT prophylaxis: SCDs. This note was generated with [employer] dictation software. It may contain incorrect words, spelling, and punctuation that were not noted in checking the note before signing. Inpatient E&M: 33935 Subs Hosp L2
--- NOTE | 2020-08-20 09:00 | NURSING ---
Winkler removed at 0900.
[2020-08-20 10:20] VITALS: BP 131/61; PULSE 78; RESP 16; TEMP 37.1; O2SAT 97
--- NOTE | 2020-08-20 10:21 | PHA.DC.MC ---
Pharmacy Service has performed discharge medication reconciliation and counseling for this patient. 1. PERCOCET 5/325MG 1-2T PO Q6H PRN PAIN The patient's discharge medication list was reviewed for discrepancies and discrepancies were resolved. Home Medications Amlodipine [Norvasc] 5 mg PO DAILY 12/24/19 Lisinopril [Zestril] 10 mg PO DAILY 12/24/19 Sertraline HCl [Zoloft] 100 mg PO DAILY 12/24/19 Loperamide [Imodium] 2 mg PO Q6H PRN PRN cap 12/25/19 calcium carbonate 600 mg calcium (1,500 mg) tablet 600 mg PO BID tab 02/14/20 multivitamin 1 tab PO DAILY 02/14/20 Famotidine [Pepcid] 20 mg PO DAILY PRN 07/28/20 Gabapentin [Neurontin] 200 mg PO TIDCM PRN 07/28/20 Oxycodone HCl/Acetaminophen [Percocet 5/325] 1 - 2 tab PO Q6H PRN PRN 7 Days #60 tab 08/19/20 The patient was counseled on the following discharge medications and changes in medications for homegoing were reviewed. The Reason for Use, instructions for use, and potential side effects were reviewed for all new medications. The patient's questions regarding all of their medications were answered. The patient was able to verbally demonstrate an understanding of their discharge medications.
[2020-08-20] MEDS: Lisinopril 10 MG Tablet PO (10:22)
[2020-08-20] MEDS: amLODIPine 5 MG Tablet PO (10:22)
[2020-08-20] MEDS: Sertraline 100 MG Tablet PO (10:22)
[2020-08-20] MEDS: Famotidine 20 MG Tablet PO (10:23)
--- NOTE | 2020-08-20 11:29 | CASEMGMT ---
RN CM in to discuss discharge needs with patient. Patient states daughter stays with her and is able to assist and patient has walker. Patient denied needs at discharge.
== END 2020-08-20 13:30 | disposition home or self-care (01) ==
LOC: SDC 10:35 → MS3 10:36
PROVIDERS: Hospitalist; Admitting Provider Orthopaedic Surgery; PCP Family Medicine; Referring Provider Orthopaedic Surgery; Visit Provider Orthopaedic Surgery
PROC: (CPT 63030; principal; 2020-08-19 07:00)
DX: M48.061 Spinal stenosis, lumbar region without neurogenic claudication (principal); Z20.828 Contact with and (suspected) exposure to other viral communicable diseases; G83.4 Cauda equina syndrome; M47.816 Spondylosis without myelopathy or radiculopathy, lumbar region; Z79.899 Other long term (current) drug therapy; Z79.82 Long term (current) use of aspirin; R73.03 Prediabetes; F32.9 Major depressive disorder, single episode, unspecified; E78.00 Pure hypercholesterolemia, unspecified; K21.9 Gastro-esophageal reflux disease without esophagitis; K44.9 Diaphragmatic hernia without obstruction or gangrene; I10 Essential (primary) hypertension; R32 Unspecified urinary incontinence
CPT/HCPCS: 00670; 63047; 71046; 72020; 72100; 76000; 80048; 82962; 85025; 87426; 96365; 96366; 97161; 97530; 99218; 99251; C9803; J7120; A4216; G0378; G0379; G0463; J2405

== ENCOUNTER → 2020-09-01 16:13 | Outpatient (CLI) | payer MEDICARE, SELFPAY ==
[2020-08-19 11:37] VITALS: BMI 33.1
[2020-09-01 16:17] LABS: Mucous, Urine 0 SEEN /hpf (<or=2+); Red Blood Cells-Urine 0 SEEN /hpf (0-5)
[2020-09-01 17:44] LABS: Absolute Lymphocyte Count 2.63 X10^3/uL (0.83-4.51); Absolute Neutrophil Count 6.1 X10^3/uL (2.0-7.7); Basophil# 0.05 X10^3/uL; Basophil% 0.5 % (0-1); Eosinophil# 0.14 X10^3/uL; Eosinophils% 1.4 % (0-5); Hematocrit 41.7 % (37-47); Hemoglobin 13.2 g/dL (12.0-15.0); Lymphocyte # 2.63 X10^3/ul (4.0); Mean Corp Hgb Conc 31.7 g/dL (32-36); Mean Corpuscular Hgb 30.6 pg (27.0-32.0); Mean Corpuscular Volume 96.8 fL (81-99); Mean Platelet Vol. 8.3 fl (6.2-12.0); Monocyte# 0.85 X10^3/uL; Monocyte% 8.7 % (0-10); NRBC Flagged by Analyzer 0 % (0-5); Neutrophil # 6.05 X10^3/uL (2.7-7.7); Neutrophil % 62.1 % (47-70); Platelet Count 376 K/mm3 (150-450); RBC Distribution Width CV 14.6 % (11.6-14.6); RBC Distribution Width SD 52.3 fl (35.1-43.9); Red Blood Count 4.31 M/mm3 (4.2-5.4); White Blood Count 9.8 K/mm3 (4.4-11.0)
[2020-09-01 18:01] LABS: Color, Urine Yellow (Yellow); Glucose, Dipstick Normal (Normal); Ketone-Dipstick Negative (Negative); Leukocyte Esterase-Dipstick 100 /ul (Negative); Nitrite-Dipstick Positive (Negative); Occult Blood-Urine 50 /ul (Negative); Protein-Dipstick 15 mg/dl (Negative); Specific Gravity, Urine 1.025 (1.002-1.030); Urine Bilirubin Dipstick Negative (Negative); Urine Clarity Clear (Clear); Urine Urobilinogen Normal (Normal)
[2020-09-01 18:09] LABS: ALB/GLOB Ratio 0.7 RATIO (0.9-2.4); AST(SGOT) 36 U/L (15-37); Alanine Aminotransfer ALT/SGPT 35 U/L (13-56); Albumin, Serum 3.3 g/dL (3.2-5.0); Alkaline Phosphatase 95 U/L (45-117); Anion Gap 6 (5-15); BUN 28 mg/dL (7-18); BUN/Creat Ratio 45.2 RATIO (10-20); Calcium,Total 9.5 mg/dL (8.5-10.1); Chloride 105 mmol/L (98-107); Creatinine, Serum 0.62 mg/dL (0.55-1.02); EST Glomerular Filtration Rate 99 mL/min (>60); Est Glom Filt Rate - Afr Amer 120 mL/min (>60); Globulin 4.8 g/dL (2.2-4.2); Glucose 105 mg/dL (74-106); Potassium 3.5 mmol/L (3.5-5.1); Protein, Total 8.1 g/dL (6.4-8.2); Sodium Level 138 mmol/L (136-145); Thyroid Stim Hormone (TSH) 1.39 uIU/mL (0.358-3.74)
[2020-09-01 18:33] LABS: Bacteria 2+ /hpf (None Seen); Calcium Oxalate Crystals Ur 2+ /hpf (<or=2+)
[2020-09-01 18:34] LABS: Squamous Epithelial Cells - UA 0-5 SEEN /hpf (5-10); White Blood Cells 0-5 SEEN /hpf (0-5)
== END ==
PROVIDERS: PCP Family Medicine; Referring Provider Family Medicine; Visit Provider Family Medicine
DX: R53.1 Weakness (principal)
CPT/HCPCS: 36415; 80053; 81001; 84443; 85025; 86140; 87077; 87086; 87088; 87186

== ENCOUNTER → 2020-11-18 14:01 | Outpatient (CLI) | payer MEDICARE, SELFPAY ==
[2020-08-19 11:37] VITALS: BMI 33.1
--- NOTE | 2020-11-18 14:06 | BD_ITS ---
STUDY: DUAL ENERGY X-RAY ABSORPTIOMETRY / DXA REASON FOR EXAM: Female, 75 years old. [id number]. The patient is postmenopausal. TECHNIQUE: Bone Mineral Density (BMD) measurements of lumbar spine and left hip were obtained. COMPARISON: None. FINDINGS: Lumbar Spine (L1-L4): g/cm2 (0.942) / T-score (-1.9) / Z-score (-0.1) Findings are suggestive of osteopenia with a moderate fracture risk. Left Femur Total: g/cm2 (0.615) / T-score (-3.1) / Z-score (-1.2) Left Femoral Neck: g/cm2 (0.637) / T-score (-2.9) / Z-score (-0.8) BD/Dexa Bone Density Study IMPRESSION: The patient is considered osteoporotic as outlined below according to World [place] Organization (WHO) criteria with a high fracture risk. Reference Information: The T-score is the number of standard deviations above or below the standard which is normal for young adults at their peak bone mineral density. The World Health Organization (WHO) interprets the T-scores as follows: Above -1 Normal bone density Between -1 and -2.5 Osteopenia Equal to / or below -2.5 Osteoporosis As a practical clinical guideline, osteopenia may be graded as follows: Mild -1 through -1.5 Moderate -1.6 through -2.0 Severe -2.1 through -2.4 The Z-score is the number of standard deviations above or below age-matched controls. A Z-score of less than -1.5 would be considered abnormal. References: 1. NIH Osteoporosis and Related Bone Diseases www osteo.org 2. International Society for Clinical Densitometry www iscd.org 3. National Osteoporosis Foundation www nof.org Electronically Signed: Tomi Lynn MD at 8:12 EDT , Service support ,
== END ==
PROVIDERS: PCP Family Medicine; Referring Provider Family Medicine; Visit Provider Family Medicine
DX: Z78.0 Asymptomatic menopausal state (principal)
CPT/HCPCS: 77080

== ENCOUNTER 2021-05-12 15:53 | Inpatient (IN) | payer MEDICARE, SELFPAY ==
[2021-05-12 15:55] VITALS: BP 136/75; PULSE 98; RESP 18; TEMP 36.7; O2SAT 96; BMI 31.5
--- NOTE | 2021-05-12 16:20 | RAD_ITS ---
STUDY: X-RAY - PELVIS AND LEFT HIP REASON FOR EXAM: Female, 76 years old. Injury/Pain TECHNIQUE: 3 views of the pelvis and hip. COMPARISON: None. FINDINGS: There is a non-specific bowel gas pattern. There are atherosclerotic vascular calcifications of the pelvic arteries. Degenerative changes of the lumbar spine. Normal bilateral iliac wings, sacroiliac joints and visualized sacrum. Normal bilateral superior and inferior pubic rami. Normal pubic symphysis. Normal bilateral ischial tuberosities. Right hip replacement noted. Left femoral neck fracture with proximal subsidence of the femoral shaft. Normal acetabulum. Normal hip joint. RAD/HIP, UNI W/ Pelvis 2-3 Views IMPRESSION: Left femoral neck fracture. Electronically Signed: Juanito Scott MD (Brooks) at 17:17 EST , Service support ,
--- NOTE | 2021-05-12 16:20 | EKG12_ITS ---
Test Reason : LOWER EXTREMITY Blood Pressure : / mmHG Vent. Rate : 086 BPM Atrial Rate : 086 BPM P-R Int : 232 ms QRS Dur : 118 ms QT Int : 382 ms P-R-T Axes : 075 103 022 degrees QTc Int : 457 ms Sinus rhythm with 1st degree A-V block with Premature atrial complexes Septal infarct , age undetermined Abnormal ECG When compared with ECG of 02-AUG-2020 14:43, DE interval has increased Right bundle branch block is no longer Present Confirmed by LUCY POE, VLAD ([id number]), assistant editor AYAN MCCARTHY ([id number]) on 05/13/2021 1:57:33 PM Referred By: CATA Confirmed By:VLAD AYALA MD
[2021-05-12] MEDS: Ondansetron 4 MG/2 ML Vial IV (16:48)
[2021-05-12] MEDS: Morphine 4 MG/ML Syringe IV ×3 (16:48→23:28)
[2021-05-12 16:51] LABS: Absolute Lymphocyte Count 0.64 X10^3/uL (0.83-4.51); Basophil# 0.04 X10^3/uL; Basophil% 0.4 % (0-1); Eosinophil# 0.03 X10^3/uL; Eosinophils% 0.3 % (0-5); Hemoglobin 13.6 g/dL (12.0-15.0); Lymphocyte # 0.64 X10^3/ul (0.83-4.51); Lymphocyte % 5.7 % (19-41); Mean Corp Hgb Conc 32.4 g/dL (32-36); Mean Corpuscular Hgb 30.5 pg (27.0-32.0); Mean Corpuscular Volume 94.2 fL (81-99); Mean Platelet Vol. 9.4 fl (6.2-12.0); Monocyte# 0.42 X10^3/uL; Monocyte% 3.7 % (0-10); NRBC Flagged by Analyzer 0 % (0-5); Neutrophil # 10.04 X10^3/uL (2.7-7.7); Neutrophil % 89.4 % (47-70); Platelet Count 231 K/mm3 (150-450); RBC Distribution Width CV 14.8 % (11.6-14.6); RBC Distribution Width SD 51.7 fl (35.1-43.9); Red Blood Count 4.46 M/mm3 (4.2-5.4); White Blood Count 11.2 K/mm3 (4.4-11.0)
[2021-05-12 16:55] LABS: Partial Thromboplast Time 29.5 Seconds (24.1-36.2)
--- NOTE | 2021-05-12 17:00 | RAD_ITS ---
STUDY: X-RAY CHEST REASON FOR EXAM: Female, 76 years old. Cough TECHNIQUE: AP COMPARISON: None. FINDINGS: The lungs are clear and expanded. There is no demonstrated pleural abnormality. Normal size heart. Normal mediastinum and huan. Normal visualized pulmonary arteries. There is atherosclerotic tortuosity of the aortic arch and descending thoracic aorta. Normal visualized thoracic spine. Normal visualized ribs, clavicles, and shoulders. There is no demonstrated abnormality of the visualized soft tissue structures of the upper abdomen. RAD/Chest 1 View (Portable) IMPRESSION: No airspace consolidation or pleural effusion. Electronically Signed: Juanito Scott MD (Brooks) at 17:16 EST , Service support ,
--- NOTE | 2021-05-12 17:12 | ED.VIS.LOWEX ---
HPI History of Present Illness Chief Complaint: Lower Extremity Injury Informant: patient Occured/Mechanism Mechanism/Context: Yes fall Onset/Context/Timing Onset: Today Context: Sudden Onset Timing: Continuous Quality of Pain: Aching Location: Left hip Worsened by: Movement Relieved by: Rest Narrative Narrative: Patient presents with left hip pain that began after a fall. Patient states she tripped while she was walking. Patient states she landed on her left hip. Patient states she was able to stand up with some help and ambulate back into her house. Patient states she sat in a chair for a while and then try to ambulate to the bathroom. Patient states when she got to the bathroom she was unable to ambulate any further. Patient states her pain is aching. Patient states it is worse with any movement. Patient states it is better with rest. Patient denies any paresthesias or weakness. Patient denies any head injury or loss of consciousness. Patient denies any other injuries. [facility] Medical History Acid reflux Back problem Borderline diabetes COVID-19 Depression Diarrhea Hypertension Home Medications amlodipine 5 mg PO DAILY 12/24/19 [History Last Taken 06/25/20] lisinopril 10 mg PO DAILY 12/24/19 [History Last Taken 06/25/20] sertraline 100 mg PO DAILY 12/24/19 [History Last Taken 06/25/20] calcium carbonate 600 mg calcium (1,500 mg) tablet 600 mg PO BID tab 02/14/20 [History Last Taken 06/24/20] multivitamin 1 tab PO DAILY 02/14/20 [History Last Taken 06/24/20] gabapentin 200 mg PO TIDCM PRN 07/28/20 [History Last Taken Unknown] cholestyramine (with sugar) 4 g PO TID 05/12/21 [History Last Taken Unknown] lactobacillus combination no.4 [Probiotic] 3,000 mmu cells PO DAILY 05/12/21 [History Last Taken Unknown] Allergy/AdvReac Type Severity Reaction Status Date / Time Penicillins [PCN] Allergy Hives Verified 08/19/20 06:27 Family History Father Lung cancer Diabetes Sister Lung cancer Surgical History History of back surgery History of repair of hiatal hernia Hx of cholecystectomy Hx of shoulder surgery Hx of tubal ligation Status post right knee replacement Social History Smoking Status: Never smoker second hand exposure: No alcohol intake: never substance use type: does not use caffeine: Yes what type of physical activity do you participate in: none frequency: does not exercise ROS ROS ED Constitutional Constitutional ED: Denies chills or fever(s) Eyes Eyes: Denies blurry vision or change in vision ENT ENT ED: Denies rhinorrhea or sore throat Cardiovascular Cardiovascular: Denies chest pain or palpitations Respiratory/Chest Respiratory/Chest: Denies cough or dyspnea Gastrointestinal Gastrointestinal: Denies nausea or vomiting Genitourinary Genitourinary ED: Denies dysuria or hematuria Musculoskeletal Musculoskeletal: Denies back pain or neck pain Integumentary Denies abscess or rash Neurologic Neurologic: Denies headache(s) or weakness Allergic/Immunologic Allergic/Immunologic ED: Denies mouth swelling or urticaria EXAM Physical Exam Const Vital Signs: 05/12/21 15:55 05/12/21 18:36 Temperature 98.0 F Temperature Source Oral Pulse Rate 98 61 Respiratory Rate 18 18 Blood Pressure 136/75 H 136/78 H Blood Pressure Mean 95 97 Pulse Ox 96 98 Oxygen Delivery Method Room Air Room Air Positive well nourished and well developed General Appearance ED: well developed HEENT Reports moist mucous membranes Neck full ROM and supple Resp normal respiratory effort and clear to auscultation bilaterally Cardio regular rate and regular rhythm GI non-tender Palpation: soft Extremity Extremity Narrative: There is tenderness over the left hip. There is some shortening and external rotation of the left lower extremity. There is pain with internal and external rotation of the left lower extremity. Pedal pulses are equal bilaterally. Sensation was intact to light touch in all digits. Capillary refill was less than 2 seconds in all digits. Neuro oriented x3, CN's II-XII intact bilaterally, moves all extremities and no sensory deficits noted Sensorium / Orientation: alert Psych mental status grossly normal MDM MDM MDM Narrative Medical decision making narrative: Patient was given morphine and Zofran initially. EKG was obtained. On my interpretation, it showed a normal sinus rhythm with a first-degree AV block with a rate of 86 with occasional PACs. QRS interval and QTc intervals were all normal. [place] was normal. There are no acute ST or T wave changes. CBC shows a slight leukocytosis of 11.2. PT with INR and PTT were normal. Comprehensive metabolic profile was within normal limits. X-rays of the left hip were obtained. There are 3 views. On my interpretation, there is a left femoral neck fracture. There is some mild displacement. Radiologist also interpreted the x-rays and agrees. Portable 1 view chest x-ray was obtained. On my interpretation, lung daley are clear. There is normal cardiac silhouette. Bony thorax is normal. There is no acute process noted. Radiologist also interpreted the x-ray and agrees. Patient was advised of her findings. Case was discussed with Dr. Jiménez from orthopedics. He will plan on doing surgery tomorrow. Case was discussed with the hospitalist. He will admit the patient to his service. Patient and family understood and were agreeable with the plan. All questions were answered. Lab Data Labs: Laboratory Results - last 24 hr 05/12/21 05/12/21 05/12/21 16:07 16:07 16:07 WBC 11.2 H RBC 4.46 Hgb 13.6 Hct 42.0 MCV 94.2 MCH 30.5 MCHC 32.4 RDW Std Deviation 51.7 H RDW Coeff of Ruben 14.8 H Plt Count 231 MPV 9.4 Immature Gran % (Auto) 0.500 Neut % (Auto) 89.4 H Lymph % (Auto) 5.7 L [place] % (Auto) 3.7 Eos % (Auto) 0.3 Baso % (Auto) 0.4 Absolute Neuts (auto) 10.0 H Absolute Lymphs (auto) 0.64 L Nucleated RBC % 0 PT 13.0 INR 1.0 APTT 29.5 Sodium 142 Potassium 3.9 Chloride 108 H Carbon Dioxide 27.0 Anion Gap 7 BUN 24 H Creatinine 0.74 Estim Creat Clear Calc 38.35 Est GFR (MDRD) Af Amer 98 Est GFR (MDRD) Non-Af 81 BUN/Creatinine Ratio 32.5 H Glucose 165 H Calcium 9.6 Total Bilirubin 0.60 AST 51 H ALT 36 Alkaline Phosphatase 89 Total Protein 7.8 Albumin 3.5 Globulin 4.3 H Albumin/Globulin Ratio 0.8 L Radiography Chest X-Ray - ED: 1 View, Read by ED Physician, Read by Radiologist and Normal Diagnostic Testing: Clinical Impression(s) from Imaging Studies Hip/Pelvis X-Ray 05/12/21 16:20 IMPRESSION: Left femoral neck fracture. Electronically Signed: Juanito Scott MD (Brooks) at 17:17 EST , Service support , Chest X-Ray 05/12/21 17:00 IMPRESSION: No airspace consolidation or pleural effusion. Electronically Signed: Juanito Scott MD (Brooks) at 17:16 EST , Service support , EKG Initial EKG: Attestation: I personally reviewed and interpreted this EKG as follows: Interpretation: Sinus Rhythm (With first-degree AV block with a rate of 86) and No Acute Injury Pattern Prior EKG tracings: available for review Prior: Unchanged (08/03/2020) Treatment and Re-Evaluation Vital Sign Attestation:: Vital signs were reviewed prior to admission. They are stable. Discharge Plan Dx/Rx/DC Orders Clinical Impression: Fracture of left hip Disposition Disposition: Acute Care Hospital [facility] Discharge Date/Time: 05/12/21 20:31
[2021-05-12 17:14] LABS: ALB/GLOB Ratio 0.8 RATIO (0.9-2.4); AST(SGOT) 51 U/L (15-37); Alanine Aminotransfer ALT/SGPT 36 U/L (13-56); Albumin, Serum 3.5 g/dL (3.2-5.0); Alkaline Phosphatase 89 U/L (45-117); Anion Gap 7 (5-15); BUN 24 mg/dL (7-18); BUN/Creat Ratio 32.5 RATIO (10-20); Calcium,Total 9.6 mg/dL (8.5-10.1); Chloride 108 mmol/L (98-107); Creatinine, Serum 0.74 mg/dL (0.55-1.02); EST Glomerular Filtration Rate 81 mL/min (>60); Est Glom Filt Rate - Afr Amer 98 mL/min (>60); Estimated Creatinine Clearance 38.35 ml/min; Globulin 4.3 g/dL (2.2-4.2); Glucose 165 mg/dL (74-106); Potassium 3.9 mmol/L (3.5-5.1); Protein, Total 7.8 g/dL (6.4-8.2); Sodium Level 142 mmol/L (136-145)
--- NOTE | 2021-05-12 18:30 | HP.PCM_ITS ---
Documented by User: ALMA Bates 05/12/21 18:49 HPI - General General Date of Admission: 05/12/21 Date of Service: 05/12/21 Chief Complaint: Left hip pain status post fall HPI Narrative ANA LILIA BOND, is a 76 F who presents with complaints of left hip pain following a fall at home. Patient states that she tripped when she was walking in her home. Patient said that she was able to stand up and ambulate a short distance however the pain became too much and she could no longer ambulate. Patient states that she is currently having 9 out of 10 pain, ER doctor notified. Patient denies hitting her head or any loss of consciousness. [facility] Medical History Acid reflux Back problem Borderline diabetes COVID-19 Depression Diarrhea Hypertension Home Medications amlodipine 5 mg PO DAILY 12/24/19 [History Last Taken 06/25/20] lisinopril 10 mg PO DAILY 12/24/19 [History Last Taken 06/25/20] sertraline 100 mg PO DAILY 12/24/19 [History Last Taken 06/25/20] calcium carbonate 600 mg calcium (1,500 mg) tablet 600 mg PO BID tab 02/14/20 [ History Last Taken 06/24/20] multivitamin 1 tab PO DAILY 02/14/20 [History Last Taken 06/24/20] gabapentin 200 mg PO TIDCM PRN 07/28/20 [History Last Taken Unknown] cholestyramine (with sugar) 4 g PO TID 05/12/21 [History Last Taken Unknown] lactobacillus combination no.4 [Probiotic] 3,000 mmu cells PO DAILY 05/12/21 [History Last Taken Unknown] Allergy/AdvReac Type Severity Reaction Status Date / Time Penicillins [PCN] Allergy Hives Verified 08/19/20 06:27 Family History Father Lung cancer Diabetes Sister Lung cancer Surgical History History of back surgery History of repair of hiatal hernia Hx of cholecystectomy Hx of shoulder surgery Hx of tubal ligation Status post right knee replacement Social History Smoking Status: Never smoker second hand exposure: No alcohol intake: never substance use type: does not use caffeine: Yes what type of physical activity do you participate in: none frequency: does not exercise ROS Constitutional Constitutional: Denies anorexia, chills, fatigue, fever(s), malaise or weakness Cardiovascular Cardiovascular: Denies chest pain, edema, palpitations or syncope Respiratory/Chest Respiratory/Chest: Denies cough, shortness of breath at rest or shortness of breath with exertion Gastrointestinal Gastrointestinal: Denies abdominal pain, constipation, diarrhea, nausea or vomiting Genitourinary Genitourinary: Denies dysuria Musculoskeletal Musculoskeletal: Reports extremity pain, joint pain and limited range of motion; Denies back pain, joint stiffness or joint swelling Integumentary Integumentary: Denies dry skin Neurologic Neurologic: Denies abnormal speech, confusion, dizziness or focal weakness Psychiatric Psychiatric: Denies anxiety or depression Endocrine Endocrinology: Denies change in body appearance Hematologic/Lymphatic Hematologic/Lymphatic: Denies anemia Vital Signs Vital Signs Vital Signs: 05/12/21 15:55 Temperature 98.0 F Temperature Source Oral Pulse Rate 98 Respiratory Rate 18 Blood Pressure 136/75 H Blood Pressure Mean 95 Pulse Ox 96 Oxygen Delivery Method Room Air Weight Weight: 178 lb Body Mass Index (BMI) 31.5 Physical Exam Const alert and oriented x3 General Appearance: cooperative HEENT normocephalic and head/scalp atraumatic Eyes conjunctivae normal and no scleral icterus Neck supple General: trachea midline Lymph Lymphatic: no lymphadenopathy noted Resp normal respiratory effort, normal air movement and clear to auscultation bilaterally Cardio regular rate, regular rhythm, S1 normal heart sound, S2 normal heart sound and peripheral pulses 2+ throughout GI normal to inspection, nondistended, normoactive bowel sounds, soft to palpation and non-tender Extremity normal capillary refill Peripheral Pulses: Yes pulses 2+ throughout Left Lower Extremity: hip joint inspection (Shortening and external rotation are noted), palpation (Tender ), ROM (Limited) and neurovascular exam (Intact) Neuro oriented x3, moves all extremities, no focal motor deficits and no sensory deficits noted Psych thought process normal, cooperative and affect normal Appearance: appropriate Results Lab / Micro Data Result Diagrams: 05/12/21 16:07 05/12/21 16:07 Labs: Laboratory Results - last 24 hr 05/12/21 16:07: WBC 11.2 H, RBC 4.46, Hgb 13.6, Hct 42.0, MCV 94.2, MCH 30.5, MCHC 32.4, RDW Std Deviation 51.7 H, RDW Coeff of Ruben 14.8 H, Plt Count 231, MPV 9.4, Immature Gran % (Auto) 0.500, Neut % (Auto) 89.4 H, Lymph % (Auto) 5.7 L, [place] % (Auto) 3.7, Eos % (Auto) 0.3, Baso % (Auto) 0.4, Absolute Neuts (auto) 10.0 H, Absolute Lymphs (auto) 0.64 L, Nucleated RBC % 0 05/12/21 16:07: PT 13.0, INR 1.0, APTT 29.5 05/12/21 16:07: Sodium 142, Potassium 3.9, Chloride 108 H, Carbon Dioxide 27.0, Anion Gap 7, BUN 24 H, Creatinine 0.74, Estim Creat Clear Calc 38.35, Est GFR (MDRD) Af Amer 98, Est GFR (MDRD) Non-Af 81, BUN/Creatinine Ratio 32.5 H, Glucose 165 H, Calcium 9.6, Total Bilirubin 0.60, AST 51 H, ALT 36, Alkaline Phosphatase 89, Total Protein 7.8, Albumin 3.5, Globulin 4.3 H, Albumin/Globulin Ratio 0.8 L Radiology Impression Hip/Pelvis X-Ray 05/12/21 16:20 IMPRESSION: Left femoral neck fracture. Electronically Signed: Juanito Scott MD (Brooks) at 17:17 EST , Service support , Chest X-Ray 05/12/21 17:00 IMPRESSION: No airspace consolidation or pleural effusion. Electronically Signed: Juanito Scott MD (Brooks) at 17:16 EST , Service support , Assessment & Plan Assessment/Plan (1) Fracture of left hip: QUALIFIERS: Encounter type: initial encounter Fracture type: closed Qualified Code(s): S72.002A - Fracture of unspecified part of neck of left femur, initial encounter for closed fracture PLAN: 1. Left hip fracture -Admit to [facility] -Orthopedics consulted by ER physician -Patient n.p.o. at midnight pending surgery -Pain medication regimen ordered -PT OT to eval and treat -Case management consulted for discharge planning -CBC and BMP ordered for a.m. -Surgical risk below average utilizing surgical risk calculator. 2. Hypertension -Vital signs per protocol, currently stable -Continue home medication regimen We will continue patient's home medication regimen for chronic diseases including depression, hyperlipidemia DVT prophylaxis-SCDs This patient was seen by ALMA Bates under the supervision of Dr. Rangel Documented by User: Dr. Ryan Rangel MD 05/12/21 19:45 HPI - General General Date of Admission: 05/12/21 [facility] Medical History Acid reflux Back problem Borderline diabetes COVID-19 Depression Diarrhea Hypertension Home Medications amlodipine 5 mg PO DAILY 12/24/19 [History Last Taken 06/25/20] lisinopril 10 mg PO DAILY 12/24/19 [History Last Taken 06/25/20] sertraline 100 mg PO DAILY 12/24/19 [History Last Taken 06/25/20] calcium carbonate 600 mg calcium (1,500 mg) tablet 600 mg PO BID tab 02/14/20 [History Last Taken 06/24/20] multivitamin 1 tab PO DAILY 02/14/20 [History Last Taken 06/24/20] gabapentin 200 mg PO TIDCM PRN 07/28/20 [History Last Taken Unknown] cholestyramine (with sugar) 4 g PO TID 05/12/21 [History Last Taken Unknown] lactobacillus combination no.4 [Probiotic] 3,000 mmu cells PO DAILY 05/12/21 [History Last Taken Unknown] Allergy/AdvReac Type Severity Reaction Status Date / Time Penicillins [PCN] Allergy Hives Verified 08/19/20 06:27 Family History Father Lung cancer Diabetes Sister Lung cancer Surgical History History of back surgery History of repair of hiatal hernia Hx of cholecystectomy Hx of shoulder surgery Hx of tubal ligation Status post right knee replacement Social History Smoking Status: Never smoker second hand exposure: No alcohol intake: never substance use type: does not use caffeine: Yes what type of physical activity do you participate in: none frequency: does not exercise Results Lab / Micro Data Result Diagrams: 05/12/21 16:07 05/12/21 16:07 Charges/Coding Addendum Addendum: Dr. Rangel: I personally reviewed the chart and examined the patient, and agree with the above findings. 76-year-old female with history of depression and hypertension presents to the hospital after a mechanical fall. She had had a right hip replacement about 6 years ago and had a knee replacement last June and now has a left femoral neck fracture. Based on her surgical risk calculator she is below average risk and will plan for surgical intervention tomorrow. In the meantime we will place her on pain meds. We will resume her home medications. We will obtain PT/OT for evaluation. Visit Charges Inpatient E&M: 26801 Init Hosp L2
[2021-05-12 18:36] VITALS: BP 136/78; PULSE 61; RESP 18; O2SAT 98
[2021-05-12 19:41] VITALS: BP 136/75; PULSE 97; RESP 16; TEMP 36.7; O2SAT 98
[2021-05-12] MEDS: HYDROmorphone 0.5 MG/0.5 ML SYRINGE IV (20:10)
[2021-05-12 20:30] VITALS: O2SAT 88
[2021-05-12 20:39] VITALS: BMI 30.7
[2021-05-12 20:42] VITALS: BP 100/80; PULSE 98; RESP 18; TEMP 36.7; O2SAT 95
[2021-05-12] MEDS: MELATONIN 3 MG TABLET PO (21:00)
[2021-05-12] MEDS: Acetaminophen 325 MG Tablet 650 MG PO (21:00)
[2021-05-12] MEDS: oxyCODONE 5 MG Tablet PO (21:01)
[2021-05-12] MEDS: Cholestyramine/Sucrose 4 GM/PACKET PO (22:29)
[2021-05-12] MEDS: 0.9% Saline Lock 10 ML Syringe IV (23:28)
[2021-05-12 23:31] VITALS: BP 99/61; PULSE 85; RESP 16; TEMP 36.6; O2SAT 96
[2021-05-13] VITALS (15 sets, daily range): BP systolic 98–129; BP diastolic 50–87; PULSE 73–100; RESP 16–18; TEMP 36.2–37.3; O2SAT 92–96; BMI 30.8
[2021-05-13] MEDS: 0.9% Saline Lock 10 ML Syringe IV ×2 (04:37→11:18)
[2021-05-13] MEDS: Morphine 4 MG/ML Syringe IV ×2 (04:38→11:17)
[2021-05-13] MEDS: Lactated Ringers 1,000 ML 60 ML IV (05:37)
--- NOTE | 2021-05-13 06:41 | CON.PCM_ITS ---
Assessment & Plan Assessment/Plan (1) Urinary incontinence: (2) Lumbar stenosis without neurogenic claudication: (3) Status post L4-L5 laminectomy: (4) Fracture of left hip: QUALIFIERS: Encounter type: initial encounter Fracture type: closed Qualified Code(s): S72.002A - Fracture of unspecified part of neck of left femur, initial encounter for closed fracture PLAN: Natural history of the disease process and treatment options were discussed the patient. Patient is joint space appears appropriate. She has declining health. We discussed treatment options including total versus partial replacement as well as fixation.. At this time I explained to the patient that the most appropriate way to proceed with this fracture is to proceed with hip replacement. I recommended hemiarthroplasty based on patient's overall health and and fracture pattern. Patient demonstrated understanding. Risks of the pr ocedure were discussed including but not limited to blood loss, DVTs, PEs, nervous damage, infection, the risk of anesthesia include loss of life or limb. Based on her discussions we would like to proceed with surgery today for a left hip hemiarthroplasty. Patient is in agreement. Patient is n.p.o. Antibiotics ordered on-call to the operating room. (5) Acid reflux: (6) Diarrhea: (7) Back problem: (8) Borderline diabetes: (9) Hypertension: (10) Depression: HPI Consult Data Date of Consult: 05/13/21 HPI Narrative Reason for Consultation: Left hip pain requested by dr zambrano HPI Narrative: 76-year-old female with history of right total knee replacement earlier this year and subsequent back pain after surgery. Patient uses a walker occasionally although she notes that lately she has not been using it as much. She has had some falls since her time of surgery. She did have some increased radiculopathy after spinal anesthetic from the total knee replacement. She presents today with left hip pain and inability to bear weight on the left. She notes that she was going from one room to the next and tripped over one of the transitions as her shoe caught on it. She was unable to bear weight afterwards. Her pain is currently 5 out of 10 worse with motion better with immobilization located in her thigh and groin. No associated numbness and tingling. The pain is constant is dull and aching. [facility] Medical History (Updated 05/12/21 @ 21:05 by Cong Arteaga) Acid reflux Back problem Borderline diabetes COVID-19 Depression Diarrhea History of stress test Hypertension Home Medications amlodipine 5 mg PO DAILY 12/24/19 [History Last Taken 05/12/21] lisinopril 10 mg PO DAILY 12/24/19 [History Last Taken 05/12/21] sertraline 100 mg PO DAILY 12/24/19 [History Last Taken 05/12/21] calcium carbonate 600 mg calcium (1,500 mg) tablet 600 mg PO BID tab 02/14/20 [History Last Taken 05/12/21] multivitamin 1 tab PO DAILY 02/14/20 [History Last Taken 05/12/21] gabapentin 200 mg PO TIDCM PRN 07/28/20 [History Last Taken Unknown] cholestyramine (with sugar) 4 g PO TID 05/12/21 [History Last Taken Unknown] lactobacillus combination no.4 [Probiotic] 3,000 mmu cells PO DAILY 05/12/21 [History Last Taken 05/12/21] Allergy/AdvReac Type Severity Reaction Status Date / Time Penicillins [PCN] Allergy Hives Verified 08/19/20 06:27 Family History Father Lung cancer Diabetes Sister Lung cancer Surgical History History of back surgery History of repair of hiatal hernia Hx of cholecystectomy Hx of shoulder surgery Hx of tubal ligation Status post right knee replacement Social History Smoking Status: Never smoker second hand exposure: No alcohol intake: never substance use type: does not use caffeine: Yes what type of physical activity do you participate in: none frequency: does not exercise ROS Constitutional Constitutional: Reports systems reviewed and no addt'l complaints, except as documented and as per HPI Physical Exam Const alert, oriented x3 and average body habitus HEENT normocephalic Eyes PERRL Neck no JVD Resp normal air movement Cardio Cardio Narrative: Regular pulse rate GI non-distended Extremity Extremity Narrative: Left lower extremity: Skin clean, dry, and intact. Limb is shortened and externally rotated Motor is intact dorsiflexion, EHL and plantar flexion. Sensation is intact to light touch saphenous, xuan,l superficial peroneal, deep peroneal and tibial distributions. Calves are soft and supple. Skin no rashes or lesions noted and no wounds Psych mental status grossly normal Lab / Micro Data Result Diagrams: 05/12/21 16:07 05/12/21 16:07 Labs: Laboratory Results - last 24 hr 05/12/21 16:07: WBC 11.2 H, RBC 4.46, Hgb 13.6, Hct 42.0, MCV 94.2, MCH 30.5, MCHC 32.4, RDW Std Deviation 51.7 H, RDW Coeff of Ruben 14.8 H, Plt Count 231, MPV 9.4, Immature Gran % (Auto) 0.500, Neut % (Auto) 89.4 H, Lymph % (Auto) 5.7 L, Lea % (Auto) 3.7, Eos % (Auto) 0.3, Baso % (Auto) 0.4, Absolute Neuts (auto) 10.0 H, Absolute Lymphs (auto) 0.64 L, Nucleated RBC % 0 05/12/21 16:07: PT 13.0, INR 1.0, APTT 29.5 05/12/21 16:07: Sodium 142, Potassium 3.9, Chloride 108 H, Carbon Dioxide 27.0, Anion Gap 7, BUN 24 H, Creatinine 0.74, Estim Creat Clear Calc 38.35, Est GFR (MDRD) Af Amer 98, Est GFR (MDRD) Non-Af 81, BUN/Creatinine Ratio 32.5 H, Glucose 165 H, Calcium 9.6, Total Bilirubin 0.60, AST 51 H, ALT 36, Alkaline Phosphatase 89, Total Protein 7.8, Albumin 3.5, Globulin 4.3 H, Albumin/Globulin Ratio 0.8 L Radiology Impression Hip/Pelvis X-Ray 05/12/21 16:20 IMPRESSION: Left femoral neck fracture. Electronically Signed: Juanito Scott MD (Brooks) at 17:17 EST , Service support , Femoral neck fracture is 100% displaced transcervical fracture Chest X-Ray 05/12/21 17:00 IMPRESSION: No airspace consolidation or pleural effusion. Electronically Signed: Juanito Scott MD (Brooks) at 17:16 EST , Service support , In addition patient's chest x-ray shows bilateral cuff tear arthropathy worse on the right than left.
[2021-05-13 07:10] LABS: Absolute Lymphocyte Count 0.56 X10^3/uL (0.83-4.51); Absolute Neutrophil Count 6.3 X10^3/uL (2.0-7.7); Basophil# 0.02 X10^3/uL; Basophil% 0.3 % (0-1); Eosinophil# 0.09 X10^3/uL; Eosinophils% 1.2 % (0-5); Hematocrit 37.4 % (37-47); Lymphocyte # 0.56 X10^3/ul (0.83-4.51); Lymphocyte % 7.5 % (19-41); Mean Corp Hgb Conc 32.1 g/dL (32-36); Mean Corpuscular Hgb 30.5 pg (27.0-32.0); Mean Corpuscular Volume 94.9 fL (81-99); Mean Platelet Vol. 8.8 fl (6.2-12.0); Monocyte# 0.41 X10^3/uL; Monocyte% 5.5 % (0-10); NRBC Flagged by Analyzer 0 % (0-5); Neutrophil # 6.33 X10^3/uL (2.7-7.7); Neutrophil % 85.1 % (47-70); POSITIVE DIFFERENTIAL YES; Platelet Count 185 K/mm3 (150-450); RBC Distribution Width CV 14.8 % (11.6-14.6); RBC Distribution Width SD 51.7 fl (35.1-43.9); Red Blood Count 3.94 M/mm3 (4.2-5.4); White Blood Count 7.4 K/mm3 (4.4-11.0)
[2021-05-13 07:11] LABS: Differential Indicated SCAN CRITERIA MET
[2021-05-13 07:34] LABS: Anion Gap 9 (5-15); BUN 23 mg/dL (7-18); Calcium,Total 8.8 mg/dL (8.5-10.1); Chloride 106 mmol/L (98-107); Creatinine, Serum 0.48 mg/dL (0.55-1.02); EST Glomerular Filtration Rate 133 mL/min (>60); Est Glom Filt Rate - Afr Amer 161 mL/min (>60); Estimated Creatinine Clearance 38.35 ml/min; Glucose 122 mg/dL (74-106); Potassium 3.4 mmol/L (3.5-5.1); Sodium Level 140 mmol/L (136-145)
[2021-05-13 08:06] LABS: Hemoglobin A1c 5.6 % (3.8-5.6)
[2021-05-13] MEDS: oxyCODONE 5 MG Tablet PO (08:11)
[2021-05-13] MEDS: Acetaminophen 325 MG Tablet 650 MG PO (08:11)
[2021-05-13 08:31] LABS: Differential Comment SCANNED
--- NOTE | 2021-05-13 12:03 | PN.HOSP_ITS ---
Documented by User: Hortencia Paez NP-C 05/13/21 12:07 Subjective Subjective Patient seen and examined. Patient lying in bed no distress noted. Patient states that her pain is well managed with current pain management regimen. Objective Data Objective Data Vital Signs: Vital Signs Temp Pulse Resp BP Pulse Ox 98.7 F 82 18 103/69 94 05/13/21 10:45 05/13/21 10:45 05/13/21 10:45 05/13/21 10:45 05/13/21 10:45 Oxygen Flow Rate (L/min) 2 Oxygen Delivery Method Nasal Cannula Weight: 176 lb 2.389 oz Body Mass Index (BMI) 30.8 Intake & Output: Intake and Output for Last 24 Hours 05/11/21 05/12/21 05/13/21 23:59 23:59 23:59 Intake Total 370 / 370 60 / 60 Output Total 875 / 875 275 / 275 Balance -505 / -505 -215 / -215 Lab / Micro Data Result Diagrams: 05/13/21 06:05 05/13/21 06:05 Labs: Laboratory Results - last 24 hr 05/12/21 16:07: WBC 11.2 H, RBC 4.46, Hgb 13.6, Hct 42.0, MCV 94.2, MCH 30.5, MCHC 32.4, RDW Std Deviation 51.7 H, RDW Coeff of Ruben 14.8 H, Plt Count 231, MPV 9.4, Immature Gran % (Auto) 0.500, Neut % (Auto) 89.4 H, Lymph % (Auto) 5.7 L, [place] % (Auto) 3.7, Eos % (Auto) 0.3, Baso % (Auto) 0.4, Absolute Neuts (auto) 10.0 H, Absolute Lymphs (auto) 0.64 L, Nucleated RBC % 0 05/12/21 16:07: PT 13.0, INR 1.0, APTT 29.5 05/12/21 16:07: Sodium 142, Potassium 3.9, Chloride 108 H, Carbon Dioxide 27.0, Anion Gap 7, BUN 24 H, Creatinine 0.74, Estim Creat Clear Calc 38.35, Est GFR (MDRD) Af Amer 98, Est GFR (MDRD) Non-Af 81, BUN/Creatinine Ratio 32.5 H, Glucose 165 H, Calcium 9.6, Total Bilirubin 0.60, AST 51 H, ALT 36, Alkaline Phosphatase 89, Total Protein 7.8, Albumin 3.5, Globulin 4.3 H, Albumin/Globulin Ratio 0.8 L 05/13/21 06:05: WBC 7.4, RBC 3.94 L, Hgb 12.0, Hct 37.4, MCV 94.9, MCH 30.5, MCHC 32.1, RDW Std Deviation 51.7 H, RDW Coeff of Ruben 14.8 H, Plt Count 185, MPV 8.8, Immature Gran % (Auto) 0.400, Neut % (Auto) 85.1 H, Lymph % (Auto) 7.5 L, [place] % (Auto) 5.5, Eos % (Auto) 1.2, Baso % (Auto) 0.3, Absolute Neuts (auto) 6.3, Absolute Lymphs (auto) 0.56 L, Nucleated RBC % 0, Differential Comment SCANNED 05/13/21 06:05: Sodium 140, Potassium 3.4 L, Chloride 106, Carbon Dioxide 25.0, Anion Gap 9, BUN 23 H, Creatinine 0.48 L, Estim Creat Clear Calc 38.35, Est GFR (MDRD) Af Amer 161, Est GFR (MDRD) Non-Af 133, BUN/Creatinine Ratio 48.0 H, Glucose 122 H, Calcium 8.8 05/13/21 06:05: Blood Type A POSITIVE, Antibody Screen NEGATIVE 05/13/21 06:05: Hemoglobin A1c 5.6 Micro: Microbiology 05/13/21 06:15 Nasal Secretion SARS-CoV-2 Antigen (Rapid) - Final Radiography Diagnostic Testing: Radiology Impression Hip/Pelvis X-Ray 05/12/21 16:20 IMPRESSION: Left femoral neck fracture. Electronically Signed: Juanito Scott MD (Brooks) at 17:17 EST , Service support , Chest X-Ray 05/12/21 17:00 IMPRESSION: No airspace consolidation or pleural effusion. Electronically Signed: Juanito Scott MD (Brooks) at 17:16 EST , Service support , Physical Exam Const alert and oriented x3 General Appearance: cooperative HEENT normocephalic and head/scalp atraumatic Eyes conjunctivae normal and no scleral icterus Neck supple General: trachea midline Lymph Lymphatic: no lymphadenopathy noted Resp normal respiratory effort, normal air movement and clear to auscultation bilate rally Cardio regular rate, regular rhythm, S1 normal heart sound, S2 normal heart sound and peripheral pulses 2+ throughout GI normal to inspection, nondistended, normoactive bowel sounds, soft to palpation and non-tender Extremity normal capillary refill Left Lower Extremity: hip joint inspection (Shortening and external rotation are noted), palpation (Tender ), ROM (Limited) and neurovascular exam (Intact) Neuro oriented x3, moves all extremities, no focal motor deficits and no sensory deficits noted Psych thought process normal, cooperative and affect normal Appearance: appropriate Assessment & Plan Assessment/Plan (1) Fracture of left hip: QUALIFIERS: Encounter type: initial encounter Fracture type: closed Qualified Code(s): S72.002A - Fracture of unspecified part of neck of left femur, initial encounter for closed fracture PLAN: 1. Left hip fracture -Patient having surgery with Dr. Jiménez today -Patient n.p.o. -Pain medication regimen ordered -PT OT to eval and treat -Case management consulted for discharge planning -CBC and BMP ordered for a.m. -Surgical risk below average utilizing surgical risk calculator. -Patient reports that she went home with home health following knee replacement. 2. Hypertension -Vital signs per protocol, currently stable -Continue home medication regimen 3. Hypokalemia -Potassium 3.4 today likely secondary to administration of IV fluids -Potassium chloride 40 mEq x 1 ordered We will continue patient's home medication regimen for chronic diseases including depression, hyperlipidemia DVT prophylaxis-SCDs This patient was seen by Hortencia Paez NP-C under the supervision of Dr. Collado. Documented by User: Dr. Saloni Collado, 05/13/21 16:13 Subjective Subjective This patient was seen with Hortencia Paez NP. The following represents my independent history or physical examination. Please see below for addendum the above. Patient states her pain is controlled at this time. Plan is for operating room later this afternoon per her discussion with orthopedic surgery. She states that she did well after her knee replacement and was able to go home with home health and she is hoping to be able to do so at this time after this surgery. Objective Data Lab / Micro Data Result Diagrams: 05/13/21 06:05 05/13/21 06:05 Physical Exam Const alert, oriented x3 and no apparent distress Constitutional Narrative: Obese older white female lying in bed, appears comfortable, nontoxic Exam Limitations: no limitations HEENT head/scalp atraumatic and moist oral mucous membranes Head and Scalp: normocephalic Resp normal respiratory effort, no retractions, no use of accessory muscles and clear to auscultation bilaterally Auscultation: Negative for crackles, rales, rhonchi or wheezes Cardio regular rate, regular rhythm, S1 normal heart sound, S2 normal heart sound, no murmurs, no rub, no gallops, no clicks and no JVD GI normal to inspection, nondistended, normoactive bowel sounds, soft to palpation, non-tender and non-distended Extremity no clubbing, cyanosis or edema Extremity Narrative: Left lower extremity is slightly elevated shortened and externally rotated Peripheral Pulses: Yes pulses 2+ throughout Neuro oriented x3 and no focal motor deficits Sensorium / Orientation: awake and alert Speech: speech normal Assessment & Plan Assessment/Plan (1) Fracture of left hip: QUALIFIERS: Encounter type: initial encounter Fracture type: closed Qualified Code(s): S72.002A - Fracture of unspecified part of neck of left femur, initial encounter for closed fracture PLAN: Assessment: Acute left femoral neck fracture Hypokalemia Hyperglycemia Hypertension Neuropathy Depression Plan: -OR today per orthopedic surgery -N.p.o. but okay for p.o. meds -Patient is hopeful for discharge home as she was able to go home with home health following knee replacement -We will see how she does with physical and Occupational Therapy tonight after surgery and tomorrow -Check vitamin D level -Continue calcium supplementation -Hemoglobin A1c was assessed given her hyperglycemia and found to be 5.6 -DVT prophylaxis per orthopedic surgery at discharge Charges/Coding Visit Charges Inpatient E&M: 02279 Subs Hosp L2
--- NOTE | 2021-05-13 12:30 | CASEMGMT ---
RN CM in to pt room to complete assessment, pt currently off of floor. RN CM to check back.
--- NOTE | 2021-05-13 13:10 | FEM_PTH ---
PATIENT: ANA LILIA BOND LOC: 3 U#:[id number] AGE/SX: 76/F ROOM: [facility] RE05/12/[address]: Dr. Saloni Collado DO : 1945 BED: 1 DIS: 05/15/2021 SPEC #: [id number] RECD: 05/13/21 15:46 STATUS: MONSE REMarie #: [id number] BERNA: 05/13/21 13:[address]: Britton Jiménez DEPT: SURGICAL PATHOLOGY RECD BY: Codi Starkey ENTERED: 05/14/21 09:08 SP TYPE: FEM HEAD OTHR DR: MD Dr. Saloni Chao DO Dr. Nicholas F Kotsonis, MD Dr. Steven Widmer, MD Tissues: Femoral region, NOS Procedures: Decalcification bone/plaque Surgery Specimen Level IV Comments: @ Ordering doctor for DEC edited from to DR.SWIDME Peters by REZA at 05/14/21 0954 @ Ordering doctor for SUV edited from to @ by REZA at 05/14/21 0954 @ Submitting doctor edited from to DR.SWIDME Peters by REZA at 05/14/21 0954 HEADER OPERATION: Left hip hemiarthroplasty PRE-OP DIAGNOSIS: Fracture of left hip TISSUE SUBMITTED: Left femoral head MICROSCOPIC DIAGNOSIS Left femoral head, fracture: Consistent with organizing fracture site. AM:henry 05/20/2021 MICROSCOPIC DESCRIPTION Slides are reviewed. GROSS DESCRIPTION Received is one container labeled with the patient's name and designated left femoral head. The specimen consists of two fragments. One fragments consists of a femoral head that is light harris in color measuring 4.5 x 4.5 x 4 cm. The articular surface is grossly unremarkable. The non-articular surface is hemorrhagic in general and consistent with fracture site. The femoral neck portion measures 4.5 x 2.5 x 1.8 cm. Certified Massage Therapist sections of femoral head are submitted in one cassette after decalcification. / AM:henry 05/14/21 TC:5 CPT: 92263, 76029
--- NOTE | 2021-05-13 13:42 | NURSING ---
1145, off unit via bed for surgery
--- NOTE | 2021-05-13 14:50 | RAD_ITS ---
STUDY: INTRAOPERATIVE FLUOROSCOPY TECHNIQUE: The examination was performed with referring physician in attendance. Under fluoroscopic observation, fluoroscopic images were obtained. Radiologist was not present for the study. Radiologist did not perform the procedure. This dictation is for documentation of the radiation dosage only. There is no interpretation of the images. TOTAL NUMBER OF IMAGES: 1 COMPARISON: None RADIATION DOSE: 0.64 mGy FLUOROSCOPY TIME: 7.8seconds REASON FOR EXAM: HEMIARTHROPLASTY Female, 76 years old. FINDINGS: left hip arthroplasty noted RAD/Hip Min 2 Views (Portable) IMPRESSION: Fluoroscopic assistance images were obtained. Dictation for documentation purposes only. Electronically Signed: Darrell Powell MD at 15:38 EST , Service support ,
--- NOTE | 2021-05-13 15:21 | RAD_ITS ---
STUDY: XR Hip Unilateral with Pelvis when performed; 2-3 Views 05/13/2021 4:31 PM REASON FOR EXAM: Female, 76 years old. PAIN Post-Op Total Hip Replacement TECHNIQUE: XR Hip Unilateral with Pelvis when performed; 2-3 Views COMPARISON: Study done yesterday FINDINGS: There is no fracture or dislocation. There is anatomic alignment. The soft tissue planes are preserved. Total hip arthroplasty. There is an air-fluid level seen in the operative site. Joint space is preserved. Subcutaneous air is noted. IMPRESSION: Successful total hip arthroplasty. Electronically Signed: Darrell Powell MD at 17:02 EST , Service support , RAD/Hip Min 2 Views (Portable)
--- NOTE | 2021-05-13 15:23 | OP.PCM_ITS ---
Report of Operation Date of Procedure: 05/13/21 Pre-Operative Diagnosis: Left transcervical femoral neck fracture Post-Operative Diagnosis: Left transcervical femoral neck fracture Surgery/Procedure Performed:: Left hip hemiarthroplasty Description of Surgical Findings:: Stable hip with equal leg lengths Surgeon: Britton Jiménez business development officer: Roosevelt Durán Type of Anesthesia: General Anesthesiologist: Avery Kellogg Special Medications: 2 g Ancef Specimen's removed: Femoral head Estimated Blood Loss (mL): 200 Fluids Replaced: 800 mL crystalloid Description of Procedure: Direct anterior hemiarthroplasty macro Complications Components used: 1. Pioneer Wick[place]fe 37.5 size 2 femoral stem cemented 2. Pioneer cobalt-chromium unipolar femoral head with +12 mm sleeve Brief history operative indications: 76-year-old female had mechanical fall at home. Transcervical femoral neck fracture. Risks and benefits of the procedure were discussed the patient is I recommended hemiarthroplasty. Risk and benefits are noted in the consultation report include infection, blood loss, DVTs, PEs, nervous damage, general risk of anesthesia including loss of life. Procedure: On the date of procedure the patient's L hip was marked in the preoperative area. Patient was then taken back to the operating room where anesthesia assumed control of the C-spine and airway and administered anesthetic. Patient was transferred to the operating table and placed in the supine position. The hips were placed the break of the bed and a bump was placed in the sacrum. The L lower extremity was then prepped out in a sterile fashion using chlorhexidine while the surgeon scrubbed. Upon reentering the room the L lower extremity was draped in the standard ortho pedic fashion and the incision was marked. A timeout was called and everyone agreed upon the side, the site, the procedure be performed, antibody given, and patient's identity. At this time incision was made through skin, subcutaneous tissue, and fat down to fascia. The fascia was then incised and the TFL was retracted laterally. A retractor was placed on the lateral border of the femoral neck. Attention was directed to the inferior portion of the approach and all crossing vessels were identified and appropriately coagulated. A retractor was then placed on the medial portion of the femoral neck. The anterior capsule was then cleared of all soft tissue and then H shaped capsulotomy was made. The retractors were then placed inside the capsule. The femoral neck was identified and a cleanup cut was made. At this time a power corkscrew was used to remove the femoral head. The femoral head was measures and a 46 mm bipolar component was selected. Soft tissue releases on the medial and lateral femoral neck were appropriately done, the leg was externally rotated and lateralized. A Molina retractor was placed medially and proximally to the greater trochanter this allowed approp riate visualization and exposure of the femoral canal. Rongeour was then used to remove excess lateral bone. A canal finder and entry broach were used to open the proximal canal. Once we verified we were down the femoral canal we subsequently broached up to a size 2 femur. The appropriate neck was placed in the previously selected head was trialed with a 12mm neck. Traction was pulled and the hip was reduced with internal rotation. Once it was appropriately reduced and stability was checked. There was minimal shuck, equal leg lengths and appropriate stability with hyperextension and external rotation as well as with 90? flexion and internal rotation. The trial components were then dislocated the proximal femur was again exposed and the components were removed from the wound. The final components were verified and opened. The wound was copiously irrigated out with normal saline. The acetabulum was checked for any residual debris. The final components were placed and impacted. Traction and internal rotation were again used to reduce the hip. After adequate reduction the hip remained stable with appropriate leg lengths. The wound was then copiously irrigated with normal saline once more, and hemostasis was obtained. Closure was then done using #1 Vicryl runner to close the fascia. A 2-0 Vicryl runner was used to close the subcutaneous skin. A 3-0 Monocryl and Steri-Strips were used for final skin closure. A Silverlon dressing was placed. Patient was awakened by anesthesia and transferred to the [facility]. Patient was then transferred to the PACU for recovery. Postoperative plan: Patient will get 24 hours postop antibiotics. Patient will get in-house physical therapy and will be weight-bear as tolerated. Patient will follow up in office in 2 weeks for a wound check and x-rays. Aspirin 81 mg twice daily for DVT prophylaxis for 4 weeks. Okay to remove dressing after 5 days. During the course of the procedure the physician wreath and garland maker (PE) played a vital role. Their intimate knowledge of my steps in the procedure aided in safe and expedient completion of the procedure. The PE played a vital rolls in positioning particularly in obtaining the appropriate positioning of the sacral bump. The PE was also vital in the retraction of soft tissues during the exposure and especially the femoral work as this is a vital part of the procedure to prevent complications and fractures. The PE was also vital and protecting soft tissues during times of bony cuts and reaming. He also played a vital role in closure with my direct supervision. The PE was also important during reduction and dislocation of the joint and trials intraoperatively.
[2021-05-13 16:41] LABS: Bedside Glucose 168 mg/dL (70-110)
[2021-05-13] MEDS: Lactated Ringers 1,000 ML 95 ML IV (18:05)
[2021-05-13] MEDS: Potassium Chloride Oral Tablet 20 MEQ 40 MEQ PO ×2 (18:12→18:15)
[2021-05-13] MEDS: Ensure Surgery 237 ML LIQUID PO (18:12)
[2021-05-13] MEDS: Aspirin 81 MG TAB.CHEW PO (18:12)
[2021-05-13] MEDS: Cefazolin 1 GM/50 ML BAG IV (21:29)
[2021-05-13] MEDS: Cholestyramine/Sucrose 4 GM/PACKET PO (22:23)
[2021-05-13] MEDS: Acetaminophen 500 MG Tablet 1000 MG PO (22:24)
[2021-05-14 04:30] VITALS: BP 120/52; PULSE 84; RESP 16; TEMP 37.8; O2SAT 94
[2021-05-14] MEDS: Lactated Ringers 1,000 ML 95 ML IV (05:00)
[2021-05-14] MEDS: Cefazolin 1 GM/50 ML BAG IV (05:01)
[2021-05-14] MEDS: Acetaminophen 500 MG Tablet 1000 MG PO ×2 (05:01→14:49)
[2021-05-14] MEDS: Cholestyramine/Sucrose 4 GM/PACKET PO ×2 (05:02→14:49)
[2021-05-14 06:20] LABS: Absolute Lymphocyte Count 0.77 X10^3/uL (0.83-4.51); Absolute Neutrophil Count 6.8 X10^3/uL (2.0-7.7); Basophil# 0.03 X10^3/uL; Basophil% 0.4 % (0-1); Eosinophil# 0.19 X10^3/uL; Eosinophils% 2.3 % (0-5); Hematocrit 34.6 % (37-47); Hemoglobin 11.2 g/dL (12.0-15.0); Lymphocyte # 0.77 X10^3/ul (0.83-4.51); Lymphocyte % 9.2 % (19-41); Mean Corp Hgb Conc 32.4 g/dL (32-36); Mean Corpuscular Hgb 30.9 pg (27.0-32.0); Mean Corpuscular Volume 95.6 fL (81-99); Mean Platelet Vol. 8.8 fl (6.2-12.0); Monocyte# 0.59 X10^3/uL; NRBC Flagged by Analyzer 0 % (0-5); Neutrophil # 6.77 X10^3/uL (2.7-7.7); Neutrophil % 80.7 % (47-70); Platelet Count 173 K/mm3 (150-450); Red Blood Count 3.62 M/mm3 (4.2-5.4); White Blood Count 8.4 K/mm3 (4.4-11.0)
[2021-05-14 06:48] LABS: Anion Gap 5 (5-15); BUN 25 mg/dL (7-18); BUN/Creat Ratio 39.9 RATIO (10-20); Calcium,Total 8.8 mg/dL (8.5-10.1); Chloride 107 mmol/L (98-107); Creatinine, Serum 0.63 mg/dL (0.55-1.02); EST Glomerular Filtration Rate 98 mL/min (>60); Est Glom Filt Rate - Afr Amer 118 mL/min (>60); Estimated Creatinine Clearance 38.35 ml/min; Glucose 132 mg/dL (74-106); Potassium 4.2 mmol/L (3.5-5.1); Sodium Level 139 mmol/L (136-145)
[2021-05-14 07:53] VITALS: BP 105/56; PULSE 67; RESP 16; TEMP 37.2; O2SAT 94
[2021-05-14] MEDS: Aspirin 81 MG TAB.CHEW PO ×2 (08:05→17:09)
[2021-05-14] MEDS: Famotidine 20 MG Tablet PO (08:05)
[2021-05-14] MEDS: Sertraline 100 MG Tablet PO (08:06)
[2021-05-14] MEDS: Ensure Surgery 237 ML LIQUID PO ×3 (08:09→17:10)
--- NOTE | 2021-05-14 08:11 | NURSING ---
scanner not working. meds verified w/roya delgado rn
--- NOTE | 2021-05-14 08:52 | PN.ORTHO_ITS ---
Subjective Subjective The patient was sitting in bed upon examination. Patient denies any chest pain, shortness of breath, dizziness, lightheadedness, nausea or vomiting, or calf pain. Pain is controlled on medications. No adverse overnight events. Overall patient appears to be doing well. Patient has had previous procedures and went home in the past with home health therapy. Case was discussed with hospitalist and at this time we need to have patient be assessed by therapy and if she has any restrictions or special needs. Orthopedically she is doing well. She does have previous history of low back pain with previous surgery. Objective Data Objective Data Vital Signs: Vital Signs Temp Pulse Resp BP Pulse Ox 98.9 F 67 16 105/56 L 94 05/14/21 07:53 05/14/21 07:53 05/14/21 07:53 05/14/21 07:53 05/14/21 07:53 Oxygen Flow Rate (L/min) 3 Oxygen Delivery Method Nasal Cannula Weight: 79.9 kg Body Mass Index (BMI) 30.8 Intake & Output: Intake and Output for Last 24 Hours 05/12/21 05/13/21 05/14/21 23:59 23:59 23:59 Intake Total 370 / 370 1220 / 1220 1270 / 1270 Output Total 875 / 875 400 / 650 475 / 475 Balance -505 / -505 820 / 570 795 / 795 Lab / Micro Data Result Diagrams: 05/14/21 05:30 05/14/21 05:30 Labs: Laboratory Results - last 24 hr 05/13/21 06:05: Blood Type A POSITIVE, Antibody Screen NEGATIVE 05/13/21 16:24: POC Glucose 168 H 05/14/21 05:30: WBC 8.4, RBC 3.62 L, Hgb 11.2 L, Hct 34.6 L, MCV 95.6, MCH 30.9, MCHC 32.4, RDW Std Deviation 52.0 H, RDW Coeff of Ruben 15.0 H, Plt Count 173, MPV 8.8, Immature Gran % (Auto) 0.400, Neut % (Auto) 80.7 H, Lymph % (Auto) 9.2 L, Walton % (Auto) 7.0, Eos % (Auto) 2.3, Baso % (Auto) 0.4, Absolute Neuts (auto) 6. 8, Absolute Lymphs (auto) 0.77 L, Nucleated RBC % 0 05/14/21 05:30: Sodium 139, Potassium 4.2, Chloride 107, Carbon Dioxide 27.0, Anion Gap 5, BUN 25 H, Creatinine 0.63, Estim Creat Clear Calc 38.35, Est GFR (MDRD) Af Amer 118, Est GFR (MDRD) Non-Af 98, BUN/Creatinine Ratio 39.9 H, Glucose 132 H, Calcium 8.8, Magnesium 2.0 Micro: Microbiology 05/13/21 06:15 Nasal Secretion SARS-CoV-2 Antigen (Rapid) - Final Radiography Diagnostic Testing: Radiology Impression Hip X-Ray 05/13/21 14:50 IMPRESSION: Fluoroscopic assistance images were obtained. Dictation for documentation purposes only. Electronically Signed: Darrell Powell MD at 15:38 EST , Service support , Hip X-Ray 05/13/21 15:21 Physical Exam Narrative Vital signs stable and afebrile. Patient is able to plantarflex and dorsiflex actively. Sensation is intact to light touch to saphenous, sural, superficial and deep peroneal, and tibial distribution. Dressing is clean dry and intact. Left hip consistent with postoperative swelling. Left hip is soft and supple Negative Homans bilaterally, negative signs and symptoms of DVT. Const alert, oriented x3 and no apparent distress Assessment & Plan Assessment/Plan (1) History of hemiarthroplasty of left hip: PLAN: 1. S/P left hip hemiarthroplasty anterior approach POD #1 2. Continue Pain Medications: Tylenol primarily with occasional oxycodone as needed for breakthrough pain. 3. DVT Prophylaxis: Recommend patient take 81 mg aspirin twice daily for 4 weeks postoperatively for DVT prophylaxis 4. PT/OT: Weightbearing as tolerated with walker. Anterior hip precautions 5. H & H: 11.2/34.6, asymptomatic. Postoperative anemia secondary to acute blood loss from surgery without any intra operative complications. 6. Continue postoperative medical management per medicine: Case was discussed with medicine and at this time patient is orthopedically stable. Okay for dis charge when medically stable and been assessed by physical therapy and delinquency prevention social worker. Possible discharge home with home health therapy if able. 7. Encouraged Incentive Spirometry 8. Disposition: Orthopedically stable, at this time please contact orthopedics with any questions or concerns. Overall patient appears to be doing well. Recommend patient use above medications as needed for pain. Recommend aspirin 81 mg twice daily for 4 weeks postoperatively for DVT prophylaxis. Will need cyst established and scheduled with therapy. Patient will need a 2-week follow- up with [facility] for x-rays and incision check. Mepilex dressing over the incision will remain on for 5 days postoperatively. She can shower and get this wet but no submerging underwater for 6 weeks postoperatively. Once removal of the Mepilex dressing, patient can shower and get this wet. Do not place any ointments, Neosporin, alcohol pads over the incision for 6 weeks postoperatively. This was discussed in detail with the patient. We appreciate consultation and management of this patient.
[2021-05-14 09:40] LABS: Vitamin D,25 Hydroxy 35.4 ng/mL
--- NOTE | 2021-05-14 10:04 | NURSING ---
WHEN DR YATES CAME IN ROOM, PT DID NOT HAVE O2 ON CORRECTLY AND WAS SITTING AT 89% AND CAME UP TO LOW 90S, SO SHE SHUT THE O2 OFF. THIS NURSE WAS NOTIFIED OF THIS. APPROX 10 MINUTES LATER, POX WAS 82-84, O2 REAPPLIED AT 2L, POX ONLY REACHED 86-87. PT NOW ON 4L, POX 92%. WILL CONTINUE TO ENCOURAGE I.S AND REEVALUATE WHEN PT IS UP TO CHAIR
--- NOTE | 2021-05-14 10:55 | CASEMGMT ---
KARINA ARCE PUBLICATIONS EDITOR CM to room to meet with patient for initial transition planning/care coordination assessment. KARINA ARCE introduced self and role at [facility]. Pt voices understanding and consents to assessment at this time. Pt resting in bed in no distress at this time. Daughter, Simona, @ bedside. Pt is A/O at this time and answers all questions appropriately. Care providers, pharmacy, and demographics verified/updated at this time. PCP: Dr De Jesus Specialists: Dr Jiménez-shane. F/U appt scheduled for 05/25 @ 1000. Pt and dtr made aware and this was documented in discharge plan. Preferred Pharmacy: [facility] Retail Insurance: [employer] Prescription Benefit: Yes Living Will/HPOA: Pt does not currently have LW/HCPOA and declines info at this time. LNOK: 7 living children. Daughters: Simona, Cynthia, and Ashley. Living Arrangements: Lives w/Simona and her in [id number]. One story w/no steps to enter thru garage. Independent prior to fall. Family supportive and able to help as needed. Transportation: Pt states drives self and states no transportation concerns at this time. Family able to provide transportation DME: States has the following DME: built-in shower seat, rollator, W/C. Interested in Medical alert info. KARINA ARCE provided this. Pt/dtr state no need for further DME at this time. [facility]. Pt prefers to go home, if able, but may be amenable to SNF if needed. If able to go home, wants [facility] again. PLAN: TBD. PT/OT claudette pending Minoo COLON RN, CM
[2021-05-14] MEDS: oxyCODONE 5 MG Tablet PO ×2 (11:03→17:29)
[2021-05-14 12:51] VITALS: O2SAT 90
--- NOTE | 2021-05-14 12:52 | CASEMGMT ---
Social Work Note PT/OT updated this worker that pt was assist of two, recommendation is SNF. SW in to speak with pt. SW introduced self and role at [facility]. Pt's daughter Simona present in room. Pt gave this worker permission to speak to her in front of her guest. SW spoke with pt regarding recommendation of SNF. Patient was provided a list of SNF providers including quality and resource use data and consistent with the patient?s preferred geographic region, medical needs, and insurance network. Pt and Simona are agreeable to [facility] TCU. SW explained referral process and that pt will need pre-cert and pre-cert can take a few days. Pt states well I may be ready to go home by then. SW informed pt that she may be and she can decide to go home at anytime but at this moment, recommendation is SNF. Pt and Simona state understanding. COLE placed a call to Yodit with TCU and provided referral. TCU is able to accept pt pending pre-cert. Plan: TCU pending pre-cert Victoria Ugalde INTERACTIVE DESIGNER, TEST DESIGNER
--- NOTE | 2021-05-14 12:57 | PN.HOSP_ITS ---
Documented by User: Jd YEE 05/14/21 13:11 Subjective Subjective Patient is a 76-year-old female comfortably resting in bed, alert and oriented x3. Patient reports that she was recovering well after her hip surgery, although she still day did feel weak and had slight discomfort with movement. Denies development of any new symptoms overnight. Does not appear in acute distress. Objective Data Objective Data Vital Signs: Vital Signs Temp Pulse Resp BP Pulse Ox 98.9 F 67 16 105/56 L 94 05/14/21 07:53 05/14/21 07:53 05/14/21 07:53 05/14/21 07:53 05/14/21 07:53 Oxygen Flow Rate (L/min) 3 Oxygen Delivery Method Nasal Cannula Weight: 176 lb 2.389 oz Body Mass Index (BMI) 30.8 Intake & Output: Intake and Output for Last 24 Hours 05/12/21 05/13/21 05/14/21 23:59 23:59 23:59 Intake Total 370 / 370 1220 / 1220 1270 / 1270 Output Total 875 / 875 400 / 650 475 / 475 Balance -505 / -505 820 / 570 795 / 795 Lab / Micro Data Result Diagrams: 05/14/21 05:30 05/14/21 05:30 Labs: Laboratory Results - last 24 hr 05/13/21 16:24: POC Glucose 168 H 05/14/21 05:30: WBC 8.4, RBC 3.62 L, Hgb 11.2 L, Hct 34.6 L, MCV 95.6, MCH 30.9, MCHC 32.4, RDW Std Deviation 52.0 H, RDW Coeff of Ruben 15.0 H, Plt Count 173, MPV 8.8, Immature Gran % (Auto) 0.400, Neut % (Auto) 80.7 H, Lymph % (Auto) 9.2 L, Stanley % (Auto) 7.0, Eos % (Auto) 2.3, Baso % (Auto) 0.4, Absolute Neuts (auto) 6.8, Absolute Lymphs (auto) 0.77 L, Nucleated RBC % 0 05/14/21 05:30: Sodium 139, Potassium 4.2, Chloride 107, Carbon Dioxide 27.0, Anion Gap 5, BUN 25 H, Creatinine 0.63, Estim Creat Clear Calc 38.35, Est GFR (MDRD) Af Amer 118, Est GFR (MDRD) Non-Af 98, BUN/Creatinine Ratio 39.9 H, Glucose 132 H, Calcium 8.8, Magnesium 2.0 05/14/21 05:30: Vitamin D 25-Hydroxy 35.4 Micro: Microbiology 05/13/21 06:15 Nasal Secretion SARS-CoV-2 Antigen (Rapid) - Final Radiography Diagnostic Testing: Radiology Impression Hip X-Ray 05/13/21 14:50 IMPRESSION: Fluoroscopic assistance images were obtained. Dictation for documentation purposes only. Electronically Signed: Darrell Powell MD at 15:38 EST , Service support , Hip X-Ray 05/13/21 15:21 Physical Exam Const alert, oriented x3 and no apparent distress HEENT head/scalp atraumatic and moist oral mucous membranes Head and Scalp: normocephalic Eyes PERRL, EOMs intact bilaterally and conjunctivae normal Neck no lymphadenopathy, supple and no JVD Resp normal respiratory effort, no retractions, no use of accessory muscles and clear to auscultation bilaterally Resp Narrative: Satting 94% on 3 L via nasal cannula. Cardio regular rate, regular rhythm, no murmurs and no JVD GI normal to inspection, nondistended, normoactive bowel sounds, soft to palpation and non-tender Extremity normal to inspection, full ROM and no clubbing, cyanosis or edema Skin no rashes or lesions noted, no wounds and skin turgor normal Neuro CN's II-XII intact bilaterally Psych affect normal Assessment & Plan Assessment/Plan (1) Fracture of left hip: QUALIFIERS: Encounter type: initial encounter Fracture type: closed Qualified Code(s): S72.002A - Fracture of unspecified part of neck of left femur, initial encounter for closed fracture PLAN: Day 2 Discharge planning: To be determined, patient in need of skilled therapy per PT/OT evaluation. 1) Left hip fracture s/p left hip hemiarthroplasty POD 1, management per orthopedics. Patient has been cleared for discharge from orthopedic standpoint and is to follow-up within 2 weeks after discharge, initiate aspirin 81 mg twice daily for 8 weeks with daily dressing change. PT eval assessed that patient would be in need of skilled therapy at discharge. Case management and social work following to determine discharge plan. 2) hypoxia Patient was observed having intermittent periods of hypoxia with oxygen saturati on dropping down to 88%. Plan is to maintain oxygen at 3 to 4 L via nasal cannula and encourage incentive spirometry. We will continue to monitor. 3) HTN Stable, continue home lisinopril and Norvasc. 4) depression Continue Zoloft. 5) hyperlipidemia Continue cholestyramine. DVT prophylaxis - SCDs Patient seen by Jd Acosta PA-C, under the supervision of Dr. Collado. Documented by User: Dr. Saloni Collado DO 05/14/21 13:56 Subjective Subjective This patient was seen in conjunction with NAKIA Villa. The following is representation my independent history and physical examination. Please see below for any addendum the above. Patient is just waking up. Upon me walking in the room she has oxygen on but the cannula is facing towards her lip not into her nose and oxygen saturations are 89 to 90% on room air. She is having some pain but does not say is uncontrolled. She is hoping to be able to go home but has not been up with therapy yet. Objective Data Lab / Micro Data Result Diagrams: 05/14/21 05:30 05/14/21 05:30 Physical Exam Const alert, oriented x3 and no apparent distress Constitutional Narrative: Obese older white female lying in bed, appears comfortable, nontoxic General Appearance: cooperative Exam Limitations: no limitations Nutritional Appearance: overweight HEENT normocephalic, head/scalp atraumatic and moist oral mucous membranes Head and Scalp: normocephalic Eyes no scleral icterus Neck General: trachea midline Lymph Lymphatic: no lymphadenopathy noted Resp normal respiratory effort, normal air movement, no retractions, no use of accessory muscles and clear to auscultation bilaterally Resp Narrative: Few crackles at bases bilaterally, patient overall is taking fairly shallow breaths and I suspect this is related to atelectasis Auscultation: crackles; Negative for rales, rhonchi or wheezes Cardio regular rate, regular rhythm, S1 normal heart sound, S2 normal heart sound, no murmurs, no rub, no gallops, no clicks, no JVD and peripheral pulses 2+ throughout GI normal to inspection, nondistended, normoactive bowel sounds, soft to palpation, non-tender and non-distended Extremity normal capillary refill and no clubbing, cyanosis or edema Extremity Narrative: Left lower extremity is slightly elevated shortened and externally rotated Peripheral Pulses: Yes pulses 2+ throughout Left Lower Extremity: hip joint inspection (Shortening and external rotation are noted), palpation (Tender ), ROM (Limited) and neurovascular exam (Intact) Skin Skin Narrative: Left hip region with postoperative dressing in place which is clean and dry, no significant edema Neuro oriented x3 and no focal motor deficits Neuro Narrative: Decreased movement left lower extremity secondary to pain and recent surgery Sensorium / Orientation: awake and alert Speech: speech normal Psych thought process normal and cooperative Appearance: appropriate Assessment & Plan Assessment/Plan (1) History of hemiarthroplasty of left hip: (2) Acute respiratory failure with hypoxia: PLAN: Assessment: Acute left femoral neck fracture status post left hemiarthroplasty Acute hypoxic respiratory failure Hypokalemia-resolved Hyperglycemia Hypertension Neuropathy Depression Plan: -Postop day 1 from left hemiarthroplasty -Weightbearing as tolerated -Aspirin 81 mg twice daily for DVT prophylaxis -Diet initiated -Patient with some postoperative hypoxia currently requiring 2 L nasal cannula -Unclear if this is related to postoperative atelectasis or another etiology -Incentive spirometer encouraged -Check chest x-ray -Will consider diuresis based on imaging -Discontinue IV fluids -Patient is hopeful for discharge home as she was able to go home with home health following knee replacement -We will see how she does with physical and Occupational Therapy tonight after surgery and tomorrow -Vitamin D level is 35.4 -Will start low-dose vitamin D level daily as patient does not meet the recommendations for ergocalciferol -Continue calcium supplementation -Hemoglobin A1c was assessed given her hyperglycemia and found to be 5.6 -DVT prophylaxis per orthopedic surgery at discharge
--- NOTE | 2021-05-14 13:13 | CASEMGMT ---
Addendum entered by Victoria Ugalde 05/14/21 13:32: SW updated that pt's family can just show up for visitation, they do not need to schedule appointments. It can be two people at a time and it can change daily on the people that show up. SW updated pt and Simona of this. Both pt and Simona are agreeable to TCU. Plan: TCU pending pre-cert. Original Note: Social Work Note SW back in to speak with pt and pt's daughter Simona. SW updated pt and Simona that TCU is able to accept pt. SW asked pt if she has been vaccinated. Pt states she has not been vaccinated as she had COVID last year. SW explained that TCU currently has an outbreak, family can still visist pt but family has to schedule compassionate care visits. COLE provided Simona with nurses station number to call to schedule compassionate care visits. Simona asked about [place] and their visitation policy. COLE informed Simona that this worker is not sure, but this worker can call [facility] to ask. Simona asked that this worker call [facility] to inquire about their visitation policy. COLE placed a call to Leyda at [facility]. Leyda states unvaccinated residents have to isolate but family can visit them. Leyda states there is no limit on amount of family members that can visits pt and that families do not have to schedule appointments, family members can show up. COLE placed a call to [facility] with TCU and left message on clarification of visitation policies at this time. SW waiting for call back from [facility] with TCU and then will discuss with pt and pt's family. Victoria Ugalde INSIDE SALES EXECUTIVE, DIRECTOR OF CORPORATE COMMUNICATIONS
[2021-05-14 14:00] VITALS: BP 141/62; PULSE 91; RESP 17; TEMP 37.3; O2SAT 94
--- NOTE | 2021-05-14 14:30 | RAD_ITS ---
STUDY: X-RAY CHEST REASON FOR EXAM: Female, 76 years old. CHEST PAIN sob TECHNIQUE: XR Chest 1 View COMPARISON: Two days ago. FINDINGS: There are bilateral pleural effusions. There are bilateral infiltrates. Normal size heart. Normal mediastinum and huan. Normal visualized pulmonary arteries. There is atherosclerotic calcification of the aortic arch with tortuosity. There are diffuse degenerative changes of the visualized thoracic spine. There is degenerative osteoarthritis of the bilateral shoulders. There is no demonstrated abnormality of the visualized soft tissue structures of the upper abdomen. RAD/Chest 1 View (Portable) IMPRESSION: Pulmonary findings appear worse. Electronically Signed: Darrell Powell MD at 20:16 EST , Service support ,
[2021-05-14] MEDS: amLODIPine 5 MG Tablet PO (14:50)
[2021-05-14] MEDS: Lisinopril 10 MG Tablet PO (14:50)
[2021-05-14] MEDS: Furosemide 40 MG/4 ML Vial IV (17:00)
[2021-05-14] MEDS: 0.9% Saline Lock 10 ML Syringe IV (17:00)
[2021-05-14] MEDS: Furosemide 40 MG Tablet PO (17:31)
[2021-05-14 23:57] VITALS: BP 110/47; PULSE 72; RESP 16; TEMP 37.1; O2SAT 95
[2021-05-15] MEDS: Cholestyramine/Sucrose 4 GM/PACKET PO ×2 (00:06→06:51)
[2021-05-15] MEDS: Acetaminophen 500 MG Tablet 1000 MG PO ×2 (00:06→06:51)
[2021-05-15 06:24] LABS: Absolute Lymphocyte Count 1.35 X10^3/uL (0.83-4.51); Absolute Neutrophil Count 5.8 X10^3/uL (2.0-7.7); Basophil# 0.03 X10^3/uL; Basophil% 0.4 % (0-1); Eosinophil# 0.28 X10^3/uL; Eosinophils% 3.4 % (0-5); Hematocrit 29.2 % (37-47); Hemoglobin 9.7 g/dL (12.0-15.0); Lymphocyte # 1.35 X10^3/ul (0.83-4.51); Lymphocyte % 16.4 % (19-41); Mean Corp Hgb Conc 33.2 g/dL (32-36); Mean Corpuscular Hgb 31.5 pg (27.0-32.0); Mean Corpuscular Volume 94.8 fL (81-99); Mean Platelet Vol. 8.7 fl (6.2-12.0); Monocyte# 0.72 X10^3/uL; Monocyte% 8.8 % (0-10); NRBC Flagged by Analyzer 0 % (0-5); Neutrophil % 70.5 % (47-70); Platelet Count 147 K/mm3 (150-450); RBC Distribution Width CV 14.8 % (11.6-14.6); RBC Distribution Width SD 51.7 fl (35.1-43.9); Red Blood Count 3.08 M/mm3 (4.2-5.4); White Blood Count 8.2 K/mm3 (4.4-11.0)
[2021-05-15 06:46] VITALS: BP 118/68; PULSE 64; RESP 16; TEMP 36.9; O2SAT 97
[2021-05-15 06:54] LABS: Anion Gap 3 (5-15); BUN 17 mg/dL (7-18); BUN/Creat Ratio 40.1 RATIO (10-20); Calcium,Total 8.3 mg/dL (8.5-10.1); Chloride 107 mmol/L (98-107); Creatinine, Serum 0.42 mg/dL (0.55-1.02); EST Glomerular Filtration Rate 153 mL/min (>60); Est Glom Filt Rate - Afr Amer 186 mL/min (>60); Estimated Creatinine Clearance 38.35 ml/min; Glucose 116 mg/dL (74-106); Potassium 3.4 mmol/L (3.5-5.1); Sodium Level 140 mmol/L (136-145)
[2021-05-15] MEDS: oxyCODONE 5 MG Tablet PO (07:49)
[2021-05-15] MEDS: Ensure Surgery 237 ML LIQUID PO (07:50)
[2021-05-15] MEDS: Sertraline 100 MG Tablet PO (07:51)
[2021-05-15] MEDS: Famotidine 20 MG Tablet PO (07:51)
[2021-05-15] MEDS: Aspirin 81 MG TAB.CHEW PO (07:51)
[2021-05-15] MEDS: Cholecalciferol (VIT D3) 25 MCG TABLET (1,000 UNITS) 50 MCG PO (07:52)
[2021-05-15 07:54] VITALS: BP 103/58; PULSE 70; RESP 16; TEMP 36.7; O2SAT 95
--- NOTE | 2021-05-15 08:42 | CASEMGMT ---
Addendum entered by Victoria Ugalde 05/15/21 11:11: SW updated pt that pre-cert for TCU has been obtained and she will discharge there today. Pt states understanding. Plan: TCU today Original Note: Social Work Note SW received message from Yodit with TCU stating pre-cert was obtained, pt can discharge to TCU today. Plan: TCU Victoria Ugalde AUTO VINYL TOP INSTALLER, DIGITAL FORENSICS INVESTIGATOR
[2021-05-15 08:52] VITALS: O2SAT 95
--- NOTE | 2021-05-15 10:15 | PCM.TXEXTCAR ---
Documented by User: Jd YEE 05/15/21 12:00 Diet 05/13/21 23:49 Diet: Regular - General Is pt able to select menu?: Yes Wound(s) left hip: Wound Type: Surgical Incision Therapies Weight Bearing: Weight bearing as tolerated Extremity Affected:: Left Lower Physical Therapy: Eval and Treat Occupational Therapy: Eval and Treat Problem/Diagnosis (1) History of hemiarthroplasty of left hip: Status: Acute (2) Acute respiratory failure with hypoxia: Status: Acute Allergies/Procedures Done in Hospital Allergies Penicillins [PCN] Allergy (Verified 08/19/20 06:27) Hives Type of Care/Length of Stay Estimated LOS: Convalescent Care Less Than 30 days Type of Care Needed: Skilled Rehab Potential: Good Prognosis: Good Additional Orders/Day of Discharge Day of Discharge: 05/15/21 Discharge Plan Admission Admit Date/Time: 05/12/21 18:43 Primary Reason for Your Visit: Left Hip Fx Attending Provider: Saloni Collado Primary Care Provider: Avery De Jesus Consulting Providers: Britton Jiménez Discharge Orders/Prescriptions Prescriptions: New aspirin 81 mg tablet,chewable 81 mg PO BID Qty: 60 RF: 0 cholecalciferol (vitamin D3) 25 mcg (1,000 unit) capsule 25 mcg PO DAILY Qty: 30 RF: 0 oxycodone 5 mg capsule 5 mg PO Q8H PRN (Reason: pain) 7 Days Qty: 21 RF: 0 senna 8.6 mg capsule 8.6 mg PO Q6H PRN (Reason: constipation) Qty: 30 RF: 0 Continued calcium carbonate 600 mg calcium (1,500 mg) tablet 600 mg PO BID RF: 0 multivitamin Tablet 1 tab PO DAILY RF: 0 sertraline 100 MG tablet 100 mg PO DAILY RF: 0 amlodipine 5 MG tablet 5 mg PO DAILY RF: 0 lisinopril 10 MG tablet 10 mg PO DAILY RF: 0 gabapentin 100 MG capsule 200 mg PO TIDCM PRN (Reason: nerve pain) RF: 0 cholestyramine (with sugar) 4 gram Powder In Packet 4 g PO TID RF: 0 Probiotic 3 billion cell Capsule 3,000 mmu cells PO DAILY RF: 0 Referrals / Follow Up: Avery De Jesus MD [Primary Care Provider] - Within 2 Weeks Britton Jiménez MD [STAFF PHYSICIAN] - 05/25/21 10:00 am (With PA. Kiarra ) Disposition Disposition (needs filled in before D/C Order can be placed): Inpatient Rehab Unit/Facility Documented by User: Dr. Saloni Collado DO 05/15/21 13:30 Allergies/Procedures Done in Hospital Allergies Penicillins [PCN] Allergy (Verified 08/19/20 06:27) Hives Discharge Plan Admission Admit Date/Time: 05/12/21 18:43 Primary Reason for Your Visit: Left Hip Fx Attending Provider: Saloni Collado Primary Care Provider: Avery De Jesus Consulting Providers: Britton Jiménez Discharge Orders/Prescriptions Prescriptions: New aspirin 81 mg tablet,chewable 81 mg PO BID Qty: 60 RF: 0 cholecalciferol (vitamin D3) 25 mcg (1,000 unit) capsule 25 mcg PO DAILY Qty: 30 RF: 0 oxycodone 5 mg capsule 5 mg PO Q8H PRN (Reason: pain) 7 Days Qty: 21 RF: 0 senna 8.6 mg capsule 8.6 mg PO Q6H PRN (Reason: constipation) Qty: 30 RF: 0 Continued calcium carbonate 600 mg calcium (1,500 mg) tablet 600 mg PO BID RF: 0 multivitamin Tablet 1 tab PO DAILY RF: 0 sertraline 100 MG tablet 100 mg PO DAILY RF: 0 amlodipine 5 MG tablet 5 mg PO DAILY RF: 0 lisinopril 10 MG tablet 10 mg PO DAILY RF: 0 gabapentin 100 MG capsule 200 mg PO TIDCM PRN (Reason: nerve pain) RF: 0 cholestyramine (with sugar) 4 gram Powder In Packet 4 g PO TID RF: 0 Probiotic 3 billion cell Capsule 3,000 mmu cells PO DAILY RF: 0 Referrals / Follow Up: Avery De Jesus MD [Primary Care Provider] - Within 2 Weeks Britton Jiménez MD [STAFF PHYSICIAN] - 05/25/21 10:00 am (With Ray Eschenaur, PA. ) Disposition Disposition (needs filled in before D/C Order can be placed): Inpatient Rehab Unit/Facility
--- NOTE | 2021-05-15 12:43 | PCM.DC.SUM ---
Documented by User: Jd YEE 05/15/21 12:54 Providers Date of Admission: 05/12/21 Primary Care Physician: Dr. Avery De Jesus MD Consultations 05/12/21 20:38 Consult: Orthopedics Routine Consulting Provider: Britton Jiménez Reason for Consult: Hip fracture EMERGENT Consult: No MD Notified: Yes Date Notified: 05/12/21 Time Notified: 18:47 Method of Notification: Verbal Reason For Visit: HIP FRACTURE Diagnosis Discharge Diagnosis (1) History of hemiarthroplasty of left hip: Status: Acute Code(s): Z96.642 - Presence of left artificial hip joint (2) Acute respiratory failure with hypoxia: Status: Acute Code(s): J96.01 - Acute respiratory failure with hypoxia Medications at Discharge Home Medications amlodipine 5 mg PO DAILY 12/24/19 lisinopril 10 mg PO DAILY 12/24/19 sertraline 100 mg PO DAILY 12/24/19 calcium carbonate 600 mg calcium (1,500 mg) tablet 600 mg PO BID tab 02/14/20 multivitamin 1 tab PO DAILY 02/14/20 gabapentin 200 mg PO TIDCM PRN 07/28/20 Probiotic 3,000 mmu cells PO DAILY 05/12/21 cholestyramine (with sugar) 4 g PO TID 05/12/21 aspirin 81 mg PO BID #60 tab 05/15/21 cholecalciferol (vitamin D3) 25 mcg PO DAILY #30 cap 05/15/21 oxycodone 5 mg PO Q8H PRN 7 Days #21 cap 05/15/21 sennosides [senna] 8.6 mg PO Q6H PRN #30 cap 05/15/21 Hospital Course Summary of Care Provided Minutes Spent on Discharge: 35 Hospital Course: Patient is a 76-year-old female who was admitted to the hospital on 05/12/2021 for management and evaluation of fall which resulted in left femoral neck fracture. Patient was seen and evaluated by orthopedic surgeon who proceeded with left hip hemiarthroplasty. Patient procedure was successful and no complications were noted. During the PT/OT evaluation patient was noted to have severe strength deficits and decreased range of motion, it was recommended that patient be transferred over to rehab for ongoing skilled therapy. Patient was approved to go to TCU and will be transferred today. Patient was initiated on aspirin 81 mg twice daily for 4 weeks for postop VTE prophylaxis, patient was initiated on vitamin D3 to address mildly low vitamin D levels and patient was also initiated on appropriate pain/bowel regimen. Patient to follow-up with her primary care provider and orthopedic team within the next 2 weeks. All other home medications were continued and no further changes were made. Patient seen by Jd Acosta PA-C, under the supervision of Dr. Collado. Physical Exam Narrative Patient is a 76-year-old female comfortably resting in a chair, alert and orient x3. Patient reports that pain is well controlled and denies development of any new symptoms overnight. Does not appear in acute distress. Const alert, oriented x3 and no apparent distress HEENT normocephalic, head/scalp atraumatic and hearing grossly normal bilaterally Eyes PERRL, EOMs intact bilaterally and conjunctivae normal Neck no lymphadenopathy, supple and no JVD Resp normal respiratory effort, no retractions and no use of accessory muscles Cardio regular rate, regular rhythm, no murmurs and no JVD GI normal to inspection, nondistended, normoactive bowel sounds, soft to palpation and non-tender Extremity normal to inspection, full ROM and no clubbing, cyanosis or edema Skin no rashes or lesions noted, no wounds and skin turgor normal Neuro CN's II-XII intact bilaterally Psych affect normal Weight / BMI Weight Weight: 176 lb 2.389 oz Body Mass Index (BMI) 30.8 ABG / Lab / Microbiology Data Result Diagrams: 05/15/21 05:38 05/15/21 05:38 Laboratory: Laboratory Results - last 24 hr 05/15/21 05:38: WBC 8.2, RBC 3.08 L, Hgb 9.7 L, Hct 29.2 L, MCV 94.8, MCH 31.5, MCHC 33.2, RDW Std Deviation 51.7 H, RDW Coeff of Ruben 14.8 H, Plt Count 147 L, MPV 8.7, Immature Gran % (Auto) 0.500, Neut % (Auto) 70.5 H, Lymph % (Auto) 16.4 L, [place] % (Auto) 8.8, Eos % (Auto) 3.4, Baso % (Auto) 0.4, Absolute Neuts (auto) 5.8, Absolute Lymphs (auto) 1.35, Nucleated RBC % 0 05/15/21 05:38: Sodium 140, Potassium 3.4 L, Chloride 107, Carbon Dioxide 30.0, Anion Gap 3 L, BUN 17, Creatinine 0.42 L, Estim Creat Clear Calc 38.35, Est GFR (MDRD) Af Amer 186, Est GFR (MDRD) Non-Af 153, BUN/Creatinine Ratio 40.1 H, Glucose 116 H, Calcium 8.3 L Microbiology: Microbiology 05/13/21 06:15 Nasal Secretion SARS-CoV-2 Antigen (Rapid) - Final Radiography Diagnostic Testing: Radiology Impression Chest X-Ray 05/14/21 14:30 IMPRESSION: Pulmonary findings appear worse. Electronically Signed: Darrell Powell MD at 20:16 EST , Service support , Meaningful Use Info Meaningful Use Diagnoses (Choose all that apply): None applicable Discharge Plan Admission Admit Date/Time: 05/12/21 18:43 Primary Reason for Your Visit: Left Hip Fx Attending Provider: Saloni Collado Primary Care Provider: Avery De Jesus Consulting Providers: Britton Jiménez Instructions Additional Instructions / Restrictions: Mepilex dressing over the incision will remain on for 5 days postoperatively. She can shower and get this wet but no submerging underwater for 6 weeks postoperatively. Once removal of the Mepilex dressing, patient can shower and get this wet. Do not place any ointments, Neosporin, alcohol pads over the incision for 6 weeks postoperatively. Discharge Orders/Prescriptions Prescriptions: New aspirin 81 mg tablet,chewable 81 mg PO BID Qty: 60 RF: 0 cholecalciferol (vitamin D3) 25 mcg (1,000 unit) capsule 25 mcg PO DAILY Qty: 30 RF: 0 oxycodone 5 mg capsule 5 mg PO Q8H PRN (Reason: pain) 7 Days Qty: 21 RF: 0 senna 8.6 mg capsule 8.6 mg PO Q6H PRN (Reason: constipation) Qty: 30 RF: 0 Continued calcium carbonate 600 mg calcium (1,500 mg) tablet 600 mg PO BID RF: 0 multivitamin Tablet 1 tab PO DAILY RF: 0 sertraline 100 MG tablet 100 mg PO DAILY RF: 0 amlodipine 5 MG tablet 5 mg PO DAILY RF: 0 lisinopril 10 MG tablet 10 mg PO DAILY RF: 0 gabapentin 100 MG capsule 200 mg PO TIDCM PRN (Reason: nerve pain) RF: 0 cholestyramine (with sugar) 4 gram Powder In Packet 4 g PO TID RF: 0 Probiotic 3 billion cell Capsule 3,000 mmu cells PO DAILY RF: 0 Referrals / Follow Up: Avery De Jesus MD [Primary Care Provider] - Within 2 Weeks Britton Jiménez MD [STAFF PHYSICIAN] - 05/25/21 10:00 am (With PA. Kiarra ) Disposition Disposition (needs filled in before D/C Order can be placed): Inpatient Rehab Unit/Facility Documented by User: Dr. Saloni Collado DO 05/15/21 13:52 Providers Date of Admission: 05/12/21 Reason For Visit: HIP FRACTURE Medications at Discharge Home Medications amlodipine 5 mg PO DAILY 12/24/19 lisinopril 10 mg PO DAILY 12/24/19 sertraline 100 mg PO DAILY 12/24/19 calcium carbonate 600 mg calcium (1,500 mg) tablet 600 mg PO BID tab 02/14/20 multivitamin 1 tab PO DAILY 02/14/20 gabapentin 200 mg PO TIDCM PRN 07/28/20 Probiotic 3,000 mmu cells PO DAILY 05/12/21 cholestyramine (with sugar) 4 g PO TID 05/12/21 aspirin 81 mg PO BID #60 tab 05/15/21 cholecalciferol (vitamin D3) 25 mcg PO DAILY #30 cap 05/15/21 oxycodone 5 mg PO Q8H PRN 7 Days #21 cap 05/15/21 sennosides [senna] 8.6 mg PO Q6H PRN #30 cap 05/15/21 Hospital Course Operations total hip replacement Procedures None Summary of Care Provided Minutes Spent on Discharge: 38 Hospital Course: Mrs. Gómez is a 76-year-old white female who presented to the emergency department [facility] on 05/12/2021 with a chief complaint of left hip pain status post fall. She reported she experienced a mechanical fall at home after tripping when she was walking into her house. She reported that she was able to stand up and ambulate a short distance however the pain became too much for her and she can no longer ambulate. She reported 9 out of 10 pain upon presentation. She denied hitting her head or any other injuries at the time of presentation. An x-ray of her right hip was performed and showed a left transcervical femoral neck fracture. Surgical risk calculator was performed and she was noted to be low risk. She was taken to the operating room by Dr. Jiménez from orthopedic surgery on 05/13/2021 where a left hip hemiarthroplasty was performed. Postoperatively she had pain but this was well controlled with oral pain medication. She was also laced on a bowel regimen. She developed some postoperative hypoxia for which a chest x-ray was performed and she was placed on supplemental O2 at 3 L nasal cannula. Postoperatively she had some bilateral effusions with what appeared to be some volume overload. She was given IV Lasix at that time. Her oxygenation status improved to the point where she was requiring only 1 L at rest and oxygen saturation was in the mid 90s. I anticipate continuing will be possible. She is also encouraged to use her incentive spirometer. She was given another dose of Lasix prior to discharge. She had mild hypokalemia after Lasix dose and was given 60 mEq of p.o. potassium on the day of discharge. She was hoping to be able to go home but was not able to perform enough with therapy to be comfortable going home and therefore discharged in stable condition to the transitional care unit on 05/15/2021. Postoperative instructions with regards to his hip surgery include continued aspirin 81 mg twice daily for 4 weeks, weightbearing as tolerated with continued physical therapy and Occupational Therapy (anterior hip precautions), she will need a 2-week follow-up with [facility] for postoperative x-rays and incision check, her dressing is to stay in place for 5 days postoperatively with no underwater submersion's for 6 weeks. She was also found of vitamin D level of 35.4 which appears to be improved from 2 years ago at which time is 19. She was discharged on 25 mg daily of cholecalciferol. She is to follow-up with her primary care physician in 3 weeks. Discharge diagnoses: Acute left femoral neck fracture status post left hemiarthroplasty Acute hypoxic respiratory failure-resolving Hypokalemia-resolved Hyperglycemia Hypertension Neuropathy Depression Physical Exam Const alert, oriented x3 and no apparent distress Constitutional Narrative: Obese older white female lying in bed, appears comfortable, nontoxic General Appearance: cooperative, comfortable, well kempt and well developed Orientation / Consciousness: awake Exam Limitations: no limitations Nutritional Appearance: overweight HEENT normocephalic, head/scalp atraumatic, hearing grossly normal bilaterally and moist oral mucous membranes HEENT Narrative: Mallampati 2, dentures in place, no thrush Eyes PERRL, EOMs intact bilaterally and no scleral icterus Eyes Narrative: No scleral icterus, conjunctiva are mildly pale Neck no lymphadenopathy, supple and no JVD Neck Narrative: Trachea midline, no thyroid enlargement General: trachea midline Lymph Lymphatic: no lymphadenopathy noted Resp normal respiratory effort, normal air movement, no retractions, no use of accessory muscles and clear to auscultation bilaterally Auscultation: Negative for crackles, rales, rhonchi or wheezes Cardio regular rate, regular rhythm, S1 normal heart sound, S2 normal heart sound, no murmurs, no rub, no gallops, no clicks, no JVD and peripheral pulses 2+ throughout GI normal to inspection, nondistended, normoactive bowel sounds, soft to palpation, non-tender and non-distended Extremity normal capillary refill and no clubbing, cyanosis or edema Extremity Narrative: Dressing in place left hip-clean and dry without any substantial drainage, mildly swollen but no hardness Left Lower Extremity: hip joint inspection (Shortening and external rotation are noted), palpation (Tender ), ROM (Limited) and neurovascular exam (Intact) Skin no rashes or lesions noted, no wounds, skin turgor normal and no jaundice Skin Narrative: Postoperative wound as noted above Neuro oriented x3, CN's II-XII intact bilaterally and no focal motor deficits Neuro Narrative: Decreased movement left lower extremity secondary to pain and recent surgery Sensorium / Orientation: awake and alert Speech: speech normal Psych thought process normal, cooperative and affect normal Psych Narrative: Very pleasant Appearance: appropriate ABG / Lab / Microbiology Data Result Diagrams: 05/15/21 05:38 05/15/21 05:38 Discharge Plan Admission Admit Date/Time: 05/12/21 18:43 Primary Reason for Your Visit: Left Hip Fx Attending Provider: Saloni Collado Primary Care Provider: Avery De Jesus Consulting Providers: Britton Jiménez Instructions Additional Instructions / Restrictions: Mepilex dressing over the incision will remain on for 5 days postoperatively. She can shower and get this wet but no submerging underwater for 6 weeks postoperatively. Once removal of the Mepilex dressing, patient can shower and get this wet. Do not place any ointments, Neosporin, alcohol pads over the incision for 6 weeks postoperatively. Discharge Orders/Prescriptions Prescriptions: New aspirin 81 mg tablet,chewable 81 mg PO BID Qty: 60 RF: 0 cholecalciferol (vitamin D3) 25 mcg (1,000 unit) capsule 25 mcg PO DAILY Qty: 30 RF: 0 oxycodone 5 mg capsule 5 mg PO Q8H PRN (Reason: pain) 7 Days Qty: 21 RF: 0 senna 8.6 mg capsule 8.6 mg PO Q6H PRN (Reason: constipation) Qty: 30 RF: 0 Continued calcium carbonate 600 mg calcium (1,500 mg) tablet 600 mg PO BID RF: 0 multivitamin Tablet 1 tab PO DAILY RF: 0 sertraline 100 MG tablet 100 mg PO DAILY RF: 0 amlodipine 5 MG tablet 5 mg PO DAILY RF: 0 lisinopril 10 MG tablet 10 mg PO DAILY RF: 0 gabapentin 100 MG capsule 200 mg PO TIDCM PRN (Reason: nerve pain) RF: 0 cholestyramine (with sugar) 4 gram Powder In Packet 4 g PO TID RF: 0 Probiotic 3 billion cell Capsule 3,000 mmu cells PO DAILY RF: 0 Referrals / Follow Up: Avery De Jesus MD [Primary Care Provider] - Within 2 Weeks Britton Jiménez MD [STAFF PHYSICIAN] - 05/25/21 10:00 am (With PA. Kiarra ) Disposition Disposition (needs filled in before D/C Order can be placed): Inpatient Rehab Unit/Facility Charges/Coding Visit Charges Inpatient E&M: 49994 SNF Disch >30 Min
[2021-05-15 13:05] VITALS: BP 108/54; PULSE 68; RESP 16; TEMP 36.7; O2SAT 95
== END 2021-05-15 13:45 | disposition skilled nursing facility (03) | DRG 521 ==
LOC: ED 19:13 → MS3 19:33
PROVIDERS: Anesthesiology; Physician Assistant; Specialist; Admitting Provider Family Medicine; Emergency Provider Emergency Medicine; PCP Family Medicine; Visit Provider Internal Medicine
PROC: 0SRB019 Replacement of Left Hip Joint with Metal Synthetic Substitute, Cemented, Open Approach (ICD-10-PCS; CPT 27125; principal; 2021-05-13 12:50)
DX: S72.032A Displaced midcervical fracture of left femur, initial encounter for closed fracture (principal); J96.01 Acute respiratory failure with hypoxia; W01.0XXA Fall on same level from slipping, tripping and stumbling without subsequent striking against object, initial encounter; Y93.01 Activity, walking, marching and hiking; Y92.009 Unspecified place in unspecified non-institutional (private) residence as the place of occurrence of the external cause; Y99.9 Unspecified external cause status; K21.9 Gastro-esophageal reflux disease without esophagitis; I10 Essential (primary) hypertension; M54.16 Radiculopathy, lumbar region; I44.0 Atrioventricular block, first degree; E78.5 Hyperlipidemia, unspecified; F32.A Depression, unspecified; M48.061 Spinal stenosis, lumbar region without neurogenic claudication; E87.6 Hypokalemia; R73.9 Hyperglycemia, unspecified; G62.9 Polyneuropathy, unspecified; R32 Unspecified urinary incontinence; Z79.899 Other long term (current) drug therapy; Z86.16 Personal history of COVID-19; Z96.651 Presence of right artificial knee joint; Z96.641 Presence of right artificial hip joint
CPT/HCPCS: 36415; 51702; 71045; 73502; 76000; 80048; 80053; 82306; 82962; 83036; 83735; 85025; 85610; 85730; 86850; 86900; 86901; 87426; 88305; 88307; 88311; 93005; 97110; 97162; 97166; 97530; 97535; 99251; 99285; C1776; J7120; A4216; G0463; J1940; J2405

== ENCOUNTER 2021-05-15 14:03 | Inpatient (IN) | payer MEDICARE, SELFPAY ==
[2021-05-15 14:11] VITALS: BMI 32.7
[2021-05-15 14:23] VITALS: BP 112/60; PULSE 70; RESP 18; TEMP 36.9; O2SAT 91
[2021-05-15] MEDS: Aspirin 81 MG TAB.CHEW PO (17:46)
[2021-05-15] MEDS: Calcium Carbonate 500 MG Tablet PO (17:46)
[2021-05-15] MEDS: oxyCODONE 5 MG Tablet PO (17:46)
[2021-05-15] MEDS: Menthol/Lanolin/Calamine/Znox 113 GM Tube 1 APPLIC TOPICAL (17:48)
--- NOTE | 2021-05-15 18:00 | HP.PCM_ITS ---
HPI - General General Date of Admission: 05/15/21 HPI Narrative 05/12/2021 ANA LILIA BOND, is a 76 Female who presents to [facility] Emergency Department with lower extremity injury. 05/12/2021 EKG sinus rhythm with first degree AV block, septal infarct, age undetermined, WA interval increased, right bundle branch block resolved. Fall, left hip pain, trippled while walking, landed on left hip. Able to walk briefly after fall, then unable to walk. Aching pain. Morphine, Zofran given. X-ray showed left femoral neck fracture. 05/12/2021 Admit to Hospital. Below average risk for surgery. PT/OT. Orthopedics consulted. 05/13/2021 Pain controlled. Hypokalemia repleted with potassium chloride 40meq x 1 dose. 05/13/2021 Dr. Jiménez performed left hip hemiarthroplasty. 05/13/2021 Recovering well. Aspirin 81mg twice daily for DVT prophylaxis. [facility] for [facility]. Hypoxia 88% on room air, treated with oxygen 3-4 liters per nasal cannula, incentive spirometry. 05/15/2021 Admit to TCU with debility, here for rehabilitation, strengthening, prior to discharge home with family. [facility] Medical History Acid reflux Back problem Borderline diabetes COVID-19 Depression Diarrhea History of stress test Hypertension Home Medications amlodipine 5 mg PO DAILY 12/24/19 [History Last Taken 05/12/21] lisinopril 10 mg PO DAILY 12/24/19 [History Last Taken 05/12/21] sertraline 100 mg PO DAILY 12/24/19 [History Last Taken 05/12/21] calcium carbonate 600 mg calcium (1,500 mg) tablet 600 mg PO BID tab 02/14/20 [History Last Taken 05/12/21] multivitamin 1 tab PO DAILY 02/14/20 [History Last Taken 05/12/21] gabapentin 200 mg PO TIDCM PRN 07/28/20 [History Last Taken Unknown] Probiotic 3,000 mmu cells PO DAILY 05/12/21 [History Last Taken 05/12/21] cholestyramine (with sugar) 4 g PO TID 05/12/21 [History Last Taken Unknown] aspirin 81 mg PO BID 05/15/21 [History Last Taken Unknown] cholecalciferol (vitamin D3) 25 mcg PO DAILY 05/15/21 [History Last Taken Unknown] oxycodone 5 mg PO Q8H PRN 7 Days #21 cap 05/15/21 [Rx Last Taken Unknown] sennosides [senna] 8.6 mg PO Q6H PRN #30 cap 05/15/21 [Rx Last Taken Unknown] Allergy/AdvReac Type Severity Reaction Status Date / Time Penicillins [PCN] Allergy Hives Verified 08/19/20 06:27 Family History Father Lung cancer Diabetes Sister Lung cancer Surgical History History of back surgery History of hemiarthroplasty of left hip History of repair of hiatal hernia Hx of cholecystectomy Hx of shoulder surgery Hx of tubal ligation Status post right knee replacement Social History (Updated 05/15/21 @ 18:[address] Ramana Kumar MD) household members: other details: Lives alone in in-law suite but son and daughter's dwellings connected. Smoking Status: Never smoker second hand exposure: No alcohol intake: never substance use type: does not use caffeine: Yes what type of physical activity do you participate in: none frequency: does not exercise ROS Constitutional Constitutional: Denies chills, fever(s) or weight gain ENT HEENT: Denies headache(s), nasal congestion or nasal discharge Cardiovascular Cardiovascular: Denies chest pain or palpitations Respiratory/Chest Respiratory/Chest: Denies cough, excessive phlegm production or shortness of breath with exertion Gastrointestinal Gastrointestinal: Denies abdominal pain, nausea or vomiting Genitourinary Genitourinary: Denies dysuria Musculoskeletal Musculoskeletal: Denies joint pain or joint swelling Integumentary Integumentary: Denies rash or wounds Neurologic Neurologic: Denies focal weakness, numbness or tingling Psychiatric Psychiatric: Denies anxiety, auditory hallucinations, depression, homicidal ideation or suicidal ideation Vital Signs Vital Signs Vital Signs: 05/15/21 14:23 05/15/21 14:29 Temperature 98.4 F Temperature Source Temporal Pulse Rate 70 Pulse Rhythm Regular Respiratory Rate 18 Respiratory Effort Normal Respiratory Depth Normal Respiratory Pattern Normal Blood Pressure 112/60 Blood Pressure Mean 77 Blood Pressure Source Monitor Blood Pressure Position Supine Blood Pressure Location Right Arm Pulse Ox 91 Oxygen Delivery Method Nasal Cannula Nasal Cannula Oxygen Flow Rate (L/min) 1 1 Weight Weight: 85.139 kg Body Mass Index (BMI) 32.7 Physical Exam Const alert and oriented x3 General Appearance: cooperative HEENT normocephalic Eyes PERRL and EOMs intact bilaterally Neck supple, no JVD and no carotid bruits Resp normal respiratory effort, normal air movement and clear to auscultation bilaterally Cardio regular rate and regular rhythm GI normal to inspection, nondistended, normoactive bowel sounds, non-tender and non-distended Extremity normal capillary refill General Extremity: Negative for edema Skin no rashes or lesions noted General Skin Exam: no breakdown Psych affect normal Appearance: appropriate Assessment & Plan Assessment/Plan (1) Debility: (2) Closed left hip fracture: (3) Hypertension: (4) Depression: (5) Neuropathic pain: (6) Chronic diarrhea: PLAN: 76 year old female with below past medical history hospitalized for left hip fracture, underwent left hip hemiarthroplasty 05/13/[address] Jiménez, admitted to TCU with debility, here for rehabilitation, strengthening, prior to discharge home alone. * Debility - PT/OT. * Pain - Tylenol 1000mg tid, Oxycodone 5mg q4h prn pain (4-10). * Bowel - Senokot 1 tablet q6h prn. * Adult immunization - Administer prevnar 13, pneumovax 23, fluzone, covid19 vaccine as appropriate. * DVT prophylaxis - Aspirin 81mg twice daily thru 05/27/2021. * Hypertension - Lisinopril 10mg daily, Amlodipine 5mg daily. * Calcium deficiency - TUMS 500mg bid. * Vitamin D deficiency - D3 25mcg daily. * Chronic diarrhea - Questran 4gm po tid. * Neuropathic pain - Gabapentin 200mg tidcm prn. * GI prophylaxis - Lactobacillus 1 tablet daily. * Skin irritation - Calmoseptine topical twice daily. * Nutrition - MVI daily. * Depression - Sertraline 100mg daily, stable chronic penitentiary use, GDR not recommended.
[2021-05-15] MEDS: Acetaminophen 500 MG Tablet 1000 MG PO (22:31)
[2021-05-15] MEDS: Cholestyramine/Sucrose 4 GM/PACKET PO (22:32)
--- NOTE | 2021-05-16 00:23 | NURSING ---
Addendum entered by Chris Velez 05/16/21 08:37: 0730: Contacted Dr. Kumar via telephone regarding current order for suicide precautions, patient does not display suicidal behavior or ideations, denies intent to cause self harm, denies plan to self-harm. Per discontinue suicide precautions Original Note: Presents in bed, alert and oriented to person/place. Re-oriented to time. Calm, pleasant and cooperative. Talkative. verbalizes looking forward to coffee dates with sons on Saturdays when discharged. Denies any intentions to self-harm. Verbalizes no displeasure with admit to unit. No distress observed or reported. Denies pain. Snack offered and accepted. Encouraged to notify nurse of pain or discomfort and to call for staff assist with any needs, verbalized understanding. Call slater within reach.
[2021-05-16] MEDS: oxyCODONE 5 MG Tablet PO ×2 (02:52→08:25)
[2021-05-16 05:00] VITALS: BP 105/59; PULSE 71; RESP 16; TEMP 37.1; O2SAT 93
[2021-05-16] MEDS: Sertraline 100 MG Tablet PO (06:27)
[2021-05-16] MEDS: Lisinopril 10 MG Tablet PO (06:27)
[2021-05-16] MEDS: Acetaminophen 500 MG Tablet 1000 MG PO ×3 (06:27→21:51)
[2021-05-16] MEDS: Cholecalciferol (VIT D3) 25 MCG TABLET (1,000 UNITS) PO (06:27)
[2021-05-16] MEDS: amLODIPine 5 MG Tablet PO (06:27)
[2021-05-16] MEDS: Cholestyramine/Sucrose 4 GM/PACKET PO ×3 (06:28→20:32)
[2021-05-16] MEDS: Menthol/Lanolin/Calamine/Znox 113 GM Tube 1 APPLIC TOPICAL ×2 (06:28→16:30)
[2021-05-16 07:50] LABS: Absolute Lymphocyte Count 1.34 X10^3/uL (0.83-4.51); Absolute Neutrophil Count 5.7 X10^3/uL (2.0-7.7); Basophil# 0.02 X10^3/uL; Basophil% 0.2 % (0-1); Eosinophil# 0.23 X10^3/uL; Eosinophils% 2.8 % (0-5); Hematocrit 29.8 % (37-47); Hemoglobin 9.6 g/dL (12.0-15.0); Lymphocyte # 1.34 X10^3/ul (0.83-4.51); Lymphocyte % 16.2 % (19-41); Mean Corp Hgb Conc 32.2 g/dL (32-36); Mean Corpuscular Hgb 30.2 pg (27.0-32.0); Mean Corpuscular Volume 93.7 fL (81-99); Mean Platelet Vol. 8.7 fl (6.2-12.0); Monocyte# 0.96 X10^3/uL; Monocyte% 11.6 % (0-10); NRBC Flagged by Analyzer 0 % (0-5); Neutrophil # 5.68 X10^3/uL (2.7-7.7); Neutrophil % 68.7 % (47-70); Platelet Count 169 K/mm3 (150-450); RBC Distribution Width CV 14.6 % (11.6-14.6); RBC Distribution Width SD 50.9 fl (35.1-43.9); Red Blood Count 3.18 M/mm3 (4.2-5.4); White Blood Count 8.3 K/mm3 (4.4-11.0)
[2021-05-16 08:13] LABS: Anion Gap 6 (5-15); BUN 21 mg/dL (7-18); BUN/Creat Ratio 44.1 RATIO (10-20); Calcium,Total 8.9 mg/dL (8.5-10.1); Chloride 105 mmol/L (98-107); Creatinine, Serum 0.48 mg/dL (0.55-1.02); EST Glomerular Filtration Rate 134 mL/min (>60); Est Glom Filt Rate - Afr Amer 162 mL/min (>60); Estimated Creatinine Clearance 38.35 ml/min; Glucose 118 mg/dL (74-106); Potassium 3.4 mmol/L (3.5-5.1); Sodium Level 139 mmol/L (136-145)
[2021-05-16] MEDS: Aspirin 81 MG TAB.CHEW PO ×2 (08:22→16:28)
[2021-05-16] MEDS: Multivitamins,Therapeutic Tablet 1 TABLET PO (08:23)
[2021-05-16] MEDS: Calcium Carbonate 500 MG Tablet PO ×2 (08:23→16:28)
[2021-05-16] MEDS: Tuberculin,Purif.prot.deriv. 50 TU/ML Vial 0.1 ML ID (10:42)
[2021-05-16] MEDS: Potassium Chloride Oral Tablet 20 MEQ PO (11:54)
[2021-05-16 12:59] VITALS: BP 107/51; PULSE 64; RESP 14; TEMP 36.6; O2SAT 92
[2021-05-16 18:32] VITALS: PULSE 64; RESP 14
[2021-05-17 05:00] VITALS: BP 116/62; PULSE 67; RESP 16; TEMP 37.2; O2SAT 94
[2021-05-17] MEDS: amLODIPine 5 MG Tablet PO (06:38)
[2021-05-17] MEDS: Cholecalciferol (VIT D3) 25 MCG TABLET (1,000 UNITS) PO (06:38)
[2021-05-17] MEDS: Lisinopril 10 MG Tablet PO (06:38)
[2021-05-17] MEDS: Cholestyramine/Sucrose 4 GM/PACKET PO ×2 (06:38→20:40)
[2021-05-17] MEDS: Sertraline 100 MG Tablet PO (06:38)
[2021-05-17] MEDS: Acetaminophen 500 MG Tablet 1000 MG PO ×3 (06:39→20:40)
[2021-05-17] MEDS: Menthol/Lanolin/Calamine/Znox 113 GM Tube 1 APPLIC TOPICAL ×2 (06:56→16:55)
[2021-05-17] MEDS: Aspirin 81 MG TAB.CHEW PO ×2 (09:21→16:54)
[2021-05-17] MEDS: Calcium Carbonate 500 MG Tablet PO ×2 (09:21→16:54)
[2021-05-17] MEDS: Multivitamins,Therapeutic Tablet 1 TABLET PO (09:21)
[2021-05-17 09:49] LABS: Anion Gap 7 (5-15); BUN 19 mg/dL (7-18); BUN/Creat Ratio 34.6 RATIO (10-20); Chloride 107 mmol/L (98-107); Creatinine, Serum 0.55 mg/dL (0.55-1.02); EST Glomerular Filtration Rate 114 mL/min (>60); Est Glom Filt Rate - Afr Amer 138 mL/min (>60); Estimated Creatinine Clearance 38.35 ml/min; Glucose 155 mg/dL (74-106); Potassium 3.6 mmol/L (3.5-5.1); Sodium Level 140 mmol/L (136-145)
[2021-05-17 15:13] VITALS: BP 112/50; PULSE 72; RESP 14; TEMP 36.4; O2SAT 94
--- NOTE | 2021-05-17 22:27 | NURSING ---
Paged Dr. Kumar w/ immediate return phone call. Updated on pt request for Melatonin. Takes medication at home but is unsure of dose. New order received for Melatonin 10 mg qhs. KARINA Chapa, updated.
[2021-05-18] MEDS: MELATONIN 10 MG TABLET PO ×2 (00:32→21:26)
[2021-05-18 00:58] VITALS: PULSE 83; O2SAT 94
[2021-05-18 05:00] VITALS: BP 127/68; PULSE 67; RESP 16; TEMP 37.1; O2SAT 94
[2021-05-18] MEDS: amLODIPine 5 MG Tablet PO (06:22)
[2021-05-18] MEDS: Acetaminophen 500 MG Tablet 1000 MG PO ×3 (06:22→21:26)
[2021-05-18] MEDS: Cholestyramine/Sucrose 4 GM/PACKET PO ×2 (06:22→14:31)
[2021-05-18] MEDS: Sertraline 100 MG Tablet PO (06:22)
[2021-05-18] MEDS: Lisinopril 10 MG Tablet PO (06:22)
[2021-05-18] MEDS: Cholecalciferol (VIT D3) 25 MCG TABLET (1,000 UNITS) PO (06:22)
[2021-05-18] MEDS: Menthol/Lanolin/Calamine/Znox 113 GM Tube 1 APPLIC TOPICAL ×2 (07:33→16:45)
[2021-05-18] MEDS: Multivitamins,Therapeutic Tablet 1 TABLET PO (08:53)
[2021-05-18] MEDS: Aspirin 81 MG TAB.CHEW PO ×2 (08:53→16:44)
[2021-05-18] MEDS: Calcium Carbonate 500 MG Tablet PO ×2 (08:53→16:44)
--- NOTE | 2021-05-18 14:46 | NURSING ---
Resident educated on the COVID 19 vaccine and she does not want to receive it at this time.
--- NOTE | 2021-05-18 15:11 | PHA.CONS_ITS ---
Progress Note - Pharmacy Subjective: TCU Admission Objective: Allergies Penicillins [PCN] Allergy (Verified 08/19/20 06:27) Hives Current Medications Generic Name Dose Route Start Last Admin Trade Name Sri PRN Reason Stop Dose Admin Acetaminophen 1,000 mg 05/15/21 22:00 05/18/21 14:31 Acetaminophen 500 Mg Tablet PO 1,000 mg Q8 FERNANDA Administration Amlodipine Besylate 5 mg 05/16/21 06:00 05/18/21 06:22 Amlodipine 5 Mg Tablet PO 5 mg DAILY FERNANDA Administration Aspirin 81 mg 05/15/21 17:00 05/18/21 08:53 Aspirin 81 Mg Tab.Chew PO 05/27/21 18:17 81 mg 0800,1700 FERNANDA Administration Calamine/Phenol 1 applic 05/15/21 18:00 05/18/21 07:33 Menthol/Lanolin/Calamine/Znox 113 Gm Tube TOPICAL 1 applic BID FERNANDA Administration Protocol Calcium Carbonate 500 mg 05/15/21 17:00 05/18/21 08:53 Calcium Carbonate 500 Mg Tablet PO 500 mg BIDCM FERNANDA Administration Cholecalciferol 25 mcg 05/16/21 06:00 05/18/21 06:22 Cholecalciferol (Vit D3) 25 Mcg Tablet (1,000 Units) PO 25 mcg DAILY FERNANDA Administration Cholestyramine Resin 4 gm 05/15/21 22:00 05/18/21 14:31 Cholestyramine/Sucrose 4 Gm/Packet PO 4 gm TID FERNANDA Administration Gabapentin 200 mg 05/15/21 14:12 Gabapentin 100 Mg Capsule PO TIDCM PRN nerve pain Lactobacillus Acidophilus 1 tablet 05/16/21 06:00 05/18/21 06:22 Lactobacillus Acidophilus PO 1 tablet DAILY FERNANDA Administration Lisinopril 10 mg 05/16/21 06:00 05/18/21 06:22 Lisinopril 10 Mg Tablet PO 10 mg DAILY FERNANDA Administration Melatonin 10 mg 05/17/21 22:00 05/18/21 00:32 Melatonin 10 Mg Tablet PO 10 mg QHS FERNANDA Administration Multivitamins 1 tablet 05/16/21 08:00 05/18/21 08:53 Multivitamins,Therapeutic Tablet PO 1 tablet BREAKFAST FERNANDA Administration Oxycodone HCl 5 mg 05/15/21 18:17 05/16/21 08:25 Oxycodone 5 Mg Tablet PO 5 mg Q4H PRN Administration Pain Score 4-10 Senna 1 tablet 05/15/21 14:59 Senna Tablet PO Q6H PRN constipation Sertraline HCl 100 mg 05/16/21 06:00 05/18/21 06:22 Sertraline 100 Mg Tablet PO 100 mg DAILY FERNANDA Administration Tuberculin PPD 0.1 ml 05/23/21 10:00 Tuberculin,Purif.Prot.Deriv. 50 Tu/Ml Vial ID 05/23/21 10:01 X1 ONE Problem List (Last Reviewed 05/15/21 @ 18:[address] Ramana Kumar MD) Chronic diarrhea (Chronic) Neuropathic pain (Acute) Depression (Acute) Hypertension (Chronic) Closed left hip fracture (Acute) Debility (Acute) Vital Signs Temp Pulse Resp BP Pulse Ox 98.7 F 67 16 127/68 H 94 05/18/21 05:00 05/18/21 05:00 05/18/21 05:00 05/18/21 05:00 05/18/21 05:00 Oxygen Flow Rate (L/min) 1 Oxygen Delivery Method Room Air Weight: 85.139 kg Body Mass Index (BMI) 32.7 Sodium 140 mmol/L (136-145) 05/17/21 09:04 Potassium 3.6 mmol/L (3.5-5.1) 05/17/21 09:04 Chloride 107 mmol/L (98-107) 05/17/21 09:04 Carbon Dioxide 26.0 mmol/L (21.0-32.0) 05/17/21 09:04 Anion Gap 7 (5-15) 05/17/21 09:04 BUN 19 mg/dL (7-18) H 05/17/21 09:04 Creatinine 0.55 mg/dL (0.55-1.02) 05/17/21 09:04 Est GFR (MDRD) Af Amer 138 mL/min (>60) 05/17/21 09:04 Est GFR (MDRD) Non-Af 114 mL/min (>60) 05/17/21 09:04 BUN/Creatinine Ratio 34.6 RATIO (10-20) H 05/17/21 09:04 Glucose 155 mg/dL (74-106) H 05/17/21 09:04 Assessment/Plan: 1. Pain: acetaminophen 1000mg PO TID and oxycodone 5mg PO Q4H PRN pain 4-03/15. Please continue to monitor for increased pain, PRN usage, constipation and re spiratory depression. 2. DVT prophylaxis: aspirin 81mg PO BIDCM thru 05/27/21. Please continue to monitor for S/S of bleeding and hemoglobin (last 9.6g/dL). 3. Hypertension: lisinopril 10mg PO daily and amlodipine 5mg PO daily. Please continue to monitor BP (last 127/68), potassium (last 3.6mmol/L), cough, renal function and swelling. 4. Chronic diarrhea: Questran 4gm PO TID. Please continue to monitor for diarrhea. 5. Neuropathic pain: gabapentin 200mg PO TIDCM PRN nerve pain. Please continue to monitor for nerve pain, confusion and renal function. 6. Calcium deficiency: calcium carbonate 500mg PO BID. Please continue to monitor calcium levels (last 9 mg/dL). 7. Vitamin D deficiency: cholecalciferol 25mcg PO daily. Please continue to monitor vitamin D levels (last 05/14/21). 8. GI prophylaxis/overall nutrition: lactobacillus 1T PO daily and multivitamin 1T PO breakfast. Please continue to monitor. Psychotropic Medications: 1. Depression: sertraline 100mg PO daily. Please see physician note regarding GDR. *Unnecessary Medications: melatonin 10mg PO QHS. I did not see a documented indication for this medication (patient requested per nursing note). Please consider adding an indication. Thanks. Bowel Regimen: senna 1T PO Q6H PRN constipation. Please continue to monitor for constipation and PRN usage. Date of Note:: 05/18/21
[2021-05-18 15:59] VITALS: BP 137/62; PULSE 74; RESP 17; TEMP 36.7; O2SAT 94
[2021-05-18] MEDS: oxyCODONE 5 MG Tablet PO (22:45)
[2021-05-19 00:40] VITALS: O2SAT 96
[2021-05-19] MEDS: Cholecalciferol (VIT D3) 25 MCG TABLET (1,000 UNITS) PO (05:14)
[2021-05-19] MEDS: Cholestyramine/Sucrose 4 GM/PACKET PO ×2 (05:14→20:35)
[2021-05-19] MEDS: Menthol/Lanolin/Calamine/Znox 113 GM Tube 1 APPLIC TOPICAL ×2 (05:14→16:55)
[2021-05-19] MEDS: Acetaminophen 500 MG Tablet 1000 MG PO ×3 (05:14→20:35)
[2021-05-19] MEDS: Sertraline 100 MG Tablet PO (05:14)
[2021-05-19] MEDS: amLODIPine 5 MG Tablet PO (05:17)
[2021-05-19] MEDS: Lisinopril 10 MG Tablet PO (05:18)
[2021-05-19] MEDS: Aspirin 81 MG TAB.CHEW PO ×2 (08:07→16:54)
[2021-05-19] MEDS: Multivitamins,Therapeutic Tablet 1 TABLET PO (08:07)
[2021-05-19] MEDS: Calcium Carbonate 500 MG Tablet PO ×2 (08:07→16:54)
[2021-05-19] MEDS: oxyCODONE 5 MG Tablet PO (08:09)
--- NOTE | 2021-05-19 09:27 | CASEMGMT ---
Social Work Met with patient and dtr present in room to complete assessment. Pt gave permission to complete assessment with dtr. Discussed code status. Pt wishes to be full code. MOLST form completed, communication to , placed in chart. Explained [facility] insurance with NRD 05/27 and continued stay is not guaranteed. Pt lives in [address] suite next to dtr, Simona's family home. Dtr works partition assembler but has flexible hours. Children can assist pt as needed. SW to continue to follow for discharge planning. Sydney Shukla, OUTPATIENT FACILITY PHYSICAL THERAPIST STATEMENT CLERKS SUPERVISOR
[2021-05-19 15:41] VITALS: BP 106/53; PULSE 69; RESP 14; TEMP 36.5; O2SAT 91
[2021-05-19] MEDS: Gabapentin 100 MG Capsule 200 MG PO (15:45)
[2021-05-19] MEDS: MELATONIN 10 MG TABLET PO (20:35)
[2021-05-19 23:35] VITALS: PULSE 84; O2SAT 97
[2021-05-20 05:00] VITALS: BP 107/59; PULSE 63; RESP 16; TEMP 36.7; O2SAT 93
[2021-05-20] MEDS: Menthol/Lanolin/Calamine/Znox 113 GM Tube 1 APPLIC TOPICAL ×2 (06:10→16:50)
[2021-05-20] MEDS: Acetaminophen 500 MG Tablet 1000 MG PO ×3 (06:11→22:00)
[2021-05-20] MEDS: Gabapentin 100 MG Capsule 200 MG PO ×3 (06:11→22:01)
[2021-05-20] MEDS: Cholecalciferol (VIT D3) 25 MCG TABLET (1,000 UNITS) PO (06:12)
[2021-05-20] MEDS: Lisinopril 10 MG Tablet PO (06:12)
[2021-05-20] MEDS: Sertraline 100 MG Tablet PO (06:12)
[2021-05-20] MEDS: amLODIPine 5 MG Tablet PO (06:12)
[2021-05-20] MEDS: Aspirin 81 MG TAB.CHEW PO ×2 (08:13→16:50)
[2021-05-20] MEDS: Multivitamins,Therapeutic Tablet 1 TABLET PO (08:13)
[2021-05-20] MEDS: Calcium Carbonate 500 MG Tablet PO ×2 (08:14→16:50)
--- NOTE | 2021-05-20 10:23 | CASEMGMT ---
Social Work IDT met with patient and two dtr's for care plan meeting. Discussed patient's progress in PT/OT and nursing. Pt progressing well. Explained [facility] insurance with NRD 05/27 and continued stay is not guaranteed. The goal is for pt to return home to [address] suite at dtr's house. Inquired about pt's LOF to return home. Dtr's report she needs to return to [place]F. Family is going to [place] from 06/01 to 06/14. Suggested pt remaining in TCU or transfer to SNF if insurance cuts while family is in [place]. Family to discuss and notify SW of plan. SW to continue to follow. Sydney Shukla, GSE MECHANIC JOCKEY AGENT
--- NOTE | 2021-05-20 11:56 | CASEMGMT ---
Social Work BIMS(15) and PHQ-9(1) completed this date. SHAN Shafer
[2021-05-20] MEDS: Cholestyramine/Sucrose 4 GM/PACKET PO ×2 (12:37→22:00)
[2021-05-20 15:28] VITALS: BP 102/56; PULSE 71; RESP 24; TEMP 37.8; O2SAT 96
[2021-05-20 17:20] VITALS: TEMP 36.9
[2021-05-20] MEDS: MELATONIN 10 MG TABLET PO (22:00)
[2021-05-20] MEDS: oxyCODONE 5 MG Tablet PO (22:13)
[2021-05-21 05:49] VITALS: BP 115/47; PULSE 59
[2021-05-21] MEDS: Cholestyramine/Sucrose 4 GM/PACKET PO ×2 (05:49→21:32)
[2021-05-21] MEDS: amLODIPine 5 MG Tablet PO (05:49)
[2021-05-21] MEDS: Cholecalciferol (VIT D3) 25 MCG TABLET (1,000 UNITS) PO (05:49)
[2021-05-21] MEDS: Acetaminophen 500 MG Tablet 1000 MG PO ×3 (05:50→21:32)
[2021-05-21] MEDS: Lisinopril 10 MG Tablet PO (05:50)
[2021-05-21] MEDS: Sertraline 100 MG Tablet PO (05:50)
[2021-05-21] MEDS: Menthol/Lanolin/Calamine/Znox 113 GM Tube 1 APPLIC TOPICAL ×2 (05:51→17:42)
[2021-05-21] MEDS: Aspirin 81 MG TAB.CHEW PO ×2 (07:42→17:42)
[2021-05-21] MEDS: Calcium Carbonate 500 MG Tablet PO (07:42)
[2021-05-21] MEDS: Multivitamins,Therapeutic Tablet 1 TABLET PO (07:42)
--- NOTE | 2021-05-21 12:28 | MDS.RN ---
Pain interview for CUATE 05/22/21 completed.
[2021-05-21 15:26] VITALS: BP 118/63; PULSE 61; RESP 16; TEMP 37.1; O2SAT 95
--- NOTE | 2021-05-21 16:15 | CHAPLAIN ---
Type of Pastoral Visit _x__ Initial Visit ___ Follow-up Visit ___ On-call Visit ___ General Patient Visit ___ Spiritual Assessment ___ Family Conference ___ Bereavement ___ Rapid Response ___ Code Blue ___ Other (describe below) Pastoral Care Referral From _x__ Patient ___ Family ___ Nurse ___ Physician ___ Drug Regulatory Affairs Specialist ___ Formulation Chemist ___ Other (describe below) Sacrament/Intervention _x__ Active listening ___ Anointing ___ Alevism ___ Bereavement ___ Communion _x__ Mary Jo exploration ___ _x__ Life review _x__ Prayer ___ Reconciliation ___ Sacrament of Sick _x__ Supportive presence ___ Wedding ___ Other (describe below) Pastoral Comments patient is very welcoming and gives history of her injury and other health ailments in last year; pt lost her of 58 years two years ago this month and grief was briefly addressed; pt gave more life history and how she misses hosting people in her home; pt is a person of mary jo and welcomes prayer as a main source of comfort and peace; pt has large family for support
--- NOTE | 2021-05-21 18:39 | NURSING ---
Asking to not have to take TUMS. Does not feel they are neccessary. Also asking for something to help with muscle spasms. Dr Kumar aware.
[2021-05-21] MEDS: MELATONIN 10 MG TABLET PO (21:32)
[2021-05-21] MEDS: Gabapentin 100 MG Capsule 200 MG PO (21:36)
[2021-05-22] MEDS: amLODIPine 5 MG Tablet PO (04:59)
[2021-05-22] MEDS: Cholestyramine/Sucrose 4 GM/PACKET PO ×2 (04:59→17:46)
[2021-05-22] MEDS: Sertraline 100 MG Tablet PO (05:00)
[2021-05-22] MEDS: Acetaminophen 500 MG Tablet 1000 MG PO ×3 (05:00→21:21)
[2021-05-22] MEDS: Cholecalciferol (VIT D3) 25 MCG TABLET (1,000 UNITS) PO (05:00)
[2021-05-22] MEDS: Lisinopril 10 MG Tablet PO (05:00)
[2021-05-22 05:01] VITALS: BP 112/51; PULSE 73
[2021-05-22] MEDS: Menthol/Lanolin/Calamine/Znox 113 GM Tube 1 APPLIC TOPICAL ×2 (08:09→17:47)
[2021-05-22] MEDS: Aspirin 81 MG TAB.CHEW PO ×2 (08:09→17:46)
[2021-05-22] MEDS: Multivitamins,Therapeutic Tablet 1 TABLET PO (08:09)
[2021-05-22 15:35] VITALS: BP 106/57; PULSE 67; RESP 16; TEMP 36.8; O2SAT 96
[2021-05-22 19:43] VITALS: PULSE 67; RESP 16; O2SAT 96
[2021-05-22] MEDS: MELATONIN 10 MG TABLET PO (21:21)
[2021-05-23] MEDS: Acetaminophen 500 MG Tablet 1000 MG PO ×3 (05:57→21:30)
[2021-05-23] MEDS: Lisinopril 10 MG Tablet PO (05:57)
[2021-05-23] MEDS: Sertraline 100 MG Tablet PO (05:57)
[2021-05-23] MEDS: Cholestyramine/Sucrose 4 GM/PACKET PO ×2 (05:57→15:59)
[2021-05-23] MEDS: amLODIPine 5 MG Tablet PO (05:57)
[2021-05-23] MEDS: Cholecalciferol (VIT D3) 25 MCG TABLET (1,000 UNITS) PO (05:57)
[2021-05-23] MEDS: Menthol/Lanolin/Calamine/Znox 113 GM Tube 1 APPLIC TOPICAL ×2 (05:58→15:59)
[2021-05-23 08:05] LABS: Absolute Neutrophil Count 5.8 X10^3/uL (2.0-7.7); Basophil# 0.07 X10^3/uL; Basophil% 0.7 % (0-1); Eosinophil# 0.25 X10^3/uL; Eosinophils% 2.6 % (0-5); Hematocrit 35.3 % (37-47); Hemoglobin 11.2 g/dL (12.0-15.0); Lymphocyte % 28.1 % (19-41); Mean Corp Hgb Conc 31.7 g/dL (32-36); Mean Corpuscular Volume 94.6 fL (81-99); Mean Platelet Vol. 8.1 fl (6.2-12.0); Monocyte# 0.71 X10^3/uL; Monocyte% 7.4 % (0-10); NRBC Flagged by Analyzer 0 % (0-5); Neutrophil # 5.79 X10^3/uL (2.7-7.7); Neutrophil % 60.3 % (47-70); Platelet Count 430 K/mm3 (150-450); RBC Distribution Width CV 14.8 % (11.6-14.6); RBC Distribution Width SD 51.6 fl (35.1-43.9); Red Blood Count 3.73 M/mm3 (4.2-5.4); White Blood Count 9.6 K/mm3 (4.4-11.0)
[2021-05-23] MEDS: Multivitamins,Therapeutic Tablet 1 TABLET PO (08:36)
[2021-05-23] MEDS: Aspirin 81 MG TAB.CHEW PO ×2 (08:36→15:59)
[2021-05-23 08:38] LABS: Anion Gap 8 (5-15); BUN 26 mg/dL (7-18); BUN/Creat Ratio 53.3 RATIO (10-20); Calcium,Total 9.1 mg/dL (8.5-10.1); Chloride 106 mmol/L (98-107); Creatinine, Serum 0.49 mg/dL (0.55-1.02); EST Glomerular Filtration Rate 130 mL/min (>60); Est Glom Filt Rate - Afr Amer 158 mL/min (>60); Estimated Creatinine Clearance 38.35 ml/min; Glucose 113 mg/dL (74-106); Potassium 4.2 mmol/L (3.5-5.1); Sodium Level 139 mmol/L (136-145)
[2021-05-23] MEDS: Tuberculin,Purif.prot.deriv. 50 TU/ML Vial 0.1 ML ID (10:43)
[2021-05-23 13:34] VITALS: BP 134/54; PULSE 64; RESP 14; TEMP 36.8; O2SAT 94
[2021-05-23 13:35] VITALS: PULSE 64; RESP 14; O2SAT 94
[2021-05-23] MEDS: Baclofen 10 MG Tablet 5 MG PO ×2 (15:03→21:30)
[2021-05-23] MEDS: MELATONIN 10 MG TABLET PO (21:30)
[2021-05-24] MEDS: Menthol/Lanolin/Calamine/Znox 113 GM Tube 1 APPLIC TOPICAL (05:47)
[2021-05-24] MEDS: amLODIPine 5 MG Tablet PO (05:58)
[2021-05-24] MEDS: Acetaminophen 500 MG Tablet 1000 MG PO ×3 (05:59→21:41)
[2021-05-24] MEDS: Sertraline 100 MG Tablet PO (05:59)
[2021-05-24] MEDS: Cholecalciferol (VIT D3) 25 MCG TABLET (1,000 UNITS) PO (05:59)
[2021-05-24] MEDS: Cholestyramine/Sucrose 4 GM/PACKET PO ×2 (05:59→17:29)
[2021-05-24] MEDS: Lisinopril 10 MG Tablet PO (05:59)
[2021-05-24] MEDS: Multivitamins,Therapeutic Tablet 1 TABLET PO (08:19)
[2021-05-24] MEDS: Aspirin 81 MG TAB.CHEW PO ×2 (08:19→17:29)
[2021-05-24 15:56] VITALS: BP 96/50; PULSE 64; RESP 16; TEMP 36.8; O2SAT 94
[2021-05-24] MEDS: Baclofen 10 MG Tablet 5 MG PO (17:29)
[2021-05-24] MEDS: MELATONIN 10 MG TABLET PO (21:43)
[2021-05-25] MEDS: Lisinopril 10 MG Tablet PO (04:56)
[2021-05-25] MEDS: Sertraline 100 MG Tablet PO (04:56)
[2021-05-25] MEDS: Cholecalciferol (VIT D3) 25 MCG TABLET (1,000 UNITS) PO (04:56)
[2021-05-25] MEDS: Acetaminophen 500 MG Tablet 1000 MG PO ×3 (04:57→21:23)
[2021-05-25] MEDS: amLODIPine 5 MG Tablet PO (04:58)
[2021-05-25] MEDS: Cholestyramine/Sucrose 4 GM/PACKET PO ×2 (04:58→17:41)
[2021-05-25] MEDS: Menthol/Lanolin/Calamine/Znox 113 GM Tube 1 APPLIC TOPICAL ×2 (04:59→17:42)
[2021-05-25 05:12] VITALS: BP 112/54; PULSE 63; RESP 16; TEMP 36.3; O2SAT 94
[2021-05-25] MEDS: oxyCODONE 5 MG Tablet PO (08:13)
[2021-05-25] MEDS: Multivitamins,Therapeutic Tablet 1 TABLET PO (08:14)
[2021-05-25] MEDS: Aspirin 81 MG TAB.CHEW PO ×2 (08:14→17:41)
[2021-05-25 09:13] VITALS: PULSE 80; RESP 16; O2SAT 97
--- NOTE | 2021-05-25 10:00 | NURSING ---
pt off unit to dr jacinto with daughters
--- NOTE | 2021-05-25 12:16 | NURSING ---
pt returned from appt with rosey, place 4x4 gauze pad in between incision & skin fold for next 4 wks. Aspirin 81 BID x4 wks post op. f/u 4 wks.
--- NOTE | 2021-05-25 14:05 | CASEMGMT ---
Addendum entered by Sydney Shukla 05/26/21 13:59: [facility] accept pt. They will contact dtr, bambi to schedule appt. Addendum entered by Sydney Shukla 05/26/21 09:47: [facility] unable to service pt's area. Referred to several other [facility] agencies. Will continue to follow. Addendum entered by Sydney Shukla 05/26/21 09:29: [facility] unable to staff pt. Referred to [facility]. Addendum entered by Sydney Shukla 05/25/21 14:48: Spoke with Simona. She stated the plan is for pt to DC home 05/27 to dtr, Mike mcpherson, who is not going to [place] until family return Jun 08 to go back home. IDT agreeable with DC. Contacted dtr Bambi to confirm DC plan and get address. Referenced skilled [facility] list with quality and resource data - [facility] dtr's residence's. Referral made for PT/OT. No DME needs. Dtr to transport pt. Plan: DC to dtr Mike mcpherson [facility] Original Note: Social Work Left message with dtrSimona, to discuss DC plan as family has not contacted this worker from care plan meeting discussion. SW to continue to follow. ROM Anna
[2021-05-25 15:22] VITALS: BP 137/74; PULSE 84; RESP 14; TEMP 36.9; O2SAT 96
--- NOTE | 2021-05-25 18:35 | DS.PCM_ITS ---
Providers Date of Admission: 05/15/21 Primary Care Physician: Dr. Avery De Jesus MD Reason For Visit: L HIP FRACTURE Diagnosis Discharge Diagnosis (1) Debility: Status: Acute Code(s): R53.81 - Other malaise (2) Closed left hip fracture: Status: Acute Code(s): S72.002A - Fracture of unspecified part of neck of left femur, initial encounter for closed fracture (3) Hypertension: Status: Chronic Code(s): I10 - Essential (primary) hypertension (4) Depression: Status: Acute Code(s): F32.A - Depression, unspecified (5) Neuropathic pain: Status: Acute Code(s): M79.2 - Neuralgia and neuritis, unspecified (6) Chronic diarrhea: Status: Chronic Code(s): K52.9 - Noninfective gastroenteritis and colitis, unspecified Medications at Discharge Home Medications amlodipine 5 mg PO DAILY 12/24/19 lisinopril 10 mg PO DAILY 12/24/19 sertraline 100 mg PO DAILY 12/24/19 calcium carbonate 600 mg calcium (1,500 mg) tablet 600 mg PO BID tab 02/14/20 multivitamin 1 tab PO DAILY 02/14/20 gabapentin 200 mg PO TIDCM PRN 07/28/20 Probiotic 3,000 mmu cells PO DAILY 05/12/21 cholestyramine (with sugar) 4 g PO TID 05/12/21 cholecalciferol (vitamin D3) 25 mcg PO DAILY 05/15/21 senna 8.6 mg PO Q6H PRN #30 cap 05/15/21 acetaminophen 1,000 mg PO Q8 #0 tab 05/25/21 baclofen 5 mg PO TID PRN 7 Days #21 tab 05/25/21 melatonin 10 mg PO QHS 30 Days #30 tab 05/25/21 menthol-zinc oxide [Calmoseptine] 1 applic TOPICAL BID #0 g 05/25/21 oxycodone 5 mg PO Q4H PRN 7 Days #42 tab 05/25/21 Hospital Course Operations - (Left hip hemiarthroplasty.) Procedures None Summary of Care Provided Minutes Spent on Discharge: 35 Hospital Course: 76 year old female with below past medical history hospitalized for left hip fracture, underwent left hip hemiarthroplasty 05/13/[address] Jiménez, admitted to TCU with debility, here for rehabilitation, strengthening, prior to discharge home alone. Discharge to lily mcpherson 05/27/2021, [facility] Care PT/OT. Physical Exam Const alert and oriented x3 General Appearance: cooperative HEENT normocephalic Eyes PERRL and EOMs intact bilaterally Neck supple, no JVD and no carotid bruits Resp normal respiratory effort, normal air movement and clear to auscultation bilaterally Cardio regular rate and regular rhythm GI normal to inspection, nondistended, normoactive bowel sounds, non-tender and non-distended Extremity normal capillary refill General Extremity: Negative for edema Skin no rashes or lesions noted General Skin Exam: no breakdown Psych affect normal Appearance: appropriate Weight / BMI Weight Weight: 84.051 kg Body Mass Index (BMI) 32.7 ABG / Lab / Microbiology Data Result Diagrams: 05/23/21 07:47 05/23/21 07:47 D/C Instructions Discharge Diet: No restrictions Discharge Activity: Return to Normal Activity, May Shower and Use Walker Weight Bearing Status: Weight bearing as tolerated Call your doctor if you observe: Fever of 101 or Higher, Inability to urinate, Inability to have a bowel movement, Shortness of breath, Dizziness, Fainting spells, Swelling in the ankles, Chest pain and Uncontrolled pain Additional Instructions: Discharge to lily mcpherson 05/27/2021, [facility] Care PT/OT. Meaningful Use Info Meaningful Use Diagnoses (Choose all that apply): None applicable Discharge Plan Admission Admit Date/Time: 05/15/21 14:03 Primary Reason for Your Visit: Debility. Attending Provider: Ramana Kumar Chi Primary Care Provider: Avery De Jesus Instructions Additional Instructions / Restrictions: Discharge to lily cmpherson 05/27/2021, [facility] Care PT/OT. Discharge Orders/Prescriptions Prescriptions: New oxycodone 5 mg Tablet 5 mg PO Q4H PRN (Reason: Pain Score 4-10) 7 Days Qty: 42 RF: 0 acetaminophen 500 mg Tablet 1,000 mg PO Q8 Qty: 0 RF: 0 baclofen 10 mg Tablet 5 mg PO TID PRN (Reason: Muscle Spasm) 7 Days Qty: 21 RF: 0 melatonin 10 mg Tablet, Sublingual 10 mg PO QHS 30 Days Qty: 30 RF: 0 menthol-zinc oxide [Calmoseptine] 0.44-20.6 % Ointment 1 applic topical BID Qty: 0 RF: 0 Continued calcium carbonate 600 mg calcium (1,500 mg) tablet 600 mg PO BID RF: 0 multivitamin Tablet 1 tab PO DAILY RF: 0 sertraline 100 MG tablet 100 mg PO DAILY RF: 0 amlodipine 5 MG tablet 5 mg PO DAILY RF: 0 lisinopril 10 MG tablet 10 mg PO DAILY RF: 0 gabapentin 100 MG capsule 200 mg PO TIDCM PRN (Reason: nerve pain) RF: 0 cholestyramine (with sugar) 4 gram Powder In Packet 4 g PO TID RF: 0 Probiotic 3 billion cell Capsule 3,000 mmu cells PO DAILY RF: 0 senna 8.6 mg capsule 8.6 mg PO Q6H PRN (Reason: constipation) Qty: 30 RF: 0 cholecalciferol (vitamin D3) 25 mcg (1,000 unit) capsule 25 mcg PO DAILY RF: 0 Discontinued oxycodone 5 mg capsule 5 mg PO Q8H PRN (Reason: pain) 7 Days Qty: 21 RF: 0 aspirin 81 mg tablet,chewable 81 mg PO BID RF: 0 Referrals / Follow Up: Avery De Jesus MD [Primary Care Provider] - Within 2 Weeks (follow up 2 weeks after TCU discharge) Britton Jiménez MD [STAFF PHYSICIAN] - 06/25/21 10:15 am (F/U is with [facility]. Daughters to take) Disposition Disposition (needs filled in before D/C Order can be placed): Home Health Service
[2021-05-25] MEDS: MELATONIN 10 MG TABLET PO (21:23)
[2021-05-26] MEDS: Sertraline 100 MG Tablet PO (06:03)
[2021-05-26] MEDS: Cholecalciferol (VIT D3) 25 MCG TABLET (1,000 UNITS) PO (06:03)
[2021-05-26] MEDS: Lisinopril 10 MG Tablet PO (06:03)
[2021-05-26] MEDS: amLODIPine 5 MG Tablet PO (06:03)
[2021-05-26] MEDS: Cholestyramine/Sucrose 4 GM/PACKET PO ×2 (06:03→18:32)
[2021-05-26] MEDS: Menthol/Lanolin/Calamine/Znox 113 GM Tube 1 APPLIC TOPICAL ×2 (06:05→17:36)
[2021-05-26] MEDS: Acetaminophen 500 MG Tablet 1000 MG PO ×3 (06:06→19:55)
[2021-05-26 06:08] VITALS: BP 143/62; PULSE 67
[2021-05-26] MEDS: Aspirin 81 MG TAB.CHEW PO ×2 (07:51→17:35)
[2021-05-26] MEDS: Multivitamins,Therapeutic Tablet 1 TABLET PO (07:51)
[2021-05-26 13:36] VITALS: BP 106/61; PULSE 78; RESP 16; TEMP 36.2; O2SAT 98
[2021-05-26] MEDS: MELATONIN 10 MG TABLET PO (19:55)
[2021-05-26 19:58] VITALS: PULSE 85; RESP 16; O2SAT 96
[2021-05-27] MEDS: amLODIPine 5 MG Tablet PO (06:19)
[2021-05-27] MEDS: Acetaminophen 500 MG Tablet 1000 MG PO (06:20)
[2021-05-27] MEDS: Cholestyramine/Sucrose 4 GM/PACKET PO (06:20)
[2021-05-27] MEDS: Lisinopril 10 MG Tablet PO (06:20)
[2021-05-27] MEDS: Sertraline 100 MG Tablet PO (06:20)
[2021-05-27] MEDS: Menthol/Lanolin/Calamine/Znox 113 GM Tube 1 APPLIC TOPICAL (06:20)
[2021-05-27] MEDS: Cholecalciferol (VIT D3) 25 MCG TABLET (1,000 UNITS) PO (06:20)
[2021-05-27] MEDS: Aspirin 81 MG TAB.CHEW PO (07:58)
[2021-05-27] MEDS: Multivitamins,Therapeutic Tablet 1 TABLET PO (07:58)
[2021-05-27 10:00] VITALS: PULSE 90; RESP 18; O2SAT 96
[2021-05-27 12:26] VITALS: BP 139/67; PULSE 86; RESP 16; TEMP 36.6; O2SAT 95
--- NOTE | 2021-05-27 13:12 | MDS.RN ---
Information for the mds was obtained from review of the clinical record, interview of resident, staff, and direct observation of resident's care.
== END 2021-05-27 13:10 | disposition home health service (06) | DRG 561 ==
PROVIDERS: Admitting Provider Family Medicine Geriatric Medicine; PCP Family Medicine; Visit Provider Family Medicine Geriatric Medicine
DX: S72.002D Fracture of unspecified part of neck of left femur, subsequent encounter for closed fracture with routine healing (principal); W19.XXXD Unspecified fall, subsequent encounter; K21.9 Gastro-esophageal reflux disease without esophagitis; R73.03 Prediabetes; I10 Essential (primary) hypertension; F32.A Depression, unspecified; Z86.16 Personal history of COVID-19; Z79.899 Other long term (current) drug therapy; Z79.82 Long term (current) use of aspirin; E55.9 Vitamin D deficiency, unspecified
CPT/HCPCS: 36415; 80048; 85025; 87635; 97110; 97116; 97162; 97166; 97530; 97535; 97802; U0003

== ENCOUNTER 2021-08-31 12:02 | Outpatient (CLI) | payer MEDICARE, SELFPAY ==
[2021-08-31 15:16] LABS: Hemoglobin 12.1 g/dL (12.0-15.0); Mean Corpuscular Hgb 29.1 pg (27.0-32.0); Mean Corpuscular Volume 93.8 fL (81-99); Mean Platelet Vol. 8.8 fl (6.2-12.0); Platelet Count 250 K/mm3 (150-450); RBC Distribution Width CV 15.5 % (11.6-14.6); RBC Distribution Width SD 53.3 fl (35.1-43.9); Red Blood Count 4.16 M/mm3 (4.2-5.4); White Blood Count 8.3 K/mm3 (4.4-11.0)
[2021-08-31 15:38] LABS: Hemoglobin A1c 5.6 % (3.8-5.6)
[2021-08-31 15:43] LABS: ALB/GLOB Ratio 0.9 RATIO (0.9-2.4); AST(SGOT) 25 U/L (15-37); Alanine Aminotransfer ALT/SGPT 26 U/L (13-56); Albumin, Serum 3.5 g/dL (3.2-5.0); Alkaline Phosphatase 98 U/L (45-117); Anion Gap 6 (5-15); BUN 33 mg/dL (7-18); Calcium,Total 9.1 mg/dL (8.5-10.1); Chloride 109 mmol/L (98-107); Creatinine, Serum 0.54 mg/dL (0.55-1.02); EST Glomerular Filtration Rate 116 mL/min (>60); Est Glom Filt Rate - Afr Amer 140 mL/min (>60); Globulin 4.1 g/dL (2.2-4.2); Glucose 90 mg/dL (74-106); Potassium 4.2 mmol/L (3.5-5.1); Protein, Total 7.6 g/dL (6.4-8.2); Sodium Level 141 mmol/L (136-145)
== END 2021-08-31 23:59 | disposition home or self-care (01) ==
LOC: MFPLAB 12:04
PROVIDERS: PCP Family Medicine; Visit Provider Dentist
DX: M48.061 Spinal stenosis, lumbar region without neurogenic claudication (principal); E11.9 Type 2 diabetes mellitus without complications
CPT/HCPCS: 36415; 80053; 83036; 85027

== ENCOUNTER → 2022-01-08 | Outpatient (CLI) | payer MEDICARE, SELFPAY ==
[2022-01-08 10:08] LABS: Absolute Lymphocyte Count 1.48 X10^3/uL (0.83-4.51); Absolute Neutrophil Count 4.7 X10^3/uL (2.0-7.7); Basophil# 0.04 X10^3/uL; Basophil% 0.6 % (0-1); Eosinophil# 0.13 X10^3/uL; Eosinophils% 1.9 % (0-5); Hematocrit 40.9 % (37-47); Hemoglobin 12.9 g/dL (12.0-15.0); Lymphocyte # 1.48 X10^3/ul (0.83-4.51); Lymphocyte % 21.9 % (19-41); Mean Corp Hgb Conc 31.5 g/dL (32-36); Mean Corpuscular Hgb 30.3 pg (27.0-32.0); Mean Platelet Vol. 8.7 fl (6.2-12.0); Monocyte# 0.43 X10^3/uL; Monocyte% 6.4 % (0-10); NRBC Flagged by Analyzer 0 % (0-5); Neutrophil # 4.66 X10^3/uL (2.7-7.7); Neutrophil % 69.1 % (47-70); Platelet Count 224 K/mm3 (150-450); RBC Distribution Width CV 14.5 % (11.6-14.6); RBC Distribution Width SD 51.4 fl (35.1-43.9); Red Blood Count 4.26 M/mm3 (4.2-5.4); White Blood Count 6.8 K/mm3 (4.4-11.0)
[2022-01-08 10:32] LABS: ALB/GLOB Ratio 0.8 RATIO (0.9-2.4); AST(SGOT) 23 U/L (15-37); Alanine Aminotransfer ALT/SGPT 29 U/L (13-56); Albumin, Serum 3.3 g/dL (3.2-5.0); Alkaline Phosphatase 94 U/L (45-117); Anion Gap 5 (5-15); BUN 24 mg/dL (7-18); BUN/Creat Ratio 35.8 RATIO (10-20); Calcium,Total 8.9 mg/dL (8.5-10.1); Chloride 107 mmol/L (98-107); Creatinine, Serum 0.67 mg/dL (0.55-1.02); EST Glomerular Filtration Rate 90 mL/min (>60); Est Glom Filt Rate - Afr Amer 109 mL/min (>60); Globulin 4.1 g/dL (2.2-4.2); Glucose 111 mg/dL (74-106); Potassium 3.7 mmol/L (3.5-5.1); Protein, Total 7.4 g/dL (6.4-8.2); Sodium Level 139 mmol/L (136-145)
[2022-02-02 17:57] LABS: Pancreatic Elastase, Fecal 70 (>200)
== END | disposition home or self-care (01) ==
LOC: MFPLAB 09:27
PROVIDERS: PCP Family Medicine; Referring Provider Family Medicine; Visit Provider Family Medicine
DX: L28.0 Lichen simplex chronicus (principal); R19.7 Diarrhea, unspecified
CPT/HCPCS: 36415; 80053; 82140; 82653; 85025

== ENCOUNTER 2022-07-22 10:00 | Outpatient (RCR) | payer MEDICARE, SELFPAY ==
[2022-07-15 09:58] VITALS: BP 163/73; PULSE 69; RESP 16; TEMP 36.1; BMI 33.3
--- NOTE | 2022-07-15 11:05 | HP.PCM_ITS ---
History of Present Illness Date of Service: 07/15/22 Chief Complaint: Right Buttock Ulcer History of Wound: Ms. Gómez is a 77 yo who was referred to the wound center by her PCP due to nonhealing right buttock ulcer. Noted about 3 weeks ago. Had been sitting in her recliner a lot due to left lower extremity pain status post joint replacements. Following visit to her primary care physician, she has been applying DuoDERM with no significant change. She reports a history of diabetes mellitus type 2 which is per patient well-controlled. Last A1c was in August and this was at 5.6. She states that she has a good appetite. No chills, fever or otherwise feeling of unwell. [facility] Medical History (Updated 07/15/22 @ 11:[address] Gemini Vázquez MD) Acid reflux Back problem Borderline diabetes COVID-19 Decubitus ulcer of right buttock, stage 3 Depression Diarrhea Fracture of left hip History of stress test Hypertension Lumbar stenosis without neurogenic claudication Status post L4-L5 laminectomy Type 2 diabetes mellitus Urinary incontinence Home Medications sertraline 100 mg tablet 100 mg PO DAILY depression 12/24/19 [History Last Taken 05/12/21] multivitamin 1 tab PO DAILY vitamin 02/14/20 [History Last Taken 05/12/21] gabapentin 100 mg capsule 200 mg PO TIDCM PRN nerve pain 07/28/20 [History Last Taken Unknown] cholestyramine (with sugar) 4 gram powder for susp in a packet 4 g PO TID di arrhea 05/12/21 [History Last Taken Unknown] lactobacillus combination no.4 3 billion cell capsule (Probiotic) 3,000 mmu cells PO DAILY diarrhea 05/12/21 [History Last Taken 05/12/21] cholecalciferol (vitamin D3) 25 mcg (1,000 unit) capsule 25 mcg PO DAILY supplement 05/15/21 [History Last Taken Unknown] melatonin 10 mg sublingual tablet 10 mg PO QHS 30 days #30 tabs 05/25/21 [Rx Last Taken Unknown] acetaminophen 500 mg tablet 1,000 mg PO Q8 PRN Pain 07/15/22 [History Last Taken Unknown] aspirin 81 mg capsule 81 mg PO DAILY 07/15/22 [History Last Taken Unknown] Allergy/AdvReac Type Severity Reaction Status Date / Time Penicillins [PCN] Allergy Hives Verified 08/19/20 06:27 Family History Father Lung cancer Diabetes Sister Lung cancer Surgical History (Updated 05/23/21 @ 00:00 by Background Daemon) History of back surgery History of hemiarthroplasty of left hip History of repair of hiatal hernia Hx of cholecystectomy Hx of shoulder surgery Hx of tubal ligation Status post right knee replacement Social History (Updated 05/15/21 @ 18:[address] Ramana Kumar MD) household members: other details: Lives alone in in-law suite but son and daughter's dwellings connected. Smoking Status: Never smoker second hand exposure: No alcohol intake: never substance use type: does not use caffeine: Yes what type of physical activity do you participate in: none frequency: does not exercise ROS Constitutional Constitutional: Denies change in weight, chills, excessive sweating, lethargy, malaise or night sweats Eyes Eyes: Denies bloody eye, change in eye color, decreased night vision, diplopia, discharge from eye(s), erythema or excessive blinking ENT HEENT: Denies dysphagia, epistaxis, facial pain, foreign body in nose, halitosis, headache(s) or hearing loss Cardiovascular Cardiovascular: Denies abdominal pain, arrhythmia on telemetry, chest pain, chest pain with activity, claudication, cold extremities, dyspnea on exertion or easily tiring during activity Respiratory/Chest Respiratory/Chest: Denies difficulty clearing secretions, dry cough, dusky skin, dyspnea, dyspnea on exertion, excessive phlegm production or hemoptysis Gastrointestinal Gastrointestinal: Denies change in bowel habits, chewing difficulty, coffee ground emesis, cramping, dyspepsia, early satiety or excessive flatus Genitourinary Genitourinary: Denies abdominal discomfort, anuria, difficulty urinating, dysuria, genital lesions or itching Musculoskeletal Musculoskeletal: Reports joint pain; Denies deformity, muscle spasms, muscle weakness, numbness, tingling or tremors Integumentary Integumentary: Reports wounds; Denies bleeding lesions, erythema, furuncle, nail changes, photosensitivity, pruritus or skin swelling Neurologic Neurologic: Denies abnormal movements, abnormal speech, burning sensations, confusion, dizziness, focal weakness, frequent falls or headache(s) Psychiatric Psychiatric: Denies auditory hallucinations, behavioral changes, change in appetite, change in libido, confusion, depression, difficulty concentrating or hallucinations Endocrine Endocrinology: Denies change in body appearance, cold intolerance, deepening of the voice, excessive sweating, fatigue or flushing Hematologic/Lymphatic Hematologic/Lymphatic: Denies easy bleeding, easy bruising or lymphadenopathy Allergic/Immunologic Allergic/Immunologic: Denies lip swelling, seasonal rhinorrhea, rhinitis, throat swelling, tongue swelling or hives Vital Signs Vital Signs Vital Signs: 07/15/22 09:58 Temperature 96.9 F L Temperature Source Temporal Pulse Rate 69 Respiratory Rate 16 Blood Pressure 163/73 H Blood Pressure Mean 103 Blood Pressure Source Monitor Blood Pressure Position Sitting Blood Pressure Location Left Arm Oxygen Delivery Method Room Air Weight Weight: 188 lb Body Mass Index (BMI) 33.3 Physical Exam Const alert, oriented x3 and no apparent distress General Appearance: cooperative, comfortable and well developed HEENT normocephalic, head/scalp atraumatic and hearing grossly normal bilaterally Eyes EOMs intact bilaterally General Eye: normal appearance of both eyes Neck full ROM General: normal visual inspection Resp normal respiratory effort and normal air movement Effort and Inspection: able to speak in complete sentences Cardio regular rate, regular rhythm, S1 normal heart sound and S2 normal heart sound GI soft to palpation and non-tender Extremity General Extremity: edema Skin Wounds: wounds noted Neuro oriented x3, CN's II-XII intact bilaterally and moves all extremities Debridement Note Debridement Note Wound debrided: Right buttock Type of Debridement: Excisional debridement Anesthesia Used: 5% Lidocaine Gel Depth: Down to and including healthy tissue and in the subcutaneous layer Percentage of wound debrided: 100 Instrument Used: 3mm curette, #15 blade and Forceps Tissue Removed: Slough and devitalized tissue Severity: Fat Layer Exposed Amount of bleeding with debridement: Mild Bleeding Controlled with: Pressure Patient tolerated procedure: Patient tolerated procedure well Post-Debridement Measurements and Additional Note: Post-Debridement Measurements/Treatment - Nurse 1 - General Ulcer Assessment Start: 07/15/22 09:58 Freq: Status: Active Protocol: YADIRA Activity Type Activity Date Activity User E-sign Co-sign Detail Recorded Client Recorded Date Recorded By Document 07/15/22 09:58 [facility] [id number] 07/15/22 10:16 [facility] 07/15/22 09:58 - Today's Visit Information Type of service Initial Visit Arrival Mode Ambulatory, Walker Transfer Assistance None Accompanied by daughter Patient Identification Verified (Name & Yes ) Patient Requires Transmission-Based No Precautions Height and Weight Height 5 ft 3 in Weight 188 lb Weight in Pounds 188.0 lbs Weight Measurement Method Estimated by Patient Body Mass Index (BMI) 33.3 BMI Classification Obese BSA - Satish 1.88 Vital Signs Temperature (97.8 F-99.1 F) 96.9 F L Temperature Source Temporal Pulse Rate (60-100) 69 Pulse Location Monitor Respiratory Rate (12-18) 16 Respiratory rate source Observation Oxygen Delivery Method Room Air Blood Pressure (90/60-120/80) 163/73 H Blood Pressure Mean 103 Source Monitor Position Sitting Blood Pressure Location Left Arm History Since Last Visit- (Skip if this is Patient's initial visit) Left Footwear Regular Shoe Right Footwear Regular Shoe Pain Scale: 0-10 Numeric Is Patient Pain Free? Yes Communication Assessment Preferred language Dutch Cycle Director Required No Able to Read Yes Able to Write Yes Communication Tools None Right Hearing Abillity Normal Left Hearing Abillity Normal Visual Assistive Devices Glasses Teaching Assessment Preferences Verbal,Written, Audio/Visual, Demonstration Barriers to Learning None Readiness To Learn Excellent Willingness to Engage in Self Management High Activies Readiness to Engage in Self Management High Activities Anxiety Level Calm Cooperation Cooperative Perception Coherent Interest in Health Problem Asks Questions Education Importance Acknowledges Need Does Patient Smoke tobacco or other No substances Smoking Status Never smoker Is Patient Diabetic No Functional Assessment Recent Decline in Ability to Perform Denies Any Declines 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 Cultural/Methodist Needs that may affect No Treatment Plan Teaching: Wound Center *Welcome to the Wound Center -Person Taught Patient,Family -Teaching Method Discussion -Response to teaching Verbalize understanding Welcome to the Wound Care Center English COOK - Nurse 1 - General Ulcer Measurement Start: 07/15/22 09:58 Freq: Status: Active Protocol: Activity Type Activity Date Activity User E-sign Co-sign Detail Recorded Client Recorded Date Recorded By Document 07/15/22 09:58 [facility] [id number] 07/15/22 10:16 [facility] 07/15/22 09:58 Wound Center Nurse 1 #1- R BUTTOCK -Combined with other wound No -Current Size (cm) - Length 2 -Current Size (cm) - Width 0.9 -Current Size (cm) - Depth 0.1 -Total Square Cm 1.8 -Date of Last Picture (Recall this 07/15/22 field) -Photo Taken Yes -Epithelialization None Present -Tunneling No -Undermining/Tunneling No -Circular Undermining No -Exudate Amt Small -Exudate Type Serous -Wound Margin Distinct, Outline Attached -Granulation Amt None Present (0 %) -Slough/Fibrin Yes -Necrosis Amt Large (67-100%) -Necrotic Tissue Type Adherent Slough -Texture (Gail-wound Skin Appearance) Assessed, Scarring -Moisture (Gail-wound Skin Appearance) Assessed -Color (Gail-wound Skin Appearance) Assessed -Temperature (Gail-wound Skin No Abnormality Appearance) (Pt Warm) -Tenderness on Palpation (Gail-wound No Skin Appearance) -Ulcer Cleansing Rinsed/ Irrigated with Saline -Foul Odor after Cleansing No -Anesthetic Used 5% Lidocaine Gel WC - Nurse 2 - General Ulcer CM Notes Start: 07/15/22 09:58 Freq: Status: Active Protocol: Activity Type Activity Date Activity User E-sign Co-sign Detail Recorded Client Recorded Date Recorded By Document 07/15/22 10:30 MW [id number] 07/15/22 10:39 MW 07/15/22 10:30 Wound Center Nurse 2 -Time 10:30 -Correct Patient Yes -Correct Side, Site, Position Yes -Correct Procedure Yes -Procedure Performed Yes -Type of Procedure Debridement -Clinical Debridement Subcutaneous -Tissue Removed Subcutaneous -Post Debridement (cm) - Length 2.0 -Post Debridement (cm) - Width 0.8 -Post Debridement (cm) - Depth 0.1 -Total Square (Post) (cm) 1.60 -Area of Debridement (cm) - Length 2.0 -Area of Debridement (cm) - Width 0.8 -Total Square (Area) (cm) 1.60 -Tunneling No -Undermining/Tunneling No -Circular Undermining No -Wound/Ulcer Outcome Not Healed -Ulcer Cleansing Rinsed/ Irrigated with Saline -Foul Odor after Cleansing No -Bioengineered Tissue No -Bleeding Controlled with Pressure -Treatment Response Procedure Tolerated Well -Offloading No -Debridement - Subq, 1st 20sq cm Yes Pain Scale: 0-10 Numeric Is Patient Pain Free? Yes Charges/Coding Visit Charges Office Visits / Consults: [id number] OV L4 New Procedures Integumentary 111xxx-113xx: 49370 Trudy subq tissue 20 sq cm/< Assessment/Plan Assessment/Plan (1) Decubitus ulcer of right buttock, stage 3: CODE(S): L89.313 - Pressure ulcer of right buttock, stage 3 (2) Type 2 diabetes mellitus: CODE(S): E11.9 - Type 2 diabetes mellitus without complications PLAN: Plan Debridement done as documented above, procedure was well-tolerated. No cultures taken today. Labs however ordered including CBC, CMP, prealbumin, A1c, ESR and CRP. Will review. Apply Santyl to right buttock ulcer daily. Cover with Adaptic and gauze. Offloading very strongly recommended. Increase protein intake. Continue lifestyle and dietary modifications for diabetes management for now, will review labs. Vitamin C, D and zinc also are recommended. Their questions were answered and they were advised to call with any further questions or concerns. Follow-up in a week. This note was generated with [employer] dictation software. It may contain incorrect words, spelling, and punctuation that were not noted in checking the note before signing.
[2022-07-15 11:29] LABS: Absolute Lymphocyte Count 2.28 X10^3/uL (0.83-4.51); Absolute Neutrophil Count 4.5 X10^3/uL (2.0-7.7); Basophil# 0.04 X10^3/uL; Basophil% 0.5 % (0-1); Eosinophil# 0.18 X10^3/uL; Eosinophils% 2.4 % (0-5); Hematocrit 39.4 % (37-47); Lymphocyte # 2.28 X10^3/ul (0.83-4.51); Lymphocyte % 29.9 % (19-41); Mean Corpuscular Hgb 30.7 pg (27.0-32.0); Mean Corpuscular Volume 93.1 fL (81-99); Mean Platelet Vol. 8.5 fl (6.2-12.0); Monocyte# 0.65 X10^3/uL; Monocyte% 8.5 % (0-10); NRBC Flagged by Analyzer 0 % (0-5); Neutrophil # 4.46 X10^3/uL (2.7-7.7); Neutrophil % 58.4 % (47-70); Platelet Count 199 K/mm3 (150-450); RBC Distribution Width CV 14.9 % (11.6-14.6); RBC Distribution Width SD 50.5 fl (35.1-43.9); Red Blood Count 4.23 M/mm3 (4.2-5.4); White Blood Count 7.6 K/mm3 (4.4-11.0)
[2022-07-15 12:30] LABS: ALB/GLOB Ratio 0.8 RATIO (0.9-2.4); AST(SGOT) 20 U/L (15-37); Alanine Aminotransfer ALT/SGPT 26 U/L (13-56); Albumin, Serum 3.3 g/dL (3.2-5.0); Alkaline Phosphatase 80 U/L (45-117); Anion Gap 6 (5-15); BUN 26 mg/dL (7-18); BUN/Creat Ratio 46.7 RATIO (10-20); Calcium,Total 9.4 mg/dL (8.5-10.1); Chloride 108 mmol/L (98-107); Creatinine, Serum 0.56 mg/dL (0.55-1.02); EST Glomerular Filtration Rate 112 mL/min (>60); Est Glom Filt Rate - Afr Amer 135 mL/min (>60); Estimated Creatinine Clearance 37.74 ml/min; Globulin 3.9 g/dL (2.2-4.2); Glucose 105 mg/dL (74-106); Potassium 4.2 mmol/L (3.5-5.1); Prealbumin 18.5 mg/dL (20.0-40.0); Protein, Total 7.2 g/dL (6.4-8.2); Sodium Level 141 mmol/L (136-145)
[2022-07-22 10:09] VITALS: BP 185/88; PULSE 68; RESP 18; TEMP 36.2; BMI 33.3
--- NOTE | 2022-07-22 14:15 | PN.PCM_ITS ---
History of Present Illness Date of Service: 07/22/22 Chief Complaint: Right Buttock Ulcer History of Wound: Ms. Gómez is a 77 yo who was referred to the wound center by her PCP due to nonhealing right buttock ulcer. Noted about 3 weeks ago. Had been sitting in her recliner a lot due to left lower extremity pain status post joint replacements. Following visit to her primary care physician, she has been applying DuoDERM with no significant change. She reports a history of diabetes mellitus type 2 which is per patient well-controlled. Last A1c was in August and this was at 5.6. She states that she has a good appetite. No chills, fever or otherwise feeling of unwell. Progress of Wound: Improving. No new concerns at this time. Objective Data Objective Data Vital Signs: Vital Signs Temp Pulse Resp BP O2 Del Method 97.1 F L 68 18 185/88 H Room Air 07/22/22 10:07/22/22 10:07/22/22 10:07/22/22 10:07/15/22 09:58 Oxygen Delivery Method Room Air Weight: 188 lb Body Mass Index (BMI) 33.3 Lab / Micro Data Result Diagrams: 07/15/22 11:03 07/15/22 11:03 Charges/Coding Procedures Integumentary 111xxx-113xx: 12500 Trudy subq tissue 20 sq cm/< Physical Exam Const alert, oriented x3 and no apparent distress General Appearance: cooperative, comfortable and well developed HEENT normocephalic, head/scalp atraumatic and hearing grossly normal bilaterally Eyes EOMs intact bilaterally General Eye: normal appearance of both eyes Neck full ROM General: normal visual inspection Resp normal respiratory effort and normal air movement Effort and Inspection: able to speak in complete sentences Cardio regular rate, regular rhythm, S1 normal heart sound and S2 normal heart sound GI soft to palpation and non-tender Extremity General Extremity: edema Skin Wounds: wounds noted Neuro oriented x3, CN's II-XII intact bilaterally and moves all extremities Debridement Note Debridement Note Wound debrided: Right buttock Type of Debridement: Excisional debridement Anesthesia Used: 5% Lidocaine Gel Depth: Down to and including healthy tissue and in the subcutaneous layer Percentage of wound debrided: 100 Instrument Used: 3mm curette Tissue Removed: Slough and devitalized tissue Severity: Fat Layer Exposed Amount of bleeding with debridement: Mild Bleeding Controlled with: Pressure Patient tolerated procedure: Patient tolerated procedure well Post-Debridement Measurements and Additional Note: Post-Debridement Measurements/Treatment WC - Nurse 1 - General Ulcer Assessment Start: 07/15/22 09:58 Freq: Status: Active Protocol: YADIRA Activity Type Activity Date Activity User E-sign Co-sign Detail Recorded Client Recorded Date Recorded By Document 07/15/22 09:58 BMF [id number] 07/15/22 10:16 BMF Document 07/22/22 10:09 DL [id number] 07/22/22 10:15 DL 07/15/22 07/22/22 09:58 10:09 WC - Today's Visit Information Type of service Initial Visit Follow-up Visit (Physician/CYBER SECURITY MANAGER ) Arrival Mode Ambulatory, Ambulatory, Walker Walker Transfer Assistance None None Accompanied by daughter Patient Identification Verified (Name & Yes Yes ) Patient Requires Transmission-Based No No Precautions Finger Stick Blood Sugar(mg/dl) (if doesnt check indicated): Blood Sugar Stated by Patient Height and Weight Height 5 ft 3 in Weight 188 lb Weight in Pounds 188.0 lbs Weight Measurement Method Estimated by Patient Body Mass Index (BMI) 33.3 33.3 BMI Classification Obese Obese BSA - Satish 1.88 Vital Signs Temperature (97.8 F-99.1 F) 96.9 F L 97.1 F L Temperature Source Temporal Temporal Pulse Rate (60-100) 69 68 Pulse Location Monitor Monitor Respiratory Rate (12-18) 16 18 Respiratory rate source Observation Observation Oxygen Delivery Method Room Air Blood Pressure (90/60-120/80) 163/73 H 185/88 H Blood Pressure Mean (mm Hg) 103 120 Source Monitor Monitor Position Sitting Blood Pressure Location Left Arm History Since Last Visit- (Skip if this is Patient's initial visit) Have you changed medications since your No last visit? Any new allergies or adverse reactions No Had a fall/change in ADL's that may No increase risk of falls Signs or symptoms of abuse and/or No neglect since last visit Have you been in the hospital since your No last visit? Has dressing in place as prescribed Yes Has compression in place as prescribed N/A Has offloadiing in place as prescribed Yes Experienced any changes in pain level or No management Left Footwear Regular Shoe Right Footwear Regular Shoe Pain Scale: 0-10 Numeric Is Patient Pain Free? Yes Yes Communication Assessment Preferred language Andorran Soft Crab Shedder Required No Able to Read Yes Able to Write Yes Communication Tools None Right Hearing Abillity Normal Left Hearing Abillity Normal Visual Assistive Devices Glasses Teaching Assessment Preferences Verbal,Written, Audio/Visual, Demonstration Barriers to Learning None Readiness To Learn Excellent Willingness to Engage in Self Management High Activies Readiness to Engage in Self Management High Activities Anxiety Level Calm Cooperation Cooperative Perception Coherent Interest in Health Problem Asks Questions Education Importance Acknowledges Need Does Patient Smoke tobacco or other No substances Smoking Status Never smoker Is Patient Diabetic No Functional Assessment Recent Decline in Ability to Perform Denies Any Declines 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 Cultural/Mandaeism Needs that may affect No Treatment Plan Teaching: Wound Center *Welcome to the Wound Center -Person Taught Patient,Family -Teaching Method Discussion -Response to teaching Verbalize understanding Welcome to the Wound Care Center English COOK - Nurse 1 - General Ulcer Measurement Start: 07/15/22 09:58 Freq: Status: Active Protocol: Activity Type Activity Date Activity User E-sign Co-sign Detail Recorded Client Recorded Date Recorded By Document 07/15/22 09:58 [facility] [id number] 07/15/22 10:16 [facility] Document 07/22/22 10:09 DL [id number] 07/22/22 10:15 DL 07/15/22 07/22/22 09:58 10:09 Wound Center Nurse 1 #1- R BUTTOCK -Combined with other wound No -Current Size (cm) - Length 2 1.5 -Current Size (cm) - Width 0.9 0.5 -Current Size (cm) - Depth 0.1 0.1 -Total Square Cm 1.8 0.75 -Date of Last Picture (Recall this 07/15/22 field) -Photo Taken Yes No -Epithelialization None Present -Tunneling No -Undermining/Tunneling No -Circular Undermining No -Exudate Amt Small Small -Exudate Type Serous -Wound Margin Distinct, Distinct, Outline Outline Attached Attached -Granulation Amt None Present (0 Large (67-100%) %) -Granulation Quality [place] -Slough/Fibrin Yes -Necrosis Amt Large (67-100%) None Present (0 %) -Necrotic Tissue Type Adherent Slough -Structure Exposed N/A -Texture (Gail-wound Skin Appearance) Assessed, Scarring Scarring -Moisture (Gail-wound Skin Appearance) Assessed No Abnormality -Color (Gail-wound Skin Appearance) Assessed No Abnormality -Temperature (Gail-wound Skin No Abnormality No Abnormality Appearance) (Pt Warm) (Pt Warm) -Tenderness on Palpation (Gail-wound No No Skin Appearance) -Ulcer Cleansing Rinsed/ Rinsed/ Irrigated with Irrigated with Saline Saline -Foul Odor after Cleansing No No -Anesthetic Used 5% Lidocaine 5% Lidocaine Gel Gel - Nurse 2 - General Ulcer CM Notes Start: 07/15/22 09:58 Freq: Status: Active Protocol: Activity Type Activity Date Activity User E-sign Co-sign Detail Recorded Client Recorded Date Recorded By Document 07/15/22 10:30 MW [id number] 07/15/22 10:39 MW Document 07/22/22 10:39 MW [id number] 07/22/22 10:43 MW 07/15/22 07/22/22 10:30 10:39 Wound Center Nurse 2 #1- R BUTTOCK -Time 10:30 10:39 -Correct Patient Yes Yes -Correct Side, Site, Position Yes Yes -Correct Procedure Yes Yes -Procedure Performed Yes Yes -Type of Procedure Debridement Debridement -Clinical Debridement Subcutaneous Subcutaneous -Tissue Removed Subcutaneous Subcutaneous -Post Debridement (cm) - Length 2.0 1.6 -Post Debridement (cm) - Width 0.8 0.4 -Post Debridement (cm) - Depth 0.1 0.1 -Total Square (Post) (cm) 1.60 0.64 -Area of Debridement (cm) - Length 2.0 1.6 -Area of Debridement (cm) - Width 0.8 0.4 -Total Square (Area) (cm) 1.60 0.64 -Tunneling No No -Undermining/Tunneling No No -Circular Undermining No No -Wound/Ulcer Outcome Not Healed Not Healed -Ulcer Cleansing Rinsed/ Rinsed/ Irrigated with Irrigated with Saline Saline -Foul Odor after Cleansing No No -Bioengineered Tissue No No -Bleeding Controlled with Pressure Pressure -Treatment Response Procedure Procedure Tolerated Well Tolerated Well -Offloading No No -Debridement - Subq, 1st 20sq cm Yes Yes Pain Scale: 0-10 Numeric Is Patient Pain Free? Yes Yes - Nurse 3 - General Ulcer D/C NN Start: 07/15/22 09:58 Freq: Status: Active Protocol: Activity Type Activity Date Activity User E-sign Co-sign Detail Recorded Client Recorded Date Recorded By Document 07/15/22 11:31 [facility] [id number] 07/15/22 11:31 [facility] Document 07/22/22 10:47 [facility] [id number] 07/22/22 10:48 [facility] 07/15/22 07/22/22 11:31 10:47 Wound Care Center Nurse 3 #1- R BUTTOCK -Ulcer Cleansing Rinsed/ Rinsed/ Irrigated with Irrigated with Saline Saline -Foul Odor after Cleansing No No -Primary Dressing Applied NonAdherent NonAdherent Contact Layer, Contact Layer, Mepilex Border Mepilex Border -Other Dressing hydrogel hydrogel -Mepilex Border 2 1 Treatment Response Procedure Procedure Tolerated Well Tolerated Well Pain Scale: 0-10 Numeric Is Patient Pain Free? Yes Yes WC - Visit Discharge Discharge Condition Stable Stable Ambulatory Status Ambulatory, Ambulatory, Walker Walker Transportation Private Auto Private Auto Accompanied by lul daughter Assessment/Plan Assessment/Plan (1) Decubitus ulcer of right buttock, stage 3: CODE(S): L89.313 - Pressure ulcer of right buttock, stage 3 (2) Type 2 diabetes mellitus: CODE(S): E11.9 - Type 2 diabetes mellitus without complications PLAN: Plan Debridement done as documented above, procedure was well-tolerated. Improving. Continue Santyl to right buttock ulcer daily. Cover with Adaptic, gauze and foam dressing. Offloading very strongly recommended. Increase protein intake. Continue lifestyle and dietary modifications for diabetes management. Their questions were answered and they were advised to call with any further questions or concerns. Follow-up in 3 to 4 weeks as patient is traveling to [place] over the weekend and will be away for that time. This note was generated with [employer] dictation software. It may contain incorrect words, spelling, and punctuation that were not noted in checking the note before signing.
== END 2022-08-03 23:59 | disposition home or self-care (01) ==
LOC: WC 10:00
PROVIDERS: PCP Family Medicine; Visit Provider Internal Medicine
DX: E11.622 Type 2 diabetes mellitus with other skin ulcer (principal); L89.313 Pressure ulcer of right buttock, stage 3; Z86.16 Personal history of COVID-19; I10 Essential (primary) hypertension; Z79.899 Other long term (current) drug therapy; F32.A Depression, unspecified; Z79.82 Long term (current) use of aspirin
CPT/HCPCS: 11042; 36415; 80053; 83036; 84134; 85025; 86140; 99213; G0463

== ENCOUNTER 2022-09-18 22:39 | Inpatient (IN) | payer MEDICARE, SELFPAY ==
[2022-09-18 22:41] VITALS: BP 101/68; PULSE 93; RESP 20; TEMP 36.4; O2SAT 95; BMI 34.7
--- NOTE | 2022-09-18 22:43 | ED.VIS.CHEST ---
HPI History of Present Illness Chief Complaint: Chest Pain Narrative Narrative: 77-year-old female here with acute onset of chest pain rating to left arm. History of diabetes, hypertension. States the pain is not ripping or tearing. The patient denies recent surgery in the last 4 weeks or immobilization in the last 3 days, denies previous diagnosis of DVT or PE, hemoptysis, unilateral leg swelling or malignancy with treatment the last 6 months. No estrogen use noted. Patient denies sudden onset of pain, no tearing sensation, no migratory symptoms, no new numbness, weakness or loss of sensation. Patient denies family history or personal history of Marfan syndrome or José-Danlos she denies any bleeding diathesis such as intracranial hemorrhage or GI bleeding [facility] Medical History (Updated 09/18/22 @ 23:[address] Tian Pichardo, ) Acid reflux Back problem Borderline diabetes COVID-19 Decubitus ulcer of right buttock, stage 3 Depression Diarrhea Fracture of left hip History of stress test Hypertension Lumbar stenosis without neurogenic claudication Status post L4-L5 laminectomy Type 2 diabetes mellitus Urinary incontinence Home Medications sertraline 100 mg tablet 100 mg PO DAILY depression 12/24/19 [History Last Taken 05/12/21] multivitamin 1 tab PO DAILY vitamin 02/14/20 [History Last Taken 05/12/21] gabapentin 100 mg capsule 200 mg PO TIDCM PRN nerve pain 07/28/20 [History Last Taken Unknown] cholestyramine (with sugar) 4 gram powder for susp in a packet 4 g PO TID diarrhea 05/12/21 [History Last Taken Unknown] lactobacillus combination no.4 3 billion cell capsule (Probiotic) 3,000 mmu cells PO DAILY diarrhea 05/12/21 [History Last Taken 05/12/21] cholecalciferol (vitamin D3) 25 mcg (1,000 unit) capsule 25 mcg PO DAILY supplement 05/15/21 [History Last Taken Unknown] melatonin 10 mg sublingual tablet 10 mg PO QHS 30 days #30 tabs 05/25/21 [Rx Last Taken Unknown] acetaminophen 500 mg tablet 1,000 mg PO Q8 PRN Pain 07/15/22 [History Last Taken Unknown] aspirin 81 mg capsule 81 mg PO DAILY 07/15/22 [History Last Taken Unknown] Allergy/AdvReac Type Severity Reaction Status Date / Time Penicillins [PCN] Allergy Hives Verified 08/19/20 06:27 Family History Father Lung cancer Diabetes Sister Lung cancer Surgical History History of back surgery History of hemiarthroplasty of left hip History of repair of hiatal hernia Hx of cholecystectomy Hx of shoulder surgery Hx of tubal ligation Status post right knee replacement Social History household members: other details: Lives alone in in-law suite but son and daughter's dwellings connected. Smoking Status: Never smoker second hand exposure: No alcohol intake: never substance use type: does not use caffeine: Yes what type of physical activity do you participate in: none frequency: does not exercise ROS ROS ED ROS Narrative Constitutional: Denies fever HEENT: Denies sore throat Neck: Denies neck pain Cardiovascular: Endorses chest Respiratory: Denies shortness of breath GI: Denies nausea vomiting or abdominal pain : Denies changes in urinary habits Musculoskeletal: Denies muscle or joint pain Neurologic: Denies numbness weakness or loss of sensation Skin denies rash EXAM Physical Exam Narrative Exam Narrative: Nursing triage notes reviewed, Vital signs reviewed Constitutional: please see mdm, diaphoretic, ill-appearing HENT: MMM Eyes: Pupils equal round and reactive to light, Extraocular muscles intact Neck: No stridor, no JVD, full neck ROM Lungs: Clear to auscultation, No wheezing or rales. No increased work of breathing, no conversational dyspnea, no accessory muscle use, no nasal flaring. No respiratory distress noted Heart: Regular rate and rhythm, No murmurs, No rubs and No gallops, 2+ distal pulses (radial, femoral, posterior tibial) in all extremities Abdomen: Soft, there is no tenderness, rigidity, rebound or guarding, no obvious peritoneal signs, no palpable pulsatile abdominal masses, no auscultated abdominal bruit : No CVAT Extremities: No edema, no stigmata of VTE Neuro: No focal neurological deficits, cranial nerves II through XII intact, 5/5 strength in all extremities. Intact sensation to light touch in all extremities, 2+ reflexes bilateral patella dens. Normal gait. No ataxia. Skin: No rash or lesions noted Const Vital Signs: 09/18/22 22:41 Temperature 97.5 F L Temperature Source Oral Pulse Rate 93 Respiratory Rate 20 H Blood Pressure 101/68 Blood Pressure Mean 79 Pulse Ox 95 Oxygen Delivery Method Room Air MDM MDM MDM Narrative Medical decision making narrative: Chief Complaint: Chest pain External records reviewed: No recent cardiac catheterizations, stress test or echocardiogram I considered the following differential diagnosis: 77-year-old female here with chest pain. Prehospital EKG showed lateral STEMI. Vital signs stable in route. Initial assessment showed a smart ill-appearing female with active chest pain. Spoke to business intelligence architect Dr. Morley who agreed the patient having a STEMI and recommended cardiac catheterization lab intervention. She was given aspirin, heparin and Brilinta. She was taken directly to Corporate Executive Chef. Factors affecting care: History of type 2 diabetes Social determinants of health: Poor health literacy History obtained from others: EMS Shared decision making: I will have a discussion with the patient and or visitors regarding risk/benefits of further testing or admission. They will be made aware of of the risk/benefits inherent in this decision they will be given the opportunity to voice understanding. Consults: Interventional cardiology Management Discussion w/another healthcare provider: Hospitalist and Other (talent acquisition associate) Critical Care Time Critical Care Time: Yes Critical care time (excluding procedures): 30-74 minutes, Including time spent: (Including but not limited to history, physical exam, chart review, documentation, discussion with consultants), Discussing w/Consultants and Arranging Admission or Transfer Discharge Plan Dx/Rx/DC Orders Clinical Impression: ST elevation (STEMI) myocardial infarction Disposition Disposition: Acute Care Hospital [facility]
[2022-09-18] MEDS: TICAGRELOR 90 MG TABLET 180 MG PO (22:48)
--- NOTE | 2022-09-18 22:48 | PCM.HP.STD ---
HPI - General General Date of Admission: 09/18/22 Date of Service: 09/18/22 Chief Complaint: chest pain HPI Narrative ANA LILIA BOND, is a 77 F with a significant history of hypertension who presents to emergency department with excruciating left-sided chest pain that radiates to her left arm. She described the pain as a pressure. Her pain started when she was a playing a puzzle. She denies any ameliorating or aggravating factor to her chest pain. Patient was given aspirin by paramedics and patient vomited. En-route to the emergency department a STEMI alert was called. Associated with her symptoms is diaphoresis. At the ED patient received aspirin, Brilinta and 4000 units of heparin. Patient was then taken to the Audograph Operator. [facility] Medical History Acid reflux Back problem Borderline diabetes COVID-19 Decubitus ulcer of right buttock, stage 3 Depression Diarrhea Fracture of left hip History of stress test Hypertension Lumbar stenosis without neurogenic claudication Status post L4-L5 laminectomy Type 2 diabetes mellitus Urinary incontinence Home Medications sertraline 100 mg tablet 100 mg PO DAILY depression 12/24/19 [History Last Taken 05/12/21] multivitamin 1 tab PO DAILY vitamin 02/14/20 [History Last Taken 05/12/21] gabapentin 100 mg capsule 200 mg PO TIDCM PRN nerve pain 07/28/20 [History Last Taken Unknown] cholestyramine (with sugar) 4 gram powder for susp in a packet 4 g PO TID diarrhea 05/12/21 [History Last Taken Unknown] lactobacillus combination no.4 3 billion cell capsule (Probiotic) 3,000 mmu cells PO DAILY diarrhea 05/12/21 [History Last Taken 05/12/21] cholecalciferol (vitamin D3) 25 mcg (1,000 unit) capsule 25 mcg PO DAILY supplement 05/15/21 [History Last Taken Unknown] melatonin 10 mg sublingual tablet 10 mg PO QHS 30 days #30 tabs 05/25/21 [Rx Last Taken Unknown] acetaminophen 500 mg tablet 1,000 mg PO Q8 PRN Pain 07/15/22 [History Last Taken Unknown] aspirin 81 mg capsule 81 mg PO DAILY 07/15/22 [History Last Taken Unknown] Allergy/AdvReac Type Severity Reaction Status Date / Time Penicillins [PCN] Allergy Hives Verified 08/19/20 06:27 Family History Father Lung cancer Diabetes Sister Lung cancer Surgical History History of back surgery History of hemiarthroplasty of left hip History of repair of hiatal hernia Hx of cholecystectomy Hx of shoulder surgery Hx of tubal ligation Status post right knee replacement Social History household members: other details: Lives alone in in-law suite but son and daughter's dwellings connected. Smoking Status: Never smoker second hand exposure: No alcohol intake: never substance use type: does not use caffeine: Yes what type of physical activity do you participate in: none frequency: does not exercise ROS ROS Narrative Pertinent positives and pertinent negatives as noted in HPI. All other systems were reviewed and are negative Vital Signs Vital Signs Vital Signs: 09/18/22 22:41 Temperature 97.5 F L Temperature Source Oral Pulse Rate 93 Respiratory Rate 20 H Blood Pressure 101/68 Blood Pressure Mean 79 Pulse Ox 95 Oxygen Delivery Method Room Air Weight Weight: 88.9 kg Body Mass Index (BMI) 34.7 Physical Exam Narrative Physical exam: General: Well-nourished, well-developed. Head: Normocephalic, atraumatic, no tenderness Eyes: Vision is grossly intact. EOMI ENT, no trauma, moist mucous membranes, no rhinorrhea Neck: Nontender, No thyromegaly. CVS: Regular rate and rhythm. S1-S2 present. No murmur, gallop or rub. Respiratory : clear to auscultation bilaterally, chest wall nontender Abdomen: Soft, nontender, nondistended, normal bowel sounds, no masses : Deferred Back: Nontender, no CVA tenderness, no midline spinal tenderness, deformities, step-offs Extremities: Nontender full range of motion, no trauma. Swelling on left foot 3+. Swelling on right foot plus 1+. Skin: Normal color, no trauma, abrasions Neuro: Alert, oriented, cranial nerves II through XII grossly intact. Psychiatry: Normal mood. Normal affect. Not depressed. Not anxious. Results Lab / Micro Data Result Diagrams: 09/18/22 22:40 09/18/22 22:40 Assessment & Plan Assessment/Plan (1) STEMI (ST elevation myocardial infarction): (2) Hypertension: (3) Type 2 diabetes mellitus: PLAN: Plan STEMI EKG on the fluid in the emergency department reviewed showed ST elevation. Impression of chest x-ray by radiologist: Poor inspiration with some bibasilar atelectasis. Cardiomegaly. Actual chest x-ray image was independently interpreted and I agree with radiology interpretation Successful PCI of culprit lesion of occluded ostial LAD. Started on aspirin, Brilinta, high intensity statin, lisinopril and carvedilol. Check troponins. Started on Eptifibatide. Check lipid panel Leukocytosis White count of 12.8 on presentation. Likely reactive. Trend. Hypertension Blood pressure was soft on presentation CAD started on guideline directed medical therapy of lisinopril and carvedilol. Trend blood pressure and adjust blood pressure medications. Type 2 diabetes Reports borderline diabetes. Check A1c. DVT prophylaxis Received heparin on presentation. Subcutaneous Lovenox ordered. Charges/Coding Visit Charges Inpatient E&M: 44986 Init Hosp L3
[2022-09-18] MEDS: Aspirin 81 MG TAB.CHEW 324 MG PO (22:50)
[2022-09-18] MEDS: Heparin Injection (Vial) 5,000 UNIT/ML VIAL 4000 UNIT IV (22:50)
--- NOTE | 2022-09-18 22:50 | RAD_ITS ---
STUDY: X-RAY CHEST REASON FOR EXAM: Female, 77 years old. chest pain TECHNIQUE: Single AP portable view of the chest. COMPARISON: 05/14/2021 FINDINGS: Poor inspiration with some bibasilar atelectasis. There is no demonstrated pleural abnormality. There is moderate cardiac enlargement. Normal mediastinum and huan. Normal visualized pulmonary arteries. Normal visualized aortic arch and descending thoracic aorta. Normal visualized thoracic spine. Normal visualized ribs, clavicles, and shoulders. There is no demonstrated abnormality of the visualized soft tissue structures of the upper abdomen. RAD/Chest 1 View (Portable) IMPRESSION: Poor inspiration with some bibasilar atelectasis. Cardiomegaly. Electronically Signed: Murtaza Rausch MD at 23:09 EDT ,
--- NOTE | 2022-09-18 22:50 | EKG12_ITS ---
Test Reason : CP Blood Pressure : / mmHG Vent. Rate : 082 BPM Atrial Rate : 000 BPM P-R Int : 000 ms QRS Dur : 164 ms QT Int : 404 ms P-R-T Axes : 000 -84 014 degrees QTc Int : 472 ms Atrial fibrillation with premature ventricular or aberrantly conducted complexes Left axis deviation Right bundle branch block Anterolateral infarct , age undetermined Abnormal ECG Confirmed by ALANA CABELLO ([id number]), editor trade journal AYAN MCCARTHY ([id number]) on 09/21/2022 7:05:46 AM Referred By: Alana Cabello Confirmed By:ALANA CABELLO
[2022-09-18] MEDS: 0.9% Normal Saline 1,000 ML 999 ML IV (22:55)
[2022-09-18 23:06] LABS: Absolute Lymphocyte Count 5.56 X10^3/uL (0.83-4.51); Absolute Neutrophil Count 5.8 X10^3/uL (2.0-7.7); Basophil# 0.09 X10^3/uL; Basophil% 0.7 % (0-1); Eosinophils% 2.3 % (0-5); Hematocrit 41.4 % (37-47); Hemoglobin 13.5 g/dL (12.0-15.0); Lymphocyte # 5.56 X10^3/ul (0.83-4.51); Lymphocyte % 43.3 % (19-41); Mean Corp Hgb Conc 32.6 g/dL (32-36); Mean Corpuscular Hgb 31.1 pg (27.0-32.0); Mean Corpuscular Volume 95.4 fL (81-99); Mean Platelet Vol. 8.1 fl (6.2-12.0); Monocyte# 1.07 X10^3/uL; Monocyte% 8.3 % (0-10); NRBC Flagged by Analyzer 0 % (0-5); Neutrophil # 5.79 X10^3/uL (2.7-7.7); Neutrophil % 45.2 % (47-70); POSITIVE DIFFERENTIAL YES; Platelet Count 321 K/mm3 (150-450); RBC Distribution Width CV 15.1 % (11.6-14.6); RBC Distribution Width SD 52.5 fl (35.1-43.9); Red Blood Count 4.34 M/mm3 (4.2-5.4); White Blood Count 12.8 K/mm3 (4.4-11.0)
--- NOTE | 2022-09-18 23:10 | EKG12_ITS ---
Test Reason : AM EKG Blood Pressure : / mmHG Vent. Rate : 103 BPM Atrial Rate : 129 BPM P-R Int : 000 ms QRS Dur : 134 ms QT Int : 378 ms P-R-T Axes : 000 261 106 degrees QTc Int : 495 ms Suspect arm lead reversal, interpretation assumes no reversal Atrial fibrillation Right bundle branch block Anterolateral infarct , age undetermined Abnormal ECG When compared with ECG of 19-SEP-2022 09:50, MANUAL COMPARISON REQUIRED, DATA IS UNCONFIRMED Confirmed by ALANA CABELLO ([id number]), proposal editor AYAN MCCARTHY ([id number]) on 09/22/2022 10:30:19 AM Referred By: Alana Cabello Confirmed By:ALANA CABELLO
[2022-09-18 23:11] VITALS: BP 101/68; PULSE 93; RESP 20; TEMP 36.4; O2SAT 95
[2022-09-18 23:12] LABS: Prothrombin Time (Protime)PT. 13.3 SECONDS (11.7-14.9)
[2022-09-18 23:13] LABS: Partial Thromboplast Time 28.2 Seconds (24.1-36.2)
[2022-09-18 23:21] LABS: Anion Gap 8 (5-15); BUN 37 mg/dL (7-18); BUN/Creat Ratio 52.2 RATIO (10-20); Calcium,Total 10.4 mg/dL (8.5-10.1); Chloride 107 mmol/L (98-107); Creatinine, Serum 0.71 mg/dL (0.55-1.02); EST Glomerular Filtration Rate 84 mL/min (>60); Est Glom Filt Rate - Afr Amer 102 mL/min (>60); Estimated Creatinine Clearance 37.74 ml/min; Glucose 179 mg/dL (74-106); Potassium 3.5 mmol/L (3.5-5.1); Sodium Level 140 mmol/L (136-145); Troponin-I HS 18 pg/mL (3.0-54.0)
[2022-09-18 23:25] LABS: Differential Indicated SCAN CRITERIA MET
[2022-09-18 23:59] LABS: Differential Comment SCANNED
[2022-09-19] VITALS (29 sets, daily range): BP systolic 97–152; BP diastolic 61–110; PULSE 78–125; RESP 16–24; TEMP 35.8–37.1; O2SAT 89–97; BMI 33.8
--- NOTE | 2022-09-19 00:21 | PCIREPORT_ITS ---
PCI Cardiac Cath Report PCI Report: PCI cardiac cath report; 1. Selective left coronary angiography 2. Selective right coronary angiography 3. Successful PCI of the culprit lesion which is occluded ostial LAD with JACOBO 0 flow. With predilatation using balloon 2.5 x 15 and 3 x 20 mm balloon calcified vessel Placement of drug-eluting stent 3.5 x 22 overlapped with 2.75 x 15 [id number] LAD and achievement of JACOBO II?JACOBO-3 flow And reduction of stenosis from 100 to 0%. 4. Measurement of LVEDP and a pullback pressure 5. Successful placement of Perclose to close the right common femoral artery arteriotomy site. Preprocedure diagnosis 77-year-old female who developed severe retrosternal chest pain evidently just having while she is at bed around 10:00 lasting around 45 minutes and then she called her daughter who live close to her and the daughter called EMS and brought into the ER at [facility] with clinical diagnosis of acute anterolateral SC patient was diaphoretic hypotensive and severe retrosternal chest pain She was given Brilinta aspirin in the ER in addition to 4000 of heparin. I was brought to the emergency to the Die Designer as a STEMI call. Consent; Risk-benefit of procedure explained and emergency consent obtained Diagnostic catheter used #1 6 Ghanaian sheath in the right common femoral artery 2. 5 Ghanaian JL 4 diagnostic catheter 3. 5 Ghanaian JR4 diagnostic catheter 4. 6 Ghanaian JL 4 guide catheter 5. 0.014 300 cm run-through extra floppy straight guide wire Drug-eluting stent 3.5 x 22 mm resolute [place] Rx DAILY And 2.75 x 15 mm drug-eluting stent resolute [place] Procedure in detail; Right groin both sites prepped and draped in the usual sterile fashion she had a very feeble radial pulses and patient was diaphoretic and very sick Emergency access obtained from the right common femoral artery and we placed a long sheath 6 Ghanaian 23 cm sheath to the right common femoral artery and will proceed with a diagnostic catheter 6 Ghanaian 5 Ghanaian JL 4 diagnostic views of the left coronary system identified the culprit as occluded ostium of the LAD with a large thrombus Then we proceed with a JR4 selective angiographic Low-Quel consent obtained Following this we will proceed with interventional plan patient was given additional units of heparin total of 6000. She was given Integrilin x2 boluses with Integrilin infusion And will proceed and she was given Brilinta and aspirin from the ER. We will proceed with the guidewire across the lesion in the proximal to mid LAD placed a wire in the distal portion of the LAD and then we proceed with predilatation we noted there is a calcified lesion in the proximal LAD then we used a 3 oh by 20 mm balloon and were able to place a stent 3.5 x 22 from the ostium to the proximal LAD and overlapped this with a 2.75 x 3 and postdilated both sides. We noted initially there is a JACOBO II flow in the LAD with a thrombus in the distal part of the LAD that is the reason we continue to use Integrilin infusion. We used nitroglycerin x2. Blood pressure was low and we gave her 200 mcg of Stanford-Synephrine. Blood pressure remained stable . Following this we proceed with selective angiographic view right common femoral artery with Perclose to close the right common femoral artery arteriotomy site Hemodynamics; LVEDP elevated 90 mmHg No systolic gradient across aortic valve. Coronary angiography; 1. Left main Short normal angiographically bifurcating into LAD and left circumflex 2. Ostial LAD occluded proximally with successful PCI as explained 3. Proximal left circumflex calcified OM1 is a small vessel with diffuse atherosclerosis. 4. RCA dominant moderate in size with mid RCA calcified nonobstructive CAD to 40%. Conclusion recommendations; 77-year-old patient with and to lateral acute STEMI diaphoretic hypotensive very sick patient Requiring emergency cath with successful PCI of the culprit lesions. Patient had history of diabetes mellitus, hypertension. And also she has a chronic lower back pain and also noted she has a decubitus ulcer of the right buttock stage III according to the records. 1. We will continue Integrilin infusion over the night based on the renal function. Patient will continue on DAPT Brilinta 90 mg twice daily in addition to low-dose aspirin for 1 year 2. Carvedilol 3.125 twice daily 3. Lisinopril 10 mg daily 4. High-dose statin 80 mg of atorvastatin. 5. Patient will be scheduled for phase 1 cardiac rehab program 6. Echocardiogram to evaluate LV function on Tuesday. Cyndee Morley MD,[facility]
--- NOTE | 2022-09-19 00:30 | EKG12_ITS ---
Test Reason : Blood Pressure : / mmHG Vent. Rate : 120 BPM Atrial Rate : 127 BPM P-R Int : 000 ms QRS Dur : 124 ms QT Int : 352 ms P-R-T Axes : 000 217 105 degrees QTc Int : 497 ms Suspect arm lead reversal, interpretation assumes no reversal Atrial fibrillation with premature ventricular or aberrantly conducted complexes Right bundle branch block Anterolateral infarct , age undetermined Abnormal ECG When compared with ECG of 19-SEP-2022 05:30, MANUAL COMPARISON REQUIRED, DATA IS UNCONFIRMED Confirmed by ALANA CABELLO ([id number]), medical editor AYAN MCCARTHY ([id number]) on 09/22/2022 10:30:32 AM Referred By: Alana Cabello Confirmed By:ALANA CABELLO
--- NOTE | 2022-09-19 00:51 | ECHOD_ITS ---
Reason For Study: CP Procedure This was a 2D Doppler, Color Flow transthoracic echocardiogram. Exam performed portable in ICU/CCU. Left Ventricle Moderately dilated left ventricle. The estimated ejection fraction is 20-25 %. Right Ventricle Normal right ventricle. Normal systolic function. Atria The left atrium is moderately enlarged. Normal right atrium. Mitral Valve There is mild mitral annular calcification. Mild-Moderate (1-2+) mitral valve insufficiency. Tricuspid Valve Normal tricuspid valve. Mild to moderate (1-2+) tricuspid valve insufficiency. Aortic Valve Normal aortic valve. Pulmonic Valve The pulmonic valve is not well visualized. Great Vessels Normal aortic root. Pericardium/Pleural No pericardial effusion. MMode/2D Measurements & Calculations LVIDd: 4.7 cm IVSd: 1.5 cm Ao root diam: 3.5 cm LVIDs: 4.1 cm LVPWd: 1.5 cm LA dimension: 5.2 cm FS: 11.6 % LAV(MOD-bp): 74.8 ml LVAd ap4: 29.6 cm2 SV(MOD-sp4): 23.0 ml LAV(MOD-bp) Indexed: 39.4 ml/m2 LVLd ap4: 7.4 cm LAV(MOD-sp2): 60.7 ml EDV(MOD-sp4): 96.7 ml LAV(MOD-sp4): 83.0 ml EDV(sp4-el): 101.4 ml LVAs ap4: 25.3 cm2 LVLs ap4: 7.1 cm ESV(MOD-sp4): 73.7 ml ESV(sp4-el): 76.7 ml EF(MOD-sp4): 23.8 % EF(sp4-el): 24.3 % SV(sp4-el): 24.6 ml LA A4 area: 24.8 cm2 RA A4 area: 16.8 cm2 Doppler Measurements & Calculations MV E max josse: 112.6 cm/sec MV V2 max: 132.1 cm/sec Ao V2 max: 125.4 cm/sec MV max P.0 mmHg Ao max P.3 mmHg MV V2 mean: 63.6 cm/sec Ao V2 mean: 89.7 cm/sec MV mean P.1 mmHg Ao mean P.7 mmHg MV V2 VTI: 25.2 cm Ao V2 VTI: 19.4 cm AV (velocity ratio): 0.62 LV V1 max: 79.6 cm/sec MR max josse: 346.9 cm/sec PA V2 max: 59.5 cm/sec LV V1 max P.5 mmHg MR max P.1 mmHg LV V1 mean P.3 mmHg LV V1 mean: 52.8 cm/sec LV V1 VTI: 12.1 cm TR max josse: 275.1 cm/sec TR max P.3 mmHg ECHO/Echo Complete Interpretation Summary The estimated ejection fraction is 20-25 %. Severe LV systolic Dysfunction with segmental Wall motion as described Moderately enlarged left atrium Mild to moderate MR Mild to moderate TR No previous study to compare. Ordering Physician: Mauri Tang Referring Physician: Cyndee Morley Performed By: Berry Ojeda RCS
[2022-09-19] MEDS: 0.9% Saline Lock 10 ML Syringe IV ×5 (00:56→11:23)
[2022-09-19] MEDS: proCHLORPERazine 10 MG/2 ML Vial 5 MG IV ×2 (01:00→11:23)
[2022-09-19] MEDS: 0.9% Normal Saline 1,000 ML 75 ML IV (01:01)
[2022-09-19] MEDS: EPTIFIBATIDE 75 MG/100 ML VIAL 14.2 MG CONT INF (01:03)
[2022-09-19 01:35] LABS: Troponin-I HS 45862 pg/mL (3.0-54.0)
[2022-09-19] MEDS: Ondansetron 4 MG/2 ML Vial IV (03:26)
--- NOTE | 2022-09-19 04:03 | NURSING ---
0300 Blood oozing through gauze dressing on right femoral cath site, drainage circled. 0315 More drainage noted along with a small amount of bruising. Manual pressure held for 15 minutes 0330 sandbag placed on site
[2022-09-19 05:07] LABS: Absolute Neutrophil Count 10.9 X10^3/uL (2.0-7.7); Basophil# 0.04 X10^3/uL; Basophil% 0.3 % (0-1); Eosinophil# 0.01 X10^3/uL; Eosinophils% 0.1 % (0-5); Hematocrit 37.6 % (37-47); Hemoglobin 12.1 g/dL (12.0-15.0); Lymphocyte % 8.8 % (19-41); Mean Corp Hgb Conc 32.2 g/dL (32-36); Mean Corpuscular Hgb 30.9 pg (27.0-32.0); Mean Corpuscular Volume 95.9 fL (81-99); Mean Platelet Vol. 8.2 fl (6.2-12.0); Monocyte# 0.44 X10^3/uL; Monocyte% 3.5 % (0-10); NRBC Flagged by Analyzer 0 % (0-5); Neutrophil # 10.92 X10^3/uL (2.7-7.7); Neutrophil % 86.8 % (47-70); Platelet Count 262 K/mm3 (150-450); RBC Distribution Width CV 15.4 % (11.6-14.6); Red Blood Count 3.92 M/mm3 (4.2-5.4); White Blood Count 12.6 K/mm3 (4.4-11.0)
[2022-09-19] MEDS: Metoclopramide 10 MG/2 ML Vial 5 MG IV (05:36)
[2022-09-19 05:37] LABS: Cholesterol 203 mg/dL (200); High Density Lipoprotein 56 mg/dL; Triglycerides 164 mg/dL; Very Low Density Lipoprotein 33 mg/dL (5-40)
--- NOTE | 2022-09-19 06:02 | NURSING ---
Notified Dr. Morley that pt's groin site is soft, but still oozing with the gauze dressing saturated. Pt's vital signs have been stable. Also notified that pt has had persistent nausea despite receiving zofran, compazine, and reglan. Dr. Morley said to stop the integrilin gtt and to place fem-stop device on site.
[2022-09-19] MEDS: Haloperidol Lactate 5 MG/ML Vial IV (07:07)
[2022-09-19 07:12] LABS: ALB/GLOB Ratio 0.8 RATIO (0.9-2.4); AST(SGOT) 459 U/L (15-37); Alanine Aminotransfer ALT/SGPT 85 U/L (13-56); Albumin, Serum 2.9 g/dL (3.2-5.0); Alkaline Phosphatase 89 U/L (45-117); Anion Gap 3 (5-15); BUN 31 mg/dL (7-18); BUN/Creat Ratio 60.4 RATIO (10-20); Calcium,Total 8.7 mg/dL (8.5-10.1); Chloride 110 mmol/L (98-107); Creatinine, Serum 0.51 mg/dL (0.55-1.02); EST Glomerular Filtration Rate 123 mL/min (>60); Est Glom Filt Rate - Afr Amer 148 mL/min (>60); Estimated Creatinine Clearance 37.74 ml/min; Globulin 3.7 g/dL (2.2-4.2); Glucose 208 mg/dL (74-106); Potassium 5.3 mmol/L (3.5-5.1); Protein, Total 6.6 g/dL (6.4-8.2); Sodium Level 137 mmol/L (136-145)
--- NOTE | 2022-09-19 07:40 | PN.HOSP_ITS ---
Reason for Visit Reason for Visit: Diagnoses Type 2 diabetes mellitus without complications (09/18/22) Essential (primary) hypertension (09/18/22) ST elevation (STEMI) myocardial infarction of unspecified site (09/18/22) Subjective Subjective Feel slightly nauseous this a.m. Unable to tell me if she is having any chest pain or shortness of breath but said she just does not feel very well Objective Data Objective Data Vital Signs: Vital Signs Temp Pulse Resp BP Pulse Ox O2 Del Method O2 Flow Rate 97 F L 104 H 20 H 119/87 H 93 Nasal Cannula 3 09/19/22 04:00 09/19/22 06:00 09/19/22 06:00 09/19/22 06:00 09/19/22 06:43 09/19/22 06:43 09/19/22 06:43 Oxygen Flow Rate (L/min) 3 Oxygen Delivery Method Nasal Cannula Weight: 86.7 kg Body Mass Index (BMI) 33.8 Intake & Output: Intake and Output for Last 24 Hours 09/17/22 09/18/22 09/19/22 23:59 23:59 23:59 Intake Total 1066.74 / 1066.74 Balance 1066.74 / 1066.74 Lab / Micro Data Result Diagrams: 09/19/22 04:52 09/19/22 04:52 Labs: Laboratory Results - last 24 hr 09/18/22 22:40: WBC 12.8 H, RBC 4.34, Hgb 13.5, Hct 41.4, MCV 95.4, MCH 31.1, MCHC 32.6, RDW Std Deviation 52.5 H, RDW Coeff of Ruben 15.1 H, Plt Count 321, MPV 8.1, Immature Gran % (Auto) 0.200, Neut % (Auto) 45.2 L, Lymph % (Auto) 43.3 H, [place] % (Auto) 8.3, Eos % (Auto) 2.3, Baso % (Auto) 0.7, Absolute Neuts (auto) 5.8, Absolute Lymphs (auto) 5.56 H, Nucleated RBC % 0, Differential Comment SCANNED 09/18/22 22:40: PT 13.3, INR 1.0, APTT 28.2 09/18/22 22:40: Sodium 140, Potassium 3.5, Chloride 107, Carbon Dioxide 25.0, Anion Gap 8, BUN 37 H, Creatinine 0.71, Estim Creat Clear Calc 37.74, Est GFR (MDRD) Af Amer 102, Est GFR (MDRD) Non-Af 84, BUN/Creatinine Ratio 52.2 H, Glucose 179 H, Calcium 10.4 H, Troponin I High Sens 18 09/19/22 00:35: Troponin [place] [id number] H* 09/19/22 04:52: WBC 12.6 H, RBC 3.92 L, Hgb 12.1, Hct 37.6, MCV 95.9, MCH 30.9, MCHC 32.2, RDW Std Deviation 54.0 H, RDW Coeff of Ruben 15.4 H, Plt Count 262, MPV 8.2, Immature Gran % (Auto) 0.500, Neut % (Auto) 86.8 H, Lymph % (Auto) 8.8 L, [place] % (Auto) 3.5, Eos % (Auto) 0.1, Baso % (Auto) 0.3, Absolute Neuts (auto) 10.9 H, Absolute Lymphs (auto) 1.10, Nucleated RBC % 0 09/19/22 04:52: Sodium 137, Potassium 5.3 H, Chloride 110 H, Carbon Dioxide 24.0, Anion Gap 3 L, BUN 31 H, Creatinine 0.51 L, Estim Creat Clear Calc 37.74, Est GFR (MDRD) Af Amer 148, Est GFR (MDRD) Non-Af 123, BUN/Creatinine Ratio 60.4 H, Glucose 208 H, Calcium 8.7, Total Bilirubin 0.40, AST 459 H, ALT 85 H, Alkaline Phosphatase 89, Troponin I High Sens 18, Total Protein 6.6, Albumin 2.9 L, Globulin 3.7, Albumin/Globulin Ratio 0.8 L 09/19/22 04:52: Triglycerides 164, Cholesterol 203 H, LDL Cholesterol 114, VLDL Cholesterol 33, HDL Cholesterol 56 Radiography Diagnostic Testing: Radiology Impression Chest X-Ray 09/18/22 22:50 IMPRESSION: Poor inspiration with some bibasilar atelectasis. Cardiomegaly. Electronically Signed: Murtaza Rausch MD at 23:09 EDT , Physical Exam Narrative General: Alert, oriented, HEENT: Atraumatic, normocephalic Eyes: Anicteric, normal conjunctiva, extraocular movements grossly intact Neck: Supple Respiratory: Clear to auscultation bilaterally, normal respiratory effort Cardiovascular: Slightly tachycardic with a regular rhythm GI: Soft, nontender, nondistended Extremities: Has some mild edema in her legs Musculoskeletal: Moving all extremities Neuro: No overt focal neurological deficits Skin: No rashes appreciated Psych: Cooperative Assessment & Plan Assessment/Plan (1) STEMI (ST elevation myocardial infarction): (2) Hypertension: (3) Type 2 diabetes mellitus: PLAN: Plan #STEMI status post 2 stents to LAD -Presented 09/[address] elevation [place] and was taken to the Academic Support Specialist -Successful PCI with DAILY of occluded ostial LAD -She is on Brilinta 90 mg twice daily, low-dose aspirin for 1 year -Integrilin drip continued by cardiology -Coreg 3.125 twice daily, lisinopril, high-dose statin -Echo -Cardiac rehab on DC -Total cholesterol 203 with an LDL of 114 #Postintervention hypotension -Possibly secondary to reperfusion. Improved throughout the day -Continue to monitor #Hyperglycemia -A1c 5.6 -Elevated glucose may be reactive -Continue glucose checks and sliding scale insulin #Leukocytosis -Likely reactive -No signs or symptoms of infection -Chest x-ray with no overt infiltrate -We will hold off on any empiric antibiotics #Transaminitis -Possibly transient secondary to her hypotension -We will trend CMP #DVT ppx: SCDs Toña Tavares MD Time spent in the patient's overall evaluation,decision-making process, review of diagnostic data, adjustment of management, discussion with other providers, nursing nursing and ancillary staff involved in patient's care documentation, 30 minutes Charges/Coding Visit Charges Inpatient E&M: 55231 Subs Hosp L2
--- NOTE | 2022-09-19 08:14 | EX.PCM.CONCC ---
Assessment & Plan Assessment/Plan (1) Hypotension: (2) ST elevation (STEMI) myocardial infarction: PLAN: Plan RECOMMENDATIONS: 1. Continue post STEMI protocol 2. Add Haldol for nausea control 3. No fluid boluses or antibiotics at this time 4. Await echocardiogram per cardiology 5. No indication for transfusions at this time 6. Monitor blood sugars with sliding scale insulin given variable p.o. intake 7. Encourage incentive spirometer 8. Will sign off from a critical care perspective. Please call if patient's hypoxia is not responsive to incentive spirometer IMPRESSIONS: 1. Hypotension Clinical suspicion for cardiogenic etiology with reperfusion. Patient is not showing any signs or symptoms of sepsis at this time. Patient has not had any obvious aspiration events. Chest x-ray appears to have a pattern more consistent with atelectasis leading to need for supplemental oxygen. Would not recommend pressors, stress dose steroids or antibiotics at this time. Could consider coverage for aspiration pneumonia if respiratory status worsens or patient develops fever. Clinical suspicion is mild elevation of white blood cell count secondary to stress response. 2. Nausea/diabetes mellitus type 2 Patient reports a history of borderline blood sugars, but multiple blood sugars have been elevated. High clinical suspicion for new onset diabetes mellitus, but hemoglobin A1c is currently pending. We will treat with sliding scale insulin for now as patient is having variable intake secondary to nausea. This does increase her risk factors for cardiac complications 3. STEMI status post 2 stents to LAD Although patient has had some transient hypotension, clinical suspicion is patient will tolerate post MT medical therapy with lisinopril and carvedilol. Recommend starting at low doses and titrating slowly. 4. Advanced age/chronic pain syndrome/depression/obesity Complicates care, management, recovery and prognosis. Okay to continue with home medications. Patient currently not complaining of significant pain. Patient reportedly has been responsive to cholestyramine in the past with diarrhea. HPI Consult Data Date of Consult: 09/19/22 HPI Narrative Reason for Consultation: Hypotension HPI Narrative: ANA LILIA BOND is a 77 F, with past medical history listed below, who presents to [facility] on 09/18/2022 secondary to acute onset of radiating left arm pain. Patient does have a history of diabetes and hypertension. Patient was not noted to have any PE risk factors. A prehospital EKG did indicate a lateral ST elevation MT and the STEMI team was activated. Patient was given aspirin, heparin and Brilinta and then taken directly to the Vacuum Cleaner Operator. In the ER, patient was noted to be diaphoretic, ill-appearing, vitals were relatively acceptable with a blood pressure of 101/68, pulse of 93 and 95% on room air. In the Vacuum Cleaner Operator, patient was noted to have a JACOBO flow of 0 through the LAD. Patient received 2 stents. During that time, patient did have some hypotension and was subsequently given some Stanford-Synephrine intermittently. Patient transferred to the intensive care unit for closer monitoring. Since being in the intensive care unit, patient has been in A-fib/flutter with relatively controlled heart rate. Patient has had significant nausea throughout despite getting Compazine, Reglan and now Haldol. Patient is not reporting any hematemesis. Patient has been requiring 3 L nasal cannula since presentation. Patient does not report using oxygen at baseline. Patient has had some oozing from her site despite a closure device, so a FemoStop has been placed. Patient does not appear to be on any home diabetic medications. Patient is a relatively poor historian. Patient is not reporting any prodromal constitutional symptoms such as fever, chills, cough or decreased joint mobility. No dysuria has been reported. Review of systems otherwise negative from a constitutional, HEENT, respiratory, cardiovascular, GI, genitourinary, musculoskeletal, skin, neurologic, psychiatric and hematologic system unless stated above. [facility] Medical History Acid reflux Back problem Borderline diabetes COVID-19 Decubitus ulcer of right buttock, stage 3 Depression Diarrhea Fracture of left hip History of stress test Hypertension Lumbar stenosis without neurogenic claudication Status post L4-L5 laminectomy Type 2 diabetes mellitus Urinary incontinence Home Medications sertraline 100 mg tablet 100 mg PO DAILY depression 12/24/19 [History Last Taken 05/12/21] multivitamin 1 tab PO DAILY vitamin 02/14/20 [History Last Taken 05/12/21] gabapentin 100 mg capsule 200 mg PO TIDCM PRN nerve pain 07/28/20 [History Last Taken Unknown] cholestyramine (with sugar) 4 gram powder for susp in a packet 4 g PO TID diarrhea 05/12/21 [History Last Taken Unknown] lactobacillus combination no.4 3 billion cell capsule (Probiotic) 3,000 mmu cells PO DAILY diarrhea 05/12/21 [History Last Taken 05/12/21] cholecalciferol (vitamin D3) 25 mcg (1,000 unit) capsule 25 mcg PO DAILY supplement 05/15/21 [History Last Taken Unknown] melatonin 10 mg sublingual tablet 10 mg PO QHS 30 days #30 tabs 05/25/21 [Rx Last Taken Unknown] acetaminophen 500 mg tablet 1,000 mg PO Q8 PRN Pain 07/15/22 [History Last Taken Unknown] aspirin 81 mg capsule 81 mg PO DAILY 07/15/22 [History Last Taken Unknown] Allergy/AdvReac Type Severity Reaction Status Date / Time Penicillins [PCN] Allergy Hives Verified 08/19/20 06:27 Family History Father Lung cancer Diabetes Sister Lung cancer Surgical History History of back surgery History of hemiarthroplasty of left hip History of repair of hiatal hernia Hx of cholecystectomy Hx of shoulder surgery Hx of tubal ligation Status post right knee replacement Social History household members: other details: Lives alone in in-law suite but son and daughter's dwellings connected. Smoking Status: Never smoker second hand exposure: No alcohol intake: never substance use type: does not use caffeine: Yes what type of physical activity do you participate in: none frequency: does not exercise ROS ROS Narrative See HPI Physical Exam Const alert and oriented x3 Constitutional Narrative: Obese. No conversational dyspnea. Glasses in place. General Appearance: cooperative, comfortable, well kempt, well developed and in distress Positive for mild (Nauseous) HEENT normocephalic, head/scalp atraumatic, hearing grossly normal bilaterally and moist oral mucous membranes HEENT Narrative: Mallampati 2, dentures in place, no thrush Eyes PERRL, EOMs intact bilaterally and no scleral icterus Eyes Narrative: No scleral icterus, conjunctiva are mildly pale Neck no lymphadenopathy, supple and no JVD Neck Narrative: Trachea midline, no thyroid enlargement General: trachea midline Lymph Lymphatic: no lymphadenopathy noted Resp normal respiratory effort and normal air movement Auscultation: rales bilateral lower; Negative for crackles, rhonchi or wheezes Cardio regular rate, S1 normal heart sound, S2 normal heart sound, no murmurs, no rub, no gallops, no clicks, no JVD and peripheral pulses 2+ throughout Rhythm: abnormal rhythm irregularly irregular GI normal to inspection, nondistended, normoactive bowel sounds, soft to palpation, non-tender and non-distended Extremity normal capillary refill Extremity Narrative: Some ecchymosis noted in the right groin General Extremity: edema bilateral (Left greater than right) Skin no rashes or lesions noted, no wounds, skin turgor normal and no jaundice Skin Narrative: Ecchymosis in the right groin Neuro oriented x3, CN's II-XII intact bilaterally and no focal motor deficits Neuro Narrative: Lower extremity immobilized Sensorium / Orientation: awake and alert Psych thought process normal, cooperative and affect normal Appearance: appropriate Medical Records Data Attestation: I reviewed the patient's medical records Lab / Micro Data Attestation: I reviewed the patient's lab results. Result Diagrams: 09/19/22 04:52 09/19/22 04:52 Labs: Laboratory Results - last 24 hr 09/18/22 22:40: WBC 12.8 H, RBC 4.34, Hgb 13.5, Hct 41.4, MCV 95.4, MCH 31.1, MCHC 32.6, RDW Std Deviation 52.5 H, RDW Coeff of Ruben 15.1 H, Plt Count 321, MPV 8.1, Immature Gran % (Auto) 0.200, Neut % (Auto) 45.2 L, Lymph % (Auto) 43.3 H, [place] % (Auto) 8.3, Eos % (Auto) 2.3, Baso % (Auto) 0.7, Absolute Neuts (auto) 5.8, Absolute Lymphs (auto) 5.56 H, Nucleated RBC % 0, Differential Comment SCANNED 09/18/22 22:40: PT 13.3, INR 1.0, APTT 28.2 09/18/22 22:40: Sodium 140, Potassium 3.5, Chloride 107, Carbon Dioxide 25.0, Anion Gap 8, BUN 37 H, Creatinine 0.71, Estim Creat Clear Calc 37.74, Est GFR (MDRD) Af Amer 102, Est GFR (MDRD) Non-Af 84, BUN/Creatinine Ratio 52.2 H, Glucose 179 H, Calcium 10.4 H, Troponin I High Sens 18 09/19/22 00:35: Troponin I High Sens [id number] H* 09/19/22 04:52: WBC 12.6 H, RBC 3.92 L, Hgb 12.1, Hct 37.6, MCV 95.9, MCH 30.9, MCHC 32.2, RDW Std Deviation 54.0 H, RDW Coeff of Ruben 15.4 H, Plt Count 262, MPV 8.2, Immature Gran % (Auto) 0.500, Neut % (Auto) 86.8 H, Lymph % (Auto) 8.8 L, [place] % (Auto) 3.5, Eos % (Auto) 0.1, Baso % (Auto) 0.3, Absolute Neuts (auto) 10.9 H, Absolute Lymphs (auto) 1.10, Nucleated RBC % 0 09/19/22 04:52: Sodium 137, Potassium 5.3 H, Chloride 110 H, Carbon Dioxide 24.0, Anion Gap 3 L, BUN 31 H, Creatinine 0.51 L, Estim Creat Clear Calc 37.74, Est GFR (MDRD) Af Amer 148, Est GFR (MDRD) Non-Af 123, BUN/Creatinine Ratio 60.4 H, Glucose 208 H, Calcium 8.7, Total Bilirubin 0.40, AST 459 H, ALT 85 H, Alkaline Phosphatase 89, Troponin I High Sens 18, Total Protein 6.6, Albumin 2.9 L, Globulin 3.7, Albumin/Globulin Ratio 0.8 L 09/19/22 04:52: Triglycerides 164, Cholesterol 203 H, LDL Cholesterol 114, VLDL Cholesterol 33, HDL Cholesterol 56 Radiology Impression Chest X-Ray 09/18/22 22:50 IMPRESSION: Poor inspiration with some bibasilar atelectasis. Cardiomegaly. Electronically Signed: Murtaza Rausch MD at 23:09 EDT , Charges/Coding Visit Charges Inpatient E&M: 04186 Init Hosp L3
[2022-09-19 08:46] LABS: Hemoglobin A1c 5.6 % (3.8-5.6)
[2022-09-19] MEDS: Carvedilol 3.125 MG TABLET PO (09:23)
[2022-09-19] MEDS: Aspirin E.C. 81 MG Tablet PO (09:24)
--- NOTE | 2022-09-19 09:39 | EKG12_ITS ---
Test Reason : AM EKG Blood Pressure : / mmHG Vent. Rate : 105 BPM Atrial Rate : 105 BPM P-R Int : 216 ms QRS Dur : 126 ms QT Int : 326 ms P-R-T Axes : 092 156 083 degrees QTc Int : 430 ms Suspect arm lead reversal, interpretation assumes no reversal Sinus tachycardia with 1st degree A-V block with Premature supraventricular complexes Right bundle branch block Anterolateral infarct , age undetermined Abnormal ECG When compared with ECG of 19-SEP-2022 00:18, MANUAL COMPARISON REQUIRED, DATA IS UNCONFIRMED Confirmed by ALANA CABELLO ([id number]), sound editor AYAN MCCARTHY ([id number]) on 09/22/2022 10:32:31 AM Referred By: Alana Cabello Confirmed By:ALANA CABELLO
--- NOTE | 2022-09-19 10:00 | EKG12_ITS ---
Test Reason : AM EKG Blood Pressure : / mmHG Vent. Rate : 084 BPM Atrial Rate : 277 BPM P-R Int : 000 ms QRS Dur : 140 ms QT Int : 422 ms P-R-T Axes : 000 -82 099 degrees QTc Int : 498 ms Atrial fibrillation Left axis deviation Right bundle branch block Anterolateral infarct , age undetermined Abnormal ECG When compared with ECG of 20-SEP-2022 05:30, MANUAL COMPARISON REQUIRED, DATA IS UNCONFIRMED Confirmed by ALANA CABELLO ([id number]), scientific publications editor AYAN MCCARTHY ([id number]) on 09/22/2022 10:30:04 AM Referred By: Alana Cabello Confirmed By:ALANA CABELLO
[2022-09-19] MEDS: Lisinopril 5 MG Tablet PO (12:20)
[2022-09-19 15:09] LABS: Absolute Lymphocyte Count 0.84 X10^3/uL (0.83-4.51); Absolute Neutrophil Count 13.8 X10^3/uL (2.0-7.7); Basophil# 0.01 X10^3/uL; Basophil% 0.1 % (0-1); Hematocrit 38.8 % (37-47); Hemoglobin 12.7 g/dL (12.0-15.0); Lymphocyte # 0.84 X10^3/ul (0.83-4.51); Lymphocyte % 5.4 % (19-41); Mean Corp Hgb Conc 32.7 g/dL (32-36); Mean Corpuscular Hgb 31.1 pg (27.0-32.0); Mean Corpuscular Volume 95.1 fL (81-99); Mean Platelet Vol. 8.1 fl (6.2-12.0); Monocyte# 0.81 X10^3/uL; Monocyte% 5.2 % (0-10); NRBC Flagged by Analyzer 0 % (0-5); Neutrophil # 13.81 X10^3/uL (2.7-7.7); Neutrophil % 88.8 % (47-70); Platelet Count 323 K/mm3 (150-450); RBC Distribution Width CV 15.6 % (11.6-14.6); RBC Distribution Width SD 54.4 fl (35.1-43.9); Red Blood Count 4.08 M/mm3 (4.2-5.4); White Blood Count 15.5 K/mm3 (4.4-11.0)
--- NOTE | 2022-09-19 15:23 | PN.CARD_ITS ---
Subjective Subjective Feeling nauseous No symptoms of chest pain Patient seen and evaluated at bedside along with the nursing staff, family her daughter at bedside Objective Data Vital Signs: Vital Signs Temp Pulse Resp BP Pulse Ox O2 Del Method O2 Flow Rate 98 F 113 H 23 H 146/99 H 93 Nasal Cannula 3 09/19/22 12:22 09/19/22 15:00 09/19/22 15:00 09/19/22 15:00 09/19/22 15:00 09/19/22 15:00 09/19/22 15:00 Oxygen Flow Rate (L/min) 3 Oxygen Delivery Method Nasal Cannula Weight: 191 lb 2.252 oz Body Mass Index (BMI) 33.8 Intake & Output: Intake and Output for Last 24 Hours 09/17/22 09/18/22 09/19/22 23:59 23:59 23:59 Intake Total 2546.74 / 2546.74 Output Total 100 / 100 Balance 2446.74 / 2446.74 Lab / Micro Data Result Diagrams: 09/19/22 14:55 09/19/22 04:52 Labs: Laboratory Results - last 24 hr 09/18/22 22:40: WBC 12.8 H, RBC 4.34, Hgb 13.5, Hct 41.4, MCV 95.4, MCH 31.1, MCHC 32.6, RDW Std Deviation 52.5 H, RDW Coeff of Ruben 15.1 H, Plt Count 321, MPV 8.1, Immature Gran % (Auto) 0.200, Neut % (Auto) 45.2 L, Lymph % (Auto) 43.3 H, [place] % (Auto) 8.3, Eos % (Auto) 2.3, Baso % (Auto) 0.7, Absolute Neuts (auto) 5.8, Absolute Lymphs (auto) 5.56 H, Nucleated RBC % 0, Differential Comment SCANNED 09/18/22 22:40: PT 13.3, INR 1.0, APTT 28.2 09/18/22 22:40: Sodium 140, Potassium 3.5, Chloride 107, Carbon Dioxide 25.0, Anion Gap 8, BUN 37 H, Creatinine 0.71, Estim Creat Clear Calc 37.74, Est GFR (MDRD) Af Amer 102, Est GFR (MDRD) Non-Af 84, BUN/Creatinine Ratio 52.2 H, Glucose 179 H, Calcium 10.4 H, Troponin I High Sens 18 09/19/22 00:35: Troponin I High Sens [id number] H* 09/19/22 04:52: WBC 12.6 H, RBC 3.92 L, Hgb 12.1, Hct 37.6, MCV 95.9, MCH 30.9, MCHC 32.2, RDW Std Deviation 54.0 H, RDW Coeff of Ruben 15.4 H, Plt Count 262, MPV 8.2, Immature Gran % (Auto) 0.500, Neut % (Auto) 86.8 H, Lymph % (Auto) 8.8 L, [place] % (Auto) 3.5, Eos % (Auto) 0.1, Baso % (Auto) 0.3, Absolute Neuts (auto) 10.9 H, Absolute Lymphs (auto) 1.10, Nucleated RBC % 0 09/19/22 04:52: Sodium 137, Potassium 5.3 H, Chloride 110 H, Carbon Dioxide 24.0, Anion Gap 3 L, BUN 31 H, Creatinine 0.51 L, Estim Creat Clear Calc 37.74, Est GFR (MDRD) Af Amer 148, Est GFR (MDRD) Non-Af 123, BUN/Creatinine Ratio 60.4 H, Glucose 208 H, Calcium 8.7, Total Bilirubin 0.40, AST 459 H, ALT 85 H, Alkaline Phosphatase 89, Troponin I High Sens [id number] H*, Total Protein 6.6, Albumin 2.9 L, Globulin 3.7, Albumin/Globulin Ratio 0.8 L 09/19/22 04:52: Triglycerides 164, Cholesterol 203 H, LDL Cholesterol 114, VLDL Cholesterol 33, HDL Cholesterol 56 09/19/22 04:52: Hemoglobin A1c 5.6 09/19/22 14:55: WBC 15.5 H, RBC 4.08 L, Hgb 12.7, Hct 38.8, MCV 95.1, MCH 31.1, MCHC 32.7, RDW Std Deviation 54.4 H, RDW Coeff of Ruben 15.6 H, Plt Count 323, MPV 8.1, Immature Gran % (Auto) 0.500, Neut % (Auto) 88.8 H, Lymph % (Auto) 5.4 L, [place] % (Auto) 5.2, Eos % (Auto) 0.0, Baso % (Auto) 0.1, Absolute Neuts (auto) 13.8 H, Absolute Lymphs (auto) 0.84, Nucleated RBC % 0 Cardiology Labs/Tests 09/18/22 22:40: WBC 12.8 H, RBC 4.34, Hgb 13.5, Hct 41.4, MCV 95.4, MCH 31.1, MCHC 32.6, Plt Count 321, MPV 8.1, Immature Gran % (Auto) 0.200, Neut % (Auto) 45.2 L, Lymph % (Auto) 43.3 H, [place] % (Auto) 8.3, Eos % (Auto) 2.3, Baso % (Auto) 0.7, Absolute Neuts (auto) 5.8, Nucleated RBC % 0 09/18/22 22:40: PT 13.3, INR 1.0, APTT 28.2 09/18/22 22:40: Sodium 140, Potassium 3.5, Chloride 107, Carbon Dioxide 25.0, Anion Gap 8, BUN 37 H, Creatinine 0.71, Est GFR (MDRD) Af Amer 102, Est GFR (MDRD) Non-Af 84, BUN/Creatinine Ratio 52.2 H, Glucose 179 H, Calcium 10.4 H 09/19/22 04:52: WBC 12.6 H, RBC 3.92 L, Hgb 12.1, Hct 37.6, MCV 95.9, MCH 30.9, MCHC 32.2, Plt Count 262, MPV 8.2, Immature Gran % (Auto) 0.500, Neut % (Auto) 86.8 H, Lymph % (Auto) 8.8 L, [place] % (Auto) 3.5, Eos % (Auto) 0.1, Baso % (Auto) 0.3, Absolute Neuts (auto) 10.9 H, Nucleated RBC % 0 09/19/22 04:52: Sodium 137, Potassium 5.3 H, Chloride 110 H, Carbon Dioxide 24.0, Anion Gap 3 L, BUN 31 H, Creatinine 0.51 L, Est GFR (MDRD) Af Amer 148, Est GFR (MDRD) Non-Af 123, BUN/Creatinine Ratio 60.4 H, Glucose 208 H, Calcium 8.7, Total Bilirubin 0.40 09/19/22 04:52: Triglycerides 164, Cholesterol 203 H, LDL Cholesterol 114, VLDL Cholesterol 33, HDL Cholesterol 56 09/19/22 04:52: Hemoglobin A1c 5.6 09/19/22 14:55: WBC 15.5 H, RBC 4.08 L, Hgb 12.7, Hct 38.8, MCV 95.1, MCH 31.1, MCHC 32.7, Plt Count 323, MPV 8.1, Immature Gran % (Auto) 0.500, Neut % (Auto) 88.8 H, Lymph % (Auto) 5.4 L, [place] % (Auto) 5.2, Eos % (Auto) 0.0, Baso % (Auto) 0.1, Absolute Neuts (auto) 13.8 H, Nucleated RBC % 0 Rhythm: EKG: ECHO: Stress Test: Cardiac Cath: PCI: CT Surgery: Holter monitor: EPS: PPM: CXR: Chest CT Scan: Radiography Diagnostic Testing: Radiology Impression Chest X-Ray 09/18/22 22:50 IMPRESSION: Poor inspiration with some bibasilar atelectasis. Cardiomegaly. Electronically Signed: Murtaza Rausch MD at 23:09 EDT , Physical Exam Cardio Cardio Narrative: Frequent episode of nonsustained ventricular tachycardia noted on groundwater monitoring technician Underlying rhythm is sinus rhythm Cardiac exam S1-S2 regular Chest exam clear to auscultation bilateral. Assessment & Plan Assessment/Plan (1) Hypertension: (2) Type 2 diabetes mellitus: (3) STEMI (ST elevation myocardial infarction): PLAN: 77-year-old patient post STEMI/anterior lateral myocardial infarction Presented last night with symptoms of severe retrosternal chest pain, patient was very sick diaphoretic hypotensive with severe retrosternal chest pain Evidently symptoms have been while she was at bed at 10 PM she called her daughter who called EMS and brought to the ER where she was taken immediately to the Coat Presser. Identified the culprit lesion as occluded ostial LAD successful PCI and placement of 2 drug-eluting stent Today patient is still complaining of nausea she does not have any symptoms of chest pain. Review all the current evaluation including the EKGs and monitors current lab test Cardiac care plan recommendation; Post STEMI/anterolateral, review all the evaluation today including the lab test groundwater monitoring technician vital signs cardiac biomarkers and telemetry We will continue on dual antiplatelet with Brilinta aspirin 2. Right groin site appears stable with no evidence of hematoma 3. Increase the dose of beta-indio carvedilol to 6.25 twice daily As tolerated by the blood pressure We will monitor electrolytes magnesium potassium and plan will be to evaluate by the echocardiogram in the morning. We will continue rest of cardiac medication with atorvastatin high-dose and if tolerated the LUISA inhibitors.
[2022-09-19 15:24] LABS: Phosphorus 4.1 mg/dL (2.5-4.9)
[2022-09-19 15:25] LABS: ALB/GLOB Ratio 0.8 RATIO (0.9-2.4); AST(SGOT) 491 U/L (15-37); Alanine Aminotransfer ALT/SGPT 111 U/L (13-56); Albumin, Serum 3.2 g/dL (3.2-5.0); Alkaline Phosphatase 99 U/L (45-117); Anion Gap 7 (5-15); BUN 36 mg/dL (7-18); BUN/Creat Ratio 50.4 RATIO (10-20); Calcium,Total 9.1 mg/dL (8.5-10.1); Chloride 109 mmol/L (98-107); Creatinine, Serum 0.71 mg/dL (0.55-1.02); EST Glomerular Filtration Rate 84 mL/min (>60); Est Glom Filt Rate - Afr Amer 101 mL/min (>60); Estimated Creatinine Clearance 37.74 ml/min; Globulin 3.8 g/dL (2.2-4.2); Glucose 253 mg/dL (74-106); Magnesium 2.1 mg/dL (1.6-2.6); Potassium 4.1 mmol/L (3.5-5.1); Sodium Level 139 mmol/L (136-145)
[2022-09-19] MEDS: Carvedilol 6.25 MG Tablet PO (16:28)
[2022-09-19] MEDS: Acetaminophen 325 MG Tablet 650 MG PO (19:35)
[2022-09-19] MEDS: MELATONIN 3 MG TABLET PO (22:23)
[2022-09-19] MEDS: Atorvastatin Calcium 80 MG Tablet PO (22:23)
[2022-09-19] MEDS: Insulin Lispro 100 UNIT/ML INSULN.PEN SC (22:27)
[2022-09-19 22:45] LABS: Bedside Glucose 214 mg/dL (74-106)
--- NOTE | 2022-09-19 23:00 | RAD_ITS ---
EXAM: XR CHEST, 1 VIEW CLINICAL INDICATION: sob TECHNIQUE: Frontal view of the chest. This report was created using [employer] report generation technology. COMPARISON: 09/18/2022 FINDINGS: LUNGS AND PLEURAL SPACES: Patchy bilateral airspace disease. No pneumothorax. No effusion. HEART: Unremarkable. Cardiac silhouette not enlarged. MEDIASTINUM: Central airways and mediastinal contour are unremarkable. BONES/JOINTS: Unremarkable. SOFT TISSUES: Unremarkable. RAD/Chest 1 View (Portable) IMPRESSION: Patchy bilateral airspace disease. Findings may indicate pneumonia. Electronically Signed: Darrell Juarez MD at 23:50 EDT ,
[2022-09-20] VITALS (23 sets, daily range): BP systolic 87–118; BP diastolic 61–84; PULSE 86–104; RESP 14–29; TEMP 36.6–36.9; O2SAT 88–95; BMI 34.5
[2022-09-20 05:43] LABS: Hematocrit 37.5 % (37-47); Hemoglobin 12.2 g/dL (12.0-15.0); Mean Corp Hgb Conc 32.5 g/dL (32-36); Mean Corpuscular Hgb 31.4 pg (27.0-32.0); Mean Corpuscular Volume 96.4 fL (81-99); Mean Platelet Vol. 8.3 fl (6.2-12.0); Platelet Count 313 K/mm3 (150-450); RBC Distribution Width CV 15.9 % (11.6-14.6); RBC Distribution Width SD 55.8 fl (35.1-43.9); Red Blood Count 3.89 M/mm3 (4.2-5.4)
[2022-09-20 06:54] LABS: Anion Gap 5 (5-15); BUN 41 mg/dL (7-18); BUN/Creat Ratio 62.5 RATIO (10-20); Calcium,Total 8.9 mg/dL (8.5-10.1); Chloride 107 mmol/L (98-107); Creatinine, Serum 0.66 mg/dL (0.55-1.02); EST Glomerular Filtration Rate 92 mL/min (>60); Est Glom Filt Rate - Afr Amer 112 mL/min (>60); Estimated Creatinine Clearance 37.74 ml/min; Glucose 207 mg/dL (74-106); Potassium 4.1 mmol/L (3.5-5.1); Sodium Level 136 mmol/L (136-145)
[2022-09-20] MEDS: Insulin Lispro 100 UNIT/ML INSULN.PEN SC ×2 (07:03→20:33)
[2022-09-20 07:20] LABS: Bedside Glucose 194 mg/dL (74-106)
[2022-09-20] MEDS: Aspirin E.C. 81 MG Tablet PO (08:31)
[2022-09-20] MEDS: Sertraline 100 MG Tablet PO (08:32)
[2022-09-20] MEDS: TICAGRELOR 90 MG TABLET PO ×2 (08:32→20:33)
[2022-09-20] MEDS: Carvedilol 6.25 MG Tablet PO ×2 (08:33→17:14)
--- NOTE | 2022-09-20 08:48 | CRPHASE1_ITS ---
Patient Communication PHII Cardiac Rehab Discussed with Patient:: Yes Guide to Cardiac Rehab Given to Patient:: Yes Cardiac Rehab Facility Choice List Given to Patient:: Yes Choice Program [facility] CR PHII:: Communication Given to CR Choice Program Other:: Communication Given to CR Shampoo Assistant:: Cyndee Morley Phase II Cardiac Rehab:: Yes Sessions:: 36 sessions - 3 days/wk, 12 weeks Cardiac Rehabilitation Info Cardiac Rehabilitation Program Information: Cardiac Rehab The cardiac rehab team at [facility] consists of highly skilled exercise physiologists, nurses, respiratory therapists and physicians working together with you. Our purpose is to help you have a full recovery and achieve the goals you set for yourself. Over the years many of our patients have returned to activities they assumed they would never do again! We can help restore your confidence and motivation to make lifestyle changes that can have a significant impact on your health and quality of life! We can help answer questions and concerns you may have about exercise, lifestyle, medications, diet, stress and anxiety which are common following a hospitalization. WE monitor ECG and vital signs during exercise and discuss your progress with you and report to your physician(s). Cardiac Rehab is proven to help reduce readmissions, improve functional capacity and lower recurrence of problems with your heart. Our Cardiac Rehab program is Certified by the [place] [employer] Pulmonary [employer] (AACVPR) and Accredited by the [place] [employer] through our [facility]. You can contact us at . We invite you to call us with your questions or to get started in our program. If you have other questions or concerns be sure to ask your physician/provider during your follow-up visit. WE look forward to seeing you!
--- NOTE | 2022-09-20 08:49 | CRPH1.INSTRU ---
General Education CAD and cardiac anatomy and function:: Patient communicates acknowledgment Explanation of diagnoses and procedures:: Patient communicates acknowledgment Sign/Symptoms of NE:: Patient communicates acknowledgment Antiplatelet therapy: Patient communicates acknowledgment Smoking Patient Nicotine/Smoking Risk Factors Are:: Non-smoker Dyslipidemia Patient Dyslipidemia Risk Factors Are:: Total Cholesterol, Triglycerides Recommendations Include:: Lipid profile provided, Reviewed NCEP/ATP guidelines, Therapeutic Lifestyle Change dietary guidelines Dyslipidemia Response Code:: Patient communicates acknowledgment Overweight/Obesity Patient Overweight/Obesity Risk Factors Are:: Obesity - > or = 30 Recommendations Include:: Weight loss of 5-10%, Reduced calorie diet, Exercise 5-7 times/week Overweight/Obesity:: Patient communicates acknowledgment Hypertension Recommendations Include:: Maintain BP <130/85, DASH dietary guidelines, Decrease/maintain normal body weight, Moderation of ETOH Hypertension:: Patient communicates acknowledgment Diabetes Patient Diabetes Risk Factors Are:: Elevated blood sugars Recommendations Include:: Maintain fasting blood sugars 70-110 md/dL, Maintain HgbA1c of 6% or less, Monitor blood sugar as prescribed, Diabetic dietary guidelines, Decrease/maintain body weight Diabetes:: Patient communicates acknowledgment Metabolic Syndrome Patient Metabolic Syndrome Risk Factors Are [3 of 5]:: Fasting blood sugar > 100 mg/dL, Waist circumference > 35 [female] or 40 [male], High triglyceride >150, Low HDL <40 [male] or < 50 [female] Recommendations Include:: Reinforce compliance to risk factor modifications, Encouraged follow-up with Primary Care Physician Metabolic Syndrome Response Code:: Patient communicates acknowledgment Sedentary Patient Sedentary Risk Factors Are:: Lack of regular exercise Recommendations Include:: Aerobic exercise 5-7 times/week for 20-30 minutes continuously, Benefits of regular exercise, Discussed home walking program, Monitored Outpatient Cardiac Rehab Sedentary Response Code:: Patient communicates acknowledgment Stress Recommendations Include:: Identification of stressors, and assessment of coping skills, Stress management techniques Stress Response Code:: Patient communicates acknowledgment
[2022-09-20 09:27] LABS: AST(SGOT) 334 U/L (15-37); Alanine Aminotransfer ALT/SGPT 113 U/L (13-56); Albumin, Serum 2.8 g/dL (3.2-5.0); Alkaline Phosphatase 85 U/L (45-117); Bilirubin, Direct 0.16 mg/dL (0.00-0.30); Globulin 3.6 g/dL (2.2-4.2); Protein, Total 6.4 g/dL (6.4-8.2)
--- NOTE | 2022-09-20 09:38 | PN.HOSP_ITS ---
Reason for Visit Reason for Visit: Diagnoses Type 2 diabetes mellitus without complications (09/18/22) Essential (primary) hypertension (09/18/22) ST elevation (STEMI) myocardial infarction of unspecified site (09/18/22) Hypotension, unspecified (09/18/22) Follow-up for anterolateral wall STEMI along with hypotension and new onset A- fib Subjective Subjective Patient is feeling very weak and fatigued. New onset A-fib. Objective Data Objective Data Vital Signs: Vital Signs Temp Pulse Resp BP Pulse Ox O2 Del Method O2 Flow Rate 97.9 F 104 H 23 H 100/67 92 Nasal Cannula 3 09/20/22 05:32 09/20/22 07:00 09/20/22 07:00 09/20/22 07:00 09/20/22 07:00 09/20/22 07:00 09/20/22 07:00 Oxygen Flow Rate (L/min) 3 Oxygen Delivery Method Nasal Cannula Weight: 194 lb 14.218 oz Body Mass Index (BMI) 34.5 Intake & Output: Intake and Output for Last 24 Hours 09/18/22 09/19/22 09/20/22 23:59 23:59 23:59 Intake Total 2786.74 / 2786.74 Output Total 100 / 100 100 / 100 Balance 2686.74 / 2686.74 -100 / -100 Lab / Micro Data Result Diagrams: 09/20/22 05:20 09/20/22 05:20 Labs: Laboratory Results - last 24 hr 09/19/22 04:52: Sodium 137, Potassium 5.3 H, Chloride 110 H, Carbon Dioxide 24.0, Anion Gap 3 L, BUN 31 H, Creatinine 0.51 L, Estim Creat Clear Calc 37.74, Est GFR (MDRD) Af Amer 148, Est GFR (MDRD) Non-Af 123, BUN/Creatinine Ratio 60.4 H, Glucose 208 H, Calcium 8.7, Total Bilirubin 0.40, AST 459 H, ALT 85 H, Alk chris Phosphatase 89, Troponin I High Sens [id number] H*, Total Protein 6.6, Albumin 2.9 L, Globulin 3.7, Albumin/Globulin Ratio 0.8 L 09/19/22 04:52: Hemoglobin A1c 5.6 09/19/22 14:55: WBC 15.5 H, RBC 4.08 L, Hgb 12.7, Hct 38.8, MCV 95.1, MCH 31.1, MCHC 32.7, RDW Std Deviation 54.4 H, RDW Coeff of Ruben 15.6 H, Plt Count 323, MPV 8.1, Immature Gran % (Auto) 0.500, Neut % (Auto) 88.8 H, Lymph % (Auto) 5.4 L, [place] % (Auto) 5.2, Eos % (Auto) 0.0, Baso % (Auto) 0.1, Absolute Neuts (auto) 13.8 H, Absolute Lymphs (auto) 0.84, Nucleated RBC % 0 09/19/22 14:55: Sodium 139, Potassium 4.1, Chloride 109 H, Carbon Dioxide 23.0, Anion Gap 7, BUN 36 H, Creatinine 0.71, Estim Creat Clear Calc 37.74, Est GFR (MDRD) Af Amer 101, Est GFR (MDRD) Non-Af 84, BUN/Creatinine Ratio 50.4 H, Glucose 253 H, Calcium 9.1, Magnesium 2.1, Total Bilirubin 0.40, AST 491 H, ALT 111 H, Alkaline Phosphatase 99, Total Protein 7.0, Albumin 3.2, Globulin 3.8, Albumin/Globulin Ratio 0.8 L 09/19/22 14:55: Phosphorus 4.1 09/19/22 22:22: POC Glucose 214 H 09/20/22 05:20: WBC 18.0 H, RBC 3.89 L, Hgb 12.2, Hct 37.5, MCV 96.4, MCH 31.4, MCHC 32.5, RDW Std Deviation 55.8 H, RDW Coeff of Ruben 15.9 H, Plt Count 313, MPV 8.3 09/20/22 05:20: Sodium 136, Potassium 4.1, Chloride 107, Carbon Dioxide 24.0, Anion Gap 5, BUN 41 H, Creatinine 0.66, Estim Creat Clear Calc 37.74, Est GFR (MDRD) Af Amer 112, Est GFR (MDRD) Non-Af 92, BUN/Creatinine Ratio 62.5 H, Glucose 207 H, Calcium 8.9 09/20/22 06:59: POC Glucose 194 H Radiography Diagnostic Testing: Radiology Impression Chest X-Ray 09/19/22 23:00 IMPRESSION: Patchy bilateral airspace disease. Findings may indicate pneumonia. Electronically Signed: aDrrell Juarez MD at 23:50 EDT , Physical Exam Narrative Seen and examined. radiation monitor shows A-fib heart rate in 90s to 100/min. Blood pressure 100/67. Patient does not have prior history of A-fib. Her usual blood pressure mildly elevated than baseline probably about 140s Physical exam General: Alert, Oriented x3, Cooperative, fatigue. HEENT: Atraumatic, PERRLA, EOMI, Normocephalic Oral: Oral mucosa moist. No Gingival or Mucosal Lesions/ Ulcerations Neck: Supple, No JVD, Negative Carotid Bruits Lungs: Air entry diminished in bilateral lung bases. No crepitation/rhonchi. Not in respiratory distress. Cardiovascular: Irregular rhythm, A-fib, Normal S1, Normal S2, No murmurs Abdomen: Bowel Sounds Present, Soft, Non Tender, Non-Distended : No renal angle tenderness. No suprapubic tenderness. Extremities: No edema, Capillary Refill Less than 3 Seconds Skin: No rashes, No breakdown Musculoskeletal: Right TKR. Baseline on cane/walker. Muscle strength 4+/5 at knees and hips joints no Tenderness to Palpation of Joints or Extremities Neurological: Cranial nerves II-XII grossly intact, DTR 2+/4 and Symmetrical, Neuro grossly intact Psych/Mental Status: Flat affect. Assessment & Plan Assessment/Plan (1) STEMI (ST elevation myocardial infarction): (2) Hypertension: (3) Type 2 diabetes mellitus: PLAN: Plan 77-year-old female was admitted on 09/18 with chest pain severe retrosternal was sick diaphoretic hypotension. Found to have STEMI. #STEMI status post 2 stents to LAD -Presented 09/[address] elevation MD and was taken to the [facility] -Successful PCI with DAILY of occluded ostial LAD -She is on Brilinta 90 mg twice daily, low-dose aspirin for 1 year and on goal- directed medical therapy as per NSTEMI -Integrilin drip continued by cardiology -Coreg increased to 6.25 mg twice daily, lisinopril dose as tolerated by BP, high-dose statin -Echo ordered for today -Cardiac rehab on -Total cholesterol 203 with an LDL of 114 #Postintervention hypotension -Possibly secondary to reperfusion. Improvement -Continue to monitor #Hyperglycemia -A1c 5.6 -Elevated glucose may be reactive -Continue glucose checks and sliding scale insulin #Leukocytosis -Likely reactive -No signs or symptoms of infection -Chest x-ray with no overt infiltrate -We will hold off on any empiric antibiotics #Transaminitis: Patient has mildly elevated ALT and AST AST more than ALT. Possible related to STEMI/mild hypotension - #DVT ppx: SCDs Total time of the visit including total time spent in counseling or coordination of care, (more than 50% of the total time, spent in obtaining medical information from nurses and other ancillary care providers,explaining to the patient about labs, imaging, diagnosis and management of active complex medical conditions), , review of labs and imaging is 40 minutes. Charges/Coding Visit Charges Inpatient E&M: 21678 Subs Hosp L3
--- NOTE | 2022-09-20 10:00 | EKG12_ITS ---
Test Reason : STEMI Blood Pressure : / mmHG Vent. Rate : 100 BPM Atrial Rate : 110 BPM P-R Int : 000 ms QRS Dur : 150 ms QT Int : 414 ms P-R-T Axes : 000 259 063 degrees QTc Int : 534 ms Atrial fibrillation with premature ventricular or aberrantly conducted complexes Right bundle branch block Anteroseptal infarct , age undetermined Abnormal ECG When compared with ECG of 18-SEP-2022 22:43, MANUAL COMPARISON REQUIRED, DATA IS UNCONFIRMED Confirmed by ALANA CABELLO ([id number]), web editor AYAN MCCARTHY ([id number]) on 09/22/2022 10:32:41 AM Referred By: Alana Cabello Confirmed By:ALANA CABELLO
--- NOTE | 2022-09-20 11:10 | CASEMGMT ---
KARINA ARCE MEDIA MARKETING MANAGER CM to room to meet with patient for initial transition planning/care coordination assessment. KARINA ARCE introduced self and role at [facility]. Pt Pt resting in bed w/eyes closed at this time and did not awaken during assessment. Daughter, Simona, @ bedside and answered the following questions. Care providers, pharmacy, and demographics verified/updated at this time. PCP: Dr De Jesus Specialists: Dr Cervantes. Preferred Pharmacy: [facility] Retail Insurance: [facility] Prescription Benefit: Yes Living Will/HPOA: Dtr states she is not sure if pt has completed this in the past. She states thinks it would be a good idea for her mom to complete. SW, Noy, made aware. LNOK: 7 living children. Daughters: Simona, Cynthia, and Ashley. Living Arrangements: Lives w/Simona and her son-in-law [id number]. One story w/no steps to enter thru garage. Independent w/ADL's and does her own laundy. Simona manages pt's medications, takes pt to her appts, and gets her groceries. Transportation: Pt drives short distances only. Family provide most transportation. DME: Pt has the following DME: built-in shower seat, rollator, W/C, bedrail, and grab bars. Dtr interested in Medical alert info. KARINA ARCE provided this. Dtr states no need for further DME at this time. HHC/SNF: [facility], [facility] Dtr states, depending on pt's strength, she may need to go to a SNF or have HHC. Discussed [facility]'s criteria of being homebound for HHC. PT/OT evals pending. PLAN: TBD. PT/OT evals pending Minoo COLON RN, CM
[2022-09-20 12:50] LABS: Bedside Glucose 169 mg/dL (74-106)
--- NOTE | 2022-09-20 13:18 | CASEMGMT ---
Addendum entered by Noy Fuller 09/20/22 13:44: SW back into pt room. Pt daughter present and requesting AD paperwork be completed. SW explained that pt would have to complete the documents when alert and oriented. Pt has been groggy and sleeping most of the morning and not able to answer SW questions when SW spoke to pt. Pt daughter voiced understanding. SW explained will check back in tomorrow if time allows and if the documents cannot be completed durng this hospital stay that the pt can call the number on the rack card and set a time for them to be completed. Daughter appeared to understand. Original Note: Social work SW received pc from BAKERY TEAM LEADER. Pt family requesting discussion on Advanced directives with SW. SW into pt room to meet with family. SW was told pt daughter, who was out of the room getting lunch, was the one who had questions. SW provided AD RACK card and informed would check back in later this day if time allows. Or if family would like to schedule a time to complete the AD they could use the phone number on the card that was provided. JO ANN Potts
[2022-09-20 17:40] LABS: Bedside Glucose 189 mg/dL (74-106)
--- NOTE | 2022-09-20 17:55 | RAD_ITS ---
INDICATION: SOB EXAMINATION/TECHNIQUE: X-RAY - portable upright AP chest x-ray COMPARISON: 09/19/2022 FINDINGS: LINES/DEVICES: None. LUNGS: Stable vascular congestion with minimal change in diffuse bilateral airspace opacities. No consolidations or pleural effusions. MEDIASTINUM AND CARDIOVASCULAR STRUCTURES: Stable mild enlargement of the cardiac silhouette. BONES AND SOFT TISSUES: No acute changes. RAD/Chest 1 View (Portable) IMPRESSION: Stable vascular congestion with bilateral airspace disease, pulmonary edema versus infection. Electronically Signed: Aleksandar Mcpherson MD at 18:34 EDT ,
--- NOTE | 2022-09-20 17:56 | PN.CARD_ITS ---
Subjective Subjective Seen and evaluated today at bedside along with the nursing staff Daughter at bedside at time of evaluation Patient was feeling fatigued tired with cough hemoptysis/streak of blood Nausea no chest pain Objective Data Vital Signs: Vital Signs Temp Pulse Resp BP Pulse Ox O2 Del Method O2 Flow Rate 97.8 F 102 H 24 H 106/75 94 Nasal Cannula 2 09/20/22 14:15 09/20/22 17:10 09/20/22 14:15 09/20/22 17:10 09/20/22 14:15 09/20/22 14:20 09/20/22 16:23 Oxygen Flow Rate (L/min) 2 Oxygen Delivery Method Nasal Cannula Weight: 194 lb 14.218 oz Body Mass Index (BMI) 34.5 Intake & Output: Intake and Output for Last 24 Hours 09/18/22 09/19/22 09/20/22 23:59 23:59 23:59 Intake Total 2786.74 / 2786.74 360 / 360 Output Total 100 / 100 450 / 450 Balance 2686.74 / 2686.74 -90 / -90 Lab / Micro Data Result Diagrams: 09/20/22 05:20 09/20/22 05:20 Labs: Laboratory Results - last 24 hr 09/19/22 22:22: POC Glucose 214 H 09/20/22 05:20: WBC 18.0 H, RBC 3.89 L, Hgb 12.2, Hct 37.5, MCV 96.4, MCH 31.4, MCHC 32.5, RDW Std Deviation 55.8 H, RDW Coeff of Ruben 15.9 H, Plt Count 313, MPV 8.3 09/20/22 05:20: Sodium 136, Potassium 4.1, Chloride 107, Carbon Dioxide 24.0, Anion Gap 5, BUN 41 H, Creatinine 0.66, Estim Creat Clear Calc 37.74, Est GFR (MDRD) Af Amer 112, Est GFR (MDRD) Non-Af 92, BUN/Creatinine Ratio 62.5 H, Glucose 207 H, Calcium 8.9 09/20/22 05:20: Total Bilirubin 0.40, Direct Bilirubin 0.16, AST 334 H, ALT 113 H, Alkaline Phosphatase 85, Total Protein 6.4, Albumin 2.8 L, Globulin 3.6 09/20/22 06:59: POC Glucose 194 H 09/20/22 12:28: POC Glucose 169 H 09/20/22 17:08: POC Glucose 189 H Cardiology Labs/Tests 09/20/22 05:20: WBC 18.0 H, RBC 3.89 L, Hgb 12.2, Hct 37.5, MCV 96.4, MCH 31.4, MCHC 32.5, Plt Count 313, MPV 8.3 09/20/22 05:20: Sodium 136, Potassium 4.1, Chloride 107, Carbon Dioxide 24.0, Anion Gap 5, BUN 41 H, Creatinine 0.66, Est GFR (MDRD) Af Amer 112, Est GFR (MDRD) Non-Af 92, BUN/Creatinine Ratio 62.5 H, Glucose 207 H, Calcium 8.9 09/20/22 05:20: Total Bilirubin 0.40, Direct Bilirubin 0.16 Rhythm: EKG: ECHO: Stress Test: Cardiac Cath: PCI: CT Surgery: Holter monitor: EPS: PPM: CXR: Chest CT Scan: Radiography Diagnostic Testing: Radiology Impression Echocardiogram 09/19/22 00:51 Interpretation Summary The estimated ejection fraction is 20-25 %. Severe LV systolic Dysfunction with segmental Wall motion as described Moderately enlarged left atrium Mild to moderate MR Mild to moderate TR No previous study to compare. Ordering Physician: Mauri Tang Referring Physician: Cyndee Morley Performed By: Berry Ojeda RCS Chest X-Ray 09/19/22 23:00 IMPRESSION: Patchy bilateral airspace disease. Findings may indicate pneumonia. Electronically Signed: Darrell Juarez MD at 23:50 EDT , Physical Exam Cardio Cardio Narrative: Underlying cardiac rhythm is A-fib with fast ventricular rate Cardiac exam S1-S2 regular Chest exam bilateral inspiratory rales. Assessment & Plan Assessment/Plan (1) Atherosclerotic heart disease of [place] coronary artery without angina pect rich: (2) Hypotension: (3) Type 2 diabetes mellitus: (4) Hypertension: (5) STEMI (ST elevation myocardial infarction): PLAN: Plan 77-year-old patient with a large, severe anterolateral/apical STEMI With occluded ostial LAD with PCI and stent of the proximal LAD using drug- eluting stent Patient has severe LV systolic dysfunction by echocardiogram today With ejection fraction in the range of 20-25% large anteroapical hypokinesia and lateral hypokinesia As well has a large left atrium patient has A-fib with RVR and as well has been on acute systolic heart failure with shortness of breath, hemoptysis and bilateral inspiratory rales. I reviewed and discussed all her current medication today Cardiac care plan recommendations; 1. We will continue on DAPT, Brilinta 90 mg twice daily in addition to low-dose aspirin. 2. Anticoagulation with Eliquis 2.5 mg twice daily 3. Lasix 40 mg was given IV today she has bilateral inspiratory rales 4. Amiodarone IV as per protocol. I discussed in detail the cardiac care plan with the patient and the family and nursing staff Very sick patient with severe LV systolic dysfunction with a large anteroapical and lateral [place] We will continue medical treatment with beta-indio carvedilol and high-dose statin And patient will require LifeVest and possible inpatient rehab prior to discharg e. Very guarded prognosis with severe LV systolic dysfunction .
[2022-09-20] MEDS: Furosemide 40 MG/4 ML Vial IV (18:02)
[2022-09-20] MEDS: 0.9% Saline Lock 10 ML Syringe IV (18:03)
[2022-09-20] MEDS: Glucerna Shake 120 ML LIQUID PO (20:32)
[2022-09-20] MEDS: Atorvastatin Calcium 80 MG Tablet PO (20:33)
[2022-09-20] MEDS: APIXABAN 2.5 MG TABLET (WCH) PO (20:33)
[2022-09-20 21:00] LABS: Bedside Glucose 206 mg/dL (74-106)
--- NOTE | 2022-09-20 22:06 | NURSING ---
Pt triggered sepsis alert, Dr. Turner notified. No indication for IV fluids at this time d/t resp status.
[2022-09-21] VITALS (23 sets, daily range): BP systolic 77–150; BP diastolic 52–113; PULSE 79–104; RESP 12–31; TEMP 36.4–37.3; O2SAT 91–98; BMI 34.8
--- NOTE | 2022-09-21 00:03 | PCM.HOSP.N ---
Hospitalist Note Patient with increased O2 needs 2-4L, increase rales, dyspnea sensation ongoing per patient complaint. Will given additional lasix 40 mg IV x 1 now and will trial BIPAP.
[2022-09-21] MEDS: Furosemide 40 MG/4 ML Vial IV ×3 (00:13→16:51)
[2022-09-21] MEDS: 0.9% Saline Lock 10 ML Syringe IV ×4 (00:13→16:51)
--- NOTE | 2022-09-21 02:00 | NURSING ---
Order given for bipap from Dr. Turner if tolerated. Pt wore bipap for about 1 hr, c/o severe mouth dryness and did not want to put it back on. 4 L NC applied again.
[2022-09-21 05:26] LABS: Absolute Lymphocyte Count 1.21 X10^3/uL (0.83-4.51); Absolute Neutrophil Count 12.1 X10^3/uL (2.0-7.7); Basophil# 0.01 X10^3/uL; Basophil% 0.1 % (0-1); Hemoglobin 11.4 g/dL (12.0-15.0); Lymphocyte # 1.21 X10^3/ul (0.83-4.51); Lymphocyte % 8.3 % (19-41); Mean Corp Hgb Conc 32.6 g/dL (32-36); Mean Corpuscular Volume 95.1 fL (81-99); Mean Platelet Vol. 8.3 fl (6.2-12.0); Monocyte# 1.11 X10^3/uL; Monocyte% 7.6 % (0-10); NRBC Flagged by Analyzer 0 % (0-5); Neutrophil # 12.13 X10^3/uL (2.7-7.7); Neutrophil % 83.5 % (47-70); Platelet Count 220 K/mm3 (150-450); RBC Distribution Width CV 15.8 % (11.6-14.6); RBC Distribution Width SD 55.4 fl (35.1-43.9); Red Blood Count 3.68 M/mm3 (4.2-5.4); White Blood Count 14.5 K/mm3 (4.4-11.0)
[2022-09-21 05:45] LABS: ALB/GLOB Ratio 0.8 RATIO (0.9-2.4); AST(SGOT) 164 U/L (15-37); Alanine Aminotransfer ALT/SGPT 89 U/L (13-56); Albumin, Serum 2.8 g/dL (3.2-5.0); Alkaline Phosphatase 83 U/L (45-117); Anion Gap 5 (5-15); BUN 44 mg/dL (7-18); Calcium,Total 8.5 mg/dL (8.5-10.1); Chloride 105 mmol/L (98-107); Creatinine, Serum 0.62 mg/dL (0.55-1.02); EST Glomerular Filtration Rate 99 mL/min (>60); Est Glom Filt Rate - Afr Amer 119 mL/min (>60); Estimated Creatinine Clearance 37.74 ml/min; Globulin 3.3 g/dL (2.2-4.2); Glucose 193 mg/dL (74-106); Magnesium 2.2 mg/dL (1.6-2.6); Potassium 3.7 mmol/L (3.5-5.1); Protein, Total 6.1 g/dL (6.4-8.2); Sodium Level 136 mmol/L (136-145)
[2022-09-21] MEDS: Insulin Lispro 100 UNIT/ML INSULN.PEN SC ×4 (06:41→22:41)
[2022-09-21 07:01] LABS: Bedside Glucose 196 mg/dL (74-106)
--- NOTE | 2022-09-21 08:00 | PCM.PN.HOSP ---
Reason for Visit Reason for Visit: Diagnoses Type 2 diabetes mellitus without complications (09/18/22) Essential (primary) hypertension (09/18/22) ST elevation (STEMI) myocardial infarction of unspecified site (09/18/22) Atherosclerotic heart disease of [place] coronary artery without angina pectoris (09/18/22) Hypotension, unspecified (09/18/22) Follow-up for shortness of breath, increased oxygen requirement dyspnea at rest. Objective Data Objective Data Vital Signs: Vital Signs Temp Pulse Resp BP Pulse Ox O2 Del Method O2 Flow Rate 97.7 F L 96 25 H 123/91 H 91 Nasal Cannula 4 09/21/22 03:00 09/21/22 07:00 09/21/22 07:00 09/21/22 07:00 09/21/22 07:00 09/21/22 07:00 09/21/22 07:00 FiO2 35 09/21/22 01:00 Oxygen Flow Rate (L/min) 4 Oxygen Delivery Method Nasal Cannula Weight: 196 lb 10.437 oz Body Mass Index (BMI) 34.8 Intake & Output: Intake and Output for Last 24 Hours 09/19/22 09/20/22 09/21/22 23:59 23:59 23:59 Intake Total 2786.74 / 2786.74 605.63 / 638.93 258.78 / 258.78 Output Total 100 / 100 550 / 550 600 / 600 Balance 2686.74 / 2686.74 55.63 / 88.93 -341.22 / -341.22 Lab / Micro Data Result Diagrams: 09/21/22 05:05 09/21/22 05:05 Labs: Laboratory Results - last 24 hr 09/20/22 05:20: Total Bilirubin 0.40, Direct Bilirubin 0.16, AST 334 H, ALT 113 H, Alkaline Phosphatase 85, Total Protein 6.4, Albumin 2.8 L, Globulin 3.6 09/20/22 12:28: POC Glucose 169 H 09/20/22 17:08: POC Glucose 189 H 09/20/22 20:31: POC Glucose 206 H 09/21/22 05:05: WBC 14.5 H, RBC 3.68 L, Hgb 11.4 L, Hct 35.0 L, MCV 95.1, MCH 31.0, MCHC 32.6, RDW Std Deviation 55.4 H, RDW Coeff of Ruben 15.8 H, Plt Count 220, MPV 8.3, Immature Gran % (Auto) 0.500, Neut % (Auto) 83.5 H, Lymph % (Auto) 8.3 L, Dare % (Auto) 7.6, Eos % (Auto) 0.0, Baso % (Auto) 0.1, Absolute Neuts (auto) 12.1 H, Absolute Lymphs (auto) 1.21, Nucleated RBC % 0 09/21/22 05:05: Sodium 136, Potassium 3.7, Chloride 105, Carbon Dioxide 26.0, Anion Gap 5, BUN 44 H, Creatinine 0.62, Estim Creat Clear Calc 37.74, Est GFR (MDRD) Af Amer 119, Est GFR (MDRD) Non-Af 99, BUN/Creatinine Ratio 71.0 H, Glucose 193 H, Calcium 8.5, Magnesium 2.2, Total Bilirubin 0.70, AST 164 H, ALT 89 H, Alkaline Phosphatase 83, Total Protein 6.1 L, Albumin 2.8 L, Globulin 3.3, Albumin/Globulin Ratio 0.8 L 09/21/22 06:40: POC Glucose 196 H Radiography Diagnostic Testing: Radiology Impression Echocardiogram 09/19/22 00:51 Interpretation Summary The estimated ejection fraction is 20-25 %. Severe LV systolic Dysfunction with segmental Wall motion as described Moderately enlarged left atrium Mild to moderate MR Mild to moderate TR No previous study to compare. Ordering Physician: Mauri Tang Referring Physician: Cyndee Morley Performed By: Berry Ojeda RCS Chest X-Ray 09/20/22 17:55 IMPRESSION: Stable vascular congestion with bilateral airspace disease, pulmonary edema versus infection. Electronically Signed: Aleksandar Mcpherson MD at 18:34 EDT Reading Location ID and State: [facility] / [place] Tel , Service support , Physical Exam Narrative Seen and examined. Last night patient was more short of breath oxygen requirement increased from 2 to 4 L, dyspnea at rest. Patient was given Lasix 40 mg IV x1 dose and put on BiPAP. Chest x-ray was done. monitoring analyst reviewed shows A-fib heart rate controlled in 80s. Physical exam General: Alert, Oriented x3, Cooperative, fatigue. HEENT: Atraumatic, PERRLA, EOMI, Normocephalic Oral: Oral mucosa moist. No Gingival or Mucosal Lesions/ Ulcerations Neck: Supple, No JVD, Negative Carotid Bruits Lungs: Air entry diminished in bilateral lung bases. Bilateral coarse crepitations. Cardiovascular: Irregular rhythm, A-fib, Normal S1, Normal S2, systolic murmur LSB. Abdomen: Bowel Sounds Present, Soft, Non Tender, Non-Distended : No renal angle tenderness. No suprapubic tenderness. Extremities: Mild bilateral lower leg 2+ pitting edema, Capillary Refill Less than 3 Seconds Skin: No rashes, No breakdown Musculoskeletal: Right TKR. Baseline on cane/walker. Muscle strength 4+/5 at knees and hips joints no Tenderness to Palpation of Joints or Extremities Neurological: Cranial nerves II-XII grossly intact, DTR 2+/4 and Symmetrical, Neuro grossly intact Psych/Mental Status: Flat affect. Assessment & Plan Assessment/Plan (1) STEMI (ST elevation myocardial infarction): (2) Hypertension: (3) Type 2 diabetes mellitus: PLAN: Plan 77-year-old female was admitted on 09/18 with chest pain severe retrosternal was sick diaphoretic hypotension. Found to have STEMI. 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 1-2+ MR and TR. Moderately enlarged left atrium. Chest x-ray individually reviewed shows bilateral patchy infiltrate more in the hilar region.I agree with official report of vascular congestion with bilateral disease pulmonary edema. The patient had 3 dosages of furosemide 40 mg but she had total 1100 mL output in the last 2 days. This seems insufficient. Continue IV diuretic as per tolerated hemodynamics and kidney function New onset A-fib: Patient on amiodarone drip. Low-dose apixaban 2.5 mg. Patient also on aspirin and Brilinta. Heart rate is controlled #Postintervention hypotension -Possibly secondary to reperfusion. Improvement -Continue to monitor #Hyperglycemia -A1c 5.6 -Elevated glucose may be reactive -Continue glucose checks and sliding scale insulin #Leukocytosis -Likely reactive -No signs or symptoms of infection -Chest x-ray with no overt infiltrate -We will hold off on any empiric antibiotics #Transaminitis: Patient has mildly elevated ALT and AST AST more than ALT. Possible related to STEMI/mild hypotension -09/16: Transaminases are improving #DVT ppx: SCDs Total time of the visit including total time spent in counseling or coordination of care, (more than 50% of the total time, spent in obtaining medical information from nurses and other ancillary care providers,explaining to the patient about labs, imaging, diagnosis and management of active complex medical conditions), , review of labs and imaging is 50 minutes. Charges/Coding Visit Charges Inpatient E&M: 30540 Subs Hosp L3
[2022-09-21] MEDS: Aspirin E.C. 81 MG Tablet PO (08:34)
[2022-09-21] MEDS: Carvedilol 6.25 MG Tablet PO (08:34)
[2022-09-21] MEDS: TICAGRELOR 90 MG TABLET PO ×2 (08:34→22:39)
[2022-09-21] MEDS: Sertraline 100 MG Tablet PO (08:34)
--- NOTE | 2022-09-21 08:45 | PN.CARD_ITS ---
Documented by User: NAKIA Coburn 09/21/22 11:27 Subjective Subjective Pt seen and evaluated at bedside. Pt notes that her breathing does feel somewhat better then yesterday. She has continued with some hemoptysis. She does not have any chest discomfort. She feels that her appetite is returning. Objective Data Vital Signs: Vital Signs Temp Pulse Resp BP Pulse Ox O2 Del Method O2 Flow Rate 97.5 F L 92 24 H 121/78 H 94 Nasal Cannula 4 09/21/22 08:00 09/21/22 08:00 09/21/22 08:00 09/21/22 08:00 09/21/22 08:00 09/21/22 08:00 09/21/22 08:00 FiO2 35 09/21/22 01:00 Oxygen Flow Rate (L/min) 4 Oxygen Delivery Method Nasal Cannula Weight: 196 lb 10.437 oz Body Mass Index (BMI) 34.8 Intake & Output: Intake and Output for Last 24 Hours 09/19/22 09/20/22 09/21/22 23:59 23:59 23:59 Intake Total 2786.74 / 2786.74 605.63 / 638.93 275.48 / 275.48 Output Total 100 / 100 550 / 550 600 / 600 Balance 2686.74 / 2686.74 55.63 / 88.93 -324.52 / -324.52 Lab / Micro Data Result Diagrams: 09/21/22 05:05 09/21/22 05:05 Labs: Laboratory Results - last 24 hr 09/20/22 05:20: Total Bilirubin 0.40, Direct Bilirubin 0.16, AST 334 H, ALT 113 H, Alkaline Phosphatase 85, Total Protein 6.4, Albumin 2.8 L, Globulin 3.6 09/20/22 12:28: POC Glucose 169 H 09/20/22 17:08: POC Glucose 189 H 09/20/22 20:31: POC Glucose 206 H 09/21/22 05:05: WBC 14.5 H, RBC 3.68 L, Hgb 11.4 L, Hct 35.0 L, MCV 95.1, MCH 31.0, MCHC 32.6, RDW Std Deviation 55.4 H, RDW Coeff of Ruben 15.8 H, Plt Count 220, MPV 8.3, Immature Gran % (Auto) 0.500, Neut % (Auto) 83.5 H, Lymph % (Auto) 8.3 L, [place] % (Auto) 7.6, Eos % (Auto) 0.0, Baso % (Auto) 0.1, Absolute Neuts (auto) 12.1 H, Absolute Lymphs (auto) 1.21, Nucleated RBC % 0 09/21/22 05:05: Sodium 136, Potassium 3.7, Chloride 105, Carbon Dioxide 26.0, Anion Gap 5, BUN 44 H, Creatinine 0.62, Estim Creat Clear Calc 37.74, Est GFR (MDRD) Af Amer 119, Est GFR (MDRD) Non-Af 99, BUN/Creatinine Ratio 71.0 H, Glucose 193 H, Calcium 8.5, Magnesium 2.2, Total Bilirubin 0.70, AST 164 H, ALT 89 H, Alkaline Phosphatase 83, Total Protein 6.1 L, Albumin 2.8 L, Globulin 3.3, Albumin/Globulin Ratio 0.8 L 09/21/22 06:40: POC Glucose 196 H Cardiology Labs/Tests 09/20/22 05:20: Total Bilirubin 0.40, Direct Bilirubin 0.16 09/21/22 05:05: WBC 14.5 H, RBC 3.68 L, Hgb 11.4 L, Hct 35.0 L, MCV 95.1, MCH 31.0, MCHC 32.6, Plt Count 220, MPV 8.3, Immature Gran % (Auto) 0.500, Neut % (Auto) 83.5 H, Lymph % (Auto) 8.3 L, [place] % (Auto) 7.6, Eos % (Auto) 0.0, Baso % (Auto) 0.1, Absolute Neuts (auto) 12.1 H, Nucleated RBC % 0 09/21/22 05:05: Sodium 136, Potassium 3.7, Chloride 105, Carbon Dioxide 26.0, Anion Gap 5, BUN 44 H, Creatinine 0.62, Est GFR (MDRD) Af Amer 119, Est GFR (MDRD) Non-Af 99, BUN/Creatinine Ratio 71.0 H, Glucose 193 H, Calcium 8.5, Magnesium 2.2, Total Bilirubin 0.70 Rhythm: Afib Radiography Diagnostic Testing: Radiology Impression Echocardiogram 09/19/22 00:51 Interpretation Summary The estimated ejection fraction is 20-25 %. Severe LV systolic Dysfunction with segmental Wall motion as described Moderately enlarged left atrium Mild to moderate MR Mild to moderate TR No previous study to compare. Ordering Physician: Mauri Tang Referring Physician: Cyndee Morley Performed By: Berry Ojeda RCS Chest X-Ray 09/20/22 17:55 IMPRESSION: Stable vascular congestion with bilateral airspace disease, pulmonary edema versus infection. Electronically Signed: Aleksandar Mcpherson MD at 18:34 EDT , Physical Exam Const alert, oriented x3 and no apparent distress HEENT normocephalic, head/scalp atraumatic, hearing grossly normal bilaterally, external ears normal, external nose normal and moist oral mucous membranes Eyes PERRL, EOMs intact bilaterally, conjunctivae normal and no scleral icterus Neck no lymphadenopathy, supple and no JVD Resp Auscultation: crackles bilateral (inspiratory left greater than right) Cardio Jugular Venous Distention: Negative for JVD Rate: regular rate Rhythm: abnormal rhythm irregularly irregular Heart Sounds: S1 normal and S2 normal GI normal to inspection, nondistended, normoactive bowel sounds, soft to palpation, non-tender and non-distended Extremity normal to inspection, normal capillary refill, no clubbing, cyanosis or edema and no pedal edema Neuro oriented x3, CN's II-XII intact bilaterally and no focal motor deficits Psych cooperative and affect normal Assessment & Plan Assessment/Plan (1) STEMI (ST elevation myocardial infarction): PLAN: Patient had a large severe anterolateral/apical STEMI. With occluded ostial LAD with PCI and stent of the proximal LAD using drug-eluting stent Patient will continue with her Brilinta, aspirin, carvedilol, lisinopril. Her statin has been on hold due to her elevated liver enzymes. (2) Cardiomyopathy, ischemic: PLAN: Echocardiogram demonstrated an ejection fraction of 20 to 25% with large anterior apical hypokinesia and lateral hypokinesia. Hopefully this will improve over time with aggressive medical management and with her recent stenting. Patient did require IV Lasix yesterday. Would like to switch her over to p.o. Lasix with her frequent need of diuretics. Patient is on carvedilol and lisinopril. We will adjust medications as blood pressure tolerates to help maximize these. Dr. Morley would like to send her home on a life vest. Plan would be to repeat her echocardiogram in approximately 6 to 12 weeks. If her ejection fraction does not improve would like to discuss with patient a prophylactic ICD. (3) Persistent atrial fibrillation: PLAN: Patient does have persistent atrial fibrillation. She was started on IV amiodarone. Would like to switch this over to p.o. amiodarone. She does not appear symptomatic with her atrial fibrillation. For now we will continue with her Brilinta, aspirin and Eliquis. It is noted that she does have hemoptysis yesterday and today. We will need to keep an eye on this as we may need to reconsider anticoagulation until her hemoptysis resolves. Her rate is controlled on her current dose of carvedilol. (4) Non-sustained ventricular tachycardia: PLAN: Patient is having nonsustained ventricular arrhythmias. We will plan on switching her over to p.o. amiodarone. We will send patient home on a LifeVest. As an outpatient would repeat echocardiogram to see if her ejection fraction has improved, patient may require prophylactic ICD. She is also on carvedilol. Documented by User: Dr. Cyndee Morley MD 09/21/22 17:23 Lab / Micro Data Result Diagrams: 09/21/22 05:05 09/21/22 05:05 Assessment & Plan Assessment/Plan (1) STEMI (ST elevation myocardial infarction): (2) Cardiomyopathy, ischemic: (3) Persistent atrial fibrillation: (4) Non-sustained ventricular tachycardia: PLAN: Plan I independently examined this patient reviewed all the medical record current medication Patient has a large anteroseptal RI with severe LV systolic dysfunction Acute systolic heart failure with bilateral basal rales and also has persistent atrial fibrillation We will continue current medical treatment and follow-up clinically. Patient will require LifeVest prior to discharge
--- NOTE | 2022-09-21 09:41 | CASEMGMT ---
Social Work Pt does not have LW/POA documents. Family had asked yesterday about completing, pt was not able at that time. SW will follow up to see if pt is willing and able as time allows, family does have information given to them by staff yesterday to complete the documents after the hospitalization as well. SHAN Shafer
--- NOTE | 2022-09-21 10:00 | EKG12_ITS ---
Test Reason : CHEST PAIN Blood Pressure : / mmHG Vent. Rate : 092 BPM Atrial Rate : 108 BPM P-R Int : 000 ms QRS Dur : 148 ms QT Int : 372 ms P-R-T Axes : 000 211 -11 degrees QTc Int : 460 ms Suspect arm lead reversal, interpretation assumes no reversal Atrial fibrillation Right bundle branch block Anterolateral infarct (cited on or before 18-SEP-2022) Abnormal ECG When compared with ECG of 21-SEP-2022 04:50, Serial changes of Anterolateral infarct Present Confirmed by LUCY POE, VLAD ([id number]), supervising film or videotape editor AYAN MCCARTHY ([id number]) on 09/28/2022 10:43:19 AM Referred By: Cyndee Morley Confirmed By:VLAD AYALA MD
--- NOTE | 2022-09-21 10:02 | CASEMGMT ---
Addendum entered by Agata Kelly 09/21/22 11:12: Social Work Daughter Simona called, states they spoke w/pt and all in agreement for referral to [facility]. SW explained will send referral. SW sent [facility], await response. SHAN Shafer Original Note: Social Work SW spoke w/therapy, pt is very weak. SW reviewed PT/OT, pt walked 4 feet, unsteady, assist of one. SW spoke w/pt in room, two of pt's daughters and one son present. SW spoke w/her initially about going somewhere for rehab. Pt states she would rather go home. SW explained we can see how therapy goes today, but based on yesterday's therapy evaluations, it seems pt would benefit from short term placement in a chcf facility for rehab. SW explained has a list, gave to daughter w/pt's permission. SW provided list of [facility] facilities via [facility] in pt's insurance network, preferred geographic area, and complete w/quality and resource use data. Daughter states pt has been to TCU in the past. SW explained to family it may be a good idea to speak w/pt again about it after therapy today. Family does seem to agree that short term snf placement would be a good idea. SW also spoke w/pt about completing LW/POA forms. Pt agreeable to complete the forms but not today. SW provided the documents to family and reviewed them briefly. SW gave family this SW's number and another SW's number to follow up both about POA forms and SNF choices. SW asked them to let SW by tomorrow SNF choices. SW will continue to follow for SNF placement, and to complete POA forms as time allows. SHAN Shafer
[2022-09-21 10:25] LABS: ACT Activated Clotting Time 149 sec (74-137)
[2022-09-21 10:26] LABS: ACT Activated Clotting Time 137 sec (74-137)
[2022-09-21 10:27] LABS: ACT Activated Clotting Time 167 sec (74-137)
[2022-09-21] MEDS: Glucerna Shake 120 ML LIQUID PO ×3 (10:34→22:44)
[2022-09-21] MEDS: APIXABAN 2.5 MG TABLET (WCH) PO ×2 (10:35→22:39)
[2022-09-21] MEDS: Amiodarone 200 MG Tablet PO ×2 (12:00→22:40)
[2022-09-21 12:15] LABS: Bedside Glucose 218 mg/dL (74-106)
[2022-09-21] MEDS: Acetaminophen 325 MG Tablet 650 MG PO (14:32)
[2022-09-21 16:40] LABS: Bedside Glucose 183 mg/dL (74-106)
[2022-09-21] MEDS: MELATONIN 3 MG TABLET PO (22:39)
[2022-09-21] MEDS: Atorvastatin Calcium 80 MG Tablet PO (22:44)
[2022-09-21 22:55] LABS: Bedside Glucose 181 mg/dL (74-106)
[2022-09-22] VITALS (15 sets, daily range): BP systolic 101–119; BP diastolic 65–85; PULSE 88–102; RESP 18–24; TEMP 36.3–37.1; O2SAT 89–96; BMI 34.2
[2022-09-22] MEDS: Acetaminophen 325 MG Tablet 650 MG PO (02:10)
[2022-09-22 05:14] LABS: Absolute Lymphocyte Count 0.93 X10^3/uL (0.83-4.51); Absolute Neutrophil Count 12.3 X10^3/uL (2.0-7.7); Basophil# 0.01 X10^3/uL; Basophil% 0.1 % (0-1); Hemoglobin 11.2 g/dL (12.0-15.0); Lymphocyte # 0.93 X10^3/ul (0.83-4.51); Lymphocyte % 6.4 % (19-41); Mean Corpuscular Hgb 30.8 pg (27.0-32.0); Mean Corpuscular Volume 96.2 fL (81-99); Mean Platelet Vol. 8.6 fl (6.2-12.0); Monocyte# 1.08 X10^3/uL; Monocyte% 7.5 % (0-10); NRBC Flagged by Analyzer 0 % (0-5); Neutrophil # 12.31 X10^3/uL (2.7-7.7); Neutrophil % 85.1 % (47-70); Platelet Count 248 K/mm3 (150-450); RBC Distribution Width CV 15.3 % (11.6-14.6); RBC Distribution Width SD 53.8 fl (35.1-43.9); Red Blood Count 3.64 M/mm3 (4.2-5.4); White Blood Count 14.5 K/mm3 (4.4-11.0)
[2022-09-22 05:42] LABS: ALB/GLOB Ratio 0.8 RATIO (0.9-2.4); AST(SGOT) 107 U/L (15-37); Alanine Aminotransfer ALT/SGPT 82 U/L (13-56); Albumin, Serum 2.7 g/dL (3.2-5.0); Alkaline Phosphatase 90 U/L (45-117); Anion Gap 2 (5-15); BUN 36 mg/dL (7-18); BUN/Creat Ratio 73.3 RATIO (10-20); Calcium,Total 8.6 mg/dL (8.5-10.1); Chloride 104 mmol/L (98-107); Creatinine, Serum 0.49 mg/dL (0.55-1.02); EST Glomerular Filtration Rate 129 mL/min (>60); Est Glom Filt Rate - Afr Amer 156 mL/min (>60); Estimated Creatinine Clearance 37.74 ml/min; Globulin 3.5 g/dL (2.2-4.2); Glucose 184 mg/dL (74-106); Potassium 3.3 mmol/L (3.5-5.1); Protein, Total 6.2 g/dL (6.4-8.2); Sodium Level 135 mmol/L (136-145)
[2022-09-22] MEDS: Insulin Lispro 100 UNIT/ML INSULN.PEN SC ×4 (06:30→21:57)
[2022-09-22 06:50] LABS: Bedside Glucose 222 mg/dL (74-106)
[2022-09-22] MEDS: APIXABAN 2.5 MG TABLET (WCH) PO ×2 (08:48→21:57)
[2022-09-22] MEDS: Sertraline 100 MG Tablet PO (08:48)
[2022-09-22] MEDS: TICAGRELOR 90 MG TABLET PO ×2 (08:49→21:57)
[2022-09-22] MEDS: Aspirin E.C. 81 MG Tablet PO (08:49)
[2022-09-22] MEDS: Amiodarone 200 MG Tablet PO ×2 (08:49→21:56)
[2022-09-22] MEDS: Carvedilol 3.125 MG TABLET PO ×2 (08:49→17:17)
[2022-09-22] MEDS: Lisinopril 2.5 MG Tablet PO (08:50)
--- NOTE | 2022-09-22 08:58 | PCM.PN.HOSP ---
Reason for Visit Reason for Visit: Diagnoses Type 2 diabetes mellitus without complications (09/18/22) Essential (primary) hypertension (09/18/22) ST elevation (STEMI) myocardial infarction of unspecified site (09/18/22) Atherosclerotic heart disease of [place] coronary artery without angina pectoris (09/18/22) Ischemic cardiomyopathy (09/18/22) Other ventricular tachycardia (09/18/22) Other persistent atrial fibrillation (09/18/22) Hypotension, unspecified (09/18/22) Subjective Subjective Follow-up for acute on chronic combined respiratory failure Objective Data Objective Data Vital Signs: Vital Signs Temp Pulse Resp BP Pulse Ox O2 Del Method O2 Flow Rate 97.4 F L 97 18 111/74 94 High Flow 5 09/22/22 08:45 09/22/22 08:45 09/22/22 08:45 09/22/22 08:45 09/22/22 08:45 09/22/22 08:45 09/22/22 08:45 FiO2 35 09/21/22 01:00 Oxygen Flow Rate (L/min) 5 Oxygen Delivery Method High Flow Weight: 192 lb 14.472 oz Body Mass Index (BMI) 34.2 Intake & Output: Intake and Output for Last 24 Hours 09/20/22 09/21/22 09/22/22 23:59 23:59 23:59 Intake Total 605.63 / 638.93 942.56 / 942.56 Output Total 550 / 550 1400 / 1400 100 / 100 Balance 55.63 / 88.93 -457.44 / -457.44 -100 / -100 Lab / Micro Data Result Diagrams: 09/22/22 04:30 09/22/22 04:30 Labs: Laboratory Results - last 24 hr 09/18/22 22:15: Activated Clotting Time 149 H 09/18/22 22:33: Activated Clotting Time 137 09/18/22 22:45: Activated Clotting Time 167 H 09/21/22 11:49: POC Glucose 218 H 09/21/22 16:16: POC Glucose 183 H 09/21/22 22:32: POC Glucose 181 H 09/22/22 04:30: WBC 14.5 H, RBC 3.64 L, Hgb 11.2 L, Hct 35.0 L, MCV 96.2, MCH 30.8, MCHC 32.0, RDW Std Deviation 53.8 H, RDW Coeff of Ruben 15.3 H, Plt Count 248, MPV 8.6, Immature Gran % (Auto) 0.900, Neut % (Auto) 85.1 H, Lymph % (Auto) 6.4 L, [place] % (Auto) 7.5, Eos % (Auto) 0.0, Baso % (Auto) 0.1, Absolute Neuts (auto) 12.3 H, Absolute Lymphs (auto) 0.93, Nucleated RBC % 0 09/22/22 04:30: Sodium 135 L, Potassium 3.3 L, Chloride 104, Carbon Dioxide 29.0, Anion Gap 2 L, BUN 36 H, Creatinine 0.49 L, Estim Creat Clear Calc 37.74, Est GFR (MDRD) Af Amer 156, Est GFR (MDRD) Non-Af 129, BUN/Creatinine Ratio 73.3 H, Glucose 184 H, Calcium 8.6, Total Bilirubin 1.40 H, AST 107 H, ALT 82 H, Alkaline Phosphatase 90, Total Protein 6.2 L, Albumin 2.7 L, Globulin 3.5, Albumin/Globulin Ratio 0.8 L 09/22/22 05:59: POC Glucose 222 H Physical Exam Narrative Seen and examined. Patient as she could not sleep last night as she was very short of breath. She also refused for BiPAP which I encouraged and reinforced the need for faster recovery. Repeat chest x-ray was ordered. Patient on 4 to 5 L of oxygen groundwater monitoring technician reviewed shows A-fib heart rate controlled in 80s. No fever. Physical exam General: Alert, Oriented x3, Cooperative, respiratory muscle fatigue. HEENT: Atraumatic, PERRLA, EOMI, Normocephalic Oral: Oral mucosa moist. No Gingival or Mucosal Lesions/ Ulcerations Neck: Supple, No JVD, Negative Carotid Bruits Lungs: Air entry diminished in bilateral lung bases. Bilateral coarse crepitations. Dyspnea on minimal exertion Cardiovascular: Irregular rhythm, A-fib, Normal S1, Normal S2, systolic murmur LSB. Abdomen: Bowel Sounds Present, Soft, Non Tender, Non-Distended : No renal angle tenderness. No suprapubic tenderness. Extremities: Mild bilateral lower leg 2+ pitting edema, Capillary Refill Less than 3 Seconds Skin: No rashes, No breakdown Musculoskeletal: Right TKR. Baseline on cane/walker. Muscle strength 4+/5 at knees and hips joints no Tenderness to Palpation of Joints or Extremities Neurological: Cranial nerves II-XII grossly intact, DTR 2+/4 and Symmetrical, Neuro grossly intact Psych/Mental Status: Flat affect. Assessment & Plan Assessment/Plan (1) STEMI (ST elevation myocardial infarction): (2) Hypertension: (3) Type 2 diabetes mellitus: PLAN: Plan 77-year-old female was admitted on 09/18 with chest pain severe retrosternal was sick diaphoretic hypotension. Found to have STEMI. #STEMI status post 2 stents to LAD -Presented 09/[address] elevation MA and was taken to the [facility] -Successful PCI with DAILY of occluded ostial LAD -She is on Brilinta 90 mg twice daily, low-dose aspirin for 1 year and on goal-directed medical therapy as per NSTEMI -Integrilin drip continued by cardiology -Coreg increased to 6.25 mg twice daily, lisinopril dose as tolerated by BP, high-dose statin -Echo ordered for today -Cardiac rehab on -Total cholesterol 203 with an LDL of 114 09/22: Echo shows decrease in EF 2024%. Severe LV systolic dysfunction, mild to moderate MR and TR. Discussed with the touch up carver. Patient will need LifeVest at the time of discharge. Lasix 40 mg IV ordered. #Postintervention hypotension -Possibly secondary to reperfusion. Improvement -Continue to monitor 09/22: Hypotension has resolved. Patient's blood pressure recovered. It fluctuates from low 96/52-150/113. On low-dose Levaquin. Carvedilol dose increased. #Hyperglycemia -A1c 5.6 -Elevated glucose may be reactive -Continue glucose checks and sliding scale insulin High suspicion of bilateral pneumonia: Repeat chest x-ray was done on 09/22. Vascular congestion has improved but patient has progressive bilateral infiltrate, worsening right lung field. Pneumonia work-up ordered. Patient does not have fever but is more short of breath sometimes tachypneic labored breathing even on diuresis. Started on IV ceftriaxone and doxycycline. Levofloxacin/chloroquine and Zithromax avoided because of high interaction with amiodarone for QTc prolongation and arrhythmia. Solu-Medrol 60 mg IV 1 dose, half an hour before starting IV ceftriaxone. Discussed with the ID regarding allergy of penicillin with hives. #Transaminitis: Patient has mildly elevated ALT and AST AST more than ALT. Possible related to STEMI/mild hypotension 09/22: Improvement in AST ALT. Patient on high intensity statin. #DVT ppx: SCDs Total time of the visit including total time spent in counseling or coordination of care, (more than 50% of the total time, spent in obtaining medical information from nurses and other ancillary care providers,explaining to the patient about labs, imaging, diagnosis and management of active complex medical conditions), touch up carver, ID, review of labs and imaging is 50 minutes. Laboratory Results 09/21/22 16:16: POC Glucose 183 H 09/21/22 22:32: POC Glucose 181 H 09/22/22 04:30: WBC 14.5 H, RBC 3.64 L, Hgb 11.2 L, Hct 35.0 L, MCV 96.2, MCH 30.8, MCHC 32.0, RDW Std Deviation 53.8 H, RDW Coeff of Ruben 15.3 H, Plt Count 248, MPV 8.6, Immature Gran % (Auto) 0.900, Neut % (Auto) 85.1 H, Lymph % (Auto) 6.4 L, [place] % (Auto) 7.5, Eos % (Auto) 0.0, Baso % (Auto) 0.1, Absolute Neuts (auto) 12.3 H, Absolute Lymphs (auto) 0.93, Nucleated RBC % 0 09/22/22 04:30: Sodium 135 L, Potassium 3.3 L, Chloride 104, Carbon Dioxide 29.0, Anion Gap 2 L, BUN 36 H, Creatinine 0.49 L, Estim Creat Clear Calc 37.74, Est GFR (MDRD) Af Amer 156, Est GFR (MDRD) Non-Af 129, BUN/Creatinine Ratio 73.3 H, Glucose 184 H, Calcium 8.6, Total Bilirubin 1.40 H, AST 107 H, ALT 82 H, Alkaline Phosphatase 90, Total Protein 6.2 L, Albumin 2.7 L, Globulin 3.5, Albumin/Globulin Ratio 0.8 L 09/22/22 05:59: POC Glucose 222 H 09/22/22 11:42: POC Glucose 183 H 09/22/22 13:55: COVID-19 ([facility]) Pending Clinical Impression(s) from Imaging Studies Chest X-Ray 09/18/22 22:50 IMPRESSION: Poor inspiration with some bibasilar atelectasis. Cardiomegaly. Electronically Signed: Murtaza Rausch MD at 23:09 EDT , Echocardiogram 09/19/22 00:51 Interpretation Summary The estimated ejection fraction is 20-25 %. Severe LV systolic Dysfunction with segmental Wall motion as described Moderately enlarged left atrium Mild to moderate MR Mild to moderate TR No previous study to compare. Ordering Physician: Mauri Tang Referring Physician: Cyndee Morley Performed By: Berry Ojeda RCS Chest X-Ray 09/19/22 23:00 IMPRESSION: Patchy bilateral airspace disease. Findings may indicate pneumonia. Chest X-Ray 09/20/22 17:55 IMPRESSION: Stable vascular congestion with bilateral airspace disease, pulmonary edema versus infection. Chest X-Ray 09/22/22 10:21 IMPRESSION: Progressive bilateral patchy airspace disease worse in the right hemithorax. Chest X-Ray 09/22/22 10:21 IMPRESSION: Minimal left pleural effusion. Charges/Coding Visit Charges Inpatient E&M: 74323 Subs Hosp L3
--- NOTE | 2022-09-22 09:59 | PCM.PN.CARD ---
Subjective Subjective Pt seen an evaluated. She notes that that she found it difficult to sleep d/t SOB. She did attempt Bipap last night but did not tolerate it. She is now requiring O2 at 6 LNC. Objective Data Vital Signs: Vital Signs Temp Pulse Resp BP Pulse Ox O2 Del Method O2 Flow Rate 97.4 F L 97 18 111/74 94 High Flow 5 09/22/22 08:45 09/22/22 08:45 09/22/22 08:45 09/22/22 08:45 09/22/22 08:45 09/22/22 08:45 09/22/22 08:45 FiO2 35 09/21/22 01:00 Oxygen Flow Rate (L/min) 5 Oxygen Delivery Method High Flow Weight: 192 lb 14.472 oz Body Mass Index (BMI) 34.2 Intake & Output: Intake and Output for Last 24 Hours 09/20/22 09/21/22 09/22/22 23:59 23:59 23:59 Intake Total 605.63 / 638.93 942.56 / 942.56 Output Total 550 / 550 1400 / 1400 100 / 100 Balance 55.63 / 88.93 -457.44 / -457.44 -100 / -100 Lab / Micro Data Result Diagrams: 09/22/22 04:30 09/22/22 04:30 Labs: Laboratory Results - last 24 hr 09/18/22 22:15: Activated Clotting Time 149 H 09/18/22 22:33: Activated Clotting Time 137 09/18/22 22:45: Activated Clotting Time 167 H 09/21/22 11:49: POC Glucose 218 H 09/21/22 16:16: POC Glucose 183 H 09/21/22 22:32: POC Glucose 181 H 09/22/22 04:30: WBC 14.5 H, RBC 3.64 L, Hgb 11.2 L, Hct 35.0 L, MCV 96.2, MCH 30.8, MCHC 32.0, RDW Std Deviation 53.8 H, RDW Coeff of Ruben 15.3 H, Plt Count 248, MPV 8.6, Immature Gran % (Auto) 0.900, Neut % (Auto) 85.1 H, Lymph % (Auto) 6.4 L, [place] % (Auto) 7.5, Eos % (Auto) 0.0, Baso % (Auto) 0.1, Absolute Neuts (auto) 12.3 H, Absolute Lymphs (auto) 0.93, Nucleated RBC % 0 09/22/22 04:30: Sodium 135 L, Potassium 3.3 L, Chloride 104, Carbon Dioxide 29.0, Anion Gap 2 L, BUN 36 H, Creatinine 0.49 L, Estim Creat Clear Calc 37.74, Est GFR (MDRD) Af Amer 156, Est GFR (MDRD) Non-Af 129, BUN/Creatinine Ratio 73.3 H, Glucose 184 H, Calcium 8.6, Total Bilirubin 1.40 H, AST 107 H, ALT 82 H, Alkaline Phosphatase 90, Total Protein 6.2 L, Albumin 2.7 L, Globulin 3.5, Albumin/Globulin Ratio 0.8 L 09/22/22 05:59: POC Glucose 222 H Cardiology Labs/Tests 09/22/22 04:30: WBC 14.5 H, RBC 3.64 L, Hgb 11.2 L, Hct 35.0 L, MCV 96.2, MCH 30.8, MCHC 32.0, Plt Count 248, MPV 8.6, Immature Gran % (Auto) 0.900, Neut % (Auto) 85.1 H, Lymph % (Auto) 6.4 L, [place] % (Auto) 7.5, Eos % (Auto) 0.0, Baso % (Auto) 0.1, Absolute Neuts (auto) 12.3 H, Nucleated RBC % 0 09/22/22 04:30: Sodium 135 L, Potassium 3.3 L, Chloride 104, Carbon Dioxide 29.0, Anion Gap 2 L, BUN 36 H, Creatinine 0.49 L, Est GFR (MDRD) Af Amer 156, Est GFR (MDRD) Non-Af 129, BUN/Creatinine Ratio 73.3 H, Glucose 184 H, Calcium 8.6, Total Bilirubin 1.40 H Physical Exam Const alert, oriented x3 and no apparent distress HEENT normocephalic, head/scalp atraumatic, hearing grossly normal bilaterally, external ears normal, external nose normal and moist oral mucous membranes Eyes PERRL, EOMs intact bilaterally, conjunctivae normal and no scleral icterus Neck no lymphadenopathy, supple and no JVD Resp Auscultation: diminished lung sounds bilateral Cardio Jugular Venous Distention: Negative for JVD Rate: regular rate Rhythm: abnormal rhythm irregularly irregular Heart Sounds: S1 normal and S2 normal GI normal to inspection, nondistended, normoactive bowel sounds, soft to palpation, non-tender and non-distended Extremity normal to inspection, normal capillary refill, no clubbing, cyanosis or edema and no pedal edema Neuro oriented x3, CN's II-XII intact bilaterally and no focal motor deficits Psych cooperative and affect normal Assessment & Plan Assessment/Plan (1) STEMI (ST elevation myocardial infarction): (2) Cardiomyopathy, ischemic: (3) Persistent atrial fibrillation: (4) Non-sustained ventricular tachycardia: PLAN: Pa PLAN: Plan In regards to her non-STEMI. Patient had a large severe anterolateral/apical STEMI. With occluded ostial LAD with PCI and stent of the proximal LAD using drug-eluting stent. Patient will continue with her Brilinta, aspirin, carvedilol, lisinopril. Her liver enzymes have been improving. We will restart a low-dose of statin. Echocardiogram demonstrated an ejection fraction of 20 to 25% with large anterior apical hypokinesia and lateral hypokinesia. Hopefully this will improve over time with aggressive medical management and with her recent stenting. Patient is still requiring IV Lasix. With her shortness of breath last night hospitalist did give another dose of IV Lasix. At some point would like to switch this over to p.o. Lasix. We will also start her on spironolactone. Patient is on carvedilol and lisinopril. We will adjust medications as blood pressure tolerates to help maximize these. Dr. Morley would like to send her home on a life vest. Plan would be to repeat her echocardiogram in approximately 6 to 12 weeks. If her ejection fraction does not improve would like to discuss with patient a prophylactic ICD. Patient does have persistent atrial fibrillation. She is now on oral amiodarone. With her shortness of breath we will need to monitor this closely. She does not appear symptomatic with her atrial fibrillation. For now we will continue with her Brilinta, aspirin and Eliquis. She has not had any further hemoptysis. Her rate is controlled on her current dose of carvedilol. Patient is having nonsustained ventricular arrhythmias. She is on p.o. amiodarone. We will send patient home on a LifeVest. As an outpatient would repeat echocardiogram to see if her ejection fraction has improved, patient may require prophylactic ICD. She is also on carvedilol. Charges/Coding Visit Charges Inpatient E&M: 04259 [facility] Hosp L3
--- NOTE | 2022-09-22 10:11 | CASEMGMT ---
[facility] Inez the [employer] from Cardiology ordered the Life Vest. SW notified Hector Garvey of the Life Vest and they are okay with this. SW spoke with patient's family per their request. Patient's daughter was concerned that patient was moved to PCU without Cardiology's consent. COLE checked with Inez [employer] with Cardiology and Cardiology is okay with patient being in PCU. SW let patient's daughter know this information. SW also let them know that [facility] accepted patient. Patient's daughter voiced more concerns about care. SW will have charge loader talk with patient and her family. COLE updated charge loader Isaiah. Plan: d/c to [facility] under skilled level of care pending pre-cert and being medically ready. Viri Bauman MSW [place]
--- NOTE | 2022-09-22 10:21 | RAD_ITS ---
STUDY: X-RAY CHEST REASON FOR EXAM: Female, 77 years old. To rule out pleural effusion TECHNIQUE: Left and right lateral decubitus views. COMPARISON: Comparison is made with prior chest radiograph done earlier today. FINDINGS: Minimal left pleural effusion. RAD/Special CXR (Obl/Decub/A/L) IMPRESSION: Minimal left pleural effusion. Electronically Signed: Tomi Lynn MD at 11:38 EDT ,
--- NOTE | 2022-09-22 10:21 | RAD_ITS ---
STUDY: X-RAY CHEST REASON FOR EXAM: Female, 77 years old. Pneumonia TECHNIQUE: PA and lateral views of the chest. COMPARISON: Comparison is made with prior study dated September 20, 2022. FINDINGS: EKG electrodes are seen. Since prior study, there has been progressive bilateral patchy airspace disease worse in the right lung. Blunting of the left cosmetic angle. There is mild cardiac enlargement. Normal mediastinum and huan. Normal visualized pulmonary arteries. There is atherosclerotic tortuosity of the aortic arch and descending thoracic aorta. There are diffuse degenerative changes of the visualized thoracic spine. Prior rotator cuff surgery overlying the left shoulder. There is no demonstrated abnormality of the visualized soft tissue structures of the upper abdomen. RAD/Chest PA and Lateral IMPRESSION: Progressive bilateral patchy airspace disease worse in the right hemithorax. Electronically Signed: Tomi Lynn MD at 11:39 EDT ,
[2022-09-22] MEDS: Furosemide 40 MG/4 ML Vial IV (10:48)
[2022-09-22] MEDS: 0.9% Saline Lock 10 ML Syringe IV ×2 (10:49→17:12)
[2022-09-22] MEDS: Spironolactone 25 MG Tablet PO (10:49)
[2022-09-22 12:10] LABS: Bedside Glucose 183 mg/dL (74-106)
[2022-09-22 15:46] LABS: M R Staph aureus DNA By PCR Negative (Negative); Probe Check PASS; Specimen Processing Control PASS
[2022-09-22] MEDS: guaiFENesin 1,200 MG Tablet 1200 MG PO ×2 (17:07→21:56)
[2022-09-22] MEDS: Doxycycline 100 MG CAPSULE PO ×2 (17:08→21:57)
[2022-09-22] MEDS: MethylPREDNISolone 125 MG/2 ML Vial 60 MG IV (17:09)
[2022-09-22] MEDS: Ceftriaxone 1 GM/50 ML BAG IV (17:14)
[2022-09-22 17:45] LABS: Bedside Glucose 191 mg/dL (74-106)
[2022-09-22] MEDS: Zolpidem Tartrate 5 MG Tablet PO (21:56)
[2022-09-22] MEDS: Atorvastatin Calcium 80 MG Tablet PO (21:57)
[2022-09-22 22:56] LABS: Bedside Glucose 221 mg/dL (74-106)
--- NOTE | 2022-09-22 23:32 | CPS ---
pt did not want to wear bipap at this time
[2022-09-23] VITALS (27 sets, daily range): BP systolic 71–143; BP diastolic 46–105; PULSE 85–105; RESP 14–37; TEMP 36.5–36.9; O2SAT 80–97; BMI 33.7
--- NOTE | 2022-09-23 02:30 | NURSING ---
pt and daughter requested not to be woken up in 2 hours when vitals are due again per VSA. Vitals will be done at 0600 per patient request.
--- NOTE | 2022-09-23 06:09 | NURSING ---
At beginning of shift, purwick, tubing, and canister changed in attempt to get urine sample. pt turned on side to rest and when PUPPET ENGINEER changed patient, patient was incontinent. Pt put on bipap half way through the night and pt refused straight cathed. Unable to obtain urine sample at this time. Will pass along to day shift.
[2022-09-23 06:12] LABS: Absolute Lymphocyte Count 0.67 X10^3/uL (0.83-4.51); Basophil# 0.02 X10^3/uL; Basophil% 0.1 % (0-1); Hematocrit 35.8 % (37-47); Hemoglobin 11.5 g/dL (12.0-15.0); Lymphocyte # 0.67 X10^3/ul (0.83-4.51); Lymphocyte % 4.3 % (19-41); Mean Corp Hgb Conc 32.1 g/dL (32-36); Mean Corpuscular Hgb 31.1 pg (27.0-32.0); Mean Corpuscular Volume 96.8 fL (81-99); Mean Platelet Vol. 8.7 fl (6.2-12.0); Monocyte# 0.82 X10^3/uL; Monocyte% 5.2 % (0-10); NRBC Flagged by Analyzer 0.1 % (0-5); Neutrophil # 13.95 X10^3/uL (2.7-7.7); Neutrophil % 89.3 % (47-70); Platelet Count 299 K/mm3 (150-450); RBC Distribution Width CV 15.5 % (11.6-14.6); White Blood Count 15.6 K/mm3 (4.4-11.0)
[2022-09-23 06:55] LABS: ALB/GLOB Ratio 0.7 RATIO (0.9-2.4); AST(SGOT) 94 U/L (15-37); Alanine Aminotransfer ALT/SGPT 74 U/L (13-56); Albumin, Serum 2.5 g/dL (3.2-5.0); Alkaline Phosphatase 105 U/L (45-117); Anion Gap 7 (5-15); BUN 41 mg/dL (7-18); BUN/Creat Ratio 71.3 RATIO (10-20); Calcium,Total 8.9 mg/dL (8.5-10.1); Chloride 102 mmol/L (98-107); Creatinine, Serum 0.58 mg/dL (0.55-1.02); EST Glomerular Filtration Rate 108 mL/min (>60); Est Glom Filt Rate - Afr Amer 130 mL/min (>60); Estimated Creatinine Clearance 37.74 ml/min; Globulin 3.8 g/dL (2.2-4.2); Glucose 212 mg/dL (74-106); Potassium 3.3 mmol/L (3.5-5.1); Protein, Total 6.3 g/dL (6.4-8.2); Sodium Level 136 mmol/L (136-145)
[2022-09-23] MEDS: Insulin Lispro 100 UNIT/ML INSULN.PEN SC ×2 (07:19→21:05)
[2022-09-23 07:46] LABS: Bedside Glucose 177 mg/dL (74-106)
[2022-09-23] MEDS: 0.9% Saline Lock 10 ML Syringe IV ×2 (10:06→13:40)
[2022-09-23] MEDS: Ceftriaxone 1 GM/50 ML BAG IV (10:06)
[2022-09-23] MEDS: Sertraline 100 MG Tablet PO (10:09)
[2022-09-23] MEDS: Lisinopril 2.5 MG Tablet PO (10:09)
[2022-09-23] MEDS: Spironolactone 25 MG Tablet PO (10:09)
[2022-09-23] MEDS: Doxycycline 100 MG CAPSULE PO ×2 (10:10→20:51)
[2022-09-23] MEDS: Furosemide 40 MG/4 ML Vial IV (10:10)
[2022-09-23] MEDS: Aspirin E.C. 81 MG Tablet PO (10:10)
[2022-09-23] MEDS: TICAGRELOR 90 MG TABLET PO ×2 (10:10→20:52)
[2022-09-23] MEDS: APIXABAN 2.5 MG TABLET (WCH) PO ×2 (10:10→20:52)
[2022-09-23] MEDS: Carvedilol 3.125 MG TABLET PO (10:11)
[2022-09-23] MEDS: guaiFENesin 1,200 MG Tablet 1200 MG PO ×2 (10:11→20:50)
[2022-09-23] MEDS: Amiodarone 200 MG Tablet PO ×2 (10:14→20:51)
[2022-09-23] MEDS: Glucerna Shake 120 ML LIQUID PO ×2 (10:14→12:23)
[2022-09-23] MEDS: Acetaminophen 325 MG Tablet 650 MG PO ×2 (10:22→20:50)
--- NOTE | 2022-09-23 11:26 | CASEMGMT ---
SW sent updates to [facility] via [employer]. Viri Bauman AGRICULTURAL [employer]ENDER [place]
--- NOTE | 2022-09-23 12:15 | PN.CARD_ITS ---
Documented by User: NAKIA Coburn 09/23/22 12:25 Subjective Subjective Patient seen and evaluated. Daughter is at bedside. Patient notes that she is more short of breath at night. She does feel that she is okay sitting today. She did require use of BiPAP at night. She is still having episodes of hemoptysis. She does not have any chest pain. Objective Data Vital Signs: Vital Signs Temp Pulse Resp BP Pulse Ox O2 Del Method O2 Flow Rate 97.9 F 98 20 H 137/81 H 93 High Flow 10 09/23/22 10:00 09/23/22 10:00 09/23/22 10:00 09/23/22 10:00 09/23/22 10:00 09/23/22 10:00 09/23/22 10:00 FiO2 40 09/23/22 05:41 Oxygen Flow Rate (L/min) 10 Oxygen Delivery Method High Flow Weight: 190 lb 11.198 oz Body Mass Index (BMI) 33.7 Intake & Output: Intake and Output for Last 24 Hours 09/21/22 09/22/22 09/23/22 23:59 23:59 23:59 Intake Total 942.56 / 942.56 290.00 / 290.00 50 / 50 Output Total 1400 / 1400 700 / 900 200 / 200 Balance -457.44 / -457.44 -410.00 / -610.00 -150 / -150 Lab / Micro Data Result Diagrams: 09/23/22 04:57 09/23/22 04:57 Labs: Laboratory Results - last 24 hr 09/22/22 13:55: COVID-19 ([facility]) Not Detected 09/22/22 13:55: MRSA (PCR) Negative 09/22/22 17:05: POC Glucose 191 H 09/22/22 21:55: POC Glucose 221 H 09/23/22 04:57: WBC 15.6 H, RBC 3.70 L, Hgb 11.5 L, Hct 35.8 L, MCV 96.8, MCH 31.1, MCHC 32.1, RDW Std Deviation 54.0 H, RDW Coeff of Ruben 15.5 H, Plt Count 299, MPV 8.7, Immature Gran % (Auto) 1.100 H, Neut % (Auto) 89.3 H, Lymph % (Auto) 4.3 L, [place] % (Auto) 5.2, Eos % (Auto) 0.0, Baso % (Auto) 0.1, Absolute Neuts (auto) 14.0 H, Absolute Lymphs (auto) 0.67 L, Nucleated RBC % 0.1 09/23/22 04:57: Sodium 136, Potassium 3.3 L, Chloride 102, Carbon Dioxide 27.0, Anion Gap 7, BUN 41 H, Creatinine 0.58, Estim Creat Clear Calc 37.74, Est GFR (MDRD) Af Amer 130, Est GFR (MDRD) Non-Af 108, BUN/Creatinine Ratio 71.3 H, Glucose 212 H, Calcium 8.9, Total Bilirubin 1.40 H, AST 94 H, ALT 74 H, Alkaline Phosphatase 105, Total Protein 6.3 L, Albumin 2.5 L, Globulin 3.8, Albumin/Globulin Ratio 0.7 L 09/23/22 07:17: POC Glucose 177 H Micro: Microbiology 09/22/22 13:55 Mucosa - Nasopharyngeal Respiratory Panel (PCR) - Final Rhinovirus Cardiology Labs/Tests 09/23/22 04:57: WBC 15.6 H, RBC 3.70 L, Hgb 11.5 L, Hct 35.8 L, MCV 96.8, MCH 31.1, MCHC 32.1, Plt Count 299, MPV 8.7, Immature Gran % (Auto) 1.100 H, Neut % (Auto) 89.3 H, Lymph % (Auto) 4.3 L, [place] % (Auto) 5.2, Eos % (Auto) 0.0, Baso % (Auto) 0.1, Absolute Neuts (auto) 14.0 H, Nucleated RBC % 0.1 09/23/22 04:57: Sodium 136, Potassium 3.3 L, Chloride 102, Carbon Dioxide 27.0, Anion Gap 7, BUN 41 H, Creatinine 0.58, Est GFR (MDRD) Af Amer 130, Est GFR (MDRD) Non-Af 108, BUN/Creatinine Ratio 71.3 H, Glucose 212 H, Calcium 8.9, Total Bilirubin 1.40 H Rhythm: EKG: ECHO: Stress Test: Cardiac Cath: PCI: CT Surgery: Holter monitor: EPS: PPM: CXR: Chest CT Scan: Physical Exam Const alert, oriented x3 and no apparent distress HEENT normocephalic, head/scalp atraumatic, hearing grossly normal bilaterally, external ears normal, external nose normal and moist oral mucous membranes Eyes PERRL, EOMs intact bilaterally, conjunctivae normal and no scleral icterus Neck no lymphadenopathy, supple and no JVD Resp Auscultation: diminished lung sounds bilateral Cardio Jugular Venous Distention: Negative for JVD Rate: regular rate Rhythm: abnormal rhythm irregularly irregular Heart Sounds: S1 normal and S2 normal GI normal to inspection, nondistended, normoactive bowel sounds, soft to palpation, non-tender and non-distended Extremity normal to inspection, normal capillary refill, no clubbing, cyanosis or edema and no pedal edema Neuro oriented x3, CN's II-XII intact bilaterally and no focal motor deficits Psych cooperative and affect normal Assessment & Plan Assessment/Plan (1) STEMI (ST elevation myocardial infarction): (2) Cardiomyopathy, ischemic: (3) Persistent atrial fibrillation: (4) Non-sustained ventricular tachycardia: PLAN: Plan * In regards to her non-STEMI. Patient had a large severe anterolateral/apical STEMI. With occluded ostial LAD with PCI and stent of the proximal LAD using drug-eluting stent. Patient will continue with her Brilinta, aspirin, carved ilol, lisinopril. Her liver enzymes have been improving. We will restart a low-dose of statin. * Echocardiogram demonstrated an ejection fraction of 20 to 25% with large anterior apical hypokinesia and lateral hypokinesia. Hopefully this will improve over time with aggressive medical management and with her recent stenting. Patient is still requiring IV Lasix. Would consider switching her over to PO lasix. We will also start her on spironolactone. Patient is on carvedilol and lisinopril. We will adjust medications as blood pressure tolerates to help maximize these. Dr. Morley would like to send her home on a life vest. Plan would be to repeat her echocardiogram in approximately 6 to 12 weeks. If her ejection fraction does not improve would like to discuss with patient a prophylactic ICD. * Patient does have persistent atrial fibrillation. She is now on oral amiodarone. With her shortness of breath we will need to monitor this closely. She does not appear symptomatic with her atrial fibrillation. For now we will continue with her Brilinta, aspirin and Eliquis. Pt has had furth er hemoptysis. will need to monitor this as she is currently on ASA, Brilinta and Eliquis. She has not had any further hemoptysis. Her rate is controlled on her current dose of carvedilol. * Patient is having nonsustained ventricular arrhythmias. She is on p.o. amiodarone. She was fitted for a Lifevest that she will wear at D/C. As an outpatient would repeat echocardiogram to see if her ejection fraction has improved, patient may require prophylactic ICD. She is carvedilol. low dose lisinopril and spirolactone. Currently in IV lasix. * In regards to her SOB, this is being worked up by hospitalist, she did test positive for Rhinovirus. Charges/Coding Visit Charges Inpatient E&M: 41759 Subs Hosp L2 Documented by User: Dr. Cyndee Morley MD 09/23/22 18:30 Lab / Micro Data Result Diagrams: 09/23/22 04:57 09/23/22 04:57 Assessment & Plan Assessment/Plan (1) STEMI (ST elevation myocardial infarction): (2) Cardiomyopathy, ischemic: (3) Persistent atrial fibrillation: (4) Non-sustained ventricular tachycardia: PLAN: Plan * In regards to her non-STEMI. Patient had a large severe anterolateral/apical STEMI. With occluded ostial LAD with PCI and stent of the proximal LAD using drug-eluting stent. Patient will continue with her Brilinta, aspirin, carvedilol, lisinopril. Her liver enzymes have been improving. We will restart a low-dose of statin. * Echocardiogram demonstrated an ejection fraction of 20 to 25% with large anterior apical hypokinesia and lateral hypokinesia. Hopefully this will improve over time with aggressive medical management and with her recent stenting. Patient is still requiring IV Lasix. Would consider switching her over to PO lasix. We will also start her on spironolactone. Patient is on carvedilol and lisinopril. We will adjust medications as blood pressure tolerates to help maximize these. Dr. Morley would like to send her home on a life vest. Plan would be to repeat her echocardiogram in approximately 6 to 12 weeks. If her ejection fraction does not improve would like to discuss with patient a prophylactic ICD. * Patient does have persistent atrial fibrillation. She is now on oral amiodarone. With her shortness of breath we will need to monitor this clos carter. She does not appear symptomatic with her atrial fibrillation. For now we will continue with her Brilinta, aspirin and Eliquis. Pt has had further hemoptysis. will need to monitor this as she is currently on ASA, Brilinta and Eliquis. She has not had any further hemoptysis. Her rate is controlled on her current dose of carvedilol. * Patient is having nonsustained ventricular arrhythmias. She is on p.o. amiodarone. She was fitted for a Lifevest that she will wear at D/C. As an outpatient would repeat echocardiogram to see if her ejection fraction has improved, patient may require prophylactic ICD. She is carvedilol. low dose lisinopril and spirolactone. Currently in IV lasix. * In regards to her SOB, this is being worked up by hospitalist, she did test positive for Rhinovirus. Very sick patient with severe LV systolic dysfunction and large anteroseptal and apical infarction I discussed in detail the finding of cardiac catheterization the echocardiographic evaluation in the current medication also with my colleague Dr. Herring for second opinion we decided to treat with medical therapy in intensive care unit with follow-up for her current medication except a beta- indio and diuretic in addition to the antibiotic. We will consider low-dose inotropic support if her blood pressure is low In addition I discussed in detail with the family poor prognosis due to severe LV systolic dysfunction and recent large anteroapical/septal ID
[2022-09-23 13:05] LABS: Bedside Glucose 172 mg/dL (74-106)
[2022-09-23] MEDS: MethylPREDNISolone 125 MG/2 ML Vial 60 MG IV (13:41)
--- NOTE | 2022-09-23 13:53 | PCM.PN.HOSP ---
Reason for Visit Reason for Visit: Diagnoses Type 2 diabetes mellitus without complications (09/18/22) Essential (primary) hypertension (09/18/22) ST elevation (STEMI) myocardial infarction of unspecified site (09/18/22) Atherosclerotic heart disease of [place] coronary artery without angina pectoris (09/18/22) Ischemic cardiomyopathy (09/18/22) Other ventricular tachycardia (09/18/22) Other persistent atrial fibrillation (09/18/22) Hypotension, unspecified (09/18/22) Subjective Subjective Follow-up for NSTEMI with heart failure and severe hypoxia Objective Data Objective Data Vital Signs: Vital Signs Temp Pulse Resp BP Pulse Ox O2 Del Method O2 Flow Rate 98 F 95 22 H 117/75 94 High Flow 10 09/23/22 06:00 09/23/22 07:25 09/23/22 07:25 09/23/22 06:00 09/23/22 07:25 09/23/22 07:25 09/23/22 07:25 FiO2 40 09/23/22 05:41 Oxygen Flow Rate (L/min) 10 Oxygen Delivery Method High Flow Weight: 190 lb 11.198 oz Body Mass Index (BMI) 33.7 Intake & Output: Intake and Output for Last 24 Hours 09/21/22 09/22/22 09/23/22 23:59 23:59 23:59 Intake Total 942.56 / 942.56 290.00 / 290.00 Output Total 1400 / 1400 700 / 900 200 / 200 Balance -457.44 / -457.44 -410.00 / -610.00 -200 / -200 Lab / Micro Data Result Diagrams: 09/23/22 04:57 09/23/22 04:57 Labs: Laboratory Results - last 24 hr 09/22/22 11:42: POC Glucose 183 H 09/22/22 13:55: COVID-19 ([facility]) Not Detected 09/22/22 13:55: MRSA (PCR) Negative 09/22/22 17:05: POC Glucose 191 H 09/22/22 21:55: POC Glucose 221 H 09/23/22 04:57: WBC 15.6 H, RBC 3.70 L, Hgb 11.5 L, Hct 35.8 L, MCV 96.8, MCH 31.1, MCHC 32.1, RDW Std Deviation 54.0 H, RDW Coeff of Ruben 15.5 H, Plt Count 299, MPV 8.7, Immature Gran % (Auto) 1.100 H, Neut % (Auto) 89.3 H, Lymph % (Auto) 4.3 L, [place] % (Auto) 5.2, Eos % (Auto) 0.0, Baso % (Auto) 0.1, Absolute Neuts (auto) 14.0 H, Absolute Lymphs (auto) 0.67 L, Nucleated RBC % 0.1 09/23/22 04:57: Sodium 136, Potassium 3.3 L, Chloride 102, Carbon Dioxide 27.0, Anion Gap 7, BUN 41 H, Creatinine 0.58, Estim Creat Clear Calc 37.74, Est GFR (MDRD) Af Amer 130, Est GFR (MDRD) Non-Af 108, BUN/Creatinine Ratio 71.3 H, Glucose 212 H, Calcium 8.9, Total Bilirubin 1.40 H, AST 94 H, ALT 74 H, Alkaline Phosphatase 105, Total Protein 6.3 L, Albumin 2.5 L, Globulin 3.8, Albumin/Globulin Ratio 0.7 L 09/23/22 07:17: POC Glucose 177 H Micro: Microbiology 09/22/22 13:55 Mucosa - Nasopharyngeal Respiratory Panel (PCR) - Final Rhinovirus Radiography Diagnostic Testing: Radiology Impression Chest X-Ray 09/22/22 10:21 IMPRESSION: Progressive bilateral patchy airspace disease worse in the right hemithorax. Electronically Signed: Tomi Lynn MD at 11:39 EDT , Chest X-Ray 09/22/22 10:21 IMPRESSION: Minimal left pleural effusion. Electronically Signed: Tomi Lynn MD at 11:38 EDT , Physical Exam Narrative Seen and examined. Patient BP was 137/80 1 in the morning but dropped to 71/1:46 dose of Lasix 40 mg. Patient tolerated BiPAP last night. Oxygen requirement still high 10 L high flow. monitoring engineer reviewed shows A-fib heart rate controlled in 80s. No fever. Physical exam General: Awake alert in the morning. Mild shortness of breath. Later in the afternoon patient was drowsy and lethargic after Lasix hypotension HEENT: Atraumatic, PERRLA, EOMI, Normocephalic Oral: Oral mucosa moist. No Gingival or Mucosal Lesions/ Ulcerations Neck: Supple, No JVD, Negative Carotid Bruits Lungs: Air entry diminished in bilateral lung bases. Bilateral coarse crepitations. Dyspnea on minimal exertion Cardiovascular: Irregular rhythm, A-fib, Normal S1, Normal S2, systolic murmur LSB. Abdomen: Bowel Sounds Present, Soft, Non Tender, Non-Distended : No renal angle tenderness. No suprapubic tenderness. Extremities: Mild bilateral lower leg 2+ pitting edema, Capillary Refill Less than 3 Seconds Skin: No rashes, No breakdown Musculoskeletal: Right TKR. Baseline on cane/walker. Muscle strength 4+/5 at knees and hips joints no Tenderness to Palpation of Joints or Extremities Neurological: Cranial nerves II-XII grossly intact, DTR 2+/4 and Symmetrical, Neuro grossly intact Psych/Mental Status: Flat affect. Assessment & Plan Assessment/Plan (1) STEMI (ST elevation myocardial infarction): (2) Hypertension: (3) Type 2 diabetes mellitus: PLAN: Plan 77-year-old female was admitted on 09/18 with chest pain severe retrosternal was sick diaphoretic hypotension. Found to have STEMI. #STEMI status post 2 stents to LAD -Presented 09/[address] elevation IA and was taken to the [facility] -Successful PCI with DAILY of occluded ostial LAD -She is on Brilinta 90 mg twice daily, low-dose aspirin for 1 year and on goal-directed medical therapy as per NSTEMI -Integrilin drip continued by cardiology -Coreg increased to 6.25 mg twice daily, lisinopril dose as tolerated by BP, high-dose statin -Echo ordered for today -Cardiac rehab on -Total cholesterol 203 with an LDL of 114 09/22: Echo shows decrease in EF 20-25%. Severe LV systolic dysfunction, mild to moderate MR and TR. Discussed with the advanced practice rn. Patient will need LifeVest at the time of discharge. Lasix 40 mg IV ordered. 09/23: Hypotension after Lasix blood pressure dropped to 71/46. 500 ml Ringer lactate bolus ordered and reevaluate BP. If is still low, repeat another 500 mL bolus.. Lasix discontinued. #Postintervention hypotension -Possibly secondary to reperfusion. Improvement -Continue to monitor 09/22: Hypotension has resolved. Patient's blood pressure recovered. It fluctuates from low 96/52-150/113. On low-dose Levaquin. Carvedilol dose increased. 09/23: Hypotension as mentioned above. Resuscitation and hold antihypertensive medications for now. Mild hypokalemia, potassium replaced. #Hyperglycemia -A1c 5.6 -Elevated glucose may be reactive -Continue glucose checks and sliding scale insulin Acute hypoxic respiratory failure, multiple etiology including acute systolic heart failure and bilateral rhinovirus pneumonia with suspicion of secondary bacterial infection: Repeat chest x-ray was done on 09/22. Vascular congestion has improved but patient has progressive bilateral infiltrate, worsening right lung field. Pneumonia work-up ordered. Patient does not have fever but is more short of breath sometimes tachypneic labored breathing even on diuresis. Started on IV ceftriaxone and doxycycline. Levofloxacin/chloroquine and Zithromax avoided because of high interaction with amiodarone for QTc prolongation and arrhythmia. Solu-Medrol 60 mg IV 1 dose, half an hour before starting IV ceftriaxone. Discussed with the ID regarding allergy of penicillin with hives. 09/23: Respiratory panel positive for rhinovirus. COVID-19 PCR negative. Patient has bilateral viral pneumonia but might have secondary bacterial infection therefore we will continue empiric antibiotic. Continue BiPAP support. Pulmonary follow-up requested. 1 dose Solu-Medrol repeated. #Transaminitis: Patient has mildly elevated ALT and AST AST more than ALT. Possible related to STEMI/mild hypotension 09/22: Improvement in AST ALT. Patient on high intensity statin. #DVT ppx: SCDs Total time of the visit including total time spent in counseling or coordination of care, (more than 50% of the total time, spent in obtaining medical information from nurses and other ancillary care providers,explaining to the patient about labs, imaging, diagnosis and management of active complex medical conditions), advanced practice rn, ID, hypotension, reassessment and reevaluation, review of labs and imaging is 50 minutes. Microbiology Past 72 Hours 09/22/22 13:55 Mucosa - Nasopharyngeal Respiratory Panel (PCR) - Final Rhinovirus Laboratory Results 09/22/22 13:55: COVID-19 ([facility]) Not Detected 09/22/22 13:55: MRSA (PCR) Negative 09/22/22 17:05: POC Glucose 191 H 09/22/22 21:55: POC Glucose 221 H 09/23/22 04:57: WBC 15.6 H, RBC 3.70 L, Hgb 11.5 L, Hct 35.8 L, MCV 96.8, MCH 31.1, MCHC 32.1, RDW Std Deviation 54.0 H, RDW Coeff of Ruben 15.5 H, Plt Count 299, MPV 8.7, Immature Gran % (Auto) 1.100 H, Neut % (Auto) 89.3 H, Lymph % (Auto) 4.3 L, [place] % (Auto) 5.2, Eos % (Auto) 0.0, Baso % (Auto) 0.1, Absolute Neuts (auto) 14.0 H, Absolute Lymphs (auto) 0.67 L, Nucleated RBC % 0.1 09/23/22 04:57: Sodium 136, Potassium 3.3 L, Chloride 102, Carbon Dioxide 27.0, Anion Gap 7, BUN 41 H, Creatinine 0.58, Estim Creat Clear Calc 37.74, Est GFR (MDRD) Af Amer 130, Est GFR (MDRD) Non-Af 108, BUN/Creatinine Ratio 71.3 H, Glucose 212 H, Calcium 8.9, Total Bilirubin 1.40 H, AST 94 H, ALT 74 H, Alkaline Phosphatase 105, Total Protein 6.3 L, Albumin 2.5 L, Globulin 3.8, Albumin/Globulin Ratio 0.7 L 09/23/22 07:17: POC Glucose 177 H 09/23/22 12:21: POC Glucose 172 H Clinical Impression(s) from Imaging Studies Chest X-Ray 09/18/22 22:50 IMPRESSION: Poor inspiration with some bibasilar atelectasis. Cardiomegaly. Electronically Signed: Murtaza Rausch MD at 23:09 EDT , Echocardiogram 09/19/22 00:51 Interpretation Summary The estimated ejection fraction is 20-25 %. Severe LV systolic Dysfunction with segmental Wall motion as described Moderately enlarged left atrium Mild to moderate MR Mild to moderate TR No previous study to compare. Ordering Physician: Mauri Tang Referring Physician: Cyndee Morley Performed By: Berry Ojeda RCS Chest X-Ray 09/19/22 23:00 IMPRESSION: Patchy bilateral airspace disease. Findings may indicate pneumonia. Chest X-Ray 09/20/22 17:55 IMPRESSION: Stable vascular congestion with bilateral airspace disease, pulmonary edema versus infection. Chest X-Ray 09/22/22 10:21 IMPRESSION: Progressive bilateral patchy airspace disease worse in the right hemithorax. Chest X-Ray 09/22/22 10:21 IMPRESSION: Minimal left pleural effusion. Charges/Coding Visit Charges Inpatient E&M: 46867 Subs Hosp L3
[2022-09-23] MEDS: Lactated Ringers 500 ML 999 ML IV (13:54)
[2022-09-23] MEDS: Potassium Chloride Oral Tablet 20 MEQ 40 MEQ PO (14:45)
[2022-09-23 15:52] LABS: Phosphorus 3.6 mg/dL (2.5-4.9)
--- NOTE | 2022-09-23 16:05 | NURSING ---
patient complaining of heart burn and mid sternal chest pain, EKG obtained showed afib, Dr. Campbell and Dr. Morley made aware, patient then complained of nausea and medicated with zofran, waiting Dr. Morley to come see patient, family at bedside.
[2022-09-23] MEDS: Ondansetron 4 MG/2 ML Vial IV (16:19)
--- NOTE | 2022-09-23 16:36 | EKG12_ITS ---
Test Reason : CHEST PAIN Blood Pressure : / mmHG Vent. Rate : 093 BPM Atrial Rate : 093 BPM P-R Int : 152 ms QRS Dur : 140 ms QT Int : 444 ms P-R-T Axes : 000 236 -38 degrees QTc Int : 552 ms Suspect arm lead reversal, interpretation assumes no reversal Sinus rhythm with marked sinus arrhythmia with frequent Premature ventricular complexes Right bundle branch block Anterolateral infarct (cited on or before 18-SEP-2022) Abnormal ECG When compared with ECG of 21-SEP-2022 04:50, Sinus rhythm has replaced Atrial fibrillation Serial changes of Anterolateral infarct Present Confirmed by LUCY POE, VLAD ([id number]), movie editor AYAN MCCARTHY ([id number]) on 09/28/2022 10:43:29 AM Referred By: Cyndee Morley Confirmed By:VLAD AYALA MD
[2022-09-23 16:40] LABS: Bedside Glucose 188 mg/dL (74-106)
[2022-09-23] MEDS: Pantoprazole Sodium 20 MG Tablet PO (19:45)
[2022-09-23] MEDS: Mag Hydrox/Al Hydrox/Simeth 30 ML UDC 15 ML PO (19:45)
[2022-09-23] MEDS: Zolpidem Tartrate 5 MG Tablet PO (20:50)
[2022-09-23] MEDS: Atorvastatin Calcium 80 MG Tablet PO (20:51)
[2022-09-23 21:20] LABS: Troponin-I HS 8779 pg/mL (3.0-54.0)
[2022-09-23 21:25] LABS: Bedside Glucose 205 mg/dL (74-106)
--- NOTE | 2022-09-23 23:20 | PCM.HOSP.N ---
Hospitalist Note BP decreased. Had small IVF bolus earlier in the day secondary to low BP. From RN report patient had been diuresed secondary to overload with low EF. Will administer repeat judicious IVF bolus and repeat BP check. If still low may potentially repeat bolus again x 1, but if need may transition to NEP.
[2022-09-24] VITALS (30 sets, daily range): BP systolic 72–123; BP diastolic 42–103; PULSE 80–116; RESP 14–29; TEMP 36.6–37.2; O2SAT 85–96; BMI 33.4
--- NOTE | 2022-09-24 02:15 | NURSING ---
Pt questioning importance of BiPAP at this time, requesting another sleeping pill. Pt educated that only 1 sleeping pill can be given a night per order and she's already had it. Unable to give anything for anxiety d/t current BP; pt informed that a sequential 500ml bolus was being given to help bolster BP. Pt questioned about getting more frequent water breaks, pt educated on importance of continued pressure needed by BiPAP for oxygenation. Pt agreed to wear mask for another 2hrs and then take a break again for water. Pt asked what's the next step after this mask? Pt educated on intubation and she says so that'll fix it? No it won't. Pt informed that her heart attack did major damage to her heart muscle and left it very weak and unable to force her lungs to do their job, making the mask very necessary. What other choice do I have? Pt briefly informed of hospice and palliative services, pt sat in silence, voicing no other questions at this time.
[2022-09-24 04:05] LABS: Absolute Lymphocyte Count 0.72 X10^3/uL (0.83-4.51); Absolute Neutrophil Count 14.1 X10^3/uL (2.0-7.7); Basophil# 0.02 X10^3/uL; Basophil% 0.1 % (0-1); Hematocrit 34.2 % (37-47); Hemoglobin 10.9 g/dL (12.0-15.0); Lymphocyte # 0.72 X10^3/ul (0.83-4.51); Lymphocyte % 4.5 % (19-41); Mean Corp Hgb Conc 31.9 g/dL (32-36); Mean Corpuscular Volume 97.2 fL (81-99); Mean Platelet Vol. 8.7 fl (6.2-12.0); Monocyte# 0.85 X10^3/uL; Monocyte% 5.4 % (0-10); NRBC Flagged by Analyzer 0 % (0-5); Platelet Count 340 K/mm3 (150-450); RBC Distribution Width CV 15.9 % (11.6-14.6); RBC Distribution Width SD 56.3 fl (35.1-43.9); Red Blood Count 3.52 M/mm3 (4.2-5.4); White Blood Count 15.9 K/mm3 (4.4-11.0)
[2022-09-24 04:26] LABS: ALB/GLOB Ratio 0.7 RATIO (0.9-2.4); AST(SGOT) 74 U/L (15-37); Alanine Aminotransfer ALT/SGPT 68 U/L (13-56); Albumin, Serum 2.4 g/dL (3.2-5.0); Alkaline Phosphatase 89 U/L (45-117); Anion Gap 2 (5-15); BUN 48 mg/dL (7-18); BUN/Creat Ratio 81.4 RATIO (10-20); Calcium,Total 8.5 mg/dL (8.5-10.1); Chloride 106 mmol/L (98-107); Creatinine, Serum 0.59 mg/dL (0.55-1.02); EST Glomerular Filtration Rate 104 mL/min (>60); Est Glom Filt Rate - Afr Amer 126 mL/min (>60); Estimated Creatinine Clearance 37.74 ml/min; Globulin 3.6 g/dL (2.2-4.2); Glucose 195 mg/dL (74-106); Potassium 3.9 mmol/L (3.5-5.1); Sodium Level 138 mmol/L (136-145)
--- NOTE | 2022-09-24 06:58 | PCM.PN.INT ---
Assessment & Plan Assessment/Plan (1) Cardiomyopathy, ischemic: PLAN: Plan RECOMMENDATIONS: 1. Wean supplemental oxygen to maintain saturations at or above 90%. 2. Medical management of congestive heart failure per cardiology recommendations. 3. Continue empiric antimicrobials for now. 4. Check BNP, procalcitonin and obtain follow-up chest x-ray. 5. Encourage incentive spirometer use and mobilize patient as tolerated. IMPRESSIONS: 1. Acute hypoxemic respiratory failure I do suspect that the patient's respiratory failure is likely multifactorial in etiology. While an underlying pulmonary infectious process is certainly a possibility, I suspect a large component of her hypoxia is secondary to cardiac pump failure and resultant pulmonary edema. Therefore, I will defer additional medical optimization of her underlying ischemic cardiomyopathy to cardiology. She would likely benefit from further diuresis, as tolerated by hemodynamics and renal function. In the interim, it is reasonable to continue empiric antimicrobials. Continue to wean supplemental oxygen to maintain saturations at or above 90%. Encourage incentive spirometer use and mobilize patient as tolerated. 2. STEMI status post stents x2 to LAD/systolic heart failure Continue medical management per cardiology recommendations. 3. Rhinovirus URI Continue supportive care as noted above. 4. Advanced age/chronic pain syndrome/depression/obesity Complicates care, management, recovery and prognosis. Continue home medications as indicated. This note was generated with [employer] dictation software. It may contain incorrect words, spelling, and punctuation that were not noted in checking the note before signing. Subjective Subjective The patient was seen and examined at the bedside this morning. Events from the last 24 hours have been reviewed. The patient is currently afebrile with borderline hemodynamics. She is currently being maintained on BiPAP with an FiO2 requirement of 50%. The patient denied any resting shortness of breath, but did report a nonproductive cough. The patient was initially seen in consultation by the pulmonary team on September 19 for hypotension, which was felt to be cardiogenic in etiology. The patient was initially admitted to the hospital with a STEMI and underwent stent placement x2 to the LAD. Echocardiogram on September 20 demonstrated an ejection fraction of 20 to 25%. White count this morning is elevated at 16,000. Creatinine is within normal limits. Troponin yesterday was elevated at 8779. The patient is currently documented to be overall net +3.4 L for the hospitalization. Objective Data Objective Data The patient's most recent lab work, culture data and imaging studies have all been personally reviewed. Respiratory viral panel on September 22 was positive for rhinovirus. Vital Signs: Vital Signs Temp Pulse Resp BP Pulse Ox O2 Del Method O2 Flow Rate 98 F 86 20 H 75/59 L 96 Bi-pap 6 09/24/22 04:00 09/24/22 06:00 09/24/22 06:00 09/24/22 06:00 09/24/22 06:00 09/24/22 06:00 09/24/22 05:00 FiO2 50 09/24/22 06:00 Oxygen Flow Rate (L/min) 6 Oxygen Delivery Method Bi-pap Weight: 188 lb 11.451 oz Body Mass Index (BMI) 33.4 Intake & Output: Intake and Output for Last 24 Hours 09/22/22 09/23/22 09/24/22 23:59 23:59 23:59 Intake Total 290.00 / 290.00 750 / 750 1100 / 1100 Output Total 700 / 900 300 / 300 Balance -410.00 / -610.00 450 / 450 1100 / 1100 Lab / Micro Data Attestation: I reviewed the patient's lab results. Result Diagrams: 09/24/22 03:50 09/24/22 03:50 Labs: Laboratory Results - last 24 hr 09/23/22 07:17: POC Glucose 177 H 09/23/22 12:21: POC Glucose 172 H 09/23/22 15:30: Phosphorus 3.6, Magnesium 2.0 09/23/22 16:22: POC Glucose 188 H 09/23/22 20:35: Troponin I High Sens 8779 H* 09/23/22 20:56: POC Glucose 205 H 09/24/22 03:50: WBC 15.9 H, RBC 3.52 L, Hgb 10.9 L, Hct 34.2 L, MCV 97.2, MCH 31.0, MCHC 31.9 L, RDW Std Deviation 56.3 H, RDW Coeff of Ruben 15.9 H, Plt Count 340, MPV 8.7, Immature Gran % (Auto) 1.000 H, Neut % (Auto) 89.0 H, Lymph % (Auto) 4.5 L, Guthrie % (Auto) 5.4, Eos % (Auto) 0.0, Baso % (Auto) 0.1, Absolute Neuts (auto) 14.1 H, Absolute Lymphs (auto) 0.72 L, Nucleated RBC % 0 09/24/22 03:50: Sodium 138, Potassium 3.9, Chloride 106, Carbon Dioxide 30.0, Anion Gap 2 L, BUN 48 H, Creatinine 0.59, Estim Creat Clear Calc 37.74, Est GFR (MDRD) Af Amer 126, Est GFR (MDRD) Non-Af 104, BUN/Creatinine Ratio 81.4 H, Glucose 195 H, Calcium 8.5, Total Bilirubin 0.90, AST 74 H, ALT 68 H, Alkaline Phosphatase 89, Total Protein 6.0 L, Albumin 2.4 L, Globulin 3.6, Albumin/Globulin Ratio 0.7 L Micro: Microbiology 09/23/22 20:22 Urine, Clean Catch Legionella Antigen - Final 09/23/22 20:22 Urine, Clean Catch Streptococcus pneumoniae Antigen (M - Final 09/22/22 13:55 Mucosa - Nasopharyngeal Respiratory Panel (PCR) - Final Rhinovirus Physical Exam Const alert and no apparent distress General Appearance: cooperative Nutritional Appearance: obese HEENT normocephalic and head/scalp atraumatic Eyes PERRL, EOMs intact bilaterally and conjunctivae normal Neck supple General: trachea midline Chest inspection of chest normal Resp normal respiratory effort Auscultation: Negative for rales, rhonchi or wheezes Cardio S1 normal heart sound and S2 normal heart sound Rhythm: abnormal rhythm GI normal to inspection, nondistended, normoactive bowel sounds Extremity General Extremity: edema bilateral lower extremity; Negative for clubbing Skin no rashes or lesions noted Neuro CN's II-XII intact bilaterally and no focal motor deficits Psych cooperative and affect normal Charges/Coding Visit Charges Inpatient E&M: 03570 Subs Hosp L3
--- NOTE | 2022-09-24 07:11 | RAD_ITS ---
STUDY: X-RAY CHEST REASON FOR EXAM: Female, 77 years old. Respiratory Failure TECHNIQUE: Single AP portable view of the chest. COMPARISON: Comparison is made with prior study dated September 22, 2022. FINDINGS: EKG electrodes are seen. Since prior study, there has been a progression of the bilateral pulmonary infiltrates. Blunting of the left cosmetic angle. Normal size heart. Normal mediastinum and huan. Normal visualized pulmonary arteries. There is atherosclerotic tortuosity of the aortic arch and descending thoracic aorta. There are diffuse degenerative changes of the visualized thoracic spine. Surgical clips are seen overlying the left humeral head suggestive of prior rotator cuff surgery. There is no demonstrated abnormality of the visualized soft tissue structures of the upper abdomen. RAD/Chest 1 View (Portable) IMPRESSION: Progressive bilateral patchy pulmonary infiltrates. Electronically Signed: Tomi Lynn MD at 8:18 EDT ,
--- NOTE | 2022-09-24 08:33 | PCM.PN.HOSP ---
Reason for Visit Reason for Visit: Diagnoses Type 2 diabetes mellitus without complications (09/18/22) Essential (primary) hypertension (09/18/22) ST elevation (STEMI) myocardial infarction of unspecified site (09/18/22) Atherosclerotic heart disease of [place] coronary artery without angina pectoris (09/18/22) Ischemic cardiomyopathy (09/18/22) Other ventricular tachycardia (09/18/22) Other persistent atrial fibrillation (09/18/22) Hypotension, unspecified (09/18/22) Follow-up for acute hypoxic respiratory failure mainly due to pump failure Complicated with pneumonia Subjective Subjective Patient blood pressure in 90s. Heart rate 80s, afebrile. Patient was on BiPAP last night. Currently on 6 L of oxygen. Objective Data Objective Data Vital Signs: Vital Signs Temp Pulse Resp BP Pulse Ox O2 Del Method O2 Flow Rate 98 F 88 22 H 85/61 L 95 Bi-pap 6 09/24/22 04:00 09/24/22 07:00 09/24/22 07:00 09/24/22 07:00 09/24/22 07:00 09/24/22 07:00 09/24/22 05:00 FiO2 50 09/24/22 07:00 Oxygen Flow Rate (L/min) 6 Oxygen Delivery Method Bi-pap Weight: 188 lb 11.451 oz Body Mass Index (BMI) 33.4 Intake & Output: Intake and Output for Last 24 Hours 09/22/22 09/23/22 09/24/22 23:59 23:59 23:59 Intake Total 290.00 / 290.00 750 / 750 1100 / 1100 Output Total 700 / 900 300 / 300 Balance -410.00 / -610.00 450 / 450 1100 / 1100 Lab / Micro Data Result Diagrams: 09/24/22 03:50 09/24/22 03:50 Labs: Laboratory Results - last 24 hr 09/23/22 12:21: POC Glucose 172 H 09/23/22 15:30: Phosphorus 3.6, Magnesium 2.0 09/23/22 16:22: POC Glucose 188 H 09/23/22 20:35: Troponin I High Sens 8779 H* 09/23/22 20:56: POC Glucose 205 H 09/24/22 03:50: WBC 15.9 H, RBC 3.52 L, Hgb 10.9 L, Hct 34.2 L, MCV 97.2, MCH 31.0, MCHC 31.9 L, RDW Std Deviation 56.3 H, RDW Coeff of Ruben 15.9 H, Plt Count 340, MPV 8.7, Immature Gran % (Auto) 1.000 H, Neut % (Auto) 89.0 H, Lymph % (Auto) 4.5 L, Evangeline % (Auto) 5.4, Eos % (Auto) 0.0, Baso % (Auto) 0.1, Absolute Neuts (auto) 14.1 H, Absolute Lymphs (auto) 0.72 L, Nucleated RBC % 0 09/24/22 03:50: Sodium 138, Potassium 3.9, Chloride 106, Carbon Dioxide 30.0, Anion Gap 2 L, BUN 48 H, Creatinine 0.59, Estim Creat Clear Calc 37.74, Est GFR (MDRD) Af Amer 126, Est GFR (MDRD) Non-Af 104, BUN/Creatinine Ratio 81.4 H, Glucose 195 H, Calcium 8.5, Total Bilirubin 0.90, AST 74 H, ALT 68 H, Alkaline Phosphatase 89, Total Protein 6.0 L, Albumin 2.4 L, Globulin 3.6, Albumin/Globulin Ratio 0.7 L Micro: Microbiology 09/23/22 20:22 Urine, Clean Catch Legionella Antigen - Final 09/23/22 20:22 Urine, Clean Catch Streptococcus pneumoniae Antigen (M - Final 09/22/22 13:55 Mucosa - Nasopharyngeal Respiratory Panel (PCR) - Final Rhinovirus Radiography Diagnostic Testing: Radiology Impression Chest X-Ray 09/24/22 07:11 IMPRESSION: Progressive bilateral patchy pulmonary infiltrates. Electronically Signed: Tomi Lynn MD at 8:18 EDT , Physical Exam Narrative Seen and examined. Patient tolerated BiPAP last night. Currently on 6 L of oxygen. order processing specialist reviewed shows A-fib heart rate controlled in 80s. No fever. BP in 90s. Did not require vasopressor. Physical exam General: Awake alert in the morning. HEENT: Atraumatic, PERRLA, EOMI, Normocephalic Oral: Oral mucosa moist. No Gingival or Mucosal Lesions/ Ulcerations Neck: Supple, No JVD, Negative Carotid Bruits Lungs: Air entry diminished in bilateral lung bases. Bilateral coarse crepitations. Dyspnea on exertion Cardiovascular: Irregular rhythm, A-fib, Normal S1, Normal S2, systolic murmur LSB. Abdomen: Bowel Sounds Present, Soft, Non Tender, Non-Distended : No renal angle tenderness. No suprapubic tenderness. Extremities: Mild bilateral lower leg 1+ pitting edema, Capillary Refill Less than 3 Seconds Skin: No rashes, No breakdown Musculoskeletal: Right TKR. Baseline on cane/walker. Muscle strength 4+/5 at knees and hips joints no Tenderness to Palpation of Joints or Extremities Neurological: Cranial nerves II-XII grossly intact, DTR 2+/4 and Symmetrical, Neuro grossly intact Psych/Mental Status: Flat affect. Assessment & Plan Assessment/Plan (1) STEMI (ST elevation myocardial infarction): (2) Hypertension: (3) Type 2 diabetes mellitus: PLAN: Plan 77-year-old female was admitted on 09/18 with chest pain severe retrosternal was sick diaphoretic hypotension. Found to have STEMI. #STEMI status post 2 stents to LAD -Presented 09/[address] elevation HI and was taken to the Personal Lines Account Manager -Successful PCI with DAILY of occluded ostial LAD -She is on Brilinta 90 mg twice daily, low-dose aspirin for 1 year and on goal-directed medical therapy as per NSTEMI -Integrilin drip continued by cardiology -Coreg increased to 6.25 mg twice daily, lisinopril dose as tolerated by BP, high-dose statin -Echo ordered for today -Cardiac rehab on -Total cholesterol 203 with an LDL of 114 09/22: Echo shows decrease in EF 20-25%. Severe LV systolic dysfunction, mild to moderate MR and TR. Discussed with the yacht master. Patient will need LifeVest at the time of discharge. Lasix 40 mg IV ordered. 09/23: Hypotension after Lasix blood pressure dropped to 71/46. 500 ml Ringer lactate bolus ordered and reevaluate BP. If is still low, repeat another 500 mL bolus.. Lasix discontinued. 09/24: Chest x-ray initially reviewed shows bilateral progressive patchy infiltrate worse on the right lung field than left. Fluid overload. Hold off on Lasix. Prior to STEMI patient blood pressure as per the patient used to be slightly elevated probably 140s but on review of hospital record shows her blood pressure was in the 110s to 120s sometimes elevated 140s to 150s. #Postintervention hypotension -Possibly secondary to reperfusion. Improvement -Continue to monitor 09/22: Hypotension has resolved. Patient's blood pressure recovered. It fluctuates from low 96/52-150/113. On low-dose Levaquin. Carvedilol dose increased. 09/23: Hypotension as mentioned above. Resuscitation and hold antihypertensive medications for now. Mild hypokalemia, potassium replaced. 09/24: Patient is maintaining her blood pressure. Hold off Lasix. Did not require pressors. #Hyperglycemia -A1c 5.6 -Elevated glucose may be reactive -Continue glucose checks and sliding scale insulin Acute hypoxic respiratory failure, multiple etiology including acute systolic heart failure and bilateral rhinovirus pneumonia with suspicion of secondary bacterial infection: Repeat chest x-ray was done on 09/22. Vascular congestion has improved but patient has progressive bilateral infiltrate, worsening right lung field. Pneumonia work-up ordered. Patient does not have fever but is more short of breath sometimes tachypneic labored breathing even on diuresis. Started on IV ceftriaxone and doxycycline. Levofloxacin/chloroquine and Zithromax avoided because of high interaction with amiodarone for QTc prolongation and arrhythmia. Solu-Medrol 60 mg IV 1 dose, half an hour before starting IV ceftriaxone. Discussed with the ID regarding allergy of penicillin with hives. 09/23: Respiratory panel positive for rhinovirus. COVID-19 PCR negative. Patient has bilateral viral pneumonia but might have secondary bacterial infection therefore we will continue empiric antibiotic. Continue BiPAP support. Pulmonary follow-up requested. 1 dose Solu-Medrol repeated. 09/24: Chest x-ray shows progressive increase in bilateral infiltrates. No fever. Did not had fever. Continue antibiotics. #Transaminitis: Patient has mildly elevated ALT and AST AST more than ALT. Possible related to STEMI/mild hypotension 09/22: Improvement in AST ALT. Patient on high intensity statin. 09/24: Improvement in ALT and AST #DVT ppx: SCDs Total time of the visit including total time spent in counseling or coordination of care, (more than 50% of the total time, spent in obtaining medical information from nurses and other ancillary care providers,explaining to the patient about labs, imaging, diagnosis and management of active complex medical conditions), yacht master, hypotension, reassessment and reevaluation, review of labs and imaging is 50 minutes. Clinical Impression(s) from Imaging Studies Chest X-Ray 09/18/22 22:50 IMPRESSION: Poor inspiration with some bibasilar atelectasis. Cardiomegaly. Electronically Signed: Murtaza Rausch MD at 23:09 EDT , Echocardiogram 09/19/22 00:51 Interpretation Summary The estimated ejection fraction is 20-25 %. Severe LV systolic Dysfunction with segmental Wall motion as described Moderately enlarged left atrium Mild to moderate MR Mild to moderate TR No previous study to compare. Ordering Physician: Mauri Tang Referring Physician: Cyndee Morley Performed By: Berry Ojeda RCS Chest X-Ray 09/19/22 23:00 IMPRESSION: Patchy bilateral airspace disease. Findings may indicate pneumonia. Chest X-Ray 09/20/22 17:55 IMPRESSION: Stable vascular congestion with bilateral airspace disease, pulmonary edema versus infection. Chest X-Ray 09/22/22 10:21 IMPRESSION: Progressive bilateral patchy airspace disease worse in the right hemithorax. Chest X-Ray 09/22/22 10:21 IMPRESSION: Minimal left pleural effusion. Charges/Coding Visit Charges Inpatient E&M: 69727 Subs Hosp L3
[2022-09-24 09:14] LABS: Procalcitonin 0.27 ng/mL (0.00-0.09)
[2022-09-24 09:16] LABS: BNP,B-Type NATRIURETIC PEPTIDE 630.8 pg/mL (0-100)
[2022-09-24] MEDS: Insulin Lispro 100 UNIT/ML INSULN.PEN SC ×4 (09:48→21:22)
[2022-09-24] MEDS: Amiodarone 200 MG Tablet PO ×2 (09:49→21:06)
[2022-09-24] MEDS: Spironolactone 25 MG Tablet PO (09:49)
[2022-09-24] MEDS: Aspirin E.C. 81 MG Tablet PO (09:49)
[2022-09-24] MEDS: Doxycycline 100 MG CAPSULE PO ×2 (09:49→21:06)
[2022-09-24] MEDS: APIXABAN 2.5 MG TABLET (WCH) PO ×2 (09:50→21:07)
[2022-09-24] MEDS: Pantoprazole Sodium 20 MG Tablet PO (09:50)
[2022-09-24] MEDS: Sertraline 100 MG Tablet PO (09:51)
[2022-09-24] MEDS: TICAGRELOR 90 MG TABLET PO ×2 (09:51→21:06)
[2022-09-24] MEDS: guaiFENesin 1,200 MG Tablet 1200 MG PO ×2 (09:51→21:06)
[2022-09-24 10:21] LABS: Bedside Glucose 176 mg/dL (74-106)
[2022-09-24] MEDS: Ceftriaxone 1 GM/50 ML BAG IV (10:53)
[2022-09-24] MEDS: Carvedilol 3.125 MG TABLET PO (11:07)
[2022-09-24] MEDS: Lisinopril 2.5 MG Tablet PO (13:03)
[2022-09-24 13:35] LABS: Bedside Glucose 201 mg/dL (74-106)
--- NOTE | 2022-09-24 16:20 | CASEMGMT ---
Updates sent to [facility]. Viri Bauman [employer]
[2022-09-24] MEDS: Furosemide 40 MG/4 ML Vial IV (17:43)
[2022-09-24 18:15] LABS: Bedside Glucose 188 mg/dL (74-106)
--- NOTE | 2022-09-24 20:26 | PCM.PN.CARD ---
Subjective Subjective Acute today along with the nursing staff Daughter at bedside No symptoms of chest pain reported she still had mild epigastric discomfort. Objective Data Vital Signs: Vital Signs Temp Pulse Resp BP Pulse Ox O2 Del Method O2 Flow Rate 98.9 F 95 27 H 94/61 91 Bi-pap 12 09/24/22 18:00 09/24/22 18:00 09/24/22 18:00 09/24/22 18:00 09/24/22 18:00 09/24/22 18:00 09/24/22 17:00 FiO2 50 09/24/22 18:00 Oxygen Flow Rate (L/min) 12 Oxygen Delivery Method Bi-pap Weight: 188 lb 11.451 oz Body Mass Index (BMI) 33.4 Intake & Output: Intake and Output for Last 24 Hours 09/22/22 09/23/22 09/24/22 23:59 23:59 23:59 Intake Total 290.00 / 290.00 750 / 750 1150 / 1150 Output Total 700 / 900 300 / 300 600 / 600 Balance -410.00 / -610.00 450 / 450 550 / 550 Lab / Micro Data Result Diagrams: 09/24/22 03:50 09/24/22 03:50 Labs: Laboratory Results - last 24 hr 09/23/22 20:35: Troponin I High Sens 8779 H* 09/23/22 20:56: POC Glucose 205 H 09/24/22 03:50: WBC 15.9 H, RBC 3.52 L, Hgb 10.9 L, Hct 34.2 L, MCV 97.2, MCH 31.0, MCHC 31.9 L, RDW Std Deviation 56.3 H, RDW Coeff of Ruben 15.9 H, Plt Count 340, MPV 8.7, Immature Gran % (Auto) 1.000 H, Neut % (Auto) 89.0 H, Lymph % (Auto) 4.5 L, Prentiss % (Auto) 5.4, Eos % (Auto) 0.0, Baso % (Auto) 0.1, Absolute Neuts (auto) 14.1 H, Absolute Lymphs (auto) 0.72 L, Nucleated RBC % 0 09/24/22 03:50: Sodium 138, Potassium 3.9, Chloride 106, Carbon Dioxide 30.0, Anion Gap 2 L, BUN 48 H, Creatinine 0.59, Estim Creat Clear Calc 37.74, Est GFR (MDRD) Af Amer 126, Est GFR (MDRD) Non-Af 104, BUN/Creatinine Ratio 81.4 H, Glucose 195 H, Calcium 8.5, Total Bilirubin 0.90, AST 74 H, ALT 68 H, Alkaline Phosphatase 89, Total Protein 6.0 L, Albumin 2.4 L, Globulin 3.6, Albumin/Globulin Ratio 0.7 L 09/24/22 07:04: B-Natriuretic Peptide 630.8 H 09/24/22 07:04: Procalcitonin 0.27 H 09/24/22 09:44: POC Glucose 176 H 09/24/22 13:10: POC Glucose 201 H 09/24/22 17:52: POC Glucose 188 H Micro: Microbiology 09/22/22 14:15 Blood Culture (Wb) - Left Hand Blood Culture - Preliminary No growth in 48 hours. 09/22/22 14:05 Blood Culture (Wb) - Right Hand Blood Culture - Preliminary No growth in 48 hours. 09/23/22 20:22 Urine, Clean Catch Legionella Antigen - Final 09/23/22 20:22 Urine, Clean Catch Streptococcus pneumoniae Antigen (M - Final Cardiology Labs/Tests 09/24/22 03:50: WBC 15.9 H, RBC 3.52 L, Hgb 10.9 L, Hct 34.2 L, MCV 97.2, MCH 31.0, MCHC 31.9 L, Plt Count 340, MPV 8.7, Immature Gran % (Auto) 1.000 H, Neut % (Auto) 89.0 H, Lymph % (Auto) 4.5 L, Prentiss % (Auto) 5.4, Eos % (Auto) 0.0, Baso % (Auto) 0.1, Absolute Neuts (auto) 14.1 H, Nucleated RBC % 0 09/24/22 03:50: Sodium 138, Potassium 3.9, Chloride 106, Carbon Dioxide 30.0, Anion Gap 2 L, BUN 48 H, Creatinine 0.59, Est GFR (MDRD) Af Amer 126, Est GFR (MDRD) Non-Af 104, BUN/Creatinine Ratio 81.4 H, Glucose 195 H, Calcium 8.5, Total Bilirubin 0.90 09/24/22 07:04: B-Natriuretic Peptide 630.8 H Rhythm: EKG: ECHO: Stress Test: Cardiac Cath: PCI: CT Surgery: Holter monitor: EPS: PPM: CXR: Chest CT Scan: Radiography Diagnostic Testing: Radiology Impression Chest X-Ray 09/24/22 07:11 IMPRESSION: Progressive bilateral patchy pulmonary infiltrates. Electronically Signed: Tomi Lynn MD at 8:18 EDT , Physical Exam Cardio Cardio Narrative: Patient alert orientated Review of the pvc monitor showed underlying atrial fibrillation with rapid ventricular rate Cardiovascular exam; Jugular venous pressure elevated. S1-S2 regular Chest exam mild bilateral inspiratory rales. Assessment & Plan Assessment/Plan (1) History of coronary artery stent placement: (2) Hypotension: (3) ST elevation (STEMI) myocardial infarction: (4) Type 2 diabetes mellitus: (5) Atrial fibrillation: PLAN: 77-year-old patient with a STEMI anterior Severe LV systolic dysfunction with acute systolic heart failure Has some epigastric discomfort no symptoms of chest pain On pvc monitor she has A-fib with RVR Also patient had rhinovirus with pneumonia Cardiac care plan recommendation 1. I discussed the review all the current medication with the nursing staff. Continue low-dose beta-indio, added digoxin for better controlled ventricular rate patient underlying A-fib Currently on anticoagulation to continue. Also added Lasix to her current treatment We will hold on Aldactone We will continue on moderate dose of statin Lipitor 40 mg Discussed in detail the cardiac care plan Patient has severe LV systolic dysfunction with acute STEMI anterior and occluded ostial LAD with successful PCI and drug-eluting stent Patient is very critical will require LifeVest on discharge We will continue to monitor and follow-up clinically. Due to severe LV systolic dysfunction and acute systolic heart failure With EF in the range of 20-25% patient requiring high oxygen/BiPAP Also in addition to pneumonia with rhinovirus Prognosis is critical guarded
[2022-09-24] MEDS: Atorvastatin Calcium 40 MG Tablet PO (21:06)
[2022-09-24] MEDS: MELATONIN 3 MG TABLET PO (21:07)
[2022-09-24] MEDS: Digoxin 250 MCG Tablet PO (21:07)
[2022-09-24] MEDS: Zolpidem Tartrate 5 MG Tablet PO (21:07)
[2022-09-24 21:46] LABS: Bedside Glucose 171 mg/dL (74-106)
[2022-09-25] VITALS (28 sets, daily range): BP systolic 80–142; BP diastolic 52–89; PULSE 81–115; RESP 14–49; TEMP 36.2–37.2; O2SAT 86–96; BMI 33.5
[2022-09-25 04:10] LABS: ALB/GLOB Ratio 0.6 RATIO (0.9-2.4); AST(SGOT) 61 U/L (15-37); Alanine Aminotransfer ALT/SGPT 61 U/L (13-56); Albumin, Serum 2.4 g/dL (3.2-5.0); Alkaline Phosphatase 102 U/L (45-117); Anion Gap 4 (5-15); BUN 38 mg/dL (7-18); BUN/Creat Ratio 75.4 RATIO (10-20); Calcium,Total 8.5 mg/dL (8.5-10.1); Chloride 100 mmol/L (98-107); EST Glomerular Filtration Rate 125 mL/min (>60); Est Glom Filt Rate - Afr Amer 151 mL/min (>60); Estimated Creatinine Clearance 37.74 ml/min; Globulin 3.8 g/dL (2.2-4.2); Glucose 188 mg/dL (74-106); Potassium 3.5 mmol/L (3.5-5.1); Protein, Total 6.2 g/dL (6.4-8.2); Sodium Level 135 mmol/L (136-145)
--- NOTE | 2022-09-25 05:42 | PN.CC_ITS ---
Assessment & Plan Assessment/Plan (1) Cardiomyopathy, ischemic: PLAN: Plan RECOMMENDATIONS: 1. Wean supplemental oxygen to maintain saturations at or above 90%. 2. Medical management of congestive heart failure per cardiology recommendations. 3. Continue empiric antimicrobials for now. 4. BiPAP as needed. 5. Obtain CTA chest to rule out pulmonary embolism. 6. Encourage incentive spirometer use and mobilize patient as tolerated. IMPRESSIONS: 1. Acute hypoxemic respiratory failure I do suspect that the patient's respiratory failure is likely multifactorial in etiology. While an underlying pulmonary infectious process is certainly a possibility, I suspect a large component of her hypoxia is secondary to cardiac pump failure and resultant pulmonary edema. Therefore, I will defer additional medical optimization of her underlying ischemic cardiomyopathy to cardiology. Continue diuresis as tolerated by hemodynamics and renal function. Plan to continue empiric antimicrobials. Will obtain CTA chest today to rule out pulmonary embolism. Encourage incentive spirometer use and mobilize patient as tolerated. 2. STEMI status post stents x2 to LAD/systolic heart failure Continue medical management per cardiology recommendations. 3. Rhinovirus URI Continue supportive care as noted above. 4. Advanced age/chronic pain syndrome/depression/obesity Complicates care, management, recovery and prognosis. Continue home medications as indicated. This note was generated with [employer] dictation software. It may contain incorrect words, spelling, and punctuation that were not noted in checking the note before signing. Subjective Subjective The patient was seen and examined at the bedside this morning. Events from the last 24 hours have been reviewed. The patient is currently afebrile, hemodynamically stable and maintaining appropriate oxygen saturations on high flow nasal cannula at 15 L/min. The patient is documented to be overall net +2 L for the hospitalization. Creatinine remains normal. BNP yesterday was elevated at 630. The patient continues to fluctuate between BiPAP and high flow cannula. Objective Data Objective Data The patient's most recent lab work, culture data and imaging studies have all been personally reviewed. Respiratory viral panel on September 22 was positive for rhinovirus. Vital Signs: Vital Signs Temp Pulse Resp BP Pulse Ox O2 Del Method O2 Flow Rate 98.8 F 98 24 H 91/52 L 92 Bi-pap 12 09/25/22 01:00 09/25/22 05:00 09/25/22 05:00 09/25/22 05:00 09/25/22 05:00 09/25/22 05:00 09/24/22 17:00 FiO2 50 09/25/22 05:00 Oxygen Flow Rate (L/min) 12 Oxygen Delivery Method Bi-pap Weight: 188 lb 11.451 oz Body Mass Index (BMI) 33.4 Intake & Output: Intake and Output for Last 24 Hours 09/23/22 09/24/22 09/25/22 23:59 23:59 23:59 Intake Total 750 / 750 1150 / 1390 240 / 240 Output Total 300 / 300 600 / 1650 1050 / 1050 Balance 450 / 450 550 / -260 -810 / -810 Lab / Micro Data Attestation: I reviewed the patient's lab results. Result Diagrams: 09/24/22 03:50 09/25/22 03:30 Labs: Laboratory Results - last 24 hr 09/24/22 07:04: B-Natriuretic Peptide 630.8 H 09/24/22 07:04: Procalcitonin 0.27 H 09/24/22 09:44: POC Glucose 176 H 09/24/22 13:10: POC Glucose 201 H 09/24/22 17:52: POC Glucose 188 H 09/24/22 21:21: POC Glucose 171 H 09/25/22 03:30: Sodium 135 L, Potassium 3.5, Chloride 100, Carbon Dioxide 31.0, Anion Gap 4 L, BUN 38 H, Creatinine 0.50 L, Estim Creat Clear Calc 37.74, Est GFR (MDRD) Af Amer 151, Est GFR (MDRD) Non-Af 125, BUN/Creatinine Ratio 75.4 H, Glucose 188 H, Calcium 8.5, Total Bilirubin 1.00, Direct Bilirubin 0.52 H, AST 61 H, ALT 61 H, Alkaline Phosphatase 102, Total Protein 6.2 L, Albumin 2.4 L, Globulin 3.8, Albumin/Globulin Ratio 0.6 L Micro: Microbiology 09/22/22 14:15 Blood Culture (Wb) - Left Hand Blood Culture - Preliminary No growth in 48 hours. 09/22/22 14:05 Blood Culture (Wb) - Right Hand Blood Culture - Preliminary No growth in 48 hours. 09/23/22 20:22 Urine, Clean Catch Legionella Antigen - Final 09/23/22 20:22 Urine, Clean Catch Streptococcus pneumoniae Antigen (M - Final 09/22/22 13:55 Mucosa - Nasopharyngeal Respiratory Panel (PCR) - Final Rhinovirus Radiography Diagnostic Testing: Radiology Impression Chest X-Ray 09/24/22 07:11 IMPRESSION: Progressive bilateral patchy pulmonary infiltrates. Electronically Signed: Tomi Lynn MD at 8:18 EDT , Physical Exam Const alert and no apparent distress General Appearance: cooperative Nutritional Appearance: obese HEENT normocephalic and head/scalp atraumatic Eyes PERRL, EOMs intact bilaterally and conjunctivae normal Neck supple General: trachea midline Chest inspection of chest normal Resp Effort and Inspection: tachypneic Auscultation: rales; Negative for rhonchi or wheezes Cardio S1 normal heart sound and S2 normal heart sound Rate: tachycardic Rhythm: abnormal rhythm GI normal to inspection, nondistended, normoactive bowel sounds Extremity General Extremity: edema bilateral lower extremity; Negative for clubbing Skin no rashes or lesions noted Neuro CN's II-XII intact bilaterally and no focal motor deficits Psych cooperative and affect normal Charges/Coding Visit Charges Inpatient E&M: 77188 Subs Hosp L3
--- NOTE | 2022-09-25 06:24 | CT_ITS ---
We are attempting to reach an attending provider to discuss findings. An addendum with communication details will be sent when the communication is complete. STUDY: CTA CHEST REASON FOR EXAM: Female, 77 years old. Atypical shortness of breath, history of A. fib, diaphoresis RADIATION DOSAGE (If Supplied By Facility): CTDIvol = ( 14.93 ) mGy, DLP = ( 479.61 ) mGycm TECHNIQUE: The examination was performed with the intravenous administration of IV 100mL Isovue-370. Post-processing of the angiographic images was performed, with multiplanar reformation and 3D reconstruction. Individualized dose optimization techniques were used for this CT. COMPARISON: None. FINDINGS: Low-density thrombus noted in the distal aspect of the right main pulmonary artery with extension into branches leading to the right lower lobe. There is also evidence of low density thrombus within branches leading to the left upper lobe. Findings are consistent with bilateral PE. There is some evidence of right heart strain with reflux of contrast into the IVC. Normal thoracic aorta and visualized great vessels. There is no demonstrated aortic dissection. There is cardiomegaly with coronary artery stenting noted. No suspicious axillary, mediastinal or perihilar adenopathy. There is peribronchial thickening. The lungs are well expanded. Diffuse airspace opacifications in both lung daley consistent with bilateral pneumonias there are associated pleural effusions and atelectasis. There are degenerative changes of thoracic spine. Limited cuts through the upper abdomen show no suspicious abnormalities CT/CTA Chest W/WO Contrast IMPRESSION: Bilateral PE with filling defects noted in the distal aspect of the main right pulmonary artery extending into branches leading to the right lower lobe and also within branches leading to the left upper lobe. There is some sign of right heart strain with reflux of contrast into the IVC Diffuse airspace opacifications in both lung daley with bilateral pleural effusions and atelectasis. Findings consistent with diffuse bilateral pneumonias Chronic bronchitis No suspicious adenopathy Degenerative bony changes Electronically Signed: Ricki Dumont MD at 11:51 EDT ,
--- NOTE | 2022-09-25 07:33 | PCM.PN.HOSP ---
Reason for Visit Reason for Visit: Diagnoses Type 2 diabetes mellitus without complications (09/18/22) Essential (primary) hypertension (09/18/22) ST elevation (STEMI) myocardial infarction of unspecified site (09/18/22) Atherosclerotic heart disease of [place] coronary artery without angina pectoris (09/18/22) Ischemic cardiomyopathy (09/18/22) Other ventricular tachycardia (09/18/22) Other persistent atrial fibrillation (09/18/22) Unspecified atrial fibrillation (09/18/22) Hypotension, unspecified (09/18/22) Presence of coronary angioplasty implant and graft (09/18/22) Subjective Subjective Follow-up for acute hypoxic respiratory failure, patient is tachypneic, short of breath, labored breathing and tachycardic Objective Data Objective Data Vital Signs: Vital Signs Temp Pulse Resp BP Pulse Ox O2 Del Method O2 Flow Rate 98.5 F 111 H 31 H 142/72 H 86 High Flow 15 09/25/22 06:00 09/25/22 06:00 09/25/22 07:00 09/25/22 07:00 09/25/22 07:00 09/25/22 07:00 09/25/22 06:00 FiO2 30 09/25/22 07:00 Oxygen Flow Rate (L/min) 15 Oxygen Delivery Method High Flow Weight: 188 lb 11.451 oz Body Mass Index (BMI) 33.4 Intake & Output: Intake and Output for Last 24 Hours 09/23/22 09/24/22 09/25/22 23:59 23:59 23:59 Intake Total 750 / 750 1150 / 1390 240 / 240 Output Total 300 / 300 600 / 1650 1300 / 1300 Balance 450 / 450 550 / -260 -1060 / -1060 Lab / Micro Data Result Diagrams: 09/24/22 03:50 09/25/22 03:30 Labs: Laboratory Results - last 24 hr 09/24/22 07:04: B-Natriuretic Peptide 630.8 H 09/24/22 07:04: Procalcitonin 0.27 H 09/24/22 09:44: POC Glucose 176 H 09/24/22 13:10: POC Glucose 201 H 09/24/22 17:52: POC Glucose 188 H 09/24/22 21:21: POC Glucose 171 H 09/25/22 03:30: Sodium 135 L, Potassium 3.5, Chloride 100, Carbon Dioxide 31.0, Anion Gap 4 L, BUN 38 H, Creatinine 0.50 L, Estim Creat Clear Calc 37.74, Est GFR (MDRD) Af Amer 151, Est GFR (MDRD) Non-Af 125, BUN/Creatinine Ratio 75.4 H, Glucose 188 H, Calcium 8.5, Total Bilirubin 1.00, Direct Bilirubin 0.52 H, AST 61 H, ALT 61 H, Alkaline Phosphatase 102, Total Protein 6.2 L, Albumin 2.4 L, Globulin 3.8, Albumin/Globulin Ratio 0.6 L Micro: Microbiology 09/22/22 14:15 Blood Culture (Wb) - Left Hand Blood Culture - Preliminary No growth in 48 hours. 09/22/22 14:05 Blood Culture (Wb) - Right Hand Blood Culture - Preliminary No growth in 48 hours. 09/23/22 20:22 Urine, Clean Catch Legionella Antigen - Final 09/23/22 20:22 Urine, Clean Catch Streptococcus pneumoniae Antigen (M - Final 09/22/22 13:55 Mucosa - Nasopharyngeal Respiratory Panel (PCR) - Final Rhinovirus Radiography Diagnostic Testing: Radiology Impression Chest X-Ray 09/24/22 07:11 IMPRESSION: Progressive bilateral patchy pulmonary infiltrates. Electronically Signed: Tomi Lynn MD at 8:18 EDT , Physical Exam Narrative Seen and examined. Patient very short of breath last night and in the morning today. On BiPAP overnight, tachypneic. Heart rate in 120s, BP systolic 90s to low 100s last night but most recent 1 time 142/72 may be misreading or acute stress response from hypoxia or respiratory distress. A-fib. Physical exam General: Awake alert in the morning. In respiratory distress. HEENT: Atraumatic, PERRLA, EOMI, Normocephalic Oral: Oral mucosa moist. No Gingival or Mucosal Lesions/ Ulcerations Neck: Supple, No JVD, Negative Carotid Bruits Lungs: Air entry diminished in bilateral lung bases. Bilateral coarse crepitations. Dyspnea at rest, labored breathing Cardiovascular: Irregular rhythm, A-fib, heart rate in 110s. normal S1, Normal S2, systolic murmur LSB. Abdomen: Bowel Sounds Present, Soft, Non Tender, Non-Distended : No renal angle tenderness. No suprapubic tenderness. Extremities: Mild bilateral lower leg 1+ pitting edema, Capillary Refill Less than 3 Seconds Skin: No rashes, No breakdown Musculoskeletal: Right TKR. Baseline on cane/walker. Muscle strength 4+/5 at knees and hips joints no Tenderness to Palpation of Joints or Extremities Neurological: Cranial nerves II-XII grossly intact, DTR 2+/4 and Symmetrical, Neuro grossly intact Psych/Mental Status: Flat affect. Assessment & Plan Assessment/Plan (1) STEMI (ST elevation myocardial infarction): (2) Hypertension: (3) Type 2 diabetes mellitus: PLAN: Plan 77-year-old female was admitted on 09/18 with chest pain severe retrosternal was sick diaphoretic hypotension. Found to have STEMI. #STEMI status post 2 stents to LAD and acute systolic heart failure due to STEMI -Presented 09/[address] elevation PR and was taken to the [facility] -Successful PCI with DAILY of occluded ostial LAD -She is on Brilinta 90 mg twice daily, low-dose aspirin for 1 year and on goal-directed medical therapy as per NSTEMI -Integrilin drip continued by cardiology -Coreg increased to 6.25 mg twice daily, lisinopril dose as tolerated by BP, high-dose statin -Echo ordered for today -Cardiac rehab on -Total cholesterol 203 with an LDL of 114 09/22: Echo shows decrease in EF 20-25%. Severe LV systolic dysfunction, mild to moderate MR and TR. Discussed with the churn drill operator. Patient will need LifeVest at the time of discharge. Lasix 40 mg IV ordered. 09/23: Hypotension after Lasix blood pressure dropped to 71/46. 500 ml Ringer lactate bolus ordered and reevaluate BP. If is still low, repeat another 500 mL bolus.. Lasix discontinued. 09/24: Chest x-ray initially reviewed shows bilateral progressive patchy infiltrate worse on the right lung field than left. Fluid overload. Hold off on Lasix. Prior to STEMI patient blood pressure as per the patient used to be slightly elevated probably 140s but on review of hospital record shows her blood pressure was in the 110s to 120s sometimes elevated 140s to 150s. 09/25: Patient on evidence-based guided medical therapy. On IV Lasix as per tolerated. spironolactone dose was held, will discuss with churn drill operator #Postintervention hypotension -Possibly secondary to reperfusion. Improvement -Continue to monitor 09/22: Hypotension has resolved. Patient's blood pressure recovered. It fluctuates from low 96/52-150/113. On low-dose Levaquin. Carvedilol dose increased. 09/23: Hypotension as mentioned above. Resuscitation and hold antihypertensive medications for now. Mild hypokalemia, potassium replaced. 09/24: Patient is maintaining her blood pressure. Hold off Lasix. Did not require pressors. #Hyperglycemia -A1c 5.6 -Elevated glucose may be reactive -Continue glucose checks and sliding scale insulin Acute hypoxic respiratory failure, multiple etiology including acute systolic heart failure and bilateral rhinovirus pneumonia with suspicion of secondary bacterial infection: Repeat chest x-ray was done on 09/22. Vascular congestion has improved but patient has progressive bilateral infiltrate, worsening right lung field. Pneumonia work-up ordered. Patient does not have fever but is more short of breath sometimes tachypneic labored breathing even on diuresis. Started on IV ceftriaxone and doxycycline. Levofloxacin/chloroquine and Zithromax avoided because of high interaction with amiodarone for QTc prolongation and arrhythmia. Solu-Medrol 60 mg IV 1 dose, half an hour before starting IV ceftriaxone. Discussed with the ID regarding allergy of penicillin with hives. 09/23: Respiratory panel positive for rhinovirus. COVID-19 PCR negative. Patient has bilateral viral pneumonia but might have secondary bacterial infection therefore we will continue empiric antibiotic. Continue BiPAP support. Pulmonary follow-up requested. 1 dose Solu-Medrol repeated. 09/24: Chest x-ray shows progressive increase in bilateral infiltrates. No fever. Did not had fever. Continue antibiotics. 09/25 Patient seen by wool washer. Discussed with ICU nurses and advised BiPAP stat. Patient might need intubation/ventilator. CTPA was done which shows bilateral PE in the distal aspect of main right pulmonary artery extending to branches leading to right lower lobe and also branches to left upper lobe. Sums sign of right heart strain with reflux into IVC. Diffuse airspace opacification both lung daley with bilateral pneumonia, bilateral pleural effusion and atelectasis. Discussed with ICU nurses and wool washer. Started on full dose of anticoagulation Eliquis 10 mg twice daily for 1 week and then 5 mg twice daily afterwards. Patient already on 2 antiplatelet agent. New onset A-fib probably due to NSTEMI:During previous admission patient was in sinus rhythm. Patient came with NSTEMI and was in A-fib rhythm. Patient was on Eliquis 2.5 mg twice daily is along with baby aspirin and Brilinta since admission probably the risk of bleeding from triple blood thinner. Started on 10 mg twice daily. Hotel Service Manager informed. #Transaminitis: Patient has mildly elevated ALT and AST AST more than ALT. Possible related to STEMI/mild hypotension 09/22: Improvement in AST ALT. Patient on high intensity statin. 09/24: Improvement in ALT and AST 09/25: Further improvement in AST and ALT. With the concern of family history of allergy to statin and reluctant to full dose atorvastatin 80 mg daily decreased to 40 mg daily. #DVT ppx: SCDs Total time of the visit including total time spent in counseling or coordination of care, (more than 50% of the total time, spent in obtaining medical information from nurses and other ancillary care providers,explaining to the patient about labs, imaging, diagnosis and management of active complex medical conditions), churn drill operator, hypotension, reassessment and reevaluation, review of labs and imaging is 50 minutes. Clinical Impression(s) from Imaging Studies Chest X-Ray 09/18/22 22:50 IMPRESSION: Poor inspiration with some bibasilar atelectasis. Cardiomegaly. Electronically Signed: Murtaza Rausch MD at 23:09 EDT , Echocardiogram 09/19/22 00:51 Interpretation Summary The estimated ejection fraction is 20-25 %. Severe LV systolic Dysfunction with segmental Wall motion as described Moderately enlarged left atrium Mild to moderate MR Mild to moderate TR No previous study to compare. Ordering Physician: Mauri Tang Referring Physician: Cyndee Morley Performed By: Berry Ojeda RCS Chest X-Ray 09/19/22 23:00 IMPRESSION: Patchy bilateral airspace disease. Findings may indicate pneumonia. Chest X-Ray 09/20/22 17:55 IMPRESSION: Stable vascular congestion with bilateral airspace disease, pulmonary edema versus infection. Chest X-Ray 09/22/22 10:21 IMPRESSION: Progressive bilateral patchy airspace disease worse in the right hemithorax. Chest X-Ray 09/22/22 10:21 IMPRESSION: Minimal left pleural effusion. Charges/Coding Visit Charges Inpatient E&M: 04482 Subs Hosp L3
[2022-09-25 08:11] LABS: Bedside Glucose 197 mg/dL (74-106)
[2022-09-25] MEDS: Carvedilol 3.125 MG TABLET PO (08:45)
[2022-09-25] MEDS: Insulin Lispro 100 UNIT/ML INSULN.PEN SC ×3 (08:45→15:43)
[2022-09-25] MEDS: Doxycycline 100 MG CAPSULE PO ×2 (08:49→21:17)
[2022-09-25] MEDS: Ceftriaxone 1 GM/50 ML BAG IV (08:49)
[2022-09-25] MEDS: Amiodarone 200 MG Tablet PO ×2 (08:49→21:18)
[2022-09-25] MEDS: Sertraline 100 MG Tablet PO (08:49)
[2022-09-25] MEDS: TICAGRELOR 90 MG TABLET PO (08:49)
[2022-09-25] MEDS: Furosemide 40 MG/4 ML Vial IV (08:50)
[2022-09-25] MEDS: Aspirin E.C. 81 MG Tablet PO (08:50)
[2022-09-25] MEDS: APIXABAN 2.5 MG TABLET (WCH) PO (08:50)
[2022-09-25] MEDS: Pantoprazole Sodium 20 MG Tablet PO (08:50)
[2022-09-25] MEDS: Lisinopril 2.5 MG Tablet PO (10:34)
[2022-09-25] MEDS: Spironolactone 50 MG Tablet PO (11:40)
[2022-09-25 12:20] LABS: Bedside Glucose 160 mg/dL (74-106)
[2022-09-25] MEDS: APIXABAN 2.5 MG TABLET (WCH) 7.5 MG PO (13:07)
[2022-09-25 13:41] LABS: Allen Test Positive; Base Excess 10 mmol/L (-2 to +2); Bicarbonate 33.4 mmol/L (22-26); Blood Gas Specimen Type ART; FI02 65; O2 Delivery Device BiPAP; PEEP 10; PO2 59 mmHG (75-100); RR 14; SITE R Radial; SO2 92 % (95-99); Total Carbon Dioxide 35 mmol/L; pCO2 45.7 mmHg (35-45); pH 7.47 (7.35-7.45)
--- NOTE | 2022-09-25 15:02 | PN.CARD_ITS ---
Subjective Subjective Evaluated today at bedside along with the nursing staff medical team and the family Patient has been on BiPAP. Objective Data Vital Signs: Vital Signs Temp Pulse Resp BP Pulse Ox O2 Del Method O2 Flow Rate 98.8 F 104 H 30 H 86/57 L 94 High Flow 15 09/25/22 12:00 09/25/22 14:00 09/25/22 14:00 09/25/22 14:00 09/25/22 14:00 09/25/22 14:00 09/25/22 14:00 FiO2 65 09/25/22 13:41 Oxygen Flow Rate (L/min) 15 Oxygen Delivery Method High Flow Weight: 189 lb 9.561 oz Body Mass Index (BMI) 33.5 Intake & Output: Intake and Output for Last 24 Hours 09/23/22 09/24/22 09/25/22 23:59 23:59 23:59 Intake Total 750 / 750 1150 / 1390 350 / 350 Output Total 300 / 300 600 / 1650 1500 / 1500 Balance 450 / 450 550 / -260 -1150 / -1150 Lab / Micro Data Result Diagrams: 09/24/22 03:50 09/25/22 03:30 Labs: Laboratory Results - last 24 hr 09/24/22 17:52: POC Glucose 188 H 09/24/22 21:21: POC Glucose 171 H 09/25/22 03:30: Sodium 135 L, Potassium 3.5, Chloride 100, Carbon Dioxide 31.0, Anion Gap 4 L, BUN 38 H, Creatinine 0.50 L, Estim Creat Clear Calc 37.74, Est GFR (MDRD) Af Amer 151, Est GFR (MDRD) Non-Af 125, BUN/Creatinine Ratio 75.4 H, Glucose 188 H, Calcium 8.5, Total Bilirubin 1.00, Direct Bilirubin 0.52 H, AST 61 H, ALT 61 H, Alkaline Phosphatase 102, Total Protein 6.2 L, Albumin 2.4 L, Globulin 3.8, Albumin/Globulin Ratio 0.6 L 09/25/22 07:54: POC Glucose 197 H 09/25/22 11:38: POC Glucose 160 H Micro: Microbiology 09/22/22 14:15 Blood Culture (Wb) - Left Hand Blood Culture - Preliminary No growth in 48 hours. 09/22/22 14:05 Blood Culture (Wb) - Right Hand Blood Culture - Preliminary No growth in 48 hours. ABG Data ABG results: ABG 09/25/22 13:34 Specimen Type ART Sample Site R Radial pH 7.47 H Bicarbonate Actual 33.4 H Total CO2 35 Base Excess 10 H O2 Saturation 92 L O2 % 65 ABG pCO2 45.7 H ABG pO2 59 L Donell Test Positive Respiration Rate 14 O2 Delivery Device BiPAP POC PEEP 10 Cardiology Labs/Tests 09/25/22 03:30: Sodium 135 L, Potassium 3.5, Chloride 100, Carbon Dioxide 31.0, Anion Gap 4 L, BUN 38 H, Creatinine 0.50 L, Est GFR (MDRD) Af Amer 151, Est GFR (MDRD) Non-Af 125, BUN/Creatinine Ratio 75.4 H, Glucose 188 H, Calcium 8.5, Total Bilirubin 1.00, Direct Bilirubin 0.52 H 09/25/22 13:34: pH 7.47 H, Bicarbonate Actual 33.4 H, Base Excess 10 H, O2 Saturation 92 L, ABG pCO2 45.7 H, ABG pO2 59 L, Donell Test Positive Rhythm: EKG: ECHO: Stress Test: Cardiac Cath: PCI: CT Surgery: Holter monitor: EPS: PPM: CXR: Chest CT Scan: Radiography Diagnostic Testing: Radiology Impression Chest CTA 09/25/22 06:24 IMPRESSION: Bilateral PE with filling defects noted in the distal aspect of the main right pulmonary artery extending into branches leading to the right lower lobe and also within branches leading to the left upper lobe. There is some sign of right heart strain with reflux of contrast into the IVC Diffuse airspace opacifications in both lung daley with bilateral pleural effusions and atelectasis. Findings consistent with diffuse bilateral pneumonias Chronic bronchitis No suspicious adenopathy Degenerative bony changes Electronically Signed: Ricki Dumont MD at 11:51 EDT Reading Location ID and State: [facility] / [place] , Service support , ADDENDUM: 09/25/22 1221 IMPRESSION: Bilateral PE with filling defects noted in the distal aspect of the main right pulmonary artery extending into branches leading to the right lower lobe and also within branches leading to the left upper lobe. There is some sign of right heart strain with reflux of contrast into the IVC Diffuse airspace opacifications in both lung daley with bilateral pleural effusions and atelectasis. Findings consistent with diffuse bilateral pneumonias Chronic bronchitis No suspicious adenopathy Degenerative bony changes N.B. : The above Results were Read Back by Ricki Dumont MD to Noni Casey RN, and understanding confirmed on 09/25/2022 12:14:23 (ET). Electronically Signed: Ricki Dumont MD at 11:51 EDT , Assessment & Plan Assessment/Plan (1) Non-sustained ventricular tachycardia: (2) Cardiomyopathy, ischemic: (3) History of coronary artery stent placement: (4) Hypotension: PLAN: Cardiac care plan recommendations; Very critical patient with acute hypoxic respiratory failure, short of breath with A-fib Bilateral pulm emboli on CTA chest pneumonia with rhinovirus Very guarded prognosis Severe LV systolic dysfunction with large anteroseptal and apical DE Ejection fraction 20-25% Status post PCI of the LAD Significantly abnormal chest x-ray with progressive bilateral patchy airspace disease worsening on the right hemothorax. And minimal left pleural effusion. Charles in detail the overall plan in regard to transferring to tertiary cardiac care facility Versus care here at the local facility also discussed the current medication in detail Patient is on anticoagulation with Eliquis 10 mg twice daily as better PE protocol and will change the Brilinta to Plavix to minimize the risk of bleed in addition to low-dose aspirin Dr. Junior Campbell given full detail about care plan in intensive care unit Family understand the plan and would like to continue the current care at the intensive care unit. From cardiac standpoint we will continue to monitor and follow-up clinically.
[2022-09-25] MEDS: Acetaminophen 325 MG Tablet 650 MG PO (15:42)
[2022-09-25 16:11] LABS: Bedside Glucose 155 mg/dL (74-106)
[2022-09-25] MEDS: APIXABAN 5 MG TABLET 10 MG PO (21:17)
[2022-09-25] MEDS: guaiFENesin 1,200 MG Tablet 1200 MG PO (21:17)
[2022-09-25] MEDS: Atorvastatin Calcium 40 MG Tablet PO (21:17)
[2022-09-25] MEDS: MELATONIN 3 MG TABLET PO (21:18)
[2022-09-25 21:45] LABS: Bedside Glucose 147 mg/dL (74-106)
[2022-09-25] MEDS: Zolpidem Tartrate 5 MG Tablet PO (23:15)
[2022-09-26] VITALS (17 sets, daily range): BP systolic 82–132; BP diastolic 54–99; PULSE 85–109; RESP 14–30; TEMP 36.4–36.8; O2SAT 87–94; BMI 32.9
[2022-09-26 04:12] LABS: Absolute Neutrophil Count 16.7 X10^3/uL (2.0-7.7); Basophil# 0.04 X10^3/uL; Basophil% 0.2 % (0-1); Eosinophils% 0.5 % (0-5); Hematocrit 38.4 % (37-47); Hemoglobin 12.3 g/dL (12.0-15.0); Lymphocyte % 6.7 % (19-41); Mean Corpuscular Hgb 31.1 pg (27.0-32.0); Mean Platelet Vol. 8.6 fl (6.2-12.0); Monocyte# 0.88 X10^3/uL; Monocyte% 4.6 % (0-10); NRBC Flagged by Analyzer 0 % (0-5); Neutrophil # 16.74 X10^3/uL (2.7-7.7); Neutrophil % 86.9 % (47-70); Platelet Count 396 K/mm3 (150-450); RBC Distribution Width CV 15.6 % (11.6-14.6); RBC Distribution Width SD 55.3 fl (35.1-43.9); Red Blood Count 3.96 M/mm3 (4.2-5.4); White Blood Count 19.3 K/mm3 (4.4-11.0)
[2022-09-26 04:25] LABS: Anion Gap 4 (5-15); BUN 32 mg/dL (7-18); Chloride 101 mmol/L (98-107); Creatinine, Serum 0.41 mg/dL (0.55-1.02); EST Glomerular Filtration Rate 159 mL/min (>60); Est Glom Filt Rate - Afr Amer 192 mL/min (>60); Estimated Creatinine Clearance 37.74 ml/min; Glucose 186 mg/dL (74-106); Potassium 3.6 mmol/L (3.5-5.1); Sodium Level 136 mmol/L (136-145)
--- NOTE | 2022-09-26 05:53 | PN.CC_ITS ---
Assessment & Plan Assessment/Plan (1) Cardiomyopathy, ischemic: PLAN: Plan RECOMMENDATIONS: 1. Continue BiPAP and wean FiO2 to maintain saturations at or above 90%. 2. Medical management of congestive heart failure per cardiology recommendations. 3. Continue empiric broad-spectrum antimicrobials for now. 4. Continue Eliquis as ordered. 5. Encourage incentive spirometer use and mobilize patient as tolerated. 6. Ongoing goals of care discussion with the patient and her family. IMPRESSIONS: 1. Acute hypoxemic respiratory failure I do suspect that the patient's respiratory failure is likely multifactorial in etiology. The patient likely has a component of pulmonary edema secondary to her underlying ischemic cardiomyopathy, coupled with bilateral pulmonary emboli and significant bilateral airspace disease concerning for infection. However, the patient remains on broad-spectrum antimicrobials and systemic anticoagul ation with Eliquis. Recommend continuing medical management of her underlying heart failure per cardiology. The patient's overall prognosis is poor. Recommend further goals of care discussion with the patient and her family. 2. STEMI status post stents x2 to LAD/systolic heart failure Continue medical management per cardiology recommendations. 3. Bilateral pulmonary emboli Continue systemic anticoagulation with Eliquis. If the patient is not able to tolerate breaks from BiPAP for p.o. meds, she can be transitioned to a weight- based heparin infusion. 4. Advanced age/chronic pain syndrome/depression/obesity Complicates care, management, recovery and prognosis. Continue home medications as indicated. TIME: 32 minutes of critical care time, independent of procedures, was spent a ddressing the patient's acute hypoxemic respiratory failure, ischemic cardiomyopathy, systolic heart failure, bilateral pulmonary emboli, review of all data and collaboration with the care team. Subjective Subjective The patient was seen and examined at the bedside this morning. Events from the last 24 hours have been reviewed. The patient is currently afebrile with borderline hemodynamics. She remains on BiPAP with an FiO2 requirement of 65 to 75%. CTA chest completed yesterday demonstrated bilateral pulmonary emboli with radiographic evidence of right heart strain, along with bilateral pleural effusions and diffuse bilateral airspace consolidation. Cardiology and the hospitalist are working with the patient and her family regarding goals of care. There are tentative discussions regarding initiation of hospice care measures after additional family arrived tomorrow. Objective Data Objective Data The patient's most recent lab work, culture data and imaging studies have all been personally reviewed. Respiratory viral panel on September 22 was positive for rhinovirus. Vital Signs: Vital Signs Temp Pulse Resp BP Pulse Ox O2 Del Method O2 Flow Rate 97.6 F L 91 28 H 82/60 L 92 Bi-pap 15 09/26/22 00:00 09/26/22 04:46 09/26/22 04:46 09/26/22 02:00 09/26/22 04:46 09/26/22 02:00 09/25/22 14:00 FiO2 75 09/26/22 04:46 Oxygen Flow Rate (L/min) 15 Oxygen Delivery Method Bi-pap Weight: 189 lb 9.561 oz Body Mass Index (BMI) 33.5 Intake & Output: Intake and Output for Last 24 Hours 09/24/22 09/25/22 09/26/22 23:59 23:59 23:59 Intake Total 1150 / 1390 350 / 350 Output Total 600 / 1650 2100 / 2300 200 / 200 Balance 550 / -260 -1750 / -1950 -200 / -200 Lab / Micro Data Attestation: I reviewed the patient's lab results. Result Diagrams: 09/26/22 04:00 09/26/22 04:00 Labs: Laboratory Results - last 24 hr 09/25/22 03:30: Direct Bilirubin Cancelled 09/25/22 07:54: POC Glucose 197 H 09/25/22 11:38: POC Glucose 160 H 09/25/22 15:39: POC Glucose 155 H 09/25/22 21:16: POC Glucose 147 H 09/26/22 04:00: WBC 19.3 H, RBC 3.96 L, Hgb 12.3, Hct 38.4, MCV 97.0, MCH 31.1, MCHC 32.0, RDW Std Deviation 55.3 H, RDW Coeff of Ruben 15.6 H, Plt Count 396, MPV 8.6, Immature Gran % (Auto) 1.100 H, Neut % (Auto) 86.9 H, Lymph % (Auto) 6.7 L, [place] % (Auto) 4.6, Eos % (Auto) 0.5, Baso % (Auto) 0.2, Absolute Neuts (auto) 16.7 H, Absolute Lymphs (auto) 1.30, Nucleated RBC % 0 09/26/22 04:00: Sodium 136, Potassium 3.6, Chloride 101, Carbon Dioxide 31.0, Anion Gap 4 L, BUN 32 H, Creatinine 0.41 L, Estim Creat Clear Calc 37.74, Est GFR (MDRD) Af Amer 192, Est GFR (MDRD) Non-Af 159, BUN/Creatinine Ratio 78.0 H, Glucose 186 H, Calcium 9.0 Micro: Microbiology 09/22/22 14:15 Blood Culture (Wb) - Left Hand Blood Culture - Preliminary No growth in 48 hours. 09/22/22 14:05 Blood Culture (Wb) - Right Hand Blood Culture - Preliminary No growth in 48 hours. 09/23/22 20:22 Urine, Clean Catch Legionella Antigen - Final 09/23/22 20:22 Urine, Clean Catch Streptococcus pneumoniae Antigen (M - Final 09/22/22 13:55 Mucosa - Nasopharyngeal Respiratory Panel (PCR) - Final Rhinovirus ABG Data ABG results: ABG 09/25/22 13:34 Specimen Type ART Sample Site R Radial pH 7.47 H Bicarbonate Actual 33.4 H Total CO2 35 Base Excess 10 H O2 Saturation 92 L O2 % 65 ABG pCO2 45.7 H ABG pO2 59 L Donell Test Positive Respiration Rate 14 O2 Delivery Device BiPAP POC PEEP 10 Radiography Diagnostic Testing: Radiology Impression Chest CTA 09/25/22 06:24 IMPRESSION: Bilateral PE with filling defects noted in the distal aspect of the main right pulmonary artery extending into branches leading to the right lower lobe and also within branches leading to the left upper lobe. There is some sign of right heart strain with reflux of contrast into the IVC Diffuse airspace opacifications in both lung daley with bilateral pleural effusions and atelectasis. Findings consistent with diffuse bilateral pneumonias Chronic bronchitis No suspicious adenopathy Degenerative bony changes Electronically Signed: Ricki Dumont MD at 11:51 EDT , ADDENDUM: 09/25/22 1221 IMPRESSION: Bilateral PE with filling defects noted in the distal aspect of the main right pulmonary artery extending into branches leading to the right lower lobe and also within branches leading to the left upper lobe. There is some sign of right heart strain with reflux of contrast into the IVC Diffuse airspace opacifications in both lung daley with bilateral pleural effusions and atelectasis. Findings consistent with diffuse bilateral pneumonias Chronic bronchitis No suspicious adenopathy Degenerative bony changes N.B. : The above Results were Read Back by Ricki Dumont MD to Noni Casey RN, and understanding confirmed on 09/25/2022 12:14:23 (ET). Electronically Signed: Ricki Dumont MD at 11:51 EDT Reading Location ID and State: [facility] / [place] , Service support , Physical Exam Const alert General Appearance: cooperative and on BiPAP Nutritional Appearance: obese HEENT normocephalic and head/scalp atraumatic Eyes PERRL, EOMs intact bilaterally and conjunctivae normal Neck supple General: trachea midline Chest inspection of chest normal Resp Effort and Inspection: tachypneic Auscultation: rales; Negative for rhonchi or wheezes Cardio S1 normal heart sound and S2 normal heart sound Rhythm: abnormal rhythm GI normal to inspection, nondistended, normoactive bowel sounds Extremity General Extremity: edema bilateral lower extremity; Negative for clubbing Skin no rashes or lesions noted Neuro CN's II-XII intact bilaterally and no focal motor deficits Psych cooperative and affect normal Charges/Coding Procedures Hospitalists Procedures: 49524 Critial Care 1st Hr
[2022-09-26] MEDS: Insulin Lispro 100 UNIT/ML INSULN.PEN SC (06:44)
--- NOTE | 2022-09-26 06:48 | PCM.RX.CS ---
Consult Pharmacy has been consulted to manage selected antiobiotic: Vancomycin Type of Consult: New start Labs: Sodium 136 mmol/L (136-145) 09/26/22 04:00 Potassium 3.6 mmol/L (3.5-5.1) 09/26/22 04:00 Chloride 101 mmol/L (98-107) 09/26/22 04:00 Carbon Dioxide 31.0 mmol/L (21.0-32.0) 09/26/22 04:00 Anion Gap 4 (5-15) L 09/26/22 04:00 BUN 32 mg/dL (7-18) H 09/26/22 04:00 Creatinine 0.41 mg/dL (0.55-1.02) L 09/26/22 04:00 Est GFR (MDRD) Af Amer 192 mL/min (>60) 09/26/22 04:00 Est GFR (MDRD) Non-Af 159 mL/min (>60) 09/26/22 04:00 BUN/Creatinine Ratio 78.0 RATIO (10-20) H 09/26/22 04:00 Glucose 186 mg/dL (74-106) H 09/26/22 04:00 Microbiology: Microbiology 09/22/22 14:15 Blood Culture (Wb) - Left Hand Blood Culture - Preliminary No growth in 48 hours. 09/22/22 14:05 Blood Culture (Wb) - Right Hand Blood Culture - Preliminary No growth in 48 hours. 09/23/22 20:22 Urine, Clean Catch Legionella Antigen - Final 09/23/22 20:22 Urine, Clean Catch Streptococcus pneumoniae Antigen (M - Final 09/22/22 13:55 Mucosa - Nasopharyngeal Respiratory Panel (PCR) - Final Rhinovirus Goal Trough: 15-20 mcg/mL Pharmacy Plan for Drug Dosing: Pharmacy Service will continue to monitor and adjust dosing as required. Medications Vancomycin HCl 2,000 mg/ (Sodium Chloride) 540 mls @ 250 mls/hr IV X1 ONE Stop: 09/26/22 08:09 Last Admin: 09/26/22 06:32 Dose: 250 mls/hr Vancomycin HCl 1,250 mg/ (Sodium Chloride) 275 mls @ 167 mls/hr IV Q12H FERNANDA Follow-Up Labs: Trough Vancomycin Labs to be done on [date and time ordered]: 09/27 @ [id number]
--- NOTE | 2022-09-26 07:58 | PN.HOSP_ITS ---
Reason for Visit Reason for Visit: Diagnoses Type 2 diabetes mellitus without complications (09/18/22) Essential (primary) hypertension (09/18/22) ST elevation (STEMI) myocardial infarction of unspecified site (09/18/22) Atherosclerotic heart disease of [place] coronary artery without angina pectoris (09/18/22) Ischemic cardiomyopathy (09/18/22) Other ventricular tachycardia (09/18/22) Other persistent atrial fibrillation (09/18/22) Unspecified atrial fibrillation (09/18/22) Hypotension, unspecified (09/18/22) Presence of coronary angioplasty implant and graft (09/18/22) Follow-up for acute hypoxic respiratory failure, acute systolic heart failure and STEMI Objective Data Objective Data Vital Signs: Vital Signs Temp Pulse Resp BP Pulse Ox O2 Del Method O2 Flow Rate 97.6 F L 104 H 25 H 109/86 H 93 Bi-pap 15 09/26/22 06:00 09/26/22 07:16 09/26/22 07:16 09/26/22 07:00 09/26/22 07:16 09/26/22 07:16 09/25/22 14:00 FiO2 75 09/26/22 07:16 Oxygen Flow Rate (L/min) 15 Oxygen Delivery Method Bi-pap Weight: 186 lb 1.122 oz Body Mass Index (BMI) 32.9 Intake & Output: Intake and Output for Last 24 Hours 09/24/22 09/25/22 09/26/22 23:59 23:59 23:59 Intake Total 1150 / 1390 350 / 350 Output Total 600 / 1650 2100 / 2300 500 / 500 Balance 550 / -260 -1750 / -1950 -500 / -500 Lab / Micro Data Result Diagrams: 09/26/22 04:00 09/26/22 04:00 Labs: Laboratory Results - last 24 hr 09/25/22 03:30: Direct Bilirubin Cancelled 09/25/22 07:54: POC Glucose 197 H 09/25/22 11:38: POC Glucose 160 H 09/25/22 15:39: POC Glucose 155 H 09/25/22 21:16: POC Glucose 147 H 09/26/22 04:00: WBC 19.3 H, RBC 3.96 L, Hgb 12.3, Hct 38.4, MCV 97.0, MCH 31.1, MCHC 32.0, RDW Std Deviation 55.3 H, RDW Coeff of Ruben 15.6 H, Plt Count 396, MPV 8.6, Immature Gran % (Auto) 1.100 H, Neut % (Auto) 86.9 H, Lymph % (Auto) 6.7 L, [place] % (Auto) 4.6, Eos % (Auto) 0.5, Baso % (Auto) 0.2, Absolute Neuts (auto) 16.7 H, Absolute Lymphs (auto) 1.30, Nucleated RBC % 0 09/26/22 04:00: Sodium 136, Potassium 3.6, Chloride 101, Carbon Dioxide 31.0, Anion Gap 4 L, BUN 32 H, Creatinine 0.41 L, Estim Creat Clear Calc 37.74, Est GFR (MDRD) Af Amer 192, Est GFR (MDRD) Non-Af 159, BUN/Creatinine Ratio 78.0 H, Glucose 186 H, Calcium 9.0 Micro: Microbiology 09/22/22 14:15 Blood Culture (Wb) - Left Hand Blood Culture - Preliminary No growth in 48 hours. 09/22/22 14:05 Blood Culture (Wb) - Right Hand Blood Culture - Preliminary No growth in 48 hours. 09/23/22 20:22 Urine, Clean Catch Legionella Antigen - Final 09/23/22 20:22 Urine, Clean Catch Streptococcus pneumoniae Antigen (M - Final 09/22/22 13:55 Mucosa - Nasopharyngeal Respiratory Panel (PCR) - Final Rhinovirus ABG Data ABG results: ABG 09/25/22 13:34 Specimen Type ART Sample Site R Radial pH 7.47 H Bicarbonate Actual 33.4 H Total CO2 35 Base Excess 10 H O2 Saturation 92 L O2 % 65 ABG pCO2 45.7 H ABG pO2 59 L Donell Test Positive Respiration Rate 14 O2 Delivery Device BiPAP POC PEEP 10 Radiography Diagnostic Testing: Radiology Impression Chest CTA 09/25/22 06:24 IMPRESSION: Bilateral PE with filling defects noted in the distal aspect of the main right pulmonary artery extending into branches leading to the right lower lobe and also within branches leading to the left upper lobe. There is some sign of right heart strain with reflux of contrast into the IVC Diffuse airspace opacifications in both lung daley with bilateral pleural effusions and atelectasis. Findings consistent with diffuse bilateral pneumonias Chronic bronchitis No suspicious adenopathy Degenerative bony changes Electronically Signed: Ricki Dumont MD at 11:51 EDT , ADDENDUM: 09/25/22 1221 IMPRESSION: Bilateral PE with filling defects noted in the distal aspect of the main right pulmonary artery extending into branches leading to the right lower lobe and also within branches leading to the left upper lobe. There is some sign of right heart strain with reflux of contrast into the IVC Diffuse airspace opacifications in both lung daley with bilateral pleural effusions and atelectasis. Findings consistent with diffuse bilateral pneumonias Chronic bronchitis No suspicious adenopathy Degenerative bony changes N.B. : The above Results were Read Back by Ricki Dumont MD to Noni Casey RN, and understanding confirmed on 09/25/2022 12:14:23 (ET). Electronically Signed: Ricki Dumont MD at 11:51 EDT , Physical Exam Narrative Seen and examined. On 75% FiO2 on BiPAP. Not able to come off BiPAP for only 10 minutes break. BP on lower side. Patient in A-fib. Patient had bowel movement. Physical exam General: Awake alert in the morning. In respiratory distress. HEENT: Atraumatic, PERRLA, EOMI, Normocephalic Oral: Oral mucosa moist. No Gingival or Mucosal Lesions/ Ulcerations Neck: Supple, No JVD, Negative Carotid Bruits Lungs: Air entry diminished in bilateral lung bases. Bilateral coarse crepitations. Dyspnea at rest, labored breathing Cardiovascular: Irregular rhythm, A-fib, heart rate in 110s. normal S1, Normal S2, systolic murmur LSB. Abdomen: Bowel Sounds Present, Soft, Non Tender, Non-Distended : No renal angle tenderness. No suprapubic tenderness. Extremities: Mild bilateral lower leg 1+ pitting edema, Capillary Refill Less than 3 Seconds Skin: No rashes, No breakdown Musculoskeletal: Right TKR. Baseline on cane/walker. Muscle strength 4+/5 at knees and hips joints no Tenderness to Palpation of Joints or Extremities Neurological: Cranial nerves II-XII grossly intact, DTR 2+/4 and Symmetrical, Neuro grossly intact Psych/Mental Status: Flat affect. Assessment & Plan Assessment/Plan (1) STEMI (ST elevation myocardial infarction): (2) Hypertension: (3) Type 2 diabetes mellitus: PLAN: Plan 77-year-old female was admitted on 09/18 with chest pain severe retrosternal was sick diaphoretic hypotension. Found to have STEMI. #STEMI status post 2 stents to LAD and acute systolic heart failure due to STEMI -Presented 09/[address] elevation [place] and was taken to the Department Chairperson -Successful PCI with DAILY of occluded ostial LAD -She is on Brilinta 90 mg twice daily, low-dose aspirin for 1 year and on goal- directed medical therapy as per NSTEMI -Integrilin drip continued by cardiology -Coreg increased to 6.25 mg twice daily, lisinopril dose as tolerated by BP, high-dose statin -Echo ordered for today -Cardiac rehab on -Total cholesterol 203 with an LDL of 114 09/22: Echo shows decrease in EF 20-25%. Severe LV systolic dysfunction, mild to moderate MR and TR. Discussed with the human relations teacher. Patient will need LifeVest at the time of discharge. Lasix 40 mg IV ordered. 09/23: Hypotension after Lasix blood pressure dropped to 71/46. 500 ml Ringer lactate bolus ordered and reevaluate BP. If is still low, repeat another 500 mL bolus.. Lasix discontinued. 09/24: Chest x-ray initially reviewed shows bilateral progressive patchy i nfiltrate worse on the right lung field than left. Fluid overload. Hold off on Lasix. Prior to STEMI patient blood pressure as per the patient used to be slightly elevated probably 140s but on review of hospital record shows her blood pressure was in the 110s to 120s sometimes elevated 140s to 150s. 09/25: Patient on evidence-based guided medical therapy. On IV Lasix as per tolerated. spironolactone dose was held, will discuss with human relations teacher 09/26:On aspirin and Plavix, therapeutic anticoagulant dose of apixaban. Spironolactone resumed yesterday. On furosemide guided by hemodynamics and vitals. Rest as above. #Postintervention hypotension -Possibly secondary to reperfusion. Improvement -Continue to monitor 09/22: Hypotension has resolved. Patient's blood pressure recovered. It fluctuates from low 96/52-150/113. On low-dose Levaquin. Carvedilol dose increased. 09/23: Hypotension as mentioned above. Resuscitation and hold antihypertensive medications for now. Mild hypokalemia, potassium replaced. 09/24: Patient is maintaining her blood pressure. Hold off Lasix. Did not require pressors. #Hyperglycemia -A1c 5.6 -Elevated glucose may be reactive -Continue glucose checks and sliding scale insulin Acute hypoxic respiratory failure, multiple etiology including acute systolic heart failure and bilateral rhinovirus pneumonia with suspicion of secondary bacterial infection: Repeat chest x-ray was done on 09/22. Vascular congestion has improved but patient has progressive bilateral infiltrate, worsening right lung field. Pneumonia work-up ordered. Patient does not have fever but is more short of breath sometimes tachypneic labored breathing even on diuresis. Started on IV ceftriaxone and doxycycline. Levofloxacin/chloroquine and Zithromax avoided because of high interaction with amiodarone for QTc prolongation and arrhythmia. Solu-Medrol 60 mg IV 1 dose, half an hour before starting IV ceftriaxone. Discussed with the ID regarding allergy of penicillin with hives. 09/23: Respiratory panel positive for rhinovirus. COVID-19 PCR negative. Patient has bilateral viral pneumonia but might have secondary bacterial infection therefore we will continue empiric antibiotic. Continue BiPAP support. Pulmonary follow-up requested. 1 dose Solu-Medrol repeated. 09/24: Chest x-ray shows progressive increase in bilateral infiltrates. No fever. Did not had fever. Continue antibiotics. 09/25 Patient seen by inspector cold working. Discussed with ICU nurses and advised BiPAP stat. Patient might need intubation/ventilator. CTPA was done which shows bilateral PE in the distal aspect of main right pulmonary artery extending to branches leading to right lower lobe and also branches to left upper lobe. Sums sign of right heart strain with reflux into IVC. Diffuse airspace opacification both lung daley with bilateral pneumonia, bilateral pleural effusion and atelectasis. Discussed with ICU nurses and inspector cold working. Started on full dose of anticoagulation Eliquis 10 mg twice daily for 1 week and then 5 mg twice daily afterwards. Patient already on 2 antiplatelet agent. 09/26: ABG on 09/25 7.47/45.7/59.3 on 65% FiO2 BiPAP PEEP 10 respiratory rate 14; suggestive of very severe hypoxia with increased Aa gradient.? PaO2/FiO2 ratio 90.7. Her CT chest suggestive of bilateral alveolar opacities, worsening respiratory symptomatic dyspnea at rest, acute hypoxic respiratory failure. Hemoglobin 12.3. Platelet count 3 96,000. New onset A-fib probably due to NSTEMI:During previous admission patient was in sinus rhythm. Patient came with NSTEMI and was in A-fib rhythm. Patient was on Eliquis 2.5 mg twice daily is along with baby aspirin and Brilinta since admission probably the risk of bleeding from triple blood thinner. Started on 10 mg twice daily for 1 week and then 5 mg. 09/26: Discussed with inspector cold working and human relations teacher. #Transaminitis: Patient has mildly elevated ALT and AST AST more than ALT. Possible related to STEMI/mild hypotension 09/22: Improvement in AST ALT. Patient on high intensity statin. 09/24: Improvement in ALT and AST 09/25: Further improvement in AST and ALT. With the concern of family history of allergy to statin and reluctant to full dose atorvastatin 80 mg daily decreased to 40 mg daily. #DVT ppx: SCDs Total time of the visit including total time spent in counseling or coordination of care, (more than 50% of the total time, spent in obtaining medical information from nurses and other ancillary care providers,explaining to the patient about labs, imaging, diagnosis and management of active complex medical conditions), human relations teacher, hypotension, reassessment and reevaluation, review of labs and imaging is 50 minutes. Advance care planning was revisited yesterday. Dr. Morley and I discussed with the family members, 3 daughters and 3 sons. They are waiting for 1 more son to arrive on 4:24 AM. Patient diagnosis, hospital course and prognosis were discussed. Further decision pending until Tuesday Clinical Impression(s) from Imaging Studies Chest X-Ray 09/18/22 22:50 IMPRESSION: Poor inspiration with some bibasilar atelectasis. Cardiomegaly. Electronically Signed: Murtaza Rausch MD at 23:09 EDT , Echocardiogram 09/19/22 00:51 Interpretation Summary The estimated ejection fraction is 20-25 %. Severe LV systolic Dysfunction with segmental Wall motion as described Moderately enlarged left atrium Mild to moderate MR Mild to moderate TR No previous study to compare. Ordering Physician: Mauri Tang Referring Physician: Cyndee Morley Performed By: Berry Ojeda RCS Chest X-Ray 09/19/22 23:00 IMPRESSION: Patchy bilateral airspace disease. Findings may indicate pneumonia. Chest X-Ray 09/20/22 17:55 IMPRESSION: Stable vascular congestion with bilateral airspace disease, pulmonary edema versus infection. Chest X-Ray 09/22/22 10:21 IMPRESSION: Progressive bilateral patchy airspace disease worse in the right hemithorax. Chest X-Ray 09/22/22 10:21 IMPRESSION: Minimal left pleural effusion. Charges/Coding Visit Charges Inpatient E&M: 78364 Subs Hosp L3
[2022-09-26] MEDS: Carvedilol 3.125 MG TABLET PO (08:56)
[2022-09-26] MEDS: guaiFENesin 1,200 MG Tablet 1200 MG PO (08:56)
[2022-09-26] MEDS: Clopidogrel Bisulfate 75 MG Tablet PO (08:56)
[2022-09-26] MEDS: Aspirin E.C. 81 MG Tablet PO (08:56)
[2022-09-26] MEDS: Amiodarone 200 MG Tablet PO (08:57)
[2022-09-26] MEDS: Lisinopril 2.5 MG Tablet PO (08:57)
[2022-09-26] MEDS: Spironolactone 50 MG Tablet PO (08:57)
[2022-09-26] MEDS: APIXABAN 5 MG TABLET 10 MG PO (08:57)
[2022-09-26] MEDS: Pantoprazole Sodium 20 MG Tablet PO (08:57)
[2022-09-26] MEDS: Sertraline 100 MG Tablet PO (08:57)
[2022-09-26] MEDS: 0.9% Saline Lock 10 ML Syringe IV ×5 (08:57→18:25)
[2022-09-26] MEDS: Furosemide 40 MG/4 ML Vial IV (08:58)
--- NOTE | 2022-09-26 10:00 | NURSING ---
lengthy conversation with patient and her six children regarding code status and POC, including sequence of intubation vs DNRCC and comfort care measures. Patient and all children in agreeance to DNRCC with hospice consult. Dr. Campbell and Dr. Merida made aware, orders received. [facility] notified and will contact Cynthia, pt daughter.
--- NOTE | 2022-09-26 10:22 | NURSING ---
call made to [facility] at this time
[2022-09-26 11:11] LABS: Bedside Glucose 182 mg/dL (74-106)
--- NOTE | 2022-09-26 11:53 | NURSING ---
per patient and patient's children, waiting on patient's siblings to arrive before giving any medication.
[2022-09-26] MEDS: LORazepam 2 MG/ML Syringe 1 MG IV ×3 (12:25→19:32)
[2022-09-26] MEDS: Morphine 2 MG/ML Syringe IV ×7 (12:25→17:44)
--- NOTE | 2022-09-26 13:30 | NURSING ---
patient medicated with ativan and morphine on 15L high-flow NC, appears comfortable, eating frosty with family at bedside
--- NOTE | 2022-09-26 17:00 | NURSING ---
patient grunting and agonal breathing, continuing morphine and ativan
[2022-09-26] MEDS: Morphine 4 MG/ML Syringe IV ×5 (18:24→23:00)
[2022-09-27] MEDS: Morphine 4 MG/ML Syringe IV ×4 (00:28→06:22)
[2022-09-27 04:47] VITALS: BMI 33.0
--- NOTE | 2022-09-27 07:32 | PCM.PN.HOSP ---
Reason for Visit Reason for Visit: Diagnoses Type 2 diabetes mellitus without complications (09/18/22) Essential (primary) hypertension (09/18/22) ST elevation (STEMI) myocardial infarction of unspecified site (09/18/22) Atherosclerotic heart disease of [place] coronary artery without angina pectoris (09/18/22) Ischemic cardiomyopathy (09/18/22) Other ventricular tachycardia (09/18/22) Other persistent atrial fibrillation (09/18/22) Unspecified atrial fibrillation (09/18/22) Hypotension, unspecified (09/18/22) Presence of coronary angioplasty implant and graft (09/18/22) Subjective Subjective Follow-up for hospice care after STEMI complicating acute hypoxic respiratory failure from acute heart failure, A-fib, and bilateral pneumonia and PE Objective Data Objective Data Vital Signs: Vital Signs Temp Pulse Resp BP Pulse Ox O2 Del Method O2 Flow Rate 98.2 F 89 17 113/76 88 Nasal Cannula 15 09/26/22 12:00 09/26/22 14:00 09/26/22 14:00 09/26/22 14:00 09/26/22 14:10 09/27/22 02:00 09/26/22 14:10 FiO2 75 09/26/22 12:00 Oxygen Flow Rate (L/min) 15 Oxygen Delivery Method Nasal Cannula Weight: 186 lb 4.65 oz Body Mass Index (BMI) 33.0 Intake & Output: Intake and Output for Last 24 Hours 09/25/22 09/26/22 09/27/22 23:59 23:59 23:59 Intake Total 350 / 350 660 / 660 0 / 0 Output Total 2100 / 2300 950 / 950 Balance -1750 / -1950 -290 / -290 0 / 0 Lab / Micro Data Result Diagrams: 09/26/22 04:00 09/26/22 04:00 Labs: Laboratory Results - last 24 hr 09/26/22 06:43: POC Glucose 182 H Micro: Microbiology 09/22/22 14:15 Blood Culture (Wb) - Left Hand Blood Culture - Preliminary No growth in 48 hours. 09/22/22 14:05 Blood Culture (Wb) - Right Hand Blood Culture - Preliminary No growth in 48 hours. 09/23/22 20:22 Urine, Clean Catch Legionella Antigen - Final 09/23/22 20:22 Urine, Clean Catch Streptococcus pneumoniae Antigen (M - Final 09/22/22 13:55 Mucosa - Nasopharyngeal Respiratory Panel (PCR) - Final Rhinovirus Physical Exam Narrative Seen and examined. Patient and family decided hospice care on 09/26. Off BiPAP. On oxygen through nasal cannula. Patient is unconscious and unresponsive. Having agonal breaths. Physical exam General: Unconscious, unresponsive, not responding to touch verbal and mild toe pressure. comfortable HEENT: Atraumatic, PERRLA, EOMI, Normocephalic Oral: Oral mucosa moist. No Gingival or Mucosal Lesions/ Ulcerations Neck: Supple, No JVD, Negative Carotid Bruits Lungs: Air entry diminished in bilateral lung bases. Bilateral coarse crepitations. Agonal breaths. On IV Ativan and morphine as per hospice order. Cardiovascular: Irregular rhythm, A-fib, muffled heart sound. Systolic murmur LSB. Abdomen: Bowel Sounds sluggish, Soft, Non Tender, Non-Distended : No renal angle tenderness. No suprapubic tenderness. Extremities: Mild bilateral lower leg 1+ pitting edema, Capillary Refill Less than 3 Seconds Skin: No rashes, No breakdown Musculoskeletal: Right TKR. Baseline on cane/walker. Neurological: Unconscious. Unresponsive. Detailed neuro exam not required as patient is hospice. DTR 2+/4 Psych/Mental Status: Flat affect. Assessment & Plan Assessment/Plan (1) STEMI (ST elevation myocardial infarction): (2) Hypertension: (3) Type 2 diabetes mellitus: PLAN: Plan 77-year-old female was admitted on 09/18 with chest pain severe retrosternal was sick diaphoretic hypotension. Found to have STEMI. #STEMI status post 2 stents to LAD and acute systolic heart failure due to STEMI -Presented 09/[address] elevation [place] and was taken to the [facility] -Successful PCI with DAILY of occluded ostial LAD -She is on Brilinta 90 mg twice daily, low-dose aspirin for 1 year and on goal-directed medical therapy as per NSTEMI -Integrilin drip continued by cardiology -Coreg increased to 6.25 mg twice daily, lisinopril dose as tolerated by BP, high-dose statin -Echo ordered for today -Cardiac rehab on -Total cholesterol 203 with an LDL of 114 09/22: Echo shows decrease in EF 20-25%. Severe LV systolic dysfunction, mild to moderate MR and TR. Discussed with the welder tool and die. Patient will need LifeVest at the time of discharge. Lasix 40 mg IV ordered. 09/23: Hypotension after Lasix blood pressure dropped to 71/46. 500 ml Ringer lactate bolus ordered and reevaluate BP. If is still low, repeat another 500 mL bolus.. Lasix discontinued. 09/24: Chest x-ray initially reviewed shows bilateral progressive patchy infiltrate worse on the right lung field than left. Fluid overload. Hold off on Lasix. Prior to STEMI patient blood pressure as per the patient used to be slightly elevated probably 140s but on review of hospital record shows her blood pressure was in the 110s to 120s sometimes elevated 140s to 150s. 09/25: Patient on evidence-based guided medical therapy. On IV Lasix as per tolerated. spironolactone dose was held, will discuss with welder tool and die 09/26:On aspirin and Plavix, therapeutic anticoagulant dose of apixaban. Spironolactone resumed yesterday. On furosemide guided by hemodynamics and vitals. Rest as above. 09/27: Medications are continued for patient's comfort but patient currently on consults and unresponsive to verbal and touch. Patient's family has elected hospice in the morning yesterday. We will [facility] hospice . Comfort care. On IV morphine and Ativan to keep the patient comfortable. Patient's family's are in agreement. #Postintervention hypotension -Possibly secondary to reperfusion. Improvement -Continue to monitor 09/22: Hypotension has resolved. Patient's blood pressure recovered. It fluctuates from low 96/52-150/113. On low-dose Levaquin. Carvedilol dose increased. 09/23: Hypotension as mentioned above. Resuscitation and hold antihypertensive medications for now. Mild hypokalemia, potassium replaced. 09/24: Patient is maintaining her blood pressure. Hold off Lasix. Did not require pressors. #Hyperglycemia -A1c 5.6 -Elevated glucose may be reactive -Continue glucose checks and sliding scale insulin Acute hypoxic respiratory failure, multiple etiology including acute systolic heart failure and bilateral rhinovirus pneumonia with suspicion of secondary bacterial infection: Repeat chest x-ray was done on 09/22. Vascular congestion has improved but patient has progressive bilateral infiltrate, worsening right lung field. Pneumonia work-up ordered. Patient does not have fever but is more short of breath sometimes tachypneic labored breathing even on diuresis. Started on IV ceftriaxone and doxycycline. Levofloxacin/chloroquine and Zithromax avoided because of high interaction with amiodarone for QTc prolongation and arrhythmia. Solu-Medrol 60 mg IV 1 dose, half an hour before starting IV ceftriaxone. Discussed with the ID regarding allergy of penicillin with hives. 09/23: Respiratory panel positive for rhinovirus. COVID-19 PCR negative. Patient has bilateral viral pneumonia but might have secondary bacterial infection therefore we will continue empiric antibiotic. Continue BiPAP support. Pulmonary follow-up requested. 1 dose Solu-Medrol repeated. 09/24: Chest x-ray shows progressive increase in bilateral infiltrates. No fever. Did not had fever. Continue antibiotics. 09/25 Patient seen by city supervisor. Discussed with ICU nurses and advised BiPAP stat. Patient might need intubation/ventilator. CTPA was done which shows bilateral PE in the distal aspect of main right pulmonary artery extending to branches leading to right lower lobe and also branches to left upper lobe. Sums sign of right heart strain with reflux into IVC. Diffuse airspace opacification both lung daley with bilateral pneumonia, bilateral pleural effusion and atelectasis. Discussed with ICU nurses and city supervisor. Started on full dose of anticoagulation Eliquis 10 mg twice daily for 1 week and then 5 mg twice daily afterwards. Patient already on 2 antiplatelet agent. 09/26: ABG on 09/25 7.47/45.7/59.3 on 65% FiO2 BiPAP PEEP 10 respiratory rate 14; suggestive of very severe hypoxia with increased Aa gradient.? PaO2/FiO2 ratio 90.7. Her CT chest suggestive of bilateral alveolar opacities, worsening respiratory symptomatic dyspnea at rest, acute hypoxic respiratory failure. Hemoglobin 12.3. Platelet count 3 96,000. 09/27: BiPAP was taken off as per the patient's wish after she is elected hospice care. New onset A-fib probably due to NSTEMI:During previous admission patient was in sinus rhythm. Patient came with NSTEMI and was in A-fib rhythm. Patient was on Eliquis 2.5 mg twice daily is along with baby aspirin and Brilinta since admission probably the risk of bleeding from triple blood thinner. Started on 10 mg twice daily for 1 week and then 5 mg. 09/26: Discussed with city supervisor and welder tool and die. #Transaminitis: Patient has mildly elevated ALT and AST AST more than ALT. Possible related to STEMI/mild hypotension 09/22: Improvement in AST ALT. Patient on high intensity statin. 09/24: Improvement in ALT and AST 09/25: Further improvement in AST and ALT. With the concern of family history of allergy to statin and reluctant to full dose atorvastatin 80 mg daily decreased to 40 mg daily. #DVT ppx: SCDs Total time of the visit including total time spent in counseling or coordination of care, (more than 50% of the total time, spent in obtaining medical information from nurses and other ancillary care providers,explaining to the patient about labs, imaging, diagnosis and management of active complex medical conditions), welder tool and die, hypotension, reassessment and reevaluation, review of labs and imaging is 50 minutes. Advance care planning was revisited yesterday. Dr. Morley and I discussed with the family members, 3 daughters and 3 sons. They are waiting for 1 more son to arrive on 4:24 AM. Patient diagnosis, hospital course and prognosis were discussed. Further decision pending until Tuesday Clinical Impression(s) from Imaging Studies Chest X-Ray 09/18/22 22:50 IMPRESSION: Poor inspiration with some bibasilar atelectasis. Cardiomegaly. Electronically Signed: Murtaza Rausch MD at 23:09 EDT , Echocardiogram 09/19/22 00:51 Interpretation Summary The estimated ejection fraction is 20-25 %. Severe LV systolic Dysfunction with segmental Wall motion as described Moderately enlarged left atrium Mild to moderate MR Mild to moderate TR No previous study to compare. Ordering Physician: Mauri Tang Referring Physician: Cyndee Morley Performed By: Berry Ojeda RCS Chest X-Ray 09/19/22 23:00 IMPRESSION: Patchy bilateral airspace disease. Findings may indicate pneumonia. Chest X-Ray 09/20/22 17:55 IMPRESSION: Stable vascular congestion with bilateral airspace disease, pulmonary edema versus infection. Chest X-Ray 09/22/22 10:21 IMPRESSION: Progressive bilateral patchy airspace disease worse in the right hemithorax. Chest X-Ray 09/22/22 10:21 IMPRESSION: Minimal left pleural effusion. Charges/Coding Visit Charges Inpatient E&M: 57307 Subs Hosp L2
--- NOTE | 2022-09-27 07:45 | NURSING ---
Patient assessed and found to have shallow and irregular respirations, sometimes appearing agonal. Family present in waiting room, invited to stay at bedside. Family requested minimal intervention at this time, instructed to call if there are any needs or questions. Patient appears to be comfortable and without distress.
[2022-09-27 08:00] VITALS: BP 101/84; PULSE 87; RESP 12; O2SAT 76
[2022-09-27 09:00] VITALS: O2SAT 77
--- NOTE | 2022-09-27 09:23 | CASEMGMT ---
Social Work Pt is now on hospice here at the hospital. SW sent a message via [employer] to [facility]. SW stopped into room, spoke w/two of the children, offered support. SW let them know remains available for any supportive needs. SHAN Shafer
[2022-09-27 12:00] VITALS: BP 98/74; PULSE 91; RESP 10; O2SAT 77
--- NOTE | 2022-09-27 12:59 | CHAPLAIN ---
Type of Pastoral Visit _x__ Initial Visit ___ Follow-up Visit ___ On-call Visit ___ General Patient Visit ___ Spiritual Assessment ___ Family Conference ___ Bereavement ___ Rapid Response ___ Code Blue ___ Other (describe below) Pastoral Care Referral From ___ Patient _x__ Family _x__ Nurse ___ Physician ___ Yoker ___ Window Cutter ___ Other (describe below) Sacrament/Intervention _x__ Active listening ___ Anointing ___ Caodaism _x__ Bereavement ___ Communion _x__ Mary Jo exploration ___ _x__ Life review _x__ Prayer ___ Reconciliation ___ Sacrament of Sick _x__ Supportive presence ___ Wedding ___ Other (describe below) Pastoral Comments patient is now under hospice care in our ICU; family members have gathered; patient is unresponsive at this time; offered presence, support, life review, prayers; family welcomes all as given; one more son is on his way to be present; family hopeful that he can be here before patient passes; patient reportedly had great mary jo and 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
[2022-09-27 16:00] VITALS: PULSE 98; RESP 10; TEMP 36.4; O2SAT 68
--- NOTE | 2022-09-27 16:34 | CHAPLAIN ---
Type of Pastoral Visit ___ Initial Visit _x__ Follow-up Visit ___ On-call Visit ___ General Patient Visit ___ Spiritual Assessment ___ Family Conference ___ Bereavement ___ Rapid Response ___ Code Blue ___ Other (describe below) Pastoral Care Referral From ___ Patient _x__ Family ___ Nurse ___ Physician ___ Carpet Floor Layer Apprentice ___ Refrigeration Mechanic Helper ___ Other (describe below) Sacrament/Intervention _x__ Active listening ___ Anointing ___ Yarsani ___ Bereavement ___ Communion _x__ Mary Jo exploration ___ _x__ Life review ___ Prayer ___ Reconciliation ___ Sacrament of Sick _x__ Supportive presence ___ Wedding ___ Other (describe below) Pastoral Comments follow up to this patient who remains unresponsive and will be evaluated for hospice care; three sons are now in the room; introduced self and roll to family; sons are talkative about their mother and review her many good qualities; sons acknowledge her mary jo, her good work ethic, and her hospitality/cooking; time to reflect and share stories
--- NOTE | 2022-09-27 17:24 | DCINST_ITS ---
Discharge Instructions Diet Discharge Diet: No restrictions and - (hospice care) Activity Discharge Activity: May Not Drive Dressing / Incision Call your doctor if you observe: - (Inpatient hospice unit.) Follow Up Care Test Results: Test results from this visit will be discussed in further detail at your follow- up appointment, if applicable. Discharge Plan Admission Admit Date/Time: 09/18/22 23:00 Primary Reason for Your Visit: Anterolateral apical STEMI with acute heart failure, bilateral pneumonia. Attending Provider: Junior Campbell Primary Care Provider: Avery De Jesus Consulting Providers: Mauri Tang ; Toña Tavares ; Cyndee Morley ; Cristofer Hewitt ; Burak Merida ; Tobias Saldaña ; Barrie Baker ; Meena Gage RESEARCH HOME ECONOMIST ; Juana Parmar ; Gonsalo Cordova ; Aggie Jimenez ; Jody Willson ; Abby Rosenthal RESEARCH HOME ECONOMIST Instructions Additional Instructions / Restrictions: Lorazepam 1 mg every 3 hourly as needed sublingual for anxiety/agitation. Roxanol, (morphine) 5 mg every 2 hourly sublingual as needed as needed for pain/shortness of breath, hospice order Discharge Orders/Prescriptions Prescriptions: New amiodarone 200 mg Tablet 200 mg PO BID Qty: 0 0RF Rx Instructions: 200 mg twice daily until 09/28/2022 night dose then changed to 200 mg daily on 09/29/2022 at 10 AM Eliquis 5 mg Tablet 10 mg PO BID 30 Days Qty: 74 0RF Rx Instructions: 10 mg twice daily, last dose 10/01/2022, at 10 PM. Start 5 mg twice daily from 10/02/2022 at 10 AM and to continue atorvastatin 40 mg Tablet 40 mg PO QHS Qty: 0 0RF ipratropium-albuterol 0.5 mg-3 mg(2.5 mg base)/3 mL Solution For Nebulization 3 ml inhalation Q4H.RT PRN (Reason: SHORTNESS OF BREATH) Qty: 0 0RF clopidogrel 75 mg Tablet 75 mg PO DAILY Qty: 0 0RF aspirin 81 mg Tablet,Delayed Release (Dr/Ec) 81 mg PO DAILY@0800 Qty: 0 0RF carvedilol 3.125 mg Tablet 3.125 mg PO BIDCM Qty: 0 0RF lisinopril 2.5 mg Tablet 2.5 mg PO DAILY Qty: 0 0RF insulin lispro [Humalog KwikPen Insulin] 100 unit/mL Insulin Pen See Protocol subcut ACHS Qty: 0 0RF Protocol: 3. Sliding Scale Insulin Med Dosing Condition: 150-189 mg/dl = 1 unit Condition: 190-229 mg/dl = 2 units Condition: 230-269 mg/dl = 3 units Condition: 270-309 mg/dl = 4 units Condition: 310-349 mg/dl = 5 units Condition: 350-399 mg/dl = 6 units Condition: 400-449 mg/dl = 7 units Condition: Greater than 449 call physician Protocol Text: - Use for Total Daily Dose of Insulin 37-55 units - Obsese, infected, or steroid patients MEDIUM DOSING ALGORITHIM Mucus Relief ER 1,200 mg Tablet Extended Release 12hr 1,200 mg PO BID Qty: 0 0RF sennosides-docusate sodium [Stool Softener-Stimulant Laxat] 8.6-50 mg Tablet 2 tab PO BID PRN PRN (Reason: Constipation) Qty: 0 0RF pantoprazole 20 mg Tablet,Delayed Release (Dr/Ec) 40 mg PO DAILY Qty: 0 0RF spironolactone 50 mg Tablet 50 mg PO DAILY Qty: 0 0RF furosemide 40 mg tablet 40 mg PO DAILY Qty: 30 0RF Continued multivitamin Tablet 1 tab PO DAILY sertraline 100 MG tablet 100 mg PO DAILY gabapentin 100 MG capsule 200 mg PO TIDCM PRN (Reason: nerve pain) Probiotic 3 billion cell Capsule 3,000 mmu cells PO DAILY cholecalciferol (vitamin D3) 25 mcg (1,000 unit) capsule 25 mcg PO DAILY melatonin 10 mg Tablet, Sublingual 10 mg PO QHS 30 Days Qty: 30 0RF aspirin 81 mg Capsule 81 mg PO DAILY acetaminophen 500 mg tablet 1,000 mg PO Q8 PRN (Reason: Pain) Held cholestyramine (with sugar) 4 gram Powder In Packet 4 g PO TID Hold Instructions: Hold for 2 weeks. Referrals / Follow Up: Avery De Jesus MD [Primary Care Provider] - Meche Morton NP, [employer] HOME ECONOMIST-C [Non-Staff -Ordering Privileges] - 10/04/22 10:30 am (Cardiology follow-up appointment) Disposition Disposition (needs filled in before D/C Order can be placed): Hospice in Medical Facility
--- NOTE | 2022-09-27 17:37 | PCM.DC.SUM ---
Providers Date of Admission: 09/18/22 Date of Discharge: 09/27/22 Primary Care Physician: Dr. Avery De Jesus MD Consultations 09/19/22 00:14 Consult: Cardiology Routine Consulting Provider: Cyndee Morley Reason for Consult: STEMI EMERGENT Consult: Yes MD Notified: Yes Date Notified: 09/18/22 Time Notified: 23:09 Method of Notification: ED Physician Initiated Comments:: Via STEMI alert 09/19/22 01:35 Consult: Back Digger Operator / Pulmonary Medicine Routine Consulting Provider: Pulmonary Medicine [facility] Reason for Consult: hypotension during procedure EMERGENT Consult: No Notified: Yes Date Notified: 09/19/22 Time Notified: 01:35 Method of Notification: Text 09/27/22 15:21 Consult: Hospice / Palliative Care Routine Consulting Provider: [facility] Reason for Consult: end of life EMERGENT Consult: No Notified: Yes Date Notified: 09/26/22 Time Notified: 10:21 Method of Notification: Answering Service Reason For Visit: stemi Diagnosis Discharge Diagnosis (1) STEMI (ST elevation myocardial infarction): Status: Acute Code(s): I21.3 - ST elevation (STEMI) myocardial infarction of unspecified site (2) Hypertension: Status: Chronic Code(s): I10 - Essential (primary) hypertension (3) Type 2 diabetes mellitus: Status: Acute Code(s): E11.9 - Type 2 diabetes mellitus without complications Plan 77-year-old female was admitted on 09/18 with chest pain severe retrosternal was sick diaphoretic hypotension. Found to have STEMI. #STEMI status post 2 stents to LAD and acute systolic heart failure due to STEMI -Presented 09/[address] elevation MT and was taken to the Wet Process Operator -Successful PCI with DAILY of occluded ostial LAD -She is on Brilinta 90 mg twice daily, low-dose aspirin for 1 year and on goal-directed medical therapy as per NSTEMI -Integrilin drip continued by cardiology -Coreg increased to 6.25 mg twice daily, lisinopril dose as tolerated by BP, high-dose statin -Echo ordered for today -Cardiac rehab on -Total cholesterol 203 with an LDL of 114 09/22: Echo shows decrease in EF 20-25%. Severe LV systolic dysfunction, mild to moderate MR and TR. Discussed with the winding lathe operator. Patient will need LifeVest at the time of discharge. Tonyix 40 mg IV ordered. 09/23: Hypotension after Lasix blood pressure dropped to 71/46. 500 ml Ringer lactate bolus ordered and reevaluate BP. If is still low, repeat another 500 mL bolus.. Lasix discontinued. 09/24: Chest x-ray initially reviewed shows bilateral progressive patchy infiltrate worse on the right lung field than left. Fluid overload. Hold off on Lasix. Prior to STEMI patient blood pressure as per the patient used to be slightly elevated probably 140s but on review of hospital record shows her blood pressure was in the 110s to 120s sometimes elevated 140s to 150s. 09/25: Patient on evidence-based guided medical therapy. On IV Lasix as per tolerated. spironolactone dose was held, will discuss with winding lathe operator 09/26:On aspirin and Plavix, therapeutic anticoagulant dose of apixaban. Spironolactone resumed yesterday. On furosemide guided by hemodynamics and vitals. Rest as above. 09/27: Medications are continued for patient's comfort but patient currently on consults and unresponsive to verbal and touch. Patient's family has elected hospice in the morning yesterday. We will [facility] hospice . Comfort care. On IV morphine and Ativan to keep the patient comfortable. Patient's family's are in agreement. In afternoon I talked to hospice attending Dr. Aggie Jimenez and she agreed for transfer to inpatient hospice unit on morphine and Ativan and glycopyrrolate. I continued cardiac medications including aspirin Plavix, anticoagulant dose of Eliquis, carvedilol, low-dose lisinopril, Lasix and spironolactone and high intensity statin for now. Family and hospice attending can decide whether to continue or discontinue as per family wish. #Postintervention hypotension -Possibly secondary to reperfusion. Improvement -Continue to monitor 09/22: Hypotension has resolved. Patient's blood pressure recovered. It fluctuates from low 96/52-150/113. On low-dose Levaquin. Carvedilol dose increased. 09/23: Hypotension as mentioned above. Resuscitation and hold antihypertensive medications for now. Mild hypokalemia, potassium replaced. 09/24: Patient is maintaining her blood pressure. Hold off Lasix. Did not require pressors. #Hyperglycemia -A1c 5.6 -Elevated glucose may be reactive -Continue glucose checks and sliding scale insulin Acute hypoxic respiratory failure, multiple etiology including acute systolic heart failure and bilateral rhinovirus pneumonia with suspicion of secondary bacterial infection: Repeat chest x-ray was done on 09/22. Vascular congestion has improved but patient has progressive bilateral infiltrate, worsening right lung field. Pneumonia work-up ordered. Patient does not have fever but is more short of breath sometimes tachypneic labored breathing even on diuresis. Started on IV ceftriaxone and doxycycline. Levofloxacin/chloroquine and Zithromax avoided because of high interaction with amiodarone for QTc prolongation and arrhythmia. Solu-Medrol 60 mg IV 1 dose, half an hour before starting IV ceftriaxone. Discussed with the ID regarding allergy of penicillin with hives. 09/23: Respiratory panel positive for rhinovirus. COVID-19 PCR negative. Patient has bilateral viral pneumonia but might have secondary bacterial infection therefore we will continue empiric antibiotic. Continue BiPAP support. Pulmonary follow-up requested. 1 dose Solu-Medrol repeated. 09/24: Chest x-ray shows progressive increase in bilateral infiltrates. No fever. Did not had fever. Continue antibiotics. 09/25 Patient seen by excavation laborer. Discussed with ICU nurses and advised BiPAP stat. Patient might need intubation/ventilator. CTPA was done which shows bilateral PE in the distal aspect of main right pulmonary artery extending to branches leading to right lower lobe and also branches to left upper lobe. Sums sign of right heart strain with reflux into IVC. Diffuse airspace opacification both lung daley with bilateral pneumonia, bilateral pleural effusion and atelectasis. Discussed with ICU nurses and excavation laborer. Started on full dose of anticoagulation Eliquis 10 mg twice daily for 1 week and then 5 mg twice daily afterwards. Patient already on 2 antiplatelet agent. 09/26: ABG on 09/25 7.47/45.7/59.3 on 65% FiO2 BiPAP PEEP 10 respiratory rate 14; suggestive of very severe hypoxia with increased Aa gradient.? PaO2/FiO2 ratio 90.7. Her CT chest suggestive of bilateral alveolar opacities, worsening respiratory symptomatic dyspnea at rest, acute hypoxic respiratory failure. Hemoglobin 12.3. Platelet count 3 96,000. 09/27: BiPAP was taken off as per the patient's wish after she is elected hospice care. I talked to practice management consultant Dr. Coello and he accepted the patient under her service in inpatient hospice unit. The same was communicated to the patient's nurse and the family and the patient was transferred to IHU. New onset A-fib probably due to NSTEMI:During previous admission patient was in sinus rhythm. Patient came with NSTEMI and was in A-fib rhythm. Patient was on Eliquis 2.5 mg twice daily is along with baby aspirin and Brilinta since admission probably the risk of bleeding from triple blood thinner. Started on 10 mg twice daily for 1 week and then 5 mg. 09/26: Discussed with excavation laborer and winding lathe operator. #Transaminitis: Patient has mildly elevated ALT and AST AST more than ALT. Possible related to STEMI/mild hypotension 09/22: Improvement in AST ALT. Patient on high intensity statin. 09/24: Improvement in ALT and AST 09/25: Further improvement in AST and ALT. With the concern of family history of allergy to statin and reluctant to full dose atorvastatin 80 mg daily decreased to 40 mg daily. #DVT ppx: SCDs Advance care planning was revisited yesterday. Dr. Morley and I discussed with the family members, 3 daughters and 3 sons. Patient diagnosis, hospital course and prognosis were discussed. Further decision pending until Tuesday Patient is being transferred to inpatient hospice unit. Discharge medication reconciliation done. PCP needs to be communicated. Total time spent, exact 35 minutes on discharge meds reconciliation, examination, coordination of care with nurses and ancillary staff, review of imaging and blood test and discussion with the patient's family member Clinical Impression(s) from Imaging Studies Chest X-Ray 09/18/22 22:50 IMPRESSION: Poor inspiration with some bibasilar atelectasis. Cardiomegaly. Electronically Signed: Murtaza Rausch MD at 23:09 EDT , Echocardiogram 09/19/22 00:51 Interpretation Summary The estimated ejection fraction is 20-25 %. Severe LV systolic Dysfunction with segmental Wall motion as described Moderately enlarged left atrium Mild to moderate MR Mild to moderate TR No previous study to compare. Ordering Physician: Mauri Tang Referring Physician: Cyndee Morley Performed By: Berry Ojeda RCS Chest X-Ray 09/19/22 23:00 IMPRESSION: Patchy bilateral airspace disease. Findings may indicate pneumonia. Chest X-Ray 09/20/22 17:55 IMPRESSION: Stable vascular congestion with bilateral airspace disease, pulmonary edema versus infection. Chest X-Ray 09/22/22 10:21 IMPRESSION: Progressive bilateral patchy airspace disease worse in the right hemithorax. Chest X-Ray 09/22/22 10:21 IMPRESSION: Minimal left pleural effusion. Medications at Discharge Home Medications sertraline 100 mg tablet 100 mg PO DAILY depression 12/24/19 multivitamin 1 tab PO DAILY vitamin 02/14/20 gabapentin 100 mg capsule 200 mg PO TIDCM PRN nerve pain 07/28/20 cholestyramine (with sugar) 4 gram powder for susp in a packet 4 g PO TID diarrhea 05/12/21 lactobacillus combination no.4 3 billion cell capsule (Probiotic) 3,000 mmu cells PO DAILY diarrhea 05/12/21 cholecalciferol (vitamin D3) 25 mcg (1,000 unit) capsule 25 mcg PO DAILY supplement 05/15/21 melatonin 10 mg sublingual tablet 10 mg PO QHS 30 days #30 tabs 05/25/21 acetaminophen 500 mg tablet 1,000 mg PO Q8 PRN Pain 07/15/22 aspirin 81 mg capsule 81 mg PO DAILY 07/15/22 amiodarone 200 mg tablet 200 mg PO BID #0 tabs 09/27/22 apixaban 5 mg tablet (Eliquis) 10 mg PO BID 30 days #74 tabs 09/27/22 aspirin 81 mg tablet,delayed release 81 mg PO DAILY@0800 #0 tabs 09/27/22 atorvastatin 40 mg tablet 40 mg PO QHS #0 tabs 09/27/22 carvedilol 3.125 mg tablet 3.125 mg PO BIDCM #0 tabs 09/27/22 clopidogrel 75 mg tablet 75 mg PO DAILY #0 tabs 09/27/22 furosemide 40 mg tablet 40 mg PO DAILY #30 tabs 09/27/22 guaifenesin 1,200 mg tablet, extended release 12 hr (Mucus Relief ER) 1,200 mg PO BID #0 tabs 09/27/22 insulin lispro 100 unit/mL subcutaneous pen (Humalog KwikPen (U-100) Insulin) See Protocol subcut ACHS #0 mL 09/27/22 ipratropium 0.5 mg-albuterol 3 mg (2.5 mg base)/3 mL nebulization soln 3 ml inhalation Q4H.RT PRN SHORTNESS OF BREATH #0 mL 09/27/22 lisinopril 2.5 mg tablet 2.5 mg PO DAILY #0 tabs 09/27/22 pantoprazole 20 mg tablet,delayed release 40 mg PO DAILY #0 tabs 09/27/22 sennosides 8.6 mg-docusate sodium 50 mg tablet (Stool Softener-Stimulant Laxative) 2 tab PO BID PRN PRN Constipation #0 tabs 09/27/22 spironolactone 50 mg tablet 50 mg PO DAILY #0 tabs 09/27/22 Physical Exam Narrative Patient was seen and examined in the morning. Patient is still having agonal breath sometimes. Please see progress note of same date. Weight / BMI Weight Weight: 186 lb 4.65 oz Body Mass Index (BMI) 33.0 ABG / Lab / Microbiology Data Result Diagrams: 09/26/22 04:00 09/26/22 04:00 Microbiology: Microbiology 09/22/22 14:15 Blood Culture (Wb) - Left Hand Blood Culture - Preliminary No growth in 48 hours. 09/22/22 14:05 Blood Culture (Wb) - Right Hand Blood Culture - Preliminary No growth in 48 hours. 09/23/22 20:22 Urine, Clean Catch Legionella Antigen - Final 09/23/22 20:22 Urine, Clean Catch Streptococcus pneumoniae Antigen (M - Final 09/22/22 13:55 Mucosa - Nasopharyngeal Respiratory Panel (PCR) - Final Rhinovirus D/C Instructions Discharge Diet: No restrictions and - (hospice care) Call your doctor if you observe: - (Inpatient hospice unit.) Meaningful Use Info Meaningful Use Diagnoses (Choose all that apply): None applicable Discharge Plan Admission Admit Date/Time: 09/18/22 23:00 Primary Reason for Your Visit: Anterolateral apical STEMI with acute heart failure, bilateral pneumonia. Attending Provider: Junior Campbell Primary Care Provider: Avery De Jesus Consulting Providers: Mauri Tang ; Toña Tavares ; Cyndee Morley ; Cristofer Hewitt ; Burak Merida ; Tobias Saldaña ; Barrie Baker ; Meena Gage FINANCIAL SOLUTIONS ADVISOR ; Juana Parmar ; Gonsalo Cordova ; Aggie Jimenez ; Jody Willson ; Abby Rosenthal FINANCIAL SOLUTIONS ADVISOR Instructions Additional Instructions / Restrictions: Lorazepam 1 mg every 3 hourly as needed sublingual for anxiety/agitation. Roxanol, (morphine) 5 mg every 2 hourly sublingual as needed as needed for pain/shortness of breath, hospice order Discharge Orders/Prescriptions Prescriptions: New amiodarone 200 mg Tablet 200 mg PO BID Qty: 0 0RF Rx Instructions: 200 mg twice daily until 09/28/2022 night dose then changed to 200 mg daily on 09/29/2022 at 10 AM Eliquis 5 mg Tablet 10 mg PO BID 30 Days Qty: 74 0RF Rx Instructions: 10 mg twice daily, last dose 10/01/2022, at 10 PM. Start 5 mg twice daily from 10/02/2022 at 10 AM and to continue atorvastatin 40 mg Tablet 40 mg PO QHS Qty: 0 0RF ipratropium-albuterol 0.5 mg-3 mg(2.5 mg base)/3 mL Solution For Nebulization 3 ml inhalation Q4H.RT PRN (Reason: SHORTNESS OF BREATH) Qty: 0 0RF clopidogrel 75 mg Tablet 75 mg PO DAILY Qty: 0 0RF aspirin 81 mg Tablet,Delayed Release (Dr/Ec) 81 mg PO DAILY@0800 Qty: 0 0RF carvedilol 3.125 mg Tablet 3.125 mg PO BIDCM Qty: 0 0RF lisinopril 2.5 mg Tablet 2.5 mg PO DAILY Qty: 0 0RF insulin lispro [Humalog KwikPen Insulin] 100 unit/mL Insulin Pen See Protocol subcut ACHS Qty: 0 0RF Protocol: 3. Sliding Scale Insulin Med Dosing Condition: 150-189 mg/dl = 1 unit Condition: 190-229 mg/dl = 2 units Condition: 230-269 mg/dl = 3 units Condition: 270-309 mg/dl = 4 units Condition: 310-349 mg/dl = 5 units Condition: 350-399 mg/dl = 6 units Condition: 400-449 mg/dl = 7 units Condition: Greater than 449 call physician Protocol Text: - Use for Total Daily Dose of Insulin 37-55 units - Obsese, infected, or steroid patients MEDIUM DOSING ALGORITHIM Mucus Relief ER 1,200 mg Tablet Extended Release 12hr 1,200 mg PO BID Qty: 0 0RF sennosides-docusate sodium [Stool Softener-Stimulant Laxat] 8.6-50 mg Tablet 2 tab PO BID PRN PRN (Reason: Constipation) Qty: 0 0RF pantoprazole 20 mg Tablet,Delayed Release (Dr/Ec) 40 mg PO DAILY Qty: 0 0RF spironolactone 50 mg Tablet 50 mg PO DAILY Qty: 0 0RF furosemide 40 mg tablet 40 mg PO DAILY Qty: 30 0RF Continued multivitamin Tablet 1 tab PO DAILY sertraline 100 MG tablet 100 mg PO DAILY gabapentin 100 MG capsule 200 mg PO TIDCM PRN (Reason: nerve pain) Probiotic 3 billion cell Capsule 3,000 mmu cells PO DAILY cholecalciferol (vitamin D3) 25 mcg (1,000 unit) capsule 25 mcg PO DAILY melatonin 10 mg Tablet, Sublingual 10 mg PO QHS 30 Days Qty: 30 0RF aspirin 81 mg Capsule 81 mg PO DAILY acetaminophen 500 mg tablet 1,000 mg PO Q8 PRN (Reason: Pain) Held cholestyramine (with sugar) 4 gram Powder In Packet 4 g PO TID Hold Instructions: Hold for 2 weeks. Referrals / Follow Up: Avery De Jesus MD [Primary Care Provider] - Meche Morton NP, FINANCIAL SOLUTIONS ADVISOR-C [Non-Staff -Ordering Privileges] - 10/04/22 10:30 am (Cardiology follow-up appointment) Disposition Disposition (needs filled in before D/C Order can be placed): Hospice in Medical Facility Charges/Coding Visit Charges Inpatient E&M: 00197 Disch Hosp >30min
[2022-09-27] MEDS: Morphine 2 MG/ML Syringe IV (20:44)
[2022-09-27] MEDS: 0.9% Saline Lock 10 ML Syringe IV (20:45)
[2022-09-27 21:04] VITALS: BP 77/51; PULSE 100; RESP 14; TEMP 36.4; O2SAT 74
--- NOTE | 2022-09-27 21:41 | NURSING ---
Family member came out to the desk asking for a nurse to come into the room because pt was having a reaction. This RN went into room; family said that pt looked like she was about to cry and looked uncomfortable. Respirations irregular and increased work of breathing. Morphine given for air hunger and SOB.
== END 2022-09-27 21:30 | disposition hospice, inpatient (51) | DRG 246 ==
LOC: ED 22:43 → ICU 23:02 → PCU 09-21 20:09 → ICU 09-23 14:03
PROVIDERS: Internal Medicine; Internal Medicine Critical Care Medicine; Admitting Provider Hospitalist; Emergency Provider Emergency Medicine; PCP Family Medicine; Referring Provider Internal Medicine Interventional Cardiology; Visit Provider Internal Medicine
DX: I21.02 ST elevation (STEMI) myocardial infarction involving left anterior descending coronary artery (principal); J96.01 Acute respiratory failure with hypoxia; I26.99 Other pulmonary embolism without acute cor pulmonale; I50.21 Acute systolic (congestive) heart failure; J12.89 Other viral pneumonia; I48.19 Other persistent atrial fibrillation; I47.29 Other ventricular tachycardia; J98.11 Atelectasis; I11.0 Hypertensive heart disease with heart failure; E11.65 Type 2 diabetes mellitus with hyperglycemia; Z79.4 Long term (current) use of insulin; I25.10 Atherosclerotic heart disease of native coronary artery without angina pectoris; E87.6 Hypokalemia; I25.5 Ischemic cardiomyopathy; I95.2 Hypotension due to drugs; T50.1X5A Adverse effect of loop [high-ceiling] diuretics, initial encounter; E66.9 Obesity, unspecified; G89.4 Chronic pain syndrome; F32.A Depression, unspecified; B97.89 Other viral agents as the cause of diseases classified elsewhere; R74.01 Elevation of levels of liver transaminase levels; Z68.33 Body mass index [BMI] 33.0-33.9, adult; Z66 Do not resuscitate; Z51.5 Encounter for palliative care; Z95.5 Presence of coronary angioplasty implant and graft; Z79.01 Long term (current) use of anticoagulants; Z79.02 Long term (current) use of antithrombotics/antiplatelets; Z79.82 Long term (current) use of aspirin; Z79.899 Other long term (current) drug therapy; Z86.16 Personal history of COVID-19
CPT/HCPCS: 36415; 36600; 71045; 71046; 71275; 80048; 80053; 80061; 80076; 82803; 82962; 83036; 83735; 83880; 84100; 84145; 84484; 85025; 85027; 85347; 85610; 85730; 87040; 87449; 87633; 87635; 87641; 92941; 93005; 93306; 93454; 94002; 94003; 94668; 94762; 97162; 97166; 97530; 97535; 99252; C1769; J2185; J7030; J7040; J7050; J7120; Q9957; Q9967; A4216; C1725; C1760; C1874; C1887; C1894; C9606; G0463; J1327; J1940; J2405; U0003; U0005